=== PATIENT | female | born 1950 | race Caucasian/White ===

== ENCOUNTER 2024-07-02 11:20 | Observation (INO) | payer MEDICARE, OTHER ==
--- OUTSIDE RECORDS SUMMARY | 2024-07-02 11:45 | XMS REPORT | Continuity of Care Document ---
Author Name Unknown Address [address] [facility] [address]. [address] [place] [address] [facility] thconnect Address [address] [facility]. [address] [place] [address] Care Team Providers Care Cardiac Cath Rn Name Role Phone Tai Velarde MD Primary Care Physician + [phone] KIYA AUGUST Attending Clinician Unavailable ROSA M KRISHNA Attending Clinician Unavaila ROSA M Harris Attending Clinician Unavaila YANIV Robertson Attending Clinician Unavailable TAI VELARDE Attending Clinician Unavailable GORAN DEGROOT Attending Clinician Unavailable GORAN DEGROOT Attending Clinician Unavailable Tai Velarde MD Attending Clinician [phone] Doctor Unassigned, [address] Attending Clinician U Luz Bryant Attending Clinician Unavailab lopez 2, [facility] Attending Clinician Unavailable Codie Mitchell MD Attending Clinician [phone] David Velasquez MD Attending Clinician [phone] Yuko Dunn MA Attending Clinician UnavailGoran Pritchett MD Attending Clinician [phone] DORCAS KAM Attending Clinician Unavailable Brendan Burgos MDin g Clinician Kam MD, Dorcas Attending Clinician [phone] Chase VILLAFUERTE, Nannette Attending Clinician [phone] NANNETTE STONE Attending Clinician Unavailable BRIAN VIEIRA Attending Clinician Unavailable Pob, [facility] Main Attending Clinician Unavailabl e OBI-MARLON, DAVID Attending Clinician Unavailab le OBI-MARLON, DAVID Attending Clinician Unavailab john Bedolla RN, Gladys Quintero Attending Clinician Unavail able JASVIR HOWE Attending Clinician Unavailable Tu VILLAFUERTE, Sebastian Pérez Attending Clinician [phone] Jasvir Howe DO Attending Clinician [phone] Anthony VILLAFUERTE, Yaniv Attending Clinician +[phone] Kiya August MD Attending Clinician [phone] Erendira VILLAFUERTE, Rosa M John Attending Clinician + [phone] HUY PATTON Attending Clinician Unavailable HUY PATTON Attending Clinician Unavailable Pooja VILLAFUERTE, Huy Attending Clinician [phone] DIOGENES ALLEN Attending Clinician Unavailab DIOGENES Borrero Attending Clinician Unavailab john Allen CALENDER INSPECTOR, Diogenes Attending Clinician [phone] Rehab, [facility] Cardiac Attending Clinician Unavailab john Cruz MD, Yaniv Attending Clinician [phone] Pob, [facility] Main Attending Clinician UnavailTai Chapman MD Attending Clinician [phone] Natty Kim Attending Clinician + Brian Vieira MD Attending Clinician [phone] NATTY JIMENEZ Attending Clinician Unavailable MONIQUE VARGHESE Attending Clinician Unavaila MONIQUE Whitley Attending Clinician Unavaila EDSON Heath Attending Clinician Unavailable Jose G Nixon MD Attending Clinician [phone] Daniela Holder MD Attending Clinician [phone] Gabriele Lebron MD Attending Clinician +[phone] GETACHEW SANTILLAN Attending Clinician Unavailab GETACHEW Peña Attending Clinician Unavailab le Doctor Unassigned, [address] Attending Clinician U navailable 2, [facility] Attending Clinician Unavailable Kiya August MD Attending Clinician [phone] SHANTELLE VIEIRA Attending Clinician Unavailable SHANTELLE VIEIRA Attending Clinician Unavailable SANJANA QUIROZ Attending Clinician Unavailallison Hernandez MD, Melissa Attending Clinician + MELISSA HERNANDEZ Attending Clinician UnaZaira Martin Attending Clinician +[phone] PRESLEY LEON Attending Clinician Unavailable PRESLEY LEON Attending Clinician Unavailable Edson Lombardo MD Attending Clinician [phone] Codie Mitchell MD Attending Clinician [phone] CODIE MITCHELL Attending Clinician Unavailmiladys Burgos MD, Brendan Montanez [facility] Attendin g Clinician Sherman Fair MD Attending Clinician [phone] JESSICA COLON Attending Clinician Unavailab Jessica Garcia DO Attending Clinician +[phone] Visit, [facility] Nurse Attending Clinician Unavailable DEDRA KIDD Attending Clinician Unavailable Erendira VILLAFUERTE, Rosa M John Attending Clinician + [phone] Dedra Kidd MD Attending Clinician [phone] CINDY ARCHIBALD Attending Clinician Unavailable Vaccine, [facility] Family Medicine Attending Clinician Unavailable KATH CENTENO Attending Clinician UnaKath Salas MD Attending Clinician [phone] HENRY DEE Attending Clinician UnavailHenry Cabrera MD Attending Clinician + [phone] REY DWYER Attending Clinician UnavailRey Riley MD Attending Clinician [phone] CODIE MARIE Attending Clinician Lance Marie MD, Codie Ch Attending Clinician + [phone] Only, Adc Test Attending Clinician Unavailable Angélica Christopher Attending Clinician +[phone] ANGÉLICA GOSS Attending Clinician Unavailmiladys Vaughan MD, Brody Attending Clinician [phone] BRODY VAUGHAN Attending Clinician Unavailable Kimani Caputo DO Attending Clinician [phone] Lakisha PT, Nery Attending Clinician Unavailab john Pack WIND TURBINE MECHANIC, Zina Washington Attending Clinician Unavail able Thea BARRIOSP, Dunia Cooper Attending Clinician [phone] Ramone WIND TURBINE MECHANIC, Sebastian F Attending Clinician Unavaila jaime Huddleston PT, Bonnie Max Attending Clinician Unavailab john Henderson PT, Trinh Attending Clinician Un available KARLA WORKMAN Attending Clinician Unavailab john Pc, [facility] Echo Room 1 - Attending Clinician KIYA Patel Admitting Clinician Unavailable BRENDAN BURGOS Admitting C linician Unavailable Aubrey VILLAFUERTE, Brendan max Clinician NANNETTE STONE Admitting Clinician Unavailable JASVIR HOWE Admitting Clinician Unavailable Jasvir Howe DO Admitting Clinician [phone] BRIAN VIEIRA Admitting Clinician Unavailable PRESLEY LEON Admitting Clinician Unavailable GETACHEW SANTILLAN Admitting Clinician Unavailab Brian Corral MD Admitting Clinician [phone] YANIV CRUZ Admitting Clinician Unavailable KATH CENTENO Admitting Clinician Unava HENRY Tomas Admitting Clinician UnavailCODIE Schulte Admitting Clinician Lance Marie MD, Codie Ch Admitting Clinician + [phone] Kiya August MD Admitting Clinician +[phone] REY DWYER Admitting Clinician Unavailmiladys littlejohn Payers Payer Name Policy Type Policy Number Effective Date Expirati on Date Source [employer]AGE [id number] 2019 00:00:00 [facility] [id number] 2019 00:00:00 Problems Condition Name Condition Details Condition Category Status Onset Date Resolution Date Last Treatment Date Treating Clinician Comments Source Paroxysmal atrial fibrillati on Paroxysmal atrial fibrillati on Disease Active 2023-05 0-30 00:00: 00 [facility] PAF (paroxysma l atrial fibrillati on) PAF (paroxysma l atrial fibrillati on) Disease Active 2023-05 0-26 00:00: 00 [facility] Atrial fibrillati on with rapid ventricula r response Atrial fibrillati on with rapid ventricula r response Disease Active 2023-05 0-24 00:00: 00 [facility] Class 1 obesity due to excess calories with serious comorbidit y and body mass index (BMI) of 34.0 to 34.9 in adult Class 1 obesity due to excess calories with serious comorbidit y and body mass index (BMI) of 34.0 to 34.9 in adult Disease Active 8-16 00:00: 00 [facility] History of transcathe ter aortic valve replacemen t (TAVR) History of transcathe ter aortic valve replacemen t (TAVR) Disease Active 4-15 00:00: 00 [facility] At risk for falls At risk for falls Disease Active 4- 00:00: 00 [facility] Unspecifie d abnormalit ies of gait and mobility Unspecifie d abnormalit ies of gait and mobility Disease Active 4- 00:00: 00 [facility] Reactive depression Reactive depression Disease Active 2-16 00:00: 00 [facility] Aortic valve stenosis, etiology of cardiac valve disease unspecifie d Aortic valve stenosis, etiology of cardiac valve disease unspecifie d Disease Active 1-26 00:00: 00 [facility] Aortic valve stenosis Aortic valve stenosis Disease Active 2022-05 2-18 00:00: 00 [facility] Pulmonary nodule Pulmonary nodule Disease Active 2022-05 1- 00:00: 00 [facility] Mild cardiomega ly Mild cardiomega ly Disease Active 2022-05 00:00: 00 [facility] Chronic iron deficiency anemia Chronic iron deficiency anemia Disease Active 2022-05 1 00:00: 00 [facility] Coronary artery disease involving [place] coronary artery of [place] heart without angina pectoris Coronary artery disease involving [place] coronary artery of [place] heart without angina pectoris Disease Active 2022-05 1-07 00:00: 00 [facility] Moderate to severe aortic stenosis Moderate to severe aortic stenosis Disease Active 8-21 00:00: 00 [facility] Unstable angina Unstable angina Disease Active 8-21 00:00: 00 [facility] Pulmonary hypertensi on Pulmonary hypertensi on Disease Active 6- 00:00: 00 [facility] Proteinuri a Proteinuri a Disease Recurre nce 4-17 00:00: 00 [facility] Stress bladder incontinen ce, female Stress bladder incontinen ce, female Disease Active 1-03 00:00: 00 [facility] Sleeping difficulty Sleeping difficulty Disease Active 5-06 00:00: 00 [facility] Night sweats Night sweats Disease Active 5- 00:00: 00 [facility] Anxiety, generalize d Anxiety, generalize d Disease Active 5-06 00:00: 00 [facility] 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 Disease Active 5- 00:00: 00 [facility] Chronic gout without tophus, unspecifie d cause, unspecifie d site Chronic gout without tophus, unspecifie d cause, unspecifie d site Disease Active 2020-05 1-30 00:00: 00 [facility] Venous insufficie ncy Venous insufficie ncy Disease Active 2020-05 0-15 00:00: 00 [facility] Arthritis, multiple joint involvemen t Arthritis, multiple joint involvemen t Disease Active 2020-05 0-13 00:00: 00 [facility] Flu vaccine need Flu vaccine need Disease Active 2020-05 0-13 00:00: 00 [facility] Gouty arthritis of right foot Gouty arthritis of right foot Disease Active 5- 00:00: 00 [facility] Chronic heart failure with preserved ejection fraction Chronic heart failure with preserved ejection fraction Disease Active 4-14 00:00: 00 [facility] Aortic stenosis, moderate Aortic stenosis, moderate Disease Active 4-14 00:00: 00 [facility] Constipati on, slow transit Constipati on, slow transit Disease Active 3-03 00:00: 00 [facility] CKD stage G3b/A3, GFR 30-44 and albumin creatinine ratio >300 mg/g CKD stage G3b/A3, GFR 30-44 and albumin creatinine ratio >300 mg/g Disease Active 3-03 00:00: 00 [facility] Grade II internal hemorrhoid s Grade II internal hemorrhoid s Disease Active 2-25 00:00: 00 [facility] Leg swelling Leg swelling Disease Active 2-25 00:00: 00 [facility] Aortic stenosis, mild Aortic stenosis, mild Disease Active 2-25 00:00: 00 [facility] Lipoma of colon Lipoma of colon Disease Active 2-25 00:00: 00 [facility] Lipoma of colon Lipoma of colon Disease Active 2-25 00:00: 00 [facility] History of colon polyps History of colon polyps Disease Active 2019-05 00:00: 00 Overview: Formattin g of this note might be different from the original. Added automatic ally from request for surgery [id number] [facility] Other chronic pain Other chronic pain Disease Active 2019-05 0- 00:00: 00 [facility] Abnormalit y of gait Abnormalit y of gait Disease Active 2019-05 0 00:00: 00 [facility] Chronic midline low back pain with right-side d sciatica Chronic midline low back pain with right-side d sciatica Disease Active 2019-05 00:00: 00 [facility] Bilateral knee pain Bilateral knee pain Disease Active 2019-05 0 00:00: 00 [facility] Bilateral knee pain Bilateral knee pain Disease Active 2019-05 0- 00:00: 00 [facility] Bradycardi a Bradycardi a Disease Active 8-11 00:00: 00 [facility] Screening for diabetes mellitus Screening for diabetes mellitus Disease Active 8-11 00:00: 00 [facility] Dupuytren' s contractur e Dupuytren' s contractur e Disease Active 5-08 00:00: 00 [facility] Kidney stone Kidney stone Disease Active 10-25 00:00: 00 Overview: Formattin g of this note might be different from the original. Added automatic ally from request for surgery [id number] [facility] E. coli UTI (urinary tract infection) E. coli UTI (urinary tract infection) Disease Active 10-25 00:00: 00 Overview: Formattin g of this note might be different from the original. Added automatic ally from request for surgery [id number] [facility] Recurrent UTI Recurrent UTI Disease Active 10-25 00:00: 00 Overview: Formattin g of this note might be different from the original. Added automatic ally from request for surgery [id number] [facility] Obesity (BMI 30-39.9) Obesity (BMI 30-39.9) Disease Active 3-27 00:00: 00 [facility] SOULEYMANE (obstructi ve sleep apnea) SOULEYMANE (obstructi ve sleep apnea) Disease Active 2015-05 0-15 00:00: 00 [facility] Essential hypertensi on Essential hypertensi on Disease Active Overview: Formattin g of this note might be different from the original. was diastolic , now systolic [facility] Arthritis Arthritis Disease Active [facility] Hyperlipid emia Hyperlipid emia Disease Active Overview: Formattin g of this note might be different from the original. high TG, changed diet [facility] Hypothyroi dism Hypothyroi dism Disease Active Overview: Formattin g of this note might be different from the original. since 1986 [facility] LORETO (acute kidney injury) LORETO (acute kidney injury) Disease Resolve d 4-14 00:00: 00 2021-12-01 00:00:00 2021-12-01 18:51:10 [facility] Thyroid disease Thyroid disease Disease Resolve d 2016-02-21 00:00:00 2021-11-22 00:40:54 [facility] Tuberculos is Tuberculos is Disease Resolve d 2015-10-11 00:00:00 2021-11-22 00:40:54 [facility] Allergies, Adverse Reactions, Alerts Allergy Name Allergy Type Status Severity Reaction(s) Onset Date Inactive Date Treating Clinician Comments Source FENOFIBR ATE DRUG INGREDI Active Low Rash 2018-05 00:00: 00 [facility] Fenofibr ate Propensi ty to adverse reaction s Active Rash 2018-05 00:00: 00 [facility] FENOFIBR ATE MICRONIZ ED DRUG Active Rash 2018-05 00:00: 00 [facility] Fenofibr ate Microniz ed Propensi ty to adverse reaction s Active Rash 2018-05 00:00: 00 [facility] SULFAMET HOXAZOLE DRUG INGREDI Active Low Rash 05-29 00:00: 00 [facility] TRIMETHO PRIM DRUG INGREDI Active Low Rash 05-29 00:00: 00 [facility] Sulfamet hoxazole Propensi ty to adverse reaction s Active Rash 05-29 00:00: 00 [facility] Trimetho prim Propensi ty to adverse reaction s Active Rash 05-29 00:00: 00 [facility] Social History Social Habit Start Date Stop Date Quantity Comments Source [facility] History of tobacco use Cigarette Smoker [facility] Alcoholic beverage intake 2024-06-22 00:00:00 2024-06-22 00:00:00 0 /d [facility] History of Social function 2024-06-22 00:00:00 2024-06-22 00:00:00 [facility] Tobacco use and exposure 2024-05-18 00:00:00 2024-05-18 00:00:00 Smokeless tobacco non-user [facility] Alcohol intake 2023-08-08 00:00:00 2023-08-08 00:00:00 0 /d [facility] Tobacco Comment 2023-05-20 00:00:00 2023-05-20 00:00:00 Patient quit smoking so time ago [facility] Exposure to SARS-CoV-2 (event) 2022-09-16 00:00:00 2022-09-26 07:55:00 Not sure [facility] Sex assigned at 1950 00:00:00 1950 00:00:00 [facility] Smoking Status Start Date Stop Date Source Ex-smoker 2024-05-18 00:00:00 2024-05[facility]18 [facility] Ordered Medication Name Filled Medication Name Start Date Stop Date Current Medication? Ordering Clinician Indication Dosage Frequency Signature (SIG) Comments Components Source lisinopriL 40 mg tablet 06-22 00:00: 00 Yes [id number] 40mg Take 1 tablet by mouth in the morning. [facility] levothyroxi ne 88 mcg tablet 06-22 00:00: 00 Yes [id number] 88ug Take 1 tablet by mouth every morning. [facility] hydroCHLORO thiazide 25 mg tablet 06-22 00:00: 00 Yes [id number] 25mg Take 1 tablet by mouth every morning. [facility] allopurinoL 100 mg tablet 06-22 00:00: 00 Yes [id number] 100mg Take 1 tablet by mouth at bedtime. [facility] DULoxetine 30 mg capsule 06-19 00:00: 00 Yes [id number] 30mg Take 1 capsule by mouth in the morning. [facility] EZETIMIBE 10 mg tablet 06-14 00:00: 00 Yes [id number] 10mg TAKE 1 TABLET BY MOUTH IN THE MORNING [facility] carvediloL (COREG) tablet 6.25 mg 05-19 17:15: 00 05-20 01:33 :55 No 6.25mg 6.25 mg, Oral, BID MEALS, First dose (after last modificati on) on 05/19/24 at 1115, Until Discontinu ed, Routine [facility] perflutren lipid microsphere s (DEFINITY) injection 2 mL 05-19 15:00: 00 05-19 14:40 :00 No [id number] 2mL 2 mL, IV Push, ONCE, 1 dose, On 05/19/24 at 0900, Routine [facility] sennosides (SENOKOT) tablet 8.6 mg 05-19 15:00: 00 05-19 23:33 :53 No 8.6mg 8.6 mg, Oral, DAILY, First dose on 05/19/24 at 0900, Until Discontinu ed, Routine [facility] lisinopriL (PRINIVIL,Z ESTRIL) tablet 40 mg 05-19 15:00: 00 05-19 23:33 :53 No 40mg 40 mg, Oral, DAILY, First dose on 05/19/24 at 0900, Until Discontinu ed [facility] hydroCHLORO thiazide (ESIDRIX) tablet 25 mg 05-19 15:00: 00 05-19 23:33 :53 No 25mg 25 mg, Oral, QAM, First dose on 05/19/24 at 0900, Until Discontinu ed, Routine [facility] ezetimibe (ZETIA) tablet 10 mg 05-19 15:00: 00 05-19 23:33 :53 No 10mg 10 mg, Oral, DAILY, First dose on 05/19/24 at 0900, Until Discontinu ed, Routine [facility] DULoxetine (CYMBALTA) capsule 30 mg 05-19 15:00: 00 05-19 23:33 :53 No 30mg 30 mg, Oral, DAILY, First dose on 05/19/24 at 0900, Until Discontinu ed, Routine [facility] atorvastati n (LIPITOR) tablet 80 mg 05-19 15:00: 00 05-19 23:33 :53 No 80mg 80 mg, Oral, DAILY, First dose on 05/19/24 at 0900, Until Discontinu ed, Routine Univers [facility] aspirin chewable tablet 81 mg 05-19 15:00: 00 05-19 23:33 :53 No 81mg 81 mg, Oral, DAILY, First dose on 05/19/24 at 0900, Until Discontinu ed, Routine Univers [facility] amLODIPine (NORVASC) tablet 10 mg 05-19 15:00: 00 05-19 23:33 :53 No 10mg 10 mg, Oral, DAILY, First dose on 05/19/24 at 0900, Until Discontinu ed, Routine Univers [facility] magnesium sulfate in water 2 gram/50 mL (4 %) infusion 2 g 05-19 12:45: 00 05-19 14:32 :00 No 2g 2 g, IV Piggyback, Administer over 60 Minutes, ONCE, 1 dose, On 05/19/24 at 0645, Routine Univers [facility] levothyroxi ne (SYNTHROID) tablet 88 mcg 05-19 12:00: 00 05-19 23:33 :53 No 88ug 88 mcg, Oral, QAM-0600, First dose on Tue05/19/24 at 0600, Until Discontinu ed, Routine [facility] apixaban (ELIQUIS) tablet 5 mg 05-19 05:00: 00 05-19 23:33 :53 No [id number] 5mg 5 mg, Oral, BID, First dose on Tue05/18/24 at 2300, Until Discontinu ed, Routine, Indication s: Non-Valvul ar Atrial Fibrillati on [facility] allopurinoL (ZYLOPRIM) tablet 100 mg 05-19 03:00: 00 05-19 23:33 :53 No 100mg 100 mg, Oral, QHS, First dose on Tue05/18/24 at 2100, Until Discontinu ed, Routine Univers [facility] acetaminoph en (TYLENOL) tablet 650 mg 05-19 02:22: 51 05-19 23:33 :53 No 650mg 650 mg, Oral, Q6HPRN, Starting on Tue05/18/24 at 2022, Until 05/19/24 at 1733, Routine, Pain (scale 1-3) [facility] carvediloL 6.25 mg tablet 05-19 00:00: 00 Yes [id number] 6.25mg Take 1 tablet by mouth in the morning and 1 tablet in the evening. Take with meals. [facility] apixaban (ELIQUIS) 5 mg tablet 05-19 00:00: 00 Yes [id number] 5mg Take 1 tablet by mouth in the morning and 1 tablet in the evening. Indication s: prevention of thromboemb olism in paroxysmal atrial fibrillati on [facility] lidocaine 1% (XYLOCAINE) 10 mg/mL (1 %) injection 05-18 22:57: 26 05-19 00:34 :13 No ONCE INTRA PROCEDURE, Starting on Tue05/18/24 at 1657, Until Tue05/18/24 at 1834, Routine, CV Intraproce dure [facility] amLODIPine 10 mg tablet 2023-05 00:00: 00 Yes [id number] 10mg Take 1 tablet by mouth in the morning. [facility] traMADoL 50 mg tablet 2023-05 00:00: 00 Yes [id number] TAKE 1 TABLET BY MOUTH TWICE DAILY NEEDED FOR ARTHRITIS PAIN OR CHRONIC PAIN Indication s: chronic pain [facility] carvediloL 12.5 mg tablet 2023-05 00:00: 00 05-19 00:00 :00 No [id number] 12.5mg Take 1 tablet by mouth in the morning and 1 tablet in the evening. Take with meals. [facility] apixaban (ELIQUIS) 5 mg tablet 2023-05 00:00: 00 05-19 00:00 :00 No [id number] 5mg Take 1 tablet by mouth in the morning and 1 tablet in the evening. Indication s: prevention of thromboemb olism in paroxysmal atrial fibrillati on [facility] DULoxetine 30 mg capsule 2023-05 1-07 00:00: 00 06-19 00:00 :00 No [id number] 30mg Take 1 capsule by mouth in the morning. [facility] amLODIPine 5 mg tablet 2023-0531 00:00: 00 04-30 00:00 :00 No [id number] 10mg Take 2 tablets by mouth in the morning. [facility] amLODIPine (NORVASC) tablet 10 mg 2023-05 14:00: 00 03-03 17:56 :46 No 10mg 10 mg, Oral, DAILY, First dose (after last modificati on) on 03/04/24 at 0900, Until Discontinu ed, Routine [facility] hydroCHLORO thiazide (ESIDRIX) tablet 25 mg 2023-05 14:00: 00 03-03 17:56 :46 No 25mg 25 mg, Oral, DAILY, First dose on 03/03/24 at 0900, Until Discontinu ed, Routine [facility] carvediloL 12.5 mg tablet 2023-05 00:00: 00 04-02 00:00 :00 No [id number] 12.5mg Take 1 tablet by mouth in the morning and 1 tablet in the evening. Take with meals. Do all this for 30 days. [facility] apixaban (ELIQUIS) 5 mg tablet 2023-05 00:00: 00 04-02 00:00 :00 No [id number] 5mg Take 1 tablet by mouth in the morning and 1 tablet in the evening. Do all this for 30 days. Indication s: prevention of thromboemb olism in paroxysmal atrial fibrillati on [facility] amLODIPine (NORVASC) tablet 5 mg 2023-05 00:00: 00 03-03 13:51 :24 No 5mg 5 mg, Oral, DAILY, First dose (after last modificati on) on 03/02/24 at 1900, Until Discontinu ed, Routine [facility] lisinopriL (PRINIVIL,Z ESTRIL) tablet 40 mg 2023-05 14:00: 00 03-03 17:56 :46 No 40mg 40 mg, Oral, DAILY, First dose on Tue03/02/24 at 0900, Until Discontinu ed [facility] ezetimibe (ZETIA) tablet 10 mg 2023-05 14:00: 00 03-03 17:56 :46 No 10mg 10 mg, Oral, DAILY, First dose on Tue03/02/24 at 0900, Until Discontinu ed, Routine [facility] DULoxetine (CYMBALTA) capsule 30 mg 2023-05 14:00: 00 03-03 17:56 :46 No 30mg 30 mg, Oral, DAILY, First dose on Tue03/02/24 at 0900, Until Discontinu ed, Routine [facility] atorvastati n (LIPITOR) tablet 80 mg 2023-05 14:00: 00 03-03 17:56 :46 No 80mg 80 mg, Oral, DAILY, First dose on Tue03/02/24 at 0900, Until Discontinu ed, Routine [facility] allopurinoL (ZYLOPRIM) tablet 100 mg 2023-05 14:00: 00 03-03 17:56 :46 No 100mg 100 mg, Oral, DAILY, First dose on Tue03/02/24 at 0900, Until Discontinu ed, Routine [facility] amLODIPine (NORVASC) tablet 5 mg 2023-05 14:00: 00 03-02 22:30 :36 No 5mg 5 mg, Oral, DAILY, First dose on Tue03/02/24 at 0900, Until Discontinu ed, Routine [facility] carvediloL (COREG) tablet 12.5 mg 2023-05 13:00: 00 Yes 12.5mg 12.5 mg, Oral, BID MEALS, First dose (after last modificati on) on Tue03/02/24 at 0800, Until Discontinu ed, Routine [facility] KCL (KLOR-CON M20) tablet 40 mEq 2023-05 13:00: 00 03-03 00:30 :00 No 40meq 40 mEq, Oral, BID, 2 doses, First dose on Tue03/02/24 at 0800, Last dose on Tue03/02/24 at 1999, Routine [facility] levothyroxi ne (SYNTHROID) tablet 88 mcg 2023-05 11:00: 00 03-03 17:56 :46 No 88ug 88 mcg, Oral, QAM-0600, First dose on Tue03/02/24 at 0600, Until Discontinu ed, Routine [facility] enoxaparin (LOVENOX) injection 100 mg 2023-05 01:00: 00 03-03 17:56 :46 No 1mg/kg 100 mg (rounded from 98.4 mg = 1 mg/kg ?98.4 kg), Subcutaneo us, Q12H, First dose on Tue03/01/24 at 1999, Until Discontinu ed, Routine [facility] traMADoL (ULTRAM) tablet 50 mg 2023-05 23:41: 51 03-03 17:56 :46 No [id number] 50mg [facility] metoprolol (LOPRESSOR) injection 5 mg 2023-05 23:00: 00 03-01 22:38 :00 No 5mg 5 mg, Slow IV Push, ONCE, 1 dose, On Tue03/01/24 at 1800, Routine [facility] diltiazem (CARDIZEM IV) 125 mg in D5W infusion 2023-05 20:50: 55 03-02 22:38 :01 No 2.5mg/h 2.5-15 mg/hr (2.5-15 mL/hr), IV Infusion, TITRATE, HR <110, Starting on Tue03/01/24 at 1550, Initiate infusion at 2.5 mg/hr. Titrate by 2.5 mg/hr every 5 minutes to 15 minutes as needed to achieve and maintain goal heart rate. Maximum dose = 15 mg/hr. If goal not maintained at maximum allowed dose, contact prescriber . [facility] diltiazem (CARDIZEM IV) injection 24.5 mg 2023-05 20:45: 00 03-01 20:17 :00 No .25mg/k g 24.5 mg (rounded from 24.6 mg = 0.25 mg/kg ?98.4 kg), IV Push, ONCE, 1 dose, On Chana 03/01/24 at 1545, Routine [facility] NaCl 0.9% (NS) bolus infusion 1,000 mL 2023-05 17:45: 00 03-01 19:59 :00 No 1000mL at 999 mL/hr, 1,000 mL, IV Infusion, ONCE, 1 dose, On Chana 03/01/24 at 1245, NILDA [facility] diltiazem (CARDIZEM IV) injection 20 mg 2023-05 17:30: 00 03-01 17:45 :00 No 20mg 20 mg, IV Push, ONCE, 1 dose, On Chana 03/01/24 at 1230, STAT [facility] atorvastati n 80 mg tablet 2023-05 00:00: 00 Yes [id number] 80mg Take 1 tablet by mouth in the morning. [facility] lisinopriL 40 mg tablet 01-17 00:00: 00 06-22 00:00 :00 No [id number] 40mg Take 1 tablet by mouth in the morning. [facility] ferrous sulfate (FEROSUL) 325 mg (65 mg iron) tablet 12-22 00:00: 00 05-19 00:00 :00 No [id number] TAKE 1 TABLET BY MOUTH EVERY MORNING AND 1 TABLET EVERY EVENING [facility] Vit B Cplx #[id number] ot-Zinc (DIALYVITE) 1-100-300-5 0 mg-mg-mcg-m g Tab 12-22 00:00: 00 03-01 00:00 :00 No [id number] 1{tbl} Take 1 tablet by mouth in the morning. [facility] atorvastati n 40 mg tablet 2024-0 6-07 00:00: 00 02-20 00:00 :00 No [id number] 40mg TAKE 1 TABLET BY MOUTH AT BEDTIME [facility] lisinopriL 20 mg tablet 6-05 00:00: 00 01-17 00:00 :00 No [id number] 20mg Take 1 tablet by mouth in the morning. [facility] EZETIMIBE 10 mg tablet 5-27 00:00: 00 06-14 00:00 :00 No [id number] 10mg TAKE 1 TABLET BY MOUTH IN THE MORNING [facility] HYDROCHLORO THIAZIDE 25 mg tablet 4-15 00:00: 00 06-22 00:00 :00 No [id number] 25mg TAKE 1 TABLET BY MOUTH IN THE MORNING [facility] aspirin 81 mg chewable tablet 08-01 00:00: 00 Yes [id number] 81mg Take 1 tablet by mouth in the morning. [facility] levothyroxi ne 88 mcg tablet 08-01 00:00: 00 06-22 00:00 :00 No [id number] 88ug Take 1 tablet by mouth every morning. [facility] amLODIPine 5 mg tablet 08-01 00:00: 00 03-08 00:00 :00 No [id number] 5mg Take 1 tablet by mouth in the morning. [facility] lisinopriL 40 mg tablet 08-01 00:00: 00 10-11 00:00 :00 No [id number] 40mg Take 1 tablet by mouth in the morning. [facility] spironolact one 25 mg tablet 0 -26 00:00: 00 10-11 00:00 :00 No [id number] 25mg Take 1 tablet by mouth in the morning. [facility] carvediloL 6.25 mg tablet 2023-0 3-25 00:00: 00 03-03 00:00 :00 No [id number] 6.25mg Take 1 tablet by mouth in the morning and 1 tablet in the evening. Take with meals. [facility] ceFEPIme (MAXIPIME) 1,000 mg in NaCl 0.9% (NS) 100 mL MINI-BAG 07-29 04:15: 00 08-02 04:14 :00 No 1000mg 1,000 mg, IV Piggyback, Q8H ABX, 12 doses, First dose on Tue07/29/23 at 2315, Last dose on Tue08/02/23 at 1515, Administer over 4 Hours, 100 mL
Reas on for Anti-Infec tive: Empiric Therapy for Suspected Infection< br>Empiric Therapy Site: Urine
D uration of therapy: 5 days [facility] heparin (porcine) injection 5,000 Units 07-29 01:00: 00 Yes 5000U 5,000 Units, Subcutaneo us, Q12H, First dose on Tue07/29/23 at 2000, Until Discontinu ed, Routine [facility] carvediloL (COREG) tablet 3.125 mg 07-28 22:00: 00 Yes 3.125mg 3.125 mg, Oral, BID MEALS, First dose (after last modificati on) on Tue07/29/23 at 1700, Until Discontinu ed, Routine [facility] vancomycin (VANCOCIN) 1,500 mg in NaCl 0.9% (NS) 500 mL VIAL-MATE IV piggyback 07-28 20:30: 00 08-01 20:29 :00 No 15mg/kg 1,500 mg (rounded from 1,461 mg = 15 mg/kg ?97.4 kg), IV Piggyback, Q12H ABX, 8 doses, First dose (after last modificati on) on Tue07/29/23 at 1530, Last dose on Tue08/02/23 at 0330, Administer over 90 Minutes, 500 mL
Reas on for Anti-Infec tive: Empiric Non-Surgic al Prophylaxi s
Durat ion of therapy: 72 hours [facility] spironolact one (ALDACTONE) tablet 25 mg 07-28 17:00: 00 Yes 25mg 25 mg, Oral, DAILY, First dose on Tue07/29/23 at 1200, Until Discontinu ed, Routine [facility] colchicine (COLCRYS) tablet 0.6 mg 07-28 15:00: 00 Yes .6mg 0.6 mg, Oral, DAILY, First dose on Tue07/29/23 at 1000, Until Discontinu ed, Routine [facility] lisinopriL (PRINIVIL,Z ESTRIL) tablet 20 mg 07-28 14:00: 00 Yes 20mg 20 mg, Oral, DAILY, First dose on Tue07/29/23 at 0900, Until Discontinu ed, Routine [facility] ezetimibe (ZETIA) tablet 10 mg 07-28 14:00: 00 Yes 10mg 10 mg, Oral, DAILY, First dose on Tue07/29/23 at 0900, Until Discontinu ed, Routine [facility] levothyroxi ne (SYNTHROID) tablet 88 mcg 07-28 11:00: 00 Yes 88ug 88 mcg, Oral, QAM-0600, First dose on Tue07/29/23 at 0600, Until Discontinu ed, Routine [facility] ondansetron (ZOFRAN (PF)) injection 4 mg 07-28 06:39: 39 Yes 4mg 4 mg, Slow IV Push, Q6HPRN, Nausea and Vomiting (N/V), Starting on Tue07/29/23 at 0139
Do ses of ondansetro n 16 mg and above need to be administer ed via IV piggyback. For Dose >=24mg ECG monitoring is advisable.
[facility] HYDROcodone -acetaminop hen (NORCO 5) 5-325 mg tablet 1 tablet 07-28 03:57: 35 Yes 1{tbl} 1 tablet, Oral, Q6HPRN, Starting on Tue07/28/23 at 2257, Until Discontinu ed, Routine, Pain (scale 4-6) [facility] atorvastati n (LIPITOR) tablet 40 mg 07-28 02:00: 00 Yes 40mg 40 mg, Oral, QHS, First dose on Chana 07/28/23 at 2100, Until Discontinu ed, Routine [facility] allopurinoL (ZYLOPRIM) tablet 100 mg 07-27 19:45: 00 Yes 100mg 100 mg, Oral, DAILY, First dose on Chana 07/28/23 at 1445, Until Discontinu ed, Routine [facility] clopidogre[facility] (PLAVIX) 75 mg tablet 75 mg 07-27 19:45: 00 Yes 75mg 75 mg, Oral, DAILY, First dose on Chana 07/28/23 at 1445, Until Discontinu ed, Routine [facility] chewable tablet 81 mg 07-27 19:45: 00 Yes 81mg 81 mg, Oral, DAILY, First dose on Chana 07/28/23 at 1445, Until Discontinu ed, Routine [facility] acetaminoph [facility] (TYLENOL) tablet 650 mg 07-27 18:51: 41 Yes 650mg 650 mg, Oral, Q6HPRN, Starting on Chana 07/28/23 at 1351, Until Discontinu ed, Routine, Pain (scale 1-3) [facility] iodixanoL (VISIPAQUE 270-150 mL) injection 07-27 16:07: 00 07-27 16:59 :22 No PRN, Starting on Chana 07/28/23 at 1107, Until Chana 07/28/23 at 1159, Routine, Intra-op [facility] calcium chloride 100 mg/mL (10 %) syringe 07-27 14:50: 00 07-27 16:13 :47 No Intravenou s, ONCE INTRA PROCEDURE, Starting on Chana 07/28/23 at 0950, Until Chana 07/28/23 at 1113, Routine, Intra-op [facility] protamine injection 07-27 14:40: 00 07-27 16:13 :47 No Intravenou s, ONCE INTRA PROCEDURE, Starting on Chana 07/28/23 at 0940, Until Chana 07/28/23 at 1113, Routine, Intra-op [facility] NORepinephr ine (LEVOPHED) 4 mg in NaCl 0.9% (NS) 250 mL infusion 07-27 14:37: 00 07-27 16:13 :47 No IV Infusion, CONTINUOUS PRN, Starting on Chana 07/28/23 at 0937, Intra-op [facility] heparin (1,000 unit/mL, 10 mL vial) 07-27 13:54: 00 07-27 16:13 :47 No ONCE INTRA PROCEDURE, Starting on Chana 07/28/23 at 0854, Until Chana 07/28/23 at 1113, Routine, Intra-op [facility] ceFAZolin (ANCEF) injection 07-27 13:05: 00 07-27 16:13 :47 No Slow IV Push, ONCE INTRA PROCEDURE, Starting on Chana 07/28/23 at 0805, Until Chana 07/28/23 at 1113, NILDA, [facility] phenylephri [facility] (VAZCULEP) injection 07-27 12:22: 00 07-27 16:13 :47 No Slow IV Push, CONTINUOUS PRN, Starting on Chana 07/28/23 at 0722, Until Discontinu ed, Routine, Intra-op [facility] electrolyte -A (PLASMALYTE -A) IV infusion 07-27 12:20: 00 07-27 16:13 :47 No IV Infusion, CONTINUOUS PRN, Starting on Chana 07/28/23 at 0720, Until Chana 07/28/23 at 1113, Routine, Intra-op [facility] propofoL IV infusion 07-27 12:20: 00 07-27 16:13 :47 No IV Infusion, CONTINUOUS PRN, Starting on Chana 07/28/23 at 0720, Until Discontinu ed, Routine, Intra-op [facility] FENTanyl PF (SUBLIMAZE (PF)) injection 07-27 12:18: 00 07-27 16:13 :47 No Intravenou s, ONCE INTRA PROCEDURE, Starting on Chana 07/28/23 at 0718, Until Discontinu ed, Routine, Intra-op [facility] electrolyte -A (PLASMALYTE -A) IV infusion 07-27 12:13: 00 07-27 16:13 :47 No IV Infusion, CONTINUOUS PRN, Starting on Chana 07/28/23 at 0713, Until Chana 07/28/23 at 1113, Routine, Intra-op [facility] lactated ringers IV infusion 07-27 12:13: 00 07-27 16:13 :47 No IV Infusion, CONTINUOUS PRN, Starting on Chana 07/28/23 at 0713, Until Chana 07/28/23 at 1113, Routine, Intra-op [facility] midazolam (VERSED) injection 07-27 12:13: 00 07-27 16:13 :47 No IV Push, ONCE INTRA PROCEDURE, Starting on Chana 07/28/23 at 0713, Until Discontinu ed, Routine, Intra-op [facility] FEROSUL 325 mg (65 mg iron) tablet 07-14 00:00: 00 12-22 00:00 :00 No [id number] TAKE 1 TABLET BY MOUTH EVERY MORNING AND 1 TABLET EVERY EVENING [facility] levothyroxi ne 88 mcg tablet 06-24 00:00: 00 Yes [id number] 88ug Take 1 tablet by mouth every morning. [facility] carvediloL 25 mg tablet 06-24 00:00: 00 Yes [id number] 02 25mg Take 1 tablet by mouth in the morning and 1 tablet in the evening. Take with meals. [facility] ALLOPURINOL 100 mg tablet 06-21 00:00: 00 06-22 00:00 :00 No [id number] 100mg TAKE 1 TABLET BY MOUTH IN THE MORNING [facility] magnesium oxide (MAG-OX 400) tablet 400 mg - 15:00: 00 Yes 400mg 400 mg, Oral, DAILY, First dose on 05/22/23 at 0900, Until Discontinu ed, Routine [facility] magnesium oxide 420 mg Tab 05-22 00:00: 00 Yes [id number] 400mg Take 400 [facility]. [facility] KCL (KLOR-CON M20) tablet 40 mEq 05-21 17:30: 00 05-21 17:29 :00 No 40meq 40 mEq, Oral, ONCE, 1 dose, On 05/21/23 at 1130, Routine [facility] hydroCHLORO thiazide (ESIDRIX) tablet 25 mg 05-21 15:00: 00 Yes 25mg 25 mg, Oral, QAM, First dose on 05/21/23 at 0900, Until Discontinu ed, Routine [facility] lisinopriL (PRINIVIL,Z ESTRIL) tablet 40 mg 05-21 15:00: 00 Yes 40mg 40 mg, Oral, QAM, First dose on 05/21/23 at 0900, Until Discontinu ed [facility] sennosides- docusate sodium (SENOKOT-S) 8.6-50 mg per tablet 1 tablet 05-21 15:00: 00 Yes 1{tbl} 1 tablet, Oral, DAILY, First dose on 05/21/23 at 0900, Until Discontinu ed, Routine [facility] ezetimibe (ZETIA) tablet 10 mg 05-21 15:00: 00 Yes 10mg 10 mg, Oral, DAILY, First dose on 05/21/23 at 0900, Until Discontinu ed, Routine [facility] DULoxetine (CYMBALTA) capsule 30 mg 05-21 15:00: 00 Yes 30mg 30 mg, Oral, DAILY, First dose on 05/21/23 at 0900, Until Discontinu ed, Routine [facility] aspirin chewable tablet 81 mg 05-21 15:00: 00 Yes 81mg 81 mg, Oral, DAILY, First dose on 05/21/23 at 0900, Until Discontinu ed, Routine [facility] ascorbic acid (vitamin C) (VITAMIN C) tablet 500 mg 05-21 15:00: 00 Yes 500mg 500 mg, Oral, DAILY, First dose on 05/21/23 at 0900, Until Discontinu ed, Routine [facility] amLODIPine (NORVASC) tablet 10 mg 05-21 15:00: 00 Yes 10mg 10 mg, Oral, QAM, First dose on 05/21/23 at 0900, Until Discontinu ed, Routine [facility] allopurinoL (ZYLOPRIM) tablet 100 mg 05-21 15:00: 00 Yes 100mg 100 mg, Oral, DAILY, First dose on 05/21/23 at 0900, Until Discontinu ed, Routine [facility] clopidogreL (PLAVIX) 75 mg tablet 75 mg 05-21 15:00: 00 Yes [id number] 75mg 75 mg, Oral, DAILY, First dose on 05/21/23 at 0900, Until Discontinu ed, Routine, CV Recovery to Floor
F aculty member approving Restricted medication : BRIAN VIEIRA [facility] levothyroxi ne (SYNTHROID) tablet 88 mcg 05-21 12:00: 00 Yes 88ug 88 mcg, Oral, QAM-0600, First dose on 05/21/23 at 0600, Until Discontinu ed, Routine [facility] atorvastati n (LIPITOR) tablet 40 mg 05-21 03:00: 00 Yes 40mg 40 mg, Oral, QHS, First dose on Tue05/20/23 at 2100, Until Discontinu ed, Routine [facility] (porcine) injection 5,000 Units 05-21 02:00: 00 Yes 5000U 5,000 Units, Subcutaneo us, Q12H, First dose on Tue05/20/23 at 2000, Until Discontinu ed, Routine [facility] ferrous sulfate tablet 325 mg 05-21 02:00: 00 Yes 325mg 325 mg, Oral, BID, First dose on 1/12/24 at 2000, Until Discontinu ed, Routine [facility] clopidogreL 75 mg tablet 05-21 00:00: 00 03-03 00:00 :00 No [id number] 75mg Take 1 tablet by mouth in the morning. [facility] ferrous sulfate (IRON) 325 mg (65 mg iron) tablet 05-21 00:00: 00 07-14 00:00 :00 No [id number] 325mg Take 1 tablet by mouth every other day. [facility] acetaminoph en-codeine 300-30 mg tablet 05-21 00:00: 00 05-21 00:00 :00 No [id number] 1{tbl} Take 1 tablet by mouth every 6 (six) hours as needed for Pain (scale 4-6) or Pain (scale 7-10) for up to 7 days. Indication s: acute pain [facility] carvediloL (COREG) tablet 25 mg 05-20 23:00: 00 Yes 25mg 25 mg, Oral, BID MEALS, First dose on Tue05/20/23 at 1700, Until Discontinu ed, Routine [facility] clopidogreL (PLAVIX) 300 mg tablet 05-20 17:36: 16 05-20 17:47 :46 No ONCE INTRA PROCEDURE, Starting on Tue05/20/23 at 1136, Until Tue05/20/23 at 1147, Routine, CV Intraproce dure [facility] iopamidol (ISOVUE 370-500 mL) injection 05-20 17:32: 14 05-20 17:47 :46 No ONCE INTRA PROCEDURE, Starting on Tue05/20/23 at 1132, Until Tue05/20/23 at 1147, Routine, CV Intraproce dure [facility] adenosine 6 mg/1000 mL 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 05-20 17:26: 31 05-20 17:47 :46 No ONCE INTRA PROCEDURE, Starting on Tue05/20/23 at 1126, Until Tue05/20/23 at 1147, Routine, CV Intraproce dure [facility] nitroglycer in (TRIDIL) 2 mg in 10 mL D5W for Cardiac Cath 05-20 16:23: 13 05-20 17:47 :46 No ONCE INTRA PROCEDURE, Starting on Tue05/20/23 at 1023, Until Tue05/20/23 at 1147, Routine, CV Intraproce dure [facility] heparin 1,000 unit/mL injection 05-20 16:23: 00 05-20 17:47 :46 No ONCE INTRA PROCEDURE, Starting on Tue05/20/23 at 1023, Until Tue05/20/23 at 1147, Routine, CV Intraproce dure [facility] lidocaine 1% (PF) (XYLOCAINE) injection 05-20 16:19: 37 05-20 17:47 :46 No ONCE INTRA PROCEDURE, Starting on Tue05/20/23 at 1019, Until Tue05/20/23 at 1147, Routine, CV Intraproce dure [facility] midazolam (VERSED) injection 05-20 16:13: 32 05-20 17:47 :46 No ONCE INTRA PROCEDURE, Starting on Tue05/20/23 at 1013, Until Tue05/20/23 at 1147, Routine, CV Intraproce dure [facility] FENTanyl PF (SUBLIMAZE (PF)) injection 05-20 16:13: 25 05-20 17:47 :46 No ONCE INTRA PROCEDURE, Starting on Tue05/20/23 at 1013, Until Tue05/20/23 at 1147, Routine, CV Intraproce dure [facility] traMADoL 50 mg tablet 05-16 00:00: 00 04-08 00:00 :00 No [id number] TAKE 1 TABLET BY MOUTH TWICE DAILY NEEDED FOR ARTHRITIS PAIN OR CHRONIC PAIN Indication s: chronic pain [facility] sulfur hexafluorid e microsphr (LUMASON) injection 5 mL 2022-05 15:45: 00 04-29 15:40 :00 No [id number] 5mL 5 mL, Intravenou s, ONCE, 1 dose, On Tue04/29/23 at 0945, Routine
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 [facility] ascorbic acid, vitamin C, (VITAMIN C) 500 mg tablet 2022-05 00:00: 00 Yes [id number] 500mg Take 1 tablet by mouth in the morning. [facility] ferrous sulfate (IRON) 325 mg (65 mg iron) tablet 2022-05 00:00: 00 05-21 00:00 :00 No [id number] 325mg Take 1 tablet by mouth in the morning and 1 tablet in the evening. [facility] clopidogreL (PLAVIX) 75 mg tablet 75 mg 2022-05 15:00: 00 Yes 75mg 75 mg, Oral, DAILY, First dose on Tue03/13/23 at 0900, Until Discontinu ed, Routine [facility] aspirin 81 mg chewable tablet 2022-05 00:00: 00 Yes [id number] 81mg Take 1 tablet by mouth in the morning. [facility] clopidogreL 75 mg tablet 2022-05 00:00: 00 05-21 00:00 :00 No [id number] 75mg Take 1 tablet by mouth in the morning. [facility] carvediloL (COREG) tablet 25 mg 2022-05 22:00: 00 Yes 25mg 25 mg, Oral, BID MEALS, First dose (after last modificati on) on 03/12/23 at 1700, Until Discontinu ed, Routine [facility] aspirin chewable tablet 81 mg 2022-05 14:30: 00 Yes 81mg 81 mg, Oral, DAILY, First dose on 03/12/23 at 0930, Until Discontinu ed, Routine [facility] sennosides- docusate sodium (SENOKOT-S) 8.6-50 mg per tablet 1 tablet 2022-05 14:00: 00 Yes 1{tbl} 1 tablet, Oral, DAILY, First dose on 03/12/23 at 0900, Until Discontinu ed, Routine [facility] lisinopriL (PRINIVIL,Z ESTRIL) tablet 40 mg 2022-05 14:00: 00 Yes 40mg 40 mg, Oral, QAM, First dose on 03/12/23 at 0900, Until Discontinu ed [facility] hydroCHLORO thiazide (ESIDRIX) tablet 25 mg 2022-05 14:00: 00 Yes 25mg 25 mg, Oral, QAM, First dose on 03/12/23 at 0900, Until Discontinu ed, Routine [facility] ezetimibe (ZETIA) tablet 10 mg 2022-05 14:00: 00 Yes 10mg 10 mg, Oral, DAILY, First dose on 03/12/23 at 0900, Until Discontinu ed, Routine [facility] DULoxetine (CYMBALTA) capsule 30 mg 2022-05 14:00: 00 Yes 30mg 30 mg, Oral, DAILY, First dose on 03/12/23 at 0900, Until Discontinu ed, Routine [facility] amLODIPine (NORVASC) tablet 10 mg 2022-05 14:00: 00 Yes 10mg 10 mg, Oral, QAM, First dose on 03/12/23 at 0900, Until Discontinu ed, Routine [facility] allopurinoL (ZYLOPRIM) tablet 100 mg 2022-05 14:00: 00 Yes 100mg 100 mg, Oral, DAILY, First dose on 03/12/23 at 0900, Until Discontinu ed, Routine [facility] KCL (KLOR-CON M20) tablet 20 mEq 2022-05 12:46: 00 03-12 13:51 :00 No 20meq 20 mEq, Oral, ONCE, 1 dose, On 03/12/23 at 0800, Routine [facility] magnesium sulfate in water 2 gram/50 mL (4 %) infusion 2 g 2022-05 11:30: 00 03-12 11:48 :00 No 2g 2 g, IV Piggyback, Administer over 60 Minutes, ONCE, 1 dose, On 03/12/23 at 0630, Routine [facility] KCL (KLOR-CON M20) tablet 40 mEq 2022-05 11:30: 00 03-12 10:46 :00 No 40meq 40 mEq, Oral, ONCE, 1 dose, On 03/12/23 at 0630, Routine [facility] levothyroxi ne (SYNTHROID) tablet 100 mcg 2022-05 11:00: 00 Yes 100ug 100 mcg, Oral, QAM-0600, First dose on Tue03/12/23 at 0600, Until Discontinu ed, Routine [facility] atorvastati n (LIPITOR) tablet 40 mg 2022-05 02:00: 00 Yes 40mg 40 mg, Oral, QHS, First dose on Tue03/11/23 at 2100, Until Discontinu ed, Routine [facility] heparin (porcine) injection 5,000 Units 2022-05 01:00: 00 Yes 5000U 5,000 Units, Subcutaneo us, Q12H, First dose on Tue03/11/23 at 2000, Until Discontinu ed, Routine [facility] ticagrelor (BRILINTA) tablet 90 mg 2022-05 01:00: 00 03-12 13:51 :00 No 90mg 90 mg, Oral, BID, 2 doses, First dose on Tue03/11/23 at 2000, Last dose on Tue03/12/23 at 0800, Routine [facility] carvediloL 25 mg tablet 2022-05 00:00: 00 06-24 00:00 :00 No [id number] 25mg Take 1 tablet by mouth in the morning and 1 tablet in the evening. Take with meals. [facility] NaCl 0.9% (NS) IV infusion 600 mL 2022-05 00:00: 00 03-12 09:05 :00 No 600mL at 75 mL/hr, IV Infusion, ONCE, 1 dose, On Tue03/11/23 at 1900, Routine [facility] carvediloL (COREG) tablet 12.5 mg 2022-05 22:00: 00 03-12 14:32 :56 No 12.5mg 12.5 mg, Oral, BID MEALS, First dose on Tue03/11/23 at 1700, Until Discontinu ed, Routine [facility] acetaminoph en (TYLENOL) tablet 650 mg 2022-05 21:54: 47 Yes 650mg 650 mg, Oral, Q6HPRN, Starting on Tue03/11/23 at 1654, Until Discontinu ed, Routine, Pain (scale 1-3) [facility] clopidogreL (PLAVIX) 300 mg tablet 300 mg 2022-05 18:00: 00 03-11 22:29 :00 No 300mg 300 mg, Oral, ONCE, 1 dose, On Tue03/11/23 at 1300, Routine [facility] iodixanoL (VISIPAQUE 320-50 mL) injection 2022-05 16:37: 09 03-11 16:43 :08 No ONCE INTRA PROCEDURE, Starting on Tue03/11/23 at 1137, Until Tue03/11/23 at 1143, Routine, CV Intraproce dure [facility] hydralAZINE (APRESOLINE ) injection 2022-05 16:03: 23 03-11 16:43 :08 No ONCE INTRA PROCEDURE, Starting on Tue03/11/23 at 1103, Until Tue03/11/23 at 1143, STAT, CV Intraproce dure [facility] adenosine 6 mg/1000 mL 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 2022-05 15:49: 13 03-11 16:43 :08 No ONCE INTRA PROCEDURE, Starting on Tue03/11/23 at 1049, Until Tue03/11/23 at 1143, Routine, CV Intraproce dure [facility] nitroglycer in (TRIDIL) 2 mg in 10 mL D5W for Cardiac Cath 2022-05 15:04: 55 03-11 16:43 :08 No ONCE INTRA PROCEDURE, Starting on Tue03/11/23 at 1004, Until Tue03/11/23 at 1143, Routine, CV Intraproce dure [facility] heparin 1,000 unit/mL injection 2022-05 15:04: 21 03-11 16:43 :08 No ONCE INTRA PROCEDURE, Starting on Tue03/11/23 at 1004, Until Tue03/11/23 at 1143, Routine, CV Intraproce dure [facility] lidocaine 1% (PF) (XYLOCAINE) injection 2022-05 15:00: 00 03-11 16:43 :08 No ONCE INTRA PROCEDURE, Starting on Tue03/11/23 at 1000, Until Tue03/11/23 at 1143, Routine, CV Intraproce dure [facility] midazolam (VERSED) injection 2022-05 14:48: 00 03-11 16:43 :08 No ONCE INTRA PROCEDURE, Starting on Tue03/11/23 at 0948, Until Tue03/11/23 at 1143, Routine, CV Intraproce dure [facility] FENTanyl PF (SUBLIMAZE (PF)) injection 2022-05 14:48: 00 03-11 16:43 :08 No ONCE INTRA PROCEDURE, Starting on Tue03/11/23 at 0948, Until Tue03/11/23 at 1143, Routine, CV Intraproce dure [facility] ticagrelor (BRILINTA) tablet 180 mg 2022-05 14:15: 00 03-11 14:12 :00 No [id number] 180mg 180 mg, Oral, ONCE, 1 dose, On Tue03/11/23 at 0915, NILDA [facility] aspirin chewable tablet 81 mg 2022-05 14:15: 00 03-11 14:13 :00 No [id number] 81mg 81 mg, Oral, ONCE, 1 dose, On Tue03/11/23 at 0915, NILDA [facility] atorvastati n 40 mg tablet 2022-05 00:00: 00 10-13 00:00 :00 No [id number] 40mg Take 1 tablet by mouth at bedtime. [facility] ATORVASTATI N 40 mg tablet 2022-05 00:00: 00 02-23 00:00 :00 No [id number] 40mg TAKE 1 TABLET BY MOUTH AT BEDTIME [facility] NITROGLYCER IN 0.4 mg sublingual tablet 2022-05 00:00: 00 Yes [id number] DISSOLVE 1 TABLET UNDER THE TONGUE EVERY 5 MINUTES NEEDED FOR CHEST PAIN. MAX OF 3 TABLETS IN 15 MINUTES. CALL 911 IF PAIN PERSISTS. [facility] iopamidol (ISOVUE 370-500 mL) injection 135 mL 2022-05 15:00: 00 02-15 14:49 :00 No [id number] 135mL 135 mL, Intravenou s, ONCE, 1 dose, On Tue02/15/23 at 1000, Routine [facility] clindamycin (CLEOCIN HCL) capsule 300 mg 02-02 18:15: 00 02-02 17:26 :00 No 300mg 300 mg, Oral, ONCE, 1 dose, On Tue02/02/23 at 1315, NILDA
Re ason for Anti-Infec tive: Documented Infection< br>Documen kemar Infection Site: Skin / Soft Tissue
Duration of Therapy: 7 days
Re stricted use approved by: After Hours (for ADC, CLC, LCC ONLY) [facility] carvediloL 12.5 mg tablet 02-02 00:00: 00 03-12 00:00 :00 No [id number] 02 12.5mg Take 1 tablet by mouth in the morning and 1 tablet in the evening. Take with meals. [facility] clindamycin 300 mg capsule 02-02 00:00: 00 02-10 04:59 :00 No [id number] 300mg Take 1 capsule by mouth 4 (four) times daily for 7 days. [facility] iopamidol (ISOVUE 370-500 mL) injection 01-25 14:14: 31 01-25 14:37 :02 No ONCE INTRA PROCEDURE, Starting on Tue01/25/23 at 0914, Until Tue01/25/23 at 0937, Routine, CV Intraproce dure [facility] hydralAZINE (APRESOLINE ) injection 01-25 13:11: 46 01-25 14:37 :02 No ONCE INTRA PROCEDURE, Starting on Tue01/25/23 at 0811, Until Tue01/25/23 at 0937, STAT, CV Intraproce dure [facility] lidocaine 1% (PF) (XYLOCAINE) injection 01-25 13:08: 44 01-25 14:37 :02 No ONCE INTRA PROCEDURE, Starting on Tue01/25/23 at 0808, Until Tue01/25/23 at 0937, Routine, CV Intraproce dure [facility] midazolam (VERSED) injection 01-25 12:56: 59 01-25 14:37 :02 No ONCE INTRA PROCEDURE, Starting on Tue01/25/23 at 0756, Until Tue01/25/23 at 0937, Routine, CV Intraproce dure [facility] FENTanyl PF (SUBLIMAZE (PF)) injection 01-25 12:56: 49 01-25 14:37 :02 No ONCE INTRA PROCEDURE, Starting on Tue01/25/23 at 0756, Until Tue01/25/23 at 0937, Routine, CV Intraproce dure [facility] aspirin chewable tablet 81 mg 01-25 12:45: 00 01-25 11:54 :00 No [id number] 81mg 81 mg, Oral, ONCE, 1 dose, On Tue01/25/23 at 0745, Routine [facility] DULOXETINE 30 mg capsule 01-25 00:00: 00 03-14 00:00 :00 No [id number] 30mg TAKE 1 CAPSULE BY MOUTH IN THE MORNING [facility] CARVEDILOL 6.25 mg tablet 01-04 00:00: 00 02-02 00:00 :00 No [id number] 02 TAKE 1 TABLET BY MOUTH IN THE MORNING AND 1 TABLET BY MOUTH IN THE EVENING TAKE WITH MEALS [facility] LISINOPRIL 40 mg tablet 12-23 00:00: 00 Yes [id number] 40mg TAKE 1 TABLET BY MOUTH IN THE MORNING [facility] EZETIMIBE 10 mg tablet 12-23 00:00: 00 10-02 00:00 :00 No [id number] 10mg TAKE 1 TABLET BY MOUTH IN THE MORNING [facility] HYDROCHLORO THIAZIDE 25 mg tablet 12-23 00:00: 00 08-21 00:00 :00 No [id number] 25mg TAKE 1 TABLET BY MOUTH IN THE MORNING [facility] amLODIPine 10 mg tablet 12-05 00:00: 00 04-24 00:00 :00 No [id number] 10mg Take 1 tablet by mouth every morning. [facility] traMADoL 50 mg tablet 11-28 00:00: 00 05-16 00:00 :00 No [id number] TAKE 1 TABLET BY MOUTH TWICE DAILY NEEDED FOR SEVERE ARTHRITIS PAIN Indication s: chronic pain [facility] LEVOTHYROXI NE 100 mcg tablet 20 00:00: 00 04-05 00:00 :00 No [id number] TAKE 1 TABLET BY MOUTH IN THE MORNING [facility] AMLODIPINE 10 mg tablet 2023-0 6-30 00:00: 00 12-04 00:00 :00 No [id number] 10mg TAKE 1 TABLET BY MOUTH EVERY MORNING [facility] allopurinoL 100 mg tablet 11-03 00:00: 00 06-21 00:00 :00 No [id number] 100mg Take 1 tablet by mouth in the morning. [facility] Vit B Cplx #11-FA-C-Bi ot-Zinc (DIALYVITE) 1-100-300-5 0 mg-mg-mcg-m g Tab 09-28 00:00: 00 Yes [id number] 1{tbl} Take 1 tablet by mouth in the morning. [facility] Vit B Cplx #11-FA-C-Bi ot-Zinc (DIALYVITE) 1-100-300-5 0 mg-mg-mcg-m g Tab 09-28 00:00: 00 12-22 00:00 :00 No [id number] 1{tbl} Take 1 tablet by mouth in the morning. [facility] atorvastati n 40 mg tablet 09-28 00:00: 00 02-21 00:00 :00 No [id number] 40mg Take 1 tablet by mouth at bedtime. [facility] amoxicillin -clavulanat e (AUGMENTIN) 875-125 mg per tablet -14 00:00: 00 09-28 00:00 :00 No [id number] 1{tbl} Take 1 tablet by mouth in the morning and 1 tablet in the evening. [facility] nitroglycer in 0.4 mg sublingual tablet 4-10 00:00: 00 02-20 00:00 :[id number] 1 tablet under the tongue every 5 (five) minutes as needed for Chest pain. [facility] DULoxetine 30 mg capsule 4-10 00:00: 00 01-25 00:00 :00 No [id number] 30mg Take 1 capsule by mouth in the morning. [facility] carvediloL 6.25 mg tablet 2023-0 4-10 00:00: 00 01-04 00:00 :00 No [id number] 02 6.25mg Take 1 tablet by mouth in the morning and 1 tablet in the evening. Take with meals. [facility] ezetimibe 10 mg tablet 4-10 00:00: 00 12-23 00:00 :00 No [id number] 10mg Take 1 tablet by mouth in the morning. [facility] hydroCHLORO thiazide 25 mg tablet 4-10 00:00: 00 12-23 00:00 :00 No [id number] 25mg Take 1 tablet by mouth every morning. [facility] lisinopriL 40 mg tablet 4-10 00:00: 00 12-23 00:00 :00 No [id number] 40mg Take 1 tablet by mouth every morning. [facility] levothyroxi ne 100 mcg tablet 10 00:00: 00 11-25 00:00 :00 No [id number] 100ug Take 1 tablet by mouth every morning. [facility] amLODIPine 10 mg tablet 410 00:00: 00 11-05 00:00 :00 No [id number] 10mg Take 1 tablet by mouth every morning. [facility] allopurinoL 100 mg tablet 4-10 00:00: 00 11-03 00:00 :00 No [id number] 100mg Take 1 tablet by mouth in the morning. [facility] traMADoL 50 mg tablet -03 00:00: 00 11-28 00:00 :00 No [id number] Take 1 tablet twice a day as needed for severe athritis pain (cannot tolerate due to heart and renal disease). Indication s: chronic pain [facility] hydroCHLORO thiazide 25 mg tablet 1-03 00:00: 00 08-16 00:00 :00 No [id number] 25mg Take 1 tablet by mouth every morning. [facility] amLODIPine 10 mg tablet 05-11 00:00: 00 08-16 00:00 :00 No [id number] 10mg Take 1 tablet by mouth every morning. [facility] carvediloL 6.25 mg tablet 05-11 00:00: 00 08-16 00:00 :00 No [id number] 02 6.25mg Take 1 tablet by mouth in the morning and 1 tablet in the evening. Take with meals. [facility] ezetimibe 10 mg tablet 05-11 00:00: 00 08-16 00:00 :00 No [id number] 10mg Take 1 tablet by mouth in the morning. [facility] levothyroxi ne 100 mcg tablet 05-11 00:00: 00 08-16 00:00 :00 No [id number] 100ug Take 1 tablet by mouth every morning. [facility] lisinopriL 40 mg tablet 05-11 00:00: 00 08-16 00:00 :00 No [id number] 40mg Take 1 tablet by mouth every morning. [facility] nitroglycer in 0.4 mg sublingual tablet 05-11 00:00: 00 08-16 00:00 :[id number] 1 tablet under the tongue every 5 (five) minutes as needed for Chest pain. [facility] allopurinoL 100 mg tablet 05-11 00:00: 00 08-16 00:00 :00 No [id number] 100mg Take 1 tablet by mouth in the morning. [facility] HYDROCHLORO THIAZIDE 25 mg tablet 2021-05 0 00:00: 00 05-11 00:00 :00 No [id number] TAKE 1 TABLET BY MOUTH DAILY [facility] NaCl 0.9% (NS) bolus infusion 1,000 mL 01-18 19:00: 00 01-18 19:31 :00 No 1000mL at 999 mL/hr, 1,000 mL, IV Infusion, ONCE, 1 dose, On Tue01/18/22 at 1400, STAT [facility] iopamidol (ISOVUE 300-500 mL) injection 100 mL 01-18 16:35: 00 01-18 16:35 :00 No [id number] 100mL 100 mL, Intravenou s, ONCE, 1 dose, On 01/18/22 at 1200, Routine [facility] dicyclomine 10 mg capsule 01-18 00:00: 00 03-05 00:00 :00 No [id number] 10mg Take 1 capsule by mouth 4 (four) times daily as needed for Abdominal pain. [facility] ondansetron 4 mg disintegrat ing tablet 01-18 00:00: 00 03-05 00:00 :00 No [id number] 4mg Take 1 tablet by mouth every 8 (eight) hours as needed for Nausea and Vomiting (N/V). [facility] Saccharomyc es boulardii (FLORASTOR) 250 mg capsule 01-18 00:00: 00 01-26 04:59 :00 No [id number] 250mg Take 1 capsule by mouth in the morning and 1 capsule in the evening. Do all this for 7 days. [facility] hydrocortis one (PROCTOSOL HC) 2.5 % rectal cream 01-18 00:00: 00 01-24 04:59 :00 No [id number] Insert into rectum 2 (two) times daily for 5 days. [facility] DULoxetine 30 mg capsule 12-01 00:00: 00 08-16 00:00 :00 No [id number] 30mg Take 1 capsule by mouth in the morning. [facility] traMADoL 50 mg tablet 12-01 00:00: 00 05-11 00:00 :00 No [id number] Take 1 tablet twice a day as needed for severe athritis pain (cannot tolerate due to heart and renal disease). Indication s: chronic pain [facility] hydroCHLORO thiazide 25 mg tablet 12-01 00:00: 00 02-11 00:00 :00 No [id number] 25mg Take 1 tablet by mouth in the morning. [facility] traMADoL 50 mg tablet 7-06 00:00: 00 12-01 00:00 :00 No [id number] TAKE 1 TABLET BY MOUTH EVERY 6 HOURS NEEDED FOR PAIN Indication s: chronic pain [facility] citalopram 20 mg tablet 5-17 00:00: 00 12-01 00:00 :00 No [id number] 20mg Take 1 tablet by mouth daily. [facility] ALLOPURINOL 100 mg tablet 5-03 00:00: 00 05-11 00:00 :00 No [id number] 103 100mg TAKE 1 TABLET BY MOUTH DAILY [facility] traMADoL 50 mg tablet 4-04 00:00: 00 11-11 00:00 :00 No [id number] Take 1 tablet every 6 hours as needed for severe athritis pain (cannot tolerate due to heart and renal disease). Indication s: chronic pain [facility] nitroglycer in 0.4 mg sublingual tablet 3-22 00:00: 00 05-11 00:00 :[id number] 1 tablet under the tongue every 5 (five) minutes as needed for Chest pain. [facility] carvediloL 6.25 mg tablet 2-08 00:00: 00 05-11 00:00 :00 No [id number] 02 6.25mg Take 1 tablet by mouth 2 (two) times daily with meals. [facility] amLODIPine 10 mg tablet 2-08 00:00: 00 05-11 00:00 :00 No [id number] 10mg Take 1 tablet by mouth every morning. [facility] ezetimibe 10 mg tablet 2-08 00:00: 00 05-11 00:00 :00 No [id number] 10mg Take 1 tablet by mouth daily. [facility] levothyroxi ne 100 mcg tablet 2-08 00:00: 00 05-11 00:00 :00 No [id number] 100ug Take 1 tablet by mouth every morning. [facility] lisinopriL 40 mg tablet 2-08 00:00: 00 05-11 00:00 :00 No 40mg Take 1 tablet by mouth every morning. [facility] aspirin 81 mg chewable tablet 2-08 00:00: 00 12-01 00:00 :00 No [id number] 81mg Take 1 tablet by mouth daily. [facility] hydroCHLORO thiazide 25 mg tablet 2-08 00:00: 00 12-01 00:00 :00 No [id number] 25mg Take 1 tablet by mouth daily. [facility] DOK 100 mg capsule 2020-05 0-18 00:00: 00 12-01 00:00 :00 No [id number] TAKE ONE CAPSULE BY MOUTH DAILY NEEDED FOR CONSTIPATI ON. [facility] torsemide 20 mg tablet 3-24 00:00: 00 12-16 00:00 :00 No [id number] 20mg Take 1 tablet by mouth every Tuesday, Tuesday and Tuesday. As needed daily for leg swelling [facility] ezetimibe 10 mg tablet 2-25 00:00: 00 06-08 00:00 :00 No [id number] 10mg Take 1 tablet by mouth daily. [facility] docusate (COLACE) 100 mg capsule 2-25 00:00: 00 02-23 00:00 :00 No [id number] 100mg Take 1 capsule by mouth once daily as needed for Constipati on. [facility] amLODIPine 10 mg tablet 2-09 00:00: 00 03-26 00:00 :00 No [id number] TAKE 1 TABLET BY MOUTH EVERY DAY IN THE MORNING [facility] traMADoL 50 mg tablet 2-09 00:00: 00 09-19 00:00 :00 No [id number] TAKE 1 TABLET BY MOUTH EVERY 6 HOURS NEEDED FOR PAIN(SCALE 4- 6) Indication s: chronic pain [facility] atenoloL 25 mg tablet 1-13 00:00: 00 12-16 00:00 :00 No [id number] 25mg Take 1 tablet by mouth daily. [facility] triamterene -hydrochlor othiazide 37.5-25 mg per capsule 2019-05 0-14 00:00: 00 12-16 00:00 :00 No [id number] 1{capsu le} Take 1 capsule by mouth every morning. [facility] citalopram 20 mg tablet 2019-05 00:00: 00 05-11 00:00 :00 No [id number] 20mg Take 1 tablet by mouth daily. [facility] levothyroxi ne 100 mcg tablet 2019-05 00:00: 00 01-13 00:00 :00 No [id number] 100ug Take 1 tablet by mouth every morning. [facility] traMADoL 50 mg tablet 01-29 00:00: 00 06-16 00:00 :00 No [id number] TAKE 1 TABLET BY MOUTH EVERY 6 HOURS NEEDED FOR PAIN(SCALE 4- 6) Indication s: chronic pain [facility] torsemide 20 mg tablet 10-23 00:00: 00 07-29 00:00 :00 No [id number] As needed daily for leg swelling [facility] LISINOPRIL 40 mg tablet 2018-05 2-20 00:00: 00 02-04 00:00 :00 No [id number] TAKE 1 TABLET BY MOUTH EVERY MORNING [facility] atenolol 25 mg tablet 2018-05 030 00:00: 00 05-21 00:00 :00 No [id number] 25mg Take 1 tablet by mouth daily. [facility] atorvastati n 40 mg tablet 2018-05 0 00:00: 00 07-03 00:00 :00 No [id number] 40mg Take 1 tablet by mouth daily. [facility] amLODIPine 10 mg tablet 2018-05 00:00: 00 06-16 00:00 :00 No TAKE 1 TABLET BY MOUTH EVERY DAY IN THE MORNING [facility] nitroglycer in 0.4 mg sublingual tablet 2017-07-04 00:00: 00 07-28 00:00 :[address] 1 tablet under the tongue every 5 (five) minutes as needed for Chest pain. [facility] Immunizations Ordered Immunization Name Filled Immunization Name Date Status Comments Source Influenza Virus Vaccine,quad Im,preserve Free 65+ (FLUAD) 2024-02-16 00:00:00 Completed SARS-COV-2 COVID 19 RODRICK SUCROSE VACCINE 12+, 0.3 ML (30 MCG), IM PFIZER (MORALES TOP) 2024-02-16 00:00:00 Completed Zoster(Zostavax)(Sh ingles) 2023-04-25 00:00:00 Completed Influenza Virus Vaccine,quad Im,preserve Free 65+ (FLUAD) 2023-03-15 00:00:00 Completed [facility] Zoster(Zostavax)(Sh ingles) 2022-07-14 00:00:00 Completed [facility] SARS-COV-2 COVID-19 RODRICK-SUCROSE VACCINE 12 YRS+, BIVALENT 0.3ML, IM, (PFIZER MORALES TOP) 2022-05-11 00:00:00 Completed [facility] SARS-COV-2 COVID-19 RODRICK-SUCROSE VACCINE 12 YRS+, BIVALENT 0.3ML, IM, (PFIZER MORALES TOP BOOSTER) 2022-05-11 00:00:00 Completed [facility] SARS-COV-2 COVID-19 RODRICK-SUCROSE VACCINE 12 YRS+, BIVALENT 0.3ML, IM, (PFIZER MORALES TOP BOOSTER) 2022-05-11 00:00:00 Completed [facility] SARS-COV-2 COVID-19 RODRICK-SUCROSE VACCINE 12 YRS+, BIVALENT 0.3ML, IM, (PFIZER MORALES TOP BOOSTER) 2022-05-11 00:00:00 Completed [facility] SARS-COV-2 COVID-19 RODRICK-SUCROSE VACCINE 12 YRS+, BIVALENT 0.3ML, IM, (PFIZER MORALES TOP BOOSTER) 2022-05-11 00:00:00 Completed [facility] SARS-COV-2 COVID-19 RODRICK-SUCROSE VACCINE 12 YRS+, BIVALENT 0.3ML, IM, (PFIZER MORALES TOP BOOSTER) 2022-05-11 00:00:00 Completed [facility] SARS-COV-2 COVID-19 RODRICK-SUCROSE VACCINE 12 YRS+, BIVALENT 0.3ML, IM, (PFIZER MORALES TOP BOOSTER) 2022-05-11 00:00:00 Completed [facility] SARS-COV-2 COVID-19 RODRICK-SUCROSE VACCINE 12 YRS+, BIVALENT 0.3ML, IM, (PFIZER MORALES TOP BOOSTER) 2022-05-11 00:00:00 Completed [facility] SARS-COV-2 COVID-19 RODRICK-SUCROSE VACCINE 12 YRS+, BIVALENT 0.3ML, IM, (PFIZER MORALES TOP BOOSTER) 2022-05-11 00:00:00 Completed [facility] SARS-COV-2 COVID-19 RODRICK-SUCROSE VACCINE 12 YRS+, BIVALENT 0.3ML, IM, (PFIZER MORALES TOP BOOSTER) 2022-05-11 00:00:00 Completed [facility] SARS-COV-2 COVID-19 RODRICK-SUCROSE VACCINE 12 YRS+, BIVALENT 0.3ML, IM, (PFIZER MORALES TOP BOOSTER) 2022-05-11 00:00:00 Completed [facility] SARS-COV-2 COVID-19 RODRICK-SUCROSE VACCINE 12 YRS+, BIVALENT 0.3ML, IM, (PFIZER MORALES TOP BOOSTER) 2022-05-11 00:00:00 Completed [facility] SARS-COV-2 COVID-19 RODRICK-SUCROSE VACCINE 12 YRS+, BIVALENT 0.3ML, IM, (PFIZER MORALES TOP BOOSTER) 2022-05-11 00:00:00 Completed [facility] SARS-COV-2 COVID-19 RODRICK-SUCROSE VACCINE 12 YRS+, BIVALENT 0.3ML, IM, (PFIZER MORALES TOP BOOSTER) 2022-05-11 00:00:00 Completed [facility] SARS-COV-2 COVID-19 RODRICK-SUCROSE VACCINE 12 YRS+, BIVALENT 0.3ML, IM, (PFIZER MORALES TOP BOOSTER) 2022-05-11 00:00:00 Completed [facility] SARS-COV-2 COVID-19 RODRICK-SUCROSE VACCINE 12 YRS+, BIVALENT 0.3ML, IM, (PFIZER MORALES TOP) 2022-05-11 00:00:00 Completed [facility] SARS-COV-2 COVID-19 RODRICK-SUCROSE VACCINE 12 YRS+, BIVALENT 0.3ML, IM, ([facility]) 2022-05-11 00:00:00 Completed [facility] SARS-COV-2 COVID-19 RODRICK-SUCROSE VACCINE 12 YRS+, BIVALENT 0.3ML, IM, ([facility]) 2022-05-11 00:00:00 Completed [facility] SARS-COV-2 COVID-19 RODRICK-SUCROSE VACCINE 12 YRS+, BIVALENT 0.3ML, IM, ([facility]) 2022-05-11 00:00:00 Completed [facility] SARS-COV-2 COVID-19 RODRICK-SUCROSE VACCINE 12 YRS+, BIVALENT 0.3ML, IM, ([facility]) 2022-05-11 00:00:00 Completed [facility] SARS-COV-2 COVID-19 RODRICK-SUCROSE VACCINE 12 YRS+, BIVALENT 0.3ML, IM, ([facility]) 2022-05-11 00:00:00 Completed [facility] SARS-COV-2 COVID-19 RODRICK-SUCROSE VACCINE 12 YRS+, BIVALENT 0.3ML, IM, ([facility]) 2022-05-11 00:00:00 Completed [facility] SARS-COV-2 COVID-19 RODRICK-SUCROSE VACCINE 12 YRS+, BIVALENT 0.3ML, IM, ([facility]) 2022-05-11 00:00:00 Completed [facility] SARS-COV-2 COVID-19 RODRICK-SUCROSE VACCINE 12 YRS+, BIVALENT 0.3ML, IM, ([facility]) 2022-05-11 00:00:00 Completed [facility] SARS-COV-2 COVID-19 RODRICK-SUCROSE VACCINE 12 YRS+, BIVALENT 0.3ML, IM, ([facility]) 2022-05-11 00:00:00 Completed [facility] SARS-COV-2 COVID-19 RODRICK-SUCROSE VACCINE 12 YRS+, BIVALENT 0.3ML, IM, ([facility]) 2022-05-11 00:00:00 Completed [facility] SARS-COV-2 COVID-19 RODRICK-SUCROSE VACCINE 12 YRS+, BIVALENT 0.3ML, IM, ([facility]) 2022-05-11 00:00:00 Completed [facility] SARS-COV-2 COVID-19 RODRICK-SUCROSE VACCINE 12 YRS+, BIVALENT 0.3ML, IM, ([facility]) 2022-05-11 00:00:00 Completed [facility] SARS-COV-2 COVID-19 RODRICK-SUCROSE VACCINE 12 YRS+, BIVALENT 0.3ML, IM, ([facility]) 2022-05-11 00:00:00 Completed [facility] SARS-COV-2 COVID-19 RODRICK-SUCROSE VACCINE 12 YRS+, BIVALENT 0.3ML, IM, ([facility]) 2022-05-11 00:00:00 Completed [facility] SARS-COV-2 COVID-19 RODRICK-SUCROSE VACCINE 12 YRS+, BIVALENT 0.3ML, IM, ([facility]) 2022-05-11 00:00:00 Completed [facility] SARS-COV-2 COVID-19 RODRICK-SUCROSE VACCINE 12 YRS+, BIVALENT 0.3ML, IM, ([facility]) 2022-05-11 00:00:00 Completed [facility] SARS-COV-2 COVID-19 RODRICK-SUCROSE VACCINE 12 YRS+, BIVALENT 0.3ML, IM, ([facility]) 2022-05-11 00:00:00 Completed [facility] SARS-COV-2 COVID-19 RODRICK-SUCROSE VACCINE 12 YRS+, BIVALENT 0.3ML, IM, ([facility]) 2022-05-11 00:00:00 Completed [facility] SARS-COV-2 COVID-19 RODRICK-SUCROSE VACCINE 12 YRS+, BIVALENT 0.3ML, IM, ([facility]) 2022-05-11 00:00:00 Completed [facility] SARS-COV-2 COVID-19 RODRICK-SUCROSE VACCINE 12 YRS+, BIVALENT 0.3ML, IM, ([facility]) 2022-05-11 00:00:00 Completed [facility] SARS-COV-2 COVID-19 RODRICK-SUCROSE VACCINE 12 YRS+, BIVALENT 0.3ML, IM, ([facility] [place]) 2022-05-11 00:00:00 Completed [facility] SARS-COV-2 COVID-19 RODRICK-SUCROSE VACCINE 12 YRS+, BIVALENT 0.3ML, IM, ([facility]) 2022-05-11 00:00:00 Completed [facility] Influenza Virus Vaccine 2021-12-31 00:00:00 Completed Influenza Virus Vaccine,quad Im,preserve Free 65+ (FLUAD) 2021-12-31 00:00:00 Completed Influenza Virus Vaccine 2021-12-31 00:00:00 Completed [facility] Influenza Virus Vaccine 2021-12-31 00:00:00 Completed [facility] Influenza Virus Vaccine 2021-12-31 00:00:00 Completed [facility] Influenza Virus Vaccine 2021-12-31 00:00:00 Completed [facility] Influenza Virus Vaccine 2021-12-31 00:00:00 Completed [facility] Influenza Virus Vaccine 2021-12-31 00:00:00 Completed [facility] Influenza Virus Vaccine 2021-12-31 00:00:00 Completed [facility] Influenza Virus Vaccine 2021-12-31 00:00:00 Completed [facility] Influenza Virus Vaccine 2021-12-31 00:00:00 Completed [facility] Influenza Virus Vaccine 2021-12-31 00:00:00 Completed [facility] Influenza Virus Vaccine 2021-12-31 00:00:00 Completed [facility] Influenza Virus Vaccine 2021-12-31 00:00:00 Completed [facility] Influenza Virus Vaccine 2021-12-31 00:00:00 Completed [facility] Influenza Virus Vaccine 2021-12-31 00:00:00 Completed [facility] Influenza Virus Vaccine 2021-12-31 00:00:00 Completed [facility] Influenza Virus Vaccine 2021-12-31 00:00:00 Completed [facility] Influenza Virus Vaccine 2021-12-31 00:00:00 Completed [facility] Influenza Virus Vaccine 2021-12-31 00:00:00 Completed [facility] Influenza Virus Vaccine 2021-12-31 00:00:00 Completed [facility] Influenza Virus Vaccine 2021-12-31 00:00:00 Completed [facility] Influenza Virus Vaccine 2021-12-31 00:00:00 Completed [facility] Influenza Virus Vaccine 2021-12-31 00:00:00 Completed [facility] Influenza Virus Vaccine 2021-12-31 00:00:00 Completed [facility] Influenza Virus Vaccine 2021-12-31 00:00:00 Completed [facility] Influenza Virus Vaccine 2021-12-31 00:00:00 Completed [facility] Influenza Virus Vaccine 2021-12-31 00:00:00 Completed [facility] Influenza Virus Vaccine 2021-12-31 00:00:00 Completed [facility] Influenza Virus Vaccine 2021-12-31 00:00:00 Completed [facility] Influenza Virus Vaccine 2021-12-31 00:00:00 Completed [facility] Influenza Virus Vaccine 2021-12-31 00:00:00 Completed [facility] Influenza Virus Vaccine 2021-12-31 00:00:00 Completed [facility] Influenza Virus Vaccine 2021-12-31 00:00:00 Completed [facility] Influenza Virus Vaccine 2021-12-31 00:00:00 Completed [facility] Influenza Virus Vaccine 2021-12-31 00:00:00 Completed [facility] Influenza Virus Vaccine 2021-12-31 00:00:00 Completed [facility] Influenza Virus Vaccine 2021-12-31 00:00:00 Completed [facility] Influenza Virus Vaccine 2021-12-31 00:00:00 Completed [facility] Influenza Virus Vaccine 2021-12-31 00:00:00 Completed [facility] Influenza Virus Vaccine 2021-12-31 00:00:00 Completed [facility] Influenza Virus Vaccine 2021-12-31 00:00:00 Completed [facility] Influenza Virus Vaccine,quad Im,preserve Free 65+ (FLUAD) 2021-02-18 00:00:00 Completed [facility] Influenza Virus Vaccine,quad Im,preserve Free 65+ 2021-02-18 00:00:00 Completed [facility] Influenza Virus Vaccine,quad Im,preserve Free 65+ 2021-02-18 00:00:00 Completed [facility] Influenza Virus Vaccine,quad Im,preserve Free 65+ 2021-02-18 00:00:00 Completed [facility] Influenza Virus Vaccine,quad Im,preserve Free 652021-02-18 00:00:00 Completed [facility] Influenza Virus Vaccine,quad Im,preserve Free 652021-02-18 00:00:00 Completed [facility] Influenza Virus Vaccine,quad Im,preserve Free 65+ 2021-02-18 00:00:00 Completed [facility] Influenza Virus Vaccine,quad Im,preserve Free 652021-02-18 00:00:00 Completed [facility] Influenza Virus Vaccine,quad Im,preserve Free 65+ 2021-02-18 00:00:00 Completed [facility] Influenza Virus Vaccine,quad Im,preserve Free 652021-02-18 00:00:00 Completed [facility] Influenza Virus Vaccine,quad Im,preserve Free 652021-02-18 00:00:00 Completed [facility] Influenza Virus Vaccine,quad Im,preserve Free 652021-02-18 00:00:00 Completed [facility] Influenza Virus Vaccine,quad Im,preserve Free 652021-02-18 00:00:00 Completed [facility] Influenza Virus Vaccine,quad Im,preserve Free 652021-02-18 00:00:00 Completed [facility] Influenza Virus Vaccine,quad Im,preserve Free 652021-02-18 00:00:00 Completed [facility] Influenza Virus Vaccine,quad Im,preserve Free 652021-02-18 00:00:00 Completed [facility] Influenza Virus Vaccine,quad Im,preserve Free 652021-02-18 00:00:00 Completed [facility] Influenza Virus Vaccine,quad Im,preserve Free 652021-02-18 00:00:00 Completed [facility] Influenza Virus Vaccine,quad Im,preserve Free 652021-02-18 00:00:00 Completed [facility] Influenza Virus Vaccine,quad Im,preserve Free 652021-02-18 00:00:00 Completed [facility] Influenza Virus Vaccine,quad Im,preserve Free 65+ 2021-02-18 00:00:00 Completed [facility] Influenza Virus Vaccine,quad Im,preserve Free 652021-02-18 00:00:00 Completed [facility] Influenza Virus Vaccine,quad Im,preserve Free 652021-02-18 00:00:00 Completed [facility] Influenza Virus Vaccine,quad Im,preserve Free 65+ 2021-02-18 00:00:00 Completed [facility] Influenza Virus Vaccine,quad Im,preserve Free 65+ 2021-02-18 00:00:00 Completed [facility] Influenza Virus Vaccine,quad Im,preserve Free 652021-02-18 00:00:00 Completed [facility] Influenza Virus Vaccine,quad Im,preserve Free 652021-02-18 00:00:00 Completed [facility] Influenza Virus Vaccine,quad Im,preserve Free 652021-02-18 00:00:00 Completed [facility] Influenza Virus Vaccine,quad Im,preserve Free 652021-02-18 00:00:00 Completed [facility] Influenza Virus Vaccine,quad Im,preserve Free 652021-02-18 00:00:00 Completed [facility] Influenza Virus Vaccine,quad Im,preserve Free 652021-02-18 00:00:00 Completed [facility] Influenza Virus Vaccine,quad Im,preserve Free 652021-02-18 00:00:00 Completed [facility] Influenza Virus Vaccine,quad Im,preserve Free 652021-02-18 00:00:00 Completed [facility] Influenza Virus Vaccine,quad Im,preserve Free 652021-02-18 00:00:00 Completed [facility] Influenza Virus Vaccine,quad Im,preserve Free 652021-02-18 00:00:00 Completed [facility] Influenza Virus Vaccine,quad Im,preserve Free 652021-02-18 00:00:00 Completed [facility] Influenza Virus Vaccine,quad Im,preserve Free 652021-02-18 00:00:00 Completed [facility] Influenza Virus Vaccine,quad Im,preserve Free 652021-02-18 00:00:00 Completed [facility] Influenza Virus Vaccine,quad Im,preserve Free 652021-02-18 00:00:00 Completed [facility] Influenza Virus Vaccine,quad Im,preserve Free 65+ 2021-02-18 00:00:00 Completed [facility] Influenza Virus Vaccine,quad Im,preserve Free 65+ 2021-02-18 00:00:00 Completed [facility] Influenza Virus Vaccine,quad Im,preserve Free 65+ 2021-02-18 00:00:00 Completed [facility] Influenza Virus Vaccine,quad Im,preserve Free 65+ 2021-02-18 00:00:00 Completed [facility] Influenza Virus Vaccine,quad Im,preserve Free 65+ 2021-02-18 00:00:00 Completed [facility] Influenza Virus Vaccine,quad Im,preserve Free 65+ (FLUAD) 2021-02-18 00:00:00 Completed [facility] Influenza Virus Vaccine,quad Im,preserve Free 65+ (FLUAD) 2021-02-18 00:00:00 Completed [facility] Influenza Virus Vaccine,quad Im,preserve Free 65+ (FLUAD) 2021-02-18 00:00:00 Completed [facility] SARS-COV-2 COVID-19 PFIZER VACCINE 2021-02-04 00:00:00 Completed SARS-COV-2 COVID-19 PFIZER VACCINE 2021-02-04 00:00:00 Completed [facility] SARS-COV-2 COVID-19 PFIZER VACCINE 2021-02-04 00:00:00 Completed [facility] SARS-COV-2 COVID-19 PFIZER VACCINE 2021-02-04 00:00:00 Completed [facility] SARS-COV-2 COVID-19 PFIZER VACCINE 2021-02-04 00:00:00 Completed [facility] SARS-COV-2 COVID-19 PFIZER VACCINE 2021-02-04 00:00:00 Completed [facility] SARS-COV-2 COVID-19 PFIZER VACCINE 2021-02-04 00:00:00 Completed [facility] SARS-COV-2 COVID-19 PFIZER VACCINE 2021-02-04 00:00:00 Completed [facility] SARS-COV-2 COVID-19 PFIZER VACCINE 2021-02-04 00:00:00 Completed [facility] SARS-COV-2 COVID-19 PFIZER VACCINE 2021-02-04 00:00:00 Completed [facility] SARS-COV-2 COVID-19 PFIZER VACCINE 2021-02-04 00:00:00 Completed [facility] SARS-COV-2 COVID-19 PFIZER VACCINE 2021-02-04 00:00:00 Completed [facility] SARS-COV-2 COVID-19 PFIZER VACCINE 2021-02-04 00:00:00 Completed [facility] SARS-COV-2 COVID-19 PFIZER VACCINE 2021-02-04 00:00:00 Completed [facility] SARS-COV-2 COVID-19 PFIZER VACCINE 2021-02-04 00:00:00 Completed [facility] SARS-COV-2 COVID-19 PFIZER VACCINE 2021-02-04 00:00:00 Completed [facility] SARS-COV-2 COVID-19 PFIZER VACCINE 2021-02-04 00:00:00 Completed [facility] SARS-COV-2 COVID-19 PFIZER VACCINE 2021-02-04 00:00:00 Completed [facility] SARS-COV-2 COVID-19 PFIZER VACCINE 2021-02-04 00:00:00 Completed [facility] SARS-COV-2 COVID-19 PFIZER VACCINE 2021-02-04 00:00:00 Completed [facility] SARS-COV-2 COVID-19 PFIZER VACCINE 2021-02-04 00:00:00 Completed [facility] SARS-COV-2 COVID-19 PFIZER VACCINE 2021-02-04 00:00:00 Completed [facility] SARS-COV-2 COVID-19 PFIZER VACCINE 2021-02-04 00:00:00 Completed [facility] SARS-COV-2 COVID-19 PFIZER VACCINE 2021-02-04 00:00:00 Completed [facility] SARS-COV-2 COVID-19 PFIZER VACCINE 2021-02-04 00:00:00 Completed [facility] SARS-COV-2 COVID-19 PFIZER VACCINE 2021-02-04 00:00:00 Completed [facility] SARS-COV-2 COVID-19 PFIZER VACCINE 2021-02-04 00:00:00 Completed [facility] SARS-COV-2 COVID-19 PFIZER VACCINE 2021-02-04 00:00:00 Completed [facility] SARS-COV-2 COVID-19 PFIZER VACCINE 2021-02-04 00:00:00 Completed [facility] SARS-COV-2 COVID-19 PFIZER VACCINE 2021-02-04 00:00:00 Completed [facility] SARS-COV-2 COVID-19 PFIZER VACCINE 2021-02-04 00:00:00 Completed [facility] SARS-COV-2 COVID-19 PFIZER VACCINE 2021-02-04 00:00:00 Completed [facility] SARS-COV-2 COVID-19 PFIZER VACCINE 2021-02-04 00:00:00 Completed [facility] SARS-COV-2 COVID-19 PFIZER VACCINE 2021-02-04 00:00:00 Completed [facility] SARS-COV-2 COVID-19 PFIZER VACCINE 2021-02-04 00:00:00 Completed [facility] SARS-COV-2 COVID-19 PFIZER VACCINE 2021-02-04 00:00:00 Completed [facility] SARS-COV-2 COVID-19 PFIZER VACCINE 2021-02-04 00:00:00 Completed [facility] SARS-COV-2 COVID-19 PFIZER VACCINE 2021-02-04 00:00:00 Completed [facility] SARS-COV-2 COVID-19 PFIZER VACCINE 2021-02-04 00:00:00 Completed [facility] SARS-COV-2 COVID-19 PFIZER VACCINE 2021-02-04 00:00:00 Completed [facility] SARS-COV-2 COVID-19 PFIZER VACCINE 2021-02-04 00:00:00 Completed [facility] SARS-COV-2 COVID-19 PFIZER VACCINE 2021-02-04 00:00:00 Completed [facility] SARS-COV-2 COVID-19 PFIZER VACCINE 2021-02-04 00:00:00 Completed [facility] SARS-COV-2 COVID-19 PFIZER VACCINE 2021-02-04 00:00:00 Completed [facility] SARS-COV-2 COVID-19 PFIZER VACCINE 2021-02-04 00:00:00 Completed [facility] SARS-COV-2 COVID-19 PFIZER VACCINE 2021-02-04 00:00:00 Completed [facility] SARS-COV-2 COVID-19 PFIZER VACCINE 2021-02-04 00:00:00 Completed [facility] SARS-COV-2 COVID-19 PFIZER VACCINE 2021-01-14 00:00:00 Completed [facility] SARS-COV-2 COVID-19 PFIZER VACCINE 2021-01-14 00:00:00 Completed [facility] SARS-COV-2 COVID-19 PFIZER VACCINE 2021-01-14 00:00:00 Completed [facility] SARS-COV-2 COVID-19 PFIZER VACCINE 2021-01-14 00:00:00 Completed [facility] SARS-COV-2 COVID-19 PFIZER VACCINE 2021-01-14 00:00:00 Completed [facility] SARS-COV-2 COVID-19 PFIZER VACCINE 2021-01-14 00:00:00 Completed [facility] SARS-COV-2 COVID-19 PFIZER VACCINE 2021-01-14 00:00:00 Completed [facility] SARS-COV-2 COVID-19 PFIZER VACCINE 2021-01-14 00:00:00 Completed [facility] SARS-COV-2 COVID-19 PFIZER VACCINE 2021-01-14 00:00:00 Completed [facility] SARS-COV-2 COVID-19 PFIZER VACCINE 2021-01-14 00:00:00 Completed [facility] SARS-COV-2 COVID-19 PFIZER VACCINE 2021-01-14 00:00:00 Completed [facility] SARS-COV-2 COVID-19 PFIZER VACCINE 2021-01-14 00:00:00 Completed [facility] SARS-COV-2 COVID-19 PFIZER VACCINE 2021-01-14 00:00:00 Completed [facility] SARS-COV-2 COVID-19 PFIZER VACCINE 2021-01-14 00:00:00 Completed [facility] SARS-COV-2 COVID-19 PFIZER VACCINE 2021-01-14 00:00:00 Completed [facility] SARS-COV-2 COVID-19 PFIZER VACCINE 2021-01-14 00:00:00 Completed [facility] SARS-COV-2 COVID-19 PFIZER VACCINE 2021-01-14 00:00:00 Completed [facility] SARS-COV-2 COVID-19 PFIZER VACCINE 2021-01-14 00:00:00 Completed [facility] SARS-COV-2 COVID-19 PFIZER VACCINE 2021-01-14 00:00:00 Completed [facility] SARS-COV-2 COVID-19 PFIZER VACCINE 2021-01-14 00:00:00 Completed [facility] SARS-COV-2 COVID-19 PFIZER VACCINE 2021-01-14 00:00:00 Completed [facility] SARS-COV-2 COVID-19 PFIZER VACCINE 2021-01-14 00:00:00 Completed [facility] SARS-COV-2 COVID-19 PFIZER VACCINE 2021-01-14 00:00:00 Completed [facility] SARS-COV-2 COVID-19 PFIZER VACCINE 2021-01-14 00:00:00 Completed [facility] SARS-COV-2 COVID-19 PFIZER VACCINE 2021-01-14 00:00:00 Completed [facility] SARS-COV-2 COVID-19 PFIZER VACCINE 2021-01-14 00:00:00 Completed [facility] SARS-COV-2 COVID-19 PFIZER VACCINE 2021-01-14 00:00:00 Completed [facility] SARS-COV-2 COVID-19 PFIZER VACCINE 2021-01-14 00:00:00 Completed [facility] SARS-COV-2 COVID-19 PFIZER VACCINE 2021-01-14 00:00:00 Completed [facility] SARS-COV-2 COVID-19 PFIZER VACCINE 2021-01-14 00:00:00 Completed [facility] SARS-COV-2 COVID-19 PFIZER VACCINE 2021-01-14 00:00:00 Completed [facility] SARS-COV-2 COVID-19 PFIZER VACCINE 2021-01-14 00:00:00 Completed [facility] SARS-COV-2 COVID-19 PFIZER VACCINE 2021-01-14 00:00:00 Completed [facility] SARS-COV-2 COVID-19 PFIZER VACCINE 2021-01-14 00:00:00 Completed [facility] SARS-COV-2 COVID-19 PFIZER VACCINE 2021-01-14 00:00:00 Completed [facility] SARS-COV-2 COVID-19 PFIZER VACCINE 2021-01-14 00:00:00 Completed [facility] SARS-COV-2 COVID-19 PFIZER VACCINE 2021-01-14 00:00:00 Completed [facility] SARS-COV-2 COVID-19 PFIZER VACCINE 2021-01-14 00:00:00 Completed [facility] SARS-COV-2 COVID-19 PFIZER VACCINE 2021-01-14 00:00:00 Completed [facility] SARS-COV-2 COVID-19 PFIZER VACCINE 2021-01-14 00:00:00 Completed [facility] SARS-COV-2 COVID-19 PFIZER VACCINE 2021-01-14 00:00:00 Completed [facility] SARS-COV-2 COVID-19 PFIZER VACCINE 2021-01-14 00:00:00 Completed [facility] SARS-COV-2 COVID-19 PFIZER VACCINE 2021-01-14 00:00:00 Completed [facility] SARS-COV-2 COVID-19 PFIZER VACCINE 2021-01-14 00:00:00 Completed [facility] SARS-COV-2 COVID-19 PFIZER VACCINE 2021-01-14 00:00:00 Completed [facility] SARS-COV-2 COVID-19 PFIZER VACCINE 2021-01-14 00:00:00 Completed [facility] SARS-COV-2 COVID-19 PFIZER VACCINE 2021-01-14 00:00:00 Completed [facility] Influenza High Dose Quad 2020-02-15 00:00:00 Completed [facility] Influenza Virus Vaccine 2020-02-15 00:00:00 Completed Influenza High Dose Quad 2020-02-15 00:00:00 Completed [facility] Influenza High Dose Quad 2020-02-15 00:00:00 Completed [facility] Influenza High Dose Quad 2020-02-15 00:00:00 Completed [facility] Influenza High Dose Quad 2020-02-15 00:00:00 Completed [facility] Influenza High Dose Quad 2020-02-15 00:00:00 Completed [facility] Influenza High Dose Quad 2020-02-15 00:00:00 Completed [facility] Influenza High Dose Quad 2020-02-15 00:00:00 Completed [facility] Influenza High Dose Quad 2020-02-15 00:00:00 Completed [facility] Influenza High Dose Quad 2020-02-15 00:00:00 Completed [facility] Influenza High Dose Quad 2020-02-15 00:00:00 Completed [facility] Influenza High Dose Quad 2020-02-15 00:00:00 Completed [facility] Influenza High Dose Quad 2020-02-15 00:00:00 Completed [facility] Influenza High Dose Quad 2020-02-15 00:00:00 Completed [facility] Influenza High Dose Quad 2020-02-15 00:00:00 Completed [facility] Influenza High Dose Quad 2020-02-15 00:00:00 Completed [facility] Influenza High Dose Quad 2020-02-15 00:00:00 Completed [facility] Influenza High Dose Quad 2020-02-15 00:00:00 Completed [facility] Influenza High Dose Quad 2020-02-15 00:00:00 Completed [facility] Influenza High Dose Quad 2020-02-15 00:00:00 Completed [facility] Influenza High Dose Quad 2020-02-15 00:00:00 Completed [facility] Influenza High Dose Quad 2020-02-15 00:00:00 Completed [facility] Influenza High Dose Quad 2020-02-15 00:00:00 Completed [facility] Influenza High Dose Quad 2020-02-15 00:00:00 Completed [facility] Influenza High Dose Quad 2020-02-15 00:00:00 Completed [facility] Influenza High Dose Quad 2020-02-15 00:00:00 Completed [facility] Influenza High Dose Quad 2020-02-15 00:00:00 Completed [facility] Influenza High Dose Quad 2020-02-15 00:00:00 Completed [facility] Influenza High Dose Quad 2020-02-15 00:00:00 Completed [facility] Influenza High Dose Quad 2020-02-15 00:00:00 Completed [facility] Influenza High Dose Quad 2020-02-15 00:00:00 Completed [facility] Influenza High Dose Quad 2020-02-15 00:00:00 Completed [facility] Influenza High Dose Quad 2020-02-15 00:00:00 Completed [facility] Influenza High Dose Quad 2020-02-15 00:00:00 Completed [facility] Influenza High Dose Quad 2020-02-15 00:00:00 Completed [facility] Influenza High Dose Quad 2020-02-15 00:00:00 Completed [facility] Influenza High Dose Quad 2020-02-15 00:00:00 Completed [facility] Influenza High Dose Quad 2020-02-15 00:00:00 Completed [facility] Influenza High Dose Quad 2020-02-15 00:00:00 Completed [facility] Influenza High Dose Quad 2020-02-15 00:00:00 Completed [facility] Influenza High Dose Quad 2020-02-15 00:00:00 Completed [facility] Influenza High Dose Quad 2020-02-15 00:00:00 Completed [facility] Influenza High Dose Quad 2020-02-15 00:00:00 Completed [facility] Influenza High Dose Quad 2020-02-15 00:00:00 Completed [facility] Influenza High Dose Quad 2020-02-15 00:00:00 Completed [facility] Influenza High Dose Quad 2020-02-15 00:00:00 Completed [facility] Influenza High Dose Quad 2020-02-15 00:00:00 Completed [facility] Influenza, High-Dose, Trivalent, PF (FLUZONE) 2019-03-19 00:00:00 Completed [facility] Influenza High Dose 2019-03-19 00:00:00 Completed [facility] Influenza High Dose 2019-03-19 00:00:00 Completed [facility] Influenza High Dose 2019-03-19 00:00:00 Completed [facility] Influenza High Dose 2019-03-19 00:00:00 Completed [facility] Influenza High Dose 2019-03-19 00:00:00 Completed [facility] Influenza High Dose 2019-03-19 00:00:00 Completed [facility] Influenza High Dose 2019-03-19 00:00:00 Completed [facility] Influenza High Dose 2019-03-19 00:00:00 Completed [facility] Influenza High Dose 2019-03-19 00:00:00 Completed [facility] Influenza High Dose 2019-03-19 00:00:00 Completed [facility] Influenza High Dose 2019-03-19 00:00:00 Completed [facility] Influenza High Dose 2019-03-19 00:00:00 Completed [facility] Influenza High Dose 2019-03-19 00:00:00 Completed [facility] Influenza High Dose 2019-03-19 00:00:00 Completed [facility] Influenza High Dose 2019-03-19 00:00:00 Completed [facility] Influenza High Dose 2019-03-19 00:00:00 Completed [facility] Influenza High Dose 2019-03-19 00:00:00 Completed [facility] Influenza High Dose 2019-03-19 00:00:00 Completed [facility] Influenza High Dose 2019-03-19 00:00:00 Completed [facility] Influenza High Dose 2019-03-19 00:00:00 Completed [facility] Influenza High Dose 2019-03-19 00:00:00 Completed [facility] Influenza High Dose 2019-03-19 00:00:00 Completed [facility] Influenza High Dose 2019-03-19 00:00:00 Completed [facility] Influenza High Dose 2019-03-19 00:00:00 Completed [facility] Influenza High Dose 2019-03-19 00:00:00 Completed [facility] Influenza High Dose 2019-03-19 00:00:00 Completed [facility] Influenza High Dose 2019-03-19 00:00:00 Completed [facility] Influenza High Dose 2019-03-19 00:00:00 Completed [facility] Influenza High Dose 2019-03-19 00:00:00 Completed [facility] Influenza High Dose 2019-03-19 00:00:00 Completed [facility] Influenza High Dose 2019-03-19 00:00:00 Completed [facility] Influenza High Dose 2019-03-19 00:00:00 Completed [facility] Influenza High Dose 2019-03-19 00:00:00 Completed [facility] Influenza High Dose 2019-03-19 00:00:00 Completed [facility] Influenza High Dose 2019-03-19 00:00:00 Completed [facility] Influenza High Dose 2019-03-19 00:00:00 Completed [facility] Influenza High Dose 2019-03-19 00:00:00 Completed [facility] Influenza High Dose 2019-03-19 00:00:00 Completed [facility] Influenza High Dose 2019-03-19 00:00:00 Completed [facility] Influenza High Dose 2019-03-19 00:00:00 Completed [facility] Influenza High Dose 2019-03-19 00:00:00 Completed [facility] Influenza High Dose 2019-03-19 00:00:00 Completed [facility] Influenza High Dose 2019-03-19 00:00:00 Completed [facility] Influenza High Dose 2019-03-19 00:00:00 Completed [facility] Influenza High Dose 2019-03-19 00:00:00 Completed [facility] Influenza High Dose 2019-03-19 00:00:00 Completed [facility] Influenza, High-Dose, Trivalent, PF (FLUZONE) 2018-04-19 00:00:00 Completed [facility] Influenza High Dose 2018-04-19 00:00:00 Completed [facility] Influenza High Dose 2018-04-19 00:00:00 Completed [facility] Influenza High Dose 2018-04-19 00:00:00 Completed [facility] Influenza High Dose 2018-04-19 00:00:00 Completed [facility] Influenza High Dose 2018-04-19 00:00:00 Completed [facility] Influenza High Dose 2018-04-19 00:00:00 Completed [facility] Influenza High Dose 2018-04-19 00:00:00 Completed [facility] Influenza High Dose 2018-04-19 00:00:00 Completed [facility] Influenza High Dose 2018-04-19 00:00:00 Completed [facility] Influenza High Dose 2018-04-19 00:00:00 Completed [facility] Influenza High Dose 2018-04-19 00:00:00 Completed [facility] Influenza High Dose 2018-04-19 00:00:00 Completed [facility] Influenza High Dose 2018-04-19 00:00:00 Completed [facility] Influenza High Dose 2018-04-19 00:00:00 Completed [facility] Influenza High Dose 2018-04-19 00:00:00 Completed [facility] Influenza High Dose 2018-04-19 00:00:00 Completed [facility] Influenza High Dose 2018-04-19 00:00:00 Completed [facility] Influenza High Dose 2018-04-19 00:00:00 Completed [facility] Influenza High Dose 2018-04-19 00:00:00 Completed [facility] Influenza High Dose 2018-04-19 00:00:00 Completed [facility] Influenza High Dose 2018-04-19 00:00:00 Completed [facility] Influenza High Dose 2018-04-19 00:00:00 Completed [facility] Influenza High Dose 2018-04-19 00:00:00 Completed [facility] Influenza High Dose 2018-04-19 00:00:00 Completed [facility] Influenza High Dose 2018-04-19 00:00:00 Completed [facility] Influenza High Dose 2018-04-19 00:00:00 Completed [facility] Influenza High Dose 2018-04-19 00:00:00 Completed [facility] Influenza High Dose 2018-04-19 00:00:00 Completed [facility] Influenza High Dose 2018-04-19 00:00:00 Completed [facility] Influenza High Dose 2018-04-19 00:00:00 Completed [facility] Influenza High Dose 2018-04-19 00:00:00 Completed [facility] Influenza High Dose 2018-04-19 00:00:00 Completed [facility] Influenza High Dose 2018-04-19 00:00:00 Completed [facility] Influenza High Dose 2018-04-19 00:00:00 Completed [facility] Influenza High Dose 2018-04-19 00:00:00 Completed [facility] Influenza High Dose 2018-04-19 00:00:00 Completed [facility] Influenza High Dose 2018-04-19 00:00:00 Completed [facility] Influenza High Dose 2018-04-19 00:00:00 Completed [facility] Influenza High Dose 2018-04-19 00:00:00 Completed [facility] Influenza High Dose 2018-04-19 00:00:00 Completed [facility] Influenza High Dose 2018-04-19 00:00:00 Completed [facility] Influenza High Dose 2018-04-19 00:00:00 Completed [facility] Influenza High Dose 2018-04-19 00:00:00 Completed [facility] Influenza High Dose 2018-04-19 00:00:00 Completed [facility] Influenza High Dose 2018-04-19 00:00:00 Completed [facility] Influenza High Dose 2018-04-19 00:00:00 Completed [facility] Pneumococcal Polysaccharide, PPSV23 (PNEUMOVAX) 2017-06-30 00:00:00 Completed Pneumococcal Polysaccharide, PPSV23 (PNEUMOVAX) 2017-06-30 00:00:00 Completed [facility] Pneumococcal Polysaccharide, PPSV23 (PNEUMOVAX) 2017-06-30 00:00:00 Completed [facility] Pneumococcal Polysaccharide, PPSV23 (PNEUMOVAX) 2017-06-30 00:00:00 Completed [facility] Pneumococcal Polysaccharide, PPSV23 (PNEUMOVAX) 2017-06-30 00:00:00 Completed [facility] Pneumococcal Polysaccharide, PPSV23 (PNEUMOVAX) 2017-06-30 00:00:00 Completed [facility] Pneumococcal Polysaccharide, PPSV23 (PNEUMOVAX) 2017-06-30 00:00:00 Completed [facility] Pneumococcal Polysaccharide, PPSV23 (PNEUMOVAX) 2017-06-30 00:00:00 Completed [facility] Pneumococcal Polysaccharide, PPSV23 (PNEUMOVAX) 2017-06-30 00:00:00 Completed [facility] Pneumococcal Polysaccharide, PPSV23 (PNEUMOVAX) 2017-06-30 00:00:00 Completed [facility] Pneumococcal Polysaccharide, PPSV23 (PNEUMOVAX) 2017-06-30 00:00:00 Completed [facility] Pneumococcal Polysaccharide, PPSV23 (PNEUMOVAX) 2017-06-30 00:00:00 Completed [facility] Pneumococcal Polysaccharide, PPSV23 (PNEUMOVAX) 2017-06-30 00:00:00 Completed [facility] Pneumococcal Polysaccharide, PPSV23 (PNEUMOVAX) 2017-06-30 00:00:00 Completed [facility] Pneumococcal Polysaccharide, PPSV23 (PNEUMOVAX) 2017-06-30 00:00:00 Completed [facility] Pneumococcal Polysaccharide, PPSV23 (PNEUMOVAX) 2017-06-30 00:00:00 Completed [facility] Pneumococcal Polysaccharide, PPSV23 (PNEUMOVAX) 2017-06-30 00:00:00 Completed [facility] Pneumococcal Polysaccharide, PPSV23 (PNEUMOVAX) 2017-06-30 00:00:00 Completed [facility] Pneumococcal Polysaccharide, PPSV23 (PNEUMOVAX) 2017-06-30 00:00:00 Completed [facility] Pneumococcal Polysaccharide, PPSV23 (PNEUMOVAX) 2017-06-30 00:00:00 Completed [facility] Pneumococcal Polysaccharide, PPSV23 (PNEUMOVAX) 2017-06-30 00:00:00 Completed [facility] Pneumococcal Polysaccharide, PPSV23 (PNEUMOVAX) 2017-06-30 00:00:00 Completed [facility] Pneumococcal Polysaccharide, PPSV23 (PNEUMOVAX) 2017-06-30 00:00:00 Completed [facility] Pneumococcal Polysaccharide, PPSV23 (PNEUMOVAX) 2017-06-30 00:00:00 Completed [facility] Pneumococcal Polysaccharide, PPSV23 (PNEUMOVAX) 2017-06-30 00:00:00 Completed [facility] Pneumococcal Polysaccharide, PPSV23 (PNEUMOVAX) 2017-06-30 00:00:00 Completed [facility] Pneumococcal Polysaccharide, PPSV23 (PNEUMOVAX) 2017-06-30 00:00:00 Completed [facility] Pneumococcal Polysaccharide, PPSV23 (PNEUMOVAX) 2017-06-30 00:00:00 Completed [facility] Pneumococcal Polysaccharide, PPSV23 (PNEUMOVAX) 2017-06-30 00:00:00 Completed [facility] Pneumococcal Polysaccharide, PPSV23 (PNEUMOVAX) 2017-06-30 00:00:00 Completed [facility] Pneumococcal Polysaccharide, PPSV23 (PNEUMOVAX) 2017-06-30 00:00:00 Completed [facility] Pneumococcal Polysaccharide, PPSV23 (PNEUMOVAX) 2017-06-30 00:00:00 Completed [facility] Pneumococcal Polysaccharide, PPSV23 (PNEUMOVAX) 2017-06-30 00:00:00 Completed [facility] Pneumococcal Polysaccharide, PPSV23 (PNEUMOVAX) 2017-06-30 00:00:00 Completed [facility] Pneumococcal Polysaccharide, PPSV23 (PNEUMOVAX) 2017-06-30 00:00:00 Completed [facility] Pneumococcal Polysaccharide, PPSV23 (PNEUMOVAX) 2017-06-30 00:00:00 Completed [facility] Pneumococcal Polysaccharide, PPSV23 (PNEUMOVAX) 2017-06-30 00:00:00 Completed [facility] Pneumococcal Polysaccharide, PPSV23 (PNEUMOVAX) 2017-06-30 00:00:00 Completed [facility] Pneumococcal Polysaccharide, PPSV23 (PNEUMOVAX) 2017-06-30 00:00:00 Completed [facility] Pneumococcal Polysaccharide, PPSV23 (PNEUMOVAX) 2017-06-30 00:00:00 Completed [facility] Pneumococcal Polysaccharide, PPSV23 (PNEUMOVAX) 2017-06-30 00:00:00 Completed [facility] Pneumococcal Polysaccharide, PPSV23 (PNEUMOVAX) 2017-06-30 00:00:00 Completed [facility] Pneumococcal Polysaccharide, PPSV23 (PNEUMOVAX) 2017-06-30 00:00:00 Completed [facility] Pneumococcal Polysaccharide, PPSV23 (PNEUMOVAX) 2017-06-30 00:00:00 Completed [facility] Pneumococcal Polysaccharide, PPSV23 (PNEUMOVAX) 2017-06-30 00:00:00 Completed [facility] Pneumococcal Polysaccharide, PPSV23 (PNEUMOVAX) 2017-06-30 00:00:00 Completed [facility] Pneumococcal Polysaccharide, PPSV23 (PNEUMOVAX) 2017-06-30 00:00:00 Completed [facility] Influenza, High-Dose, Trivalent, PF (FLUZONE) 2017-03-30 00:00:00 Completed Influenza High Dose 2017-03-30 00:00:00 Completed [facility] Influenza High Dose 2017-03-30 00:00:00 Completed [facility] Influenza High Dose 2017-03-30 00:00:00 Completed [facility] Influenza High Dose 2017-03-30 00:00:00 Completed [facility] Influenza High Dose 2017-03-30 00:00:00 Completed [facility] Influenza High Dose 2017-03-30 00:00:00 Completed [facility] Influenza High Dose 2017-03-30 00:00:00 Completed [facility] Influenza High Dose 2017-03-30 00:00:00 Completed [facility] Influenza High Dose 2017-03-30 00:00:00 Completed [facility] Influenza High Dose 2017-03-30 00:00:00 Completed [facility] Influenza High Dose 2017-03-30 00:00:00 Completed [facility] Influenza High Dose 2017-03-30 00:00:00 Completed [facility] Influenza High Dose 2017-03-30 00:00:00 Completed [facility] Influenza High Dose 2017-03-30 00:00:00 Completed [facility] Influenza High Dose 2017-03-30 00:00:00 Completed [facility] Influenza High Dose 2017-03-30 00:00:00 Completed [facility] Influenza High Dose 2017-03-30 00:00:00 Completed [facility] Influenza High Dose 2017-03-30 00:00:00 Completed [facility] Influenza High Dose 2017-03-30 00:00:00 Completed [facility] Influenza High Dose 2017-03-30 00:00:00 Completed [facility] Influenza High Dose 2017-03-30 00:00:00 Completed [facility] Influenza High Dose 2017-03-30 00:00:00 Completed [facility] Influenza High Dose 2017-03-30 00:00:00 Completed [facility] Influenza High Dose 2017-03-30 00:00:00 Completed [facility] Influenza High Dose 2017-03-30 00:00:00 Completed [facility] Influenza High Dose 2017-03-30 00:00:00 Completed [facility] Influenza High Dose 2017-03-30 00:00:00 Completed [facility] Influenza High Dose 2017-03-30 00:00:00 Completed [facility] Influenza High Dose 2017-03-30 00:00:00 Completed [facility] Influenza High Dose 2017-03-30 00:00:00 Completed [facility] Influenza High Dose 2017-03-30 00:00:00 Completed [facility] Influenza High Dose 2017-03-30 00:00:00 Completed [facility] Influenza High Dose 2017-03-30 00:00:00 Completed [facility] Influenza High Dose 2017-03-30 00:00:00 Completed [facility] Influenza High Dose 2017-03-30 00:00:00 Completed [facility] Influenza High Dose 2017-03-30 00:00:00 Completed [facility] Influenza High Dose 2017-03-30 00:00:00 Completed [facility] Influenza High Dose 2017-03-30 00:00:00 Completed [facility] Influenza High Dose 2017-03-30 00:00:00 Completed [facility] Influenza High Dose 2017-03-30 00:00:00 Completed [facility] Influenza High Dose 2017-03-30 00:00:00 Completed [facility] Influenza High Dose 2017-03-30 00:00:00 Completed [facility] Influenza High Dose 2017-03-30 00:00:00 Completed [facility] Influenza High Dose 2017-03-30 00:00:00 Completed [facility] Influenza High Dose 2017-03-30 00:00:00 Completed [facility] Influenza High Dose 2017-03-30 00:00:00 Completed [facility] TD, NOS 2017-03-11 00:00:00 Completed [facility] Td 2017-03-11 00:00:00 Completed [facility] Td 2017-03-11 00:00:00 Completed [facility] Td 2017-03-11 00:00:00 Completed [facility] Td 2017-03-11 00:00:00 Completed [facility] Td 2017-03-11 00:00:00 Completed [facility] Td 2017-03-11 00:00:00 Completed [facility] Td 2017-03-11 00:00:00 Completed [facility] Td 2017-03-11 00:00:00 Completed [facility] Td 2017-03-11 00:00:00 Completed [facility] TD, NOS 2017-03-11 00:00:00 Completed [facility] TD, NOS 2017-03-11 00:00:00 Completed [facility] TD, NOS 2017-03-11 00:00:00 Completed [facility] TD, NOS 2017-03-11 00:00:00 Completed [facility] TD, NOS 2017-03-11 00:00:00 Completed [facility] TD, NOS 2017-03-11 00:00:00 Completed [facility] TD, NOS 2017-03-11 00:00:00 Completed [facility] TD, NOS 2017-03-11 00:00:00 Completed [facility] TD, NOS 2017-03-11 00:00:00 Completed [facility] TD, NOS 2017-03-11 00:00:00 Completed [facility] TD, NOS 2017-03-11 00:00:00 Completed [facility] TD, NOS 2017-03-11 00:00:00 Completed [facility] TD, NOS 2017-03-11 00:00:00 Completed [facility] TD, NOS 2017-03-11 00:00:00 Completed [facility] TD, NOS 2017-03-11 00:00:00 Completed [facility] TD, NOS 2017-03-11 00:00:00 Completed [facility] TD, NOS 2017-03-11 00:00:00 Completed [facility] TD, NOS 2017-03-11 00:00:00 Completed [facility] TD, NOS 2017-03-11 00:00:00 Completed [facility] TD, NOS 2017-03-11 00:00:00 Completed [facility] TD, NOS 2017-03-11 00:00:00 Completed [facility] TD, NOS 2017-03-11 00:00:00 Completed [facility] TD, NOS 2017-03-11 00:00:00 Completed [facility] TD, NOS 2017-03-11 00:00:00 Completed [facility] TD, NOS 2017-03-11 00:00:00 Completed [facility] TD, NOS 2017-03-11 00:00:00 Completed [facility] TD, NOS 2017-03-11 00:00:00 Completed [facility] TD, NOS 2017-03-11 00:00:00 Completed [facility] TD, NOS 2017-03-11 00:00:00 Completed [facility] TD, NOS 2017-03-11 00:00:00 Completed [facility] TD, NOS 2017-03-11 00:00:00 Completed [facility] TD, NOS 2017-03-11 00:00:00 Completed [facility] TD, NOS 2017-03-11 00:00:00 Completed [facility] TD, NOS 2017-03-11 00:00:00 Completed [facility] TD, NOS 2017-03-11 00:00:00 Completed [facility] TD, NOS 2017-03-11 00:00:00 Completed [facility] TD, NOS 2017-03-11 00:00:00 Completed [facility] Influenza, High-Dose, Trivalent, PF (FLUZONE) 2016-05-26 00:00:00 Completed [facility] Pneumococcal 13 Conjugate, PCV13 (Prevnar 13) 2016-05-26 00:00:00 Completed Influenza High Dose 2016-05-26 00:00:00 Completed [facility] Pneumococcal 13 Conjugate, PCV13 (Prevnar 13) 2016-05-26 00:00:00 Completed [facility] Influenza High Dose 2016-05-26 00:00:00 Completed [facility] Pneumococcal 13 Conjugate, PCV13 (Prevnar 13) 2016-05-26 00:00:00 Completed [facility] Influenza High Dose 2016-05-26 00:00:00 Completed [facility] Pneumococcal 13 Conjugate, PCV13 (Prevnar 13) 2016-05-26 00:00:00 Completed [facility] Influenza High Dose 2016-05-26 00:00:00 Completed [facility] Pneumococcal 13 Conjugate, PCV13 (Prevnar 13) 2016-05-26 00:00:00 Completed [facility] Influenza High Dose 2016-05-26 00:00:00 Completed [facility] Pneumococcal 13 Conjugate, PCV13 (Prevnar 13) 2016-05-26 00:00:00 Completed [facility] Influenza High Dose 2016-05-26 00:00:00 Completed [facility] Pneumococcal 13 Conjugate, PCV13 (Prevnar 13) 2016-05-26 00:00:00 Completed [facility] Influenza High Dose 2016-05-26 00:00:00 Completed [facility] Pneumococcal 13 Conjugate, PCV13 (Prevnar 13) 2016-05-26 00:00:00 Completed [facility] Influenza High Dose 2016-05-26 00:00:00 Completed [facility] Pneumococcal 13 Conjugate, PCV13 (Prevnar 13) 2016-05-26 00:00:00 Completed [facility] Influenza High Dose 2016-05-26 00:00:00 Completed [facility] Pneumococcal 13 Conjugate, PCV13 (Prevnar 13) 2016-05-26 00:00:00 Completed [facility] Influenza High Dose 2016-05-26 00:00:00 Completed [facility] Pneumococcal 13 Conjugate, PCV13 (Prevnar 13) 2016-05-26 00:00:00 Completed [facility] Influenza High Dose 2016-05-26 00:00:00 Completed [facility] Pneumococcal 13 Conjugate, PCV13 (Prevnar 13) 2016-05-26 00:00:00 Completed [facility] Influenza High Dose 2016-05-26 00:00:00 Completed [facility] Pneumococcal 13 Conjugate, PCV13 (Prevnar 13) 2016-05-26 00:00:00 Completed [facility] Influenza High Dose 2016-05-26 00:00:00 Completed [facility] Pneumococcal 13 Conjugate, PCV13 (Prevnar 13) 2016-05-26 00:00:00 Completed [facility] Influenza High Dose 2016-05-26 00:00:00 Completed [facility] Pneumococcal 13 Conjugate, PCV13 (Prevnar 13) 2016-05-26 00:00:00 Completed [facility] Influenza High Dose 2016-05-26 00:00:00 Completed [facility] Pneumococcal 13 Conjugate, PCV13 (Prevnar 13) 2016-05-26 00:00:00 Completed [facility] Influenza High Dose 2016-05-26 00:00:00 Completed [facility] Pneumococcal 13 Conjugate, PCV13 (Prevnar 13) 2016-05-26 00:00:00 Completed [facility] Influenza High Dose 2016-05-26 00:00:00 Completed [facility] Pneumococcal 13 Conjugate, PCV13 (Prevnar 13) 2016-05-26 00:00:00 Completed [facility] Influenza High Dose 2016-05-26 00:00:00 Completed [facility] Pneumococcal 13 Conjugate, PCV13 (Prevnar 13) 2016-05-26 00:00:00 Completed [facility] Influenza High Dose 2016-05-26 00:00:00 Completed [facility] Pneumococcal 13 Conjugate, PCV13 (Prevnar 13) 2016-05-26 00:00:00 Completed [facility] Influenza High Dose 2016-05-26 00:00:00 Completed [facility] Pneumococcal 13 Conjugate, PCV13 (Prevnar 13) 2016-05-26 00:00:00 Completed [facility] Influenza High Dose 2016-05-26 00:00:00 Completed [facility] Pneumococcal 13 Conjugate, PCV13 (Prevnar 13) 2016-05-26 00:00:00 Completed [facility] Influenza High Dose 2016-05-26 00:00:00 Completed [facility] Pneumococcal 13 Conjugate, PCV13 (Prevnar 13) 2016-05-26 00:00:00 Completed [facility] Influenza High Dose 2016-05-26 00:00:00 Completed [facility] Pneumococcal 13 Conjugate, PCV13 (Prevnar 13) 2016-05-26 00:00:00 Completed [facility] Influenza High Dose 2016-05-26 00:00:00 Completed [facility] Pneumococcal 13 Conjugate, PCV13 (Prevnar 13) 2016-05-26 00:00:00 Completed [facility] Influenza High Dose 2016-05-26 00:00:00 Completed [facility] Pneumococcal 13 Conjugate, PCV13 (Prevnar 13) 2016-05-26 00:00:00 Completed [facility] Influenza High Dose 2016-05-26 00:00:00 Completed [facility] Pneumococcal 13 Conjugate, PCV13 (Prevnar 13) 2016-05-26 00:00:00 Completed [facility] Influenza High Dose 2016-05-26 00:00:00 Completed [facility] Pneumococcal 13 Conjugate, PCV13 (Prevnar 13) 2016-05-26 00:00:00 Completed [facility] Influenza High Dose 2016-05-26 00:00:00 Completed [facility] Pneumococcal 13 Conjugate, PCV13 (Prevnar 13) 2016-05-26 00:00:00 Completed [facility] Influenza High Dose 2016-05-26 00:00:00 Completed [facility] Pneumococcal 13 Conjugate, PCV13 (Prevnar 13) 2016-05-26 00:00:00 Completed [facility] Influenza High Dose 2016-05-26 00:00:00 Completed [facility] Pneumococcal 13 Conjugate, PCV13 (Prevnar 13) 2016-05-26 00:00:00 Completed [facility] Influenza High Dose 2016-05-26 00:00:00 Completed [facility] Pneumococcal 13 Conjugate, PCV13 (Prevnar 13) 2016-05-26 00:00:00 Completed [facility] Influenza High Dose 2016-05-26 00:00:00 Completed [facility] Pneumococcal 13 Conjugate, PCV13 (Prevnar 13) 2016-05-26 00:00:00 Completed [facility] Influenza High Dose 2016-05-26 00:00:00 Completed [facility] Pneumococcal 13 Conjugate, PCV13 (Prevnar 13) 2016-05-26 00:00:00 Completed [facility] Influenza High Dose 2016-05-26 00:00:00 Completed [facility] Pneumococcal 13 Conjugate, PCV13 (Prevnar 13) 2016-05-26 00:00:00 Completed [facility] Influenza High Dose 2016-05-26 00:00:00 Completed [facility] Pneumococcal 13 Conjugate, PCV13 (Prevnar 13) 2016-05-26 00:00:00 Completed [facility] Influenza High Dose 2016-05-26 00:00:00 Completed [facility] Pneumococcal 13 Conjugate, PCV13 (Prevnar 13) 2016-05-26 00:00:00 Completed [facility] Influenza High Dose 2016-05-26 00:00:00 Completed [facility] Pneumococcal 13 Conjugate, PCV13 (Prevnar 13) 2016-05-26 00:00:00 Completed [facility] Influenza High Dose 2016-05-26 00:00:00 Completed [facility] Pneumococcal 13 Conjugate, PCV13 (Prevnar 13) 2016-05-26 00:00:00 Completed [facility] Influenza High Dose 2016-05-26 00:00:00 Completed [facility] Pneumococcal 13 Conjugate, PCV13 (Prevnar 13) 2016-05-26 00:00:00 Completed [facility] Influenza High Dose 2016-05-26 00:00:00 Completed [facility] Pneumococcal 13 Conjugate, PCV13 (Prevnar 13) 2016-05-26 00:00:00 Completed [facility] Influenza High Dose 2016-05-26 00:00:00 Completed [facility] Pneumococcal 13 Conjugate, PCV13 (Prevnar 13) 2016-05-26 00:00:00 Completed [facility] Influenza High Dose 2016-05-26 00:00:00 Completed [facility] Pneumococcal 13 Conjugate, PCV13 (Prevnar 13) 2016-05-26 00:00:00 Completed [facility] Influenza High Dose 2016-05-26 00:00:00 Completed [facility] Pneumococcal 13 Conjugate, PCV13 (Prevnar 13) 2016-05-26 00:00:00 Completed [facility] Influenza High Dose 2016-05-26 00:00:00 Completed [facility] Pneumococcal 13 Conjugate, PCV13 (Prevnar 13) 2016-05-26 00:00:00 Completed [facility] Influenza High Dose 2016-05-26 00:00:00 Completed [facility] Pneumococcal 13 Conjugate, PCV13 (Prevnar 13) 2016-05-26 00:00:00 Completed [facility] Influenza High Dose 2016-05-26 00:00:00 Completed [facility] Pneumococcal 13 Conjugate, PCV13 (Prevnar 13) 2016-05-26 00:00:00 Completed [facility] Influenza High Dose Unknown Completed [facility] Pneumococcal 13 Conjugate, PCV13 (Prevnar 13) Unknown Completed [facility] TD, NOS Unknown Completed [facility] Pneumococcal Polysaccharide, PPSV23 (PNEUMOVAX) Unknown Completed [facility] Influenza High Dose Quad Unknown Completed [facility] SARS-COV-2 COVID-19 PFIZER VACCINE Unknown Completed [facility] Influenza Virus Vaccine,quad Im,preserve Free 65+ (FLUAD) Unknown Completed [facility] Influenza Virus Vaccine Unknown Completed [facility] SARS-COV-2 COVID-19 RODRICK-SUCROSE VACCINE 12 YRS+, BIVALENT 0.3ML, IM, (PFIZER MORALES TOP) Unknown Completed [facility] Pneumococcal 13 Conjugate, PCV13 (Prevnar 13) Unknown Completed [facility] TD, NOS Unknown Completed [facility] Pneumococcal Polysaccharide, PPSV23 (PNEUMOVAX) Unknown Completed [facility] Influenza High Dose Quad Unknown Completed [facility] Influenza Virus Vaccine Unknown Completed [facility] SARS-COV-2 COVID-19 RODRICK-SUCROSE VACCINE 12 YRS+, BIVALENT 0.3ML, IM, (PFIZER MORALES TOP) Unknown Completed [facility] Influenza High Dose Unknown Completed [facility] SARS-COV-2 COVID-19 PFIZER VACCINE Unknown Completed [facility] Influenza Virus Vaccine,quad Im,preserve Free 65+ (FLUAD) Unknown Completed [facility] Pneumococcal 13 Conjugate, PCV13 (Prevnar 13) Unknown Completed [facility] TD, NOS Unknown Completed [facility] Pneumococcal Polysaccharide, PPSV23 (PNEUMOVAX) Unknown Completed [facility] Influenza High Dose Quad Unknown Completed [facility] Influenza Virus Vaccine Unknown Completed [facility] SARS-COV-2 COVID-19 RODRICK-SUCROSE VACCINE 12 YRS+, BIVALENT 0.3ML, IM, (PFIZER MORALES TOP) Unknown Completed [facility] Influenza High Dose Unknown Completed [facility] SARS-COV-2 COVID-19 PFIZER VACCINE Unknown Completed [facility] Influenza Virus Vaccine,quad Im,preserve Free 65+ (FLUAD) Unknown Completed [facility] Influenza High Dose Unknown Completed [facility] Pneumococcal 13 Conjugate, PCV13 (Prevnar 13) Unknown Completed [facility] TD, NOS Unknown Completed [facility] Pneumococcal Polysaccharide, PPSV23 (PNEUMOVAX) Unknown Completed [facility] Influenza High Dose Quad Unknown Completed [facility] SARS-COV-2 COVID-19 PFIZER VACCINE Unknown Completed [facility] Influenza Virus Vaccine,quad Im,preserve Free 65+ (FLUAD) Unknown Completed [facility] Influenza Virus Vaccine Unknown Completed [facility] SARS-COV-2 COVID-19 RODRICK-SUCROSE VACCINE 12 YRS+, BIVALENT 0.3ML, IM, (PFIZER MORALES TOP) Unknown Completed [facility] Influenza High Dose Unknown Completed [facility] Pneumococcal 13 Conjugate, PCV13 (Prevnar 13) Unknown Completed [facility] TD, NOS Unknown Completed [facility] Pneumococcal Polysaccharide, PPSV23 (PNEUMOVAX) Unknown Completed [facility] Influenza High Dose Quad Unknown Completed [facility] SARS-COV-2 COVID-19 PFIZER VACCINE Unknown Completed [facility] Influenza Virus Vaccine,quad Im,preserve Free 65+ (FLUAD) Unknown Completed [facility] Influenza Virus Vaccine Unknown Completed [facility] SARS-COV-2 COVID-19 RODRICK-SUCROSE VACCINE 12 YRS+, BIVALENT 0.3ML, IM, (PFIZER MORALES TOP) Unknown Completed [facility] Influenza High Dose Unknown Completed [facility] Pneumococcal 13 Conjugate, PCV13 (Prevnar 13) Unknown Completed [facility] TD, NOS Unknown Completed [facility] Pneumococcal Polysaccharide, PPSV23 (PNEUMOVAX) Unknown Completed [facility] Influenza High Dose Quad Unknown Completed [facility] SARS-COV-2 COVID-19 PFIZER VACCINE Unknown Completed [facility] Influenza Virus Vaccine,quad Im,preserve Free 65+ (FLUAD) Unknown Completed [facility] Influenza Virus Vaccine Unknown Completed [facility] SARS-COV-2 COVID-19 RODRICK-SUCROSE VACCINE 12 YRS+, BIVALENT 0.3ML, IM, (PFIZER MORALES TOP) Unknown Completed [facility] Influenza High Dose Unknown Completed [facility] Pneumococcal 13 Conjugate, PCV13 (Prevnar 13) Unknown Completed [facility] TD, NOS Unknown Completed [facility] Pneumococcal Polysaccharide, PPSV23 (PNEUMOVAX) Unknown Completed [facility] Influenza High Dose Quad Unknown Completed [facility] SARS-COV-2 COVID-19 PFIZER VACCINE Unknown Completed [facility] Influenza Virus Vaccine,quad Im,preserve Free 65+ (FLUAD) Unknown Completed [facility] Influenza Virus Vaccine Unknown Completed [facility] SARS-COV-2 COVID-19 RODRICK-SUCROSE VACCINE 12 YRS+, BIVALENT 0.3ML, IM, (PFIZER MORALES TOP) Unknown Completed [facility] Influenza High Dose Unknown Completed [facility] Pneumococcal 13 Conjugate, PCV13 (Prevnar 13) Unknown Completed [facility] TD, NOS Unknown Completed [facility] Pneumococcal Polysaccharide, PPSV23 (PNEUMOVAX) Unknown Completed [facility] Influenza High Dose Quad Unknown Completed [facility] SARS-COV-2 COVID-19 PFIZER VACCINE Unknown Completed [facility] Influenza Virus Vaccine,quad Im,preserve Free 65+ (FLUAD) Unknown Completed [facility] Influenza Virus Vaccine Unknown Completed [facility] SARS-COV-2 COVID-19 RODRICK-SUCROSE VACCINE 12 YRS+, BIVALENT 0.3ML, IM, (PFIZER MORALES TOP) Unknown Completed [facility] Influenza High Dose Unknown Completed [facility] Pneumococcal 13 Conjugate, PCV13 (Prevnar 13) Unknown Completed [facility] TD, NOS Unknown [facility] [facility] Pneumococcal Polysaccharide, PPSV23 (PNEUMOVAX) Unknown Completed [facility] Influenza High Dose Quad Unknown Completed [facility] SARS-COV-2 COVID-19 PFIZER VACCINE Unknown Completed [facility] Influenza Virus Vaccine,quad Im,preserve Free 65+ (FLUAD) Unknown Completed [facility] Influenza Virus Vaccine Unknown Completed [facility] SARS-COV-2 COVID-19 RODRICK-SUCROSE VACCINE 12 YRS+, BIVALENT 0.3ML, IM, (PFIZER MORALES TOP) Unknown Completed [facility] Influenza High Dose Unknown Completed [facility] Pneumococcal 13 Conjugate, PCV13 (Prevnar 13) Unknown Completed [facility] TD, NOS Unknown Completed [facility] Pneumococcal Polysaccharide, PPSV23 (PNEUMOVAX) Unknown Completed [facility] Influenza High Dose Quad Unknown Completed [facility] SARS-COV-2 COVID-19 PFIZER VACCINE Unknown Completed [facility] Influenza Virus Vaccine,quad Im,preserve Free 65+ (FLUAD) Unknown Completed [facility] Influenza Virus Vaccine Unknown Completed [facility] SARS-COV-2 COVID-19 RODRICK-SUCROSE VACCINE 12 YRS+, BIVALENT 0.3ML, IM, (PFIZER MORALES TOP) Unknown Completed [facility] Pneumococcal 13 Conjugate, PCV13 (Prevnar 13) Unknown Completed [facility] TD, NOS Unknown Completed [facility] Pneumococcal Polysaccharide, PPSV23 (PNEUMOVAX) Unknown Completed [facility] Influenza High Dose Quad Unknown Completed [facility] Influenza Virus Vaccine Unknown Completed [facility] SARS-COV-2 COVID-19 RODRICK-SUCROSE VACCINE 12 YRS+, BIVALENT 0.3ML, IM, (PFIZER MORALES TOP) Unknown Completed [facility] Influenza High Dose Unknown Completed [facility] SARS-COV-2 COVID-19 PFIZER VACCINE Unknown Completed [facility] Influenza Virus Vaccine,quad Im,preserve Free 65+ (FLUAD) Unknown Completed [facility] Influenza High Dose Unknown Completed [facility] Pneumococcal 13 Conjugate, PCV13 (Prevnar 13) Unknown Completed [facility] TD, NOS Unknown Completed [facility] Pneumococcal Polysaccharide, PPSV23 (PNEUMOVAX) Unknown Completed [facility] Influenza High Dose Quad Unknown Completed [facility] SARS-COV-2 COVID-19 PFIZER VACCINE Unknown Completed [facility] Influenza Virus Vaccine,quad Im,preserve Free 65+ (FLUAD) Unknown Completed [facility] Influenza Virus Vaccine Unknown Completed [facility] SARS-COV-2 COVID-19 RODRICK-SUCROSE VACCINE 12 YRS+, BIVALENT 0.3ML, IM, (PFIZER MORALES TOP) Unknown Completed [facility] Pneumococcal 13 Conjugate, PCV13 (Prevnar 13) Unknown Completed [facility] TD, NOS Unknown Completed [facility] Pneumococcal Polysaccharide, PPSV23 (PNEUMOVAX) Unknown Completed [facility] Influenza High Dose Quad Unknown Completed [facility] Influenza Virus Vaccine Unknown Completed [facility] SARS-COV-2 COVID-19 RODRICK-SUCROSE VACCINE 12 YRS+, BIVALENT 0.3ML, IM, (PFIZER MORALES TOP) Unknown Completed [facility] Influenza High Dose Unknown Completed [facility] SARS-COV-2 COVID-19 PFIZER VACCINE Unknown Completed [facility] Influenza Virus Vaccine,quad Im,preserve Free 65+ (FLUAD) Unknown Completed [facility] Pneumococcal 13 Conjugate, PCV13 (Prevnar 13) Unknown Completed [facility] TD, NOS Unknown Completed [facility] Pneumococcal Polysaccharide, PPSV23 (PNEUMOVAX) Unknown Completed [facility] Influenza High Dose Quad Unknown Completed [facility] Influenza Virus Vaccine Unknown Completed [facility] SARS-COV-2 COVID-19 RODRICK-SUCROSE VACCINE 12 YRS+, BIVALENT 0.3ML, IM, (PFIZER MORALES TOP) Unknown Completed [facility] Influenza High Dose Unknown Completed [facility] SARS-COV-2 COVID-19 PFIZER VACCINE Unknown Completed [facility] Influenza Virus Vaccine,quad Im,preserve Free 65+ (FLUAD) Unknown Completed [facility] Pneumococcal 13 Conjugate, PCV13 (Prevnar 13) Unknown Completed [facility] TD, NOS Unknown Completed [facility] Pneumococcal Polysaccharide, PPSV23 (PNEUMOVAX) Unknown Completed [facility] Influenza High Dose Quad Unknown Completed [facility] Influenza Virus Vaccine Unknown Completed [facility] SARS-COV-2 COVID-19 RODRICK-SUCROSE VACCINE 12 YRS+, BIVALENT 0.3ML, IM, (PFIZER MORALES TOP) Unknown Completed [facility] Influenza High Dose Unknown Completed [facility] SARS-COV-2 COVID-19 PFIZER VACCINE Unknown Completed [facility] Influenza Virus Vaccine,quad Im,preserve Free 65+ (FLUAD) Unknown Completed [facility] Influenza High Dose Unknown Completed [facility] Pneumococcal 13 Conjugate, PCV13 (Prevnar 13) Unknown Completed [facility] TD, NOS Unknown Completed [facility] Pneumococcal Polysaccharide, PPSV23 (PNEUMOVAX) Unknown Completed [facility] Influenza High Dose Quad Unknown Completed [facility] SARS-COV-2 COVID-19 PFIZER VACCINE Unknown Completed [facility] Influenza Virus Vaccine,quad Im,preserve Free 65+ (FLUAD) Unknown Completed [facility] Influenza Virus Vaccine Unknown Completed [facility] SARS-COV-2 COVID-19 RODRICK-SUCROSE VACCINE 12 YRS+, BIVALENT 0.3ML, IM, (PFIZER MORALES TOP) Unknown Completed [facility] Pneumococcal 13 Conjugate, PCV13 (Prevnar 13) Unknown Completed [facility] TD, NOS Unknown Completed [facility] Pneumococcal Polysaccharide, PPSV23 (PNEUMOVAX) Unknown Completed [facility] Influenza High Dose Quad Unknown Completed [facility] Influenza Virus Vaccine Unknown Completed [facility] SARS-COV-2 COVID-19 RODRICK-SUCROSE VACCINE 12 YRS+, BIVALENT 0.3ML, IM, (PFIZER MORALES TOP) Unknown Completed [facility] Influenza High Dose Unknown Completed [facility] Pneumococcal 13 Conjugate, PCV13 (Prevnar 13) Unknown Completed [facility] TD, NOS Unknown Completed [facility] Pneumococcal Polysaccharide, PPSV23 (PNEUMOVAX) Unknown Completed [facility] Influenza High Dose Quad Unknown Completed [facility] SARS-COV-2 COVID-19 PFIZER VACCINE Unknown Completed [facility] Influenza Virus Vaccine,quad Im,preserve Free 65+ (FLUAD) Unknown Completed [facility] Influenza Virus Vaccine Unknown Completed [facility] SARS-COV-2 COVID-19 RODRICK-SUCROSE VACCINE 12 YRS+, BIVALENT 0.3ML, IM, (PFIZER MORALES TOP) Unknown Completed [facility] Influenza High Dose Unknown Completed [facility] SARS-COV-2 COVID-19 PFIZER VACCINE Unknown Completed [facility] Influenza Virus Vaccine,quad Im,preserve Free 65+ (FLUAD) Unknown Completed [facility] Pneumococcal 13 Conjugate, PCV13 (Prevnar 13) Unknown Completed [facility] TD, NOS Unknown Completed [facility] Pneumococcal Polysaccharide, PPSV23 (PNEUMOVAX) Unknown Completed [facility] Influenza High Dose Quad Unknown Completed [facility] Influenza Virus Vaccine Unknown Completed [facility] SARS-COV-2 COVID-19 RODRICK-SUCROSE VACCINE 12 YRS+, BIVALENT 0.3ML, IM, (PFIZER MORALES TOP) Unknown Completed [facility] Influenza High Dose Unknown Completed [facility] Pneumococcal 13 Conjugate, PCV13 (Prevnar 13) Unknown Completed [facility] TD, NOS Unknown Completed [facility] Pneumococcal Polysaccharide, PPSV23 (PNEUMOVAX) Unknown Completed [facility] Influenza High Dose Quad Unknown Completed [facility] SARS-COV-2 COVID-19 PFIZER VACCINE Unknown Completed [facility] Influenza Virus Vaccine,quad Im,preserve Free 65+ (FLUAD) Unknown Completed [facility] Influenza Virus Vaccine Unknown Completed [facility] SARS-COV-2 COVID-19 RODRICK-SUCROSE VACCINE 12 YRS+, BIVALENT 0.3ML, IM, (PFIZER MORALES TOP) Unknown Completed [facility] Pneumococcal 13 Conjugate, PCV13 (Prevnar 13) Unknown Completed [facility] TD, NOS Unknown Completed [facility] Pneumococcal Polysaccharide, PPSV23 (PNEUMOVAX) Unknown Completed [facility] Influenza High Dose Quad Unknown Completed [facility] Influenza Virus Vaccine Unknown Completed [facility] SARS-COV-2 COVID-19 RODRICK-SUCROSE VACCINE 12 YRS+, BIVALENT 0.3ML, IM, (PFIZER MORALES TOP) Unknown Completed [facility] Influenza High Dose Unknown Completed [facility] SARS-COV-2 COVID-19 PFIZER VACCINE Unknown Completed [facility] Influenza Virus Vaccine,quad Im,preserve Free 65+ (FLUAD) Unknown Completed [facility] Influenza High Dose Unknown Completed [facility] SARS-COV-2 COVID-19 PFIZER VACCINE Unknown Completed [facility] Influenza Virus Vaccine,quad Im,preserve Free 65+ (FLUAD) Unknown Completed [facility] Pneumococcal 13 Conjugate, PCV13 (Prevnar 13) Unknown Completed [facility] TD, NOS Unknown Completed [facility] Pneumococcal Polysaccharide, PPSV23 (PNEUMOVAX) Unknown Completed [facility] Influenza High Dose Quad Unknown Completed [facility] Influenza Virus Vaccine Unknown Completed [facility] SARS-COV-2 COVID-19 RODRICK-SUCROSE VACCINE 12 YRS+, BIVALENT 0.3ML, IM, (PFIZER MORALES TOP) Unknown Completed [facility] Influenza High Dose Unknown Completed [facility] SARS-COV-2 COVID-19 PFIZER VACCINE Unknown Completed [facility] Influenza Virus Vaccine,quad Im,preserve Free 65+ (FLUAD) Unknown Completed [facility] Pneumococcal 13 Conjugate, PCV13 (Prevnar 13) Unknown Completed [facility] TD, NOS Unknown Completed [facility] Pneumococcal Polysaccharide, PPSV23 (PNEUMOVAX) Unknown Completed [facility] Influenza High Dose Quad Unknown Completed [facility] Influenza Virus Vaccine Unknown Completed [facility] SARS-COV-2 COVID-19 RODRICK-SUCROSE VACCINE 12 YRS+, BIVALENT 0.3ML, IM, (PFIZER MORALES TOP) Unknown Completed [facility] Influenza High Dose Unknown Completed [facility] SARS-COV-2 COVID-19 PFIZER VACCINE Unknown Completed [facility] Influenza Virus Vaccine,quad Im,preserve Free 65+ (FLUAD) Unknown Completed [facility] Pneumococcal 13 Conjugate, PCV13 (Prevnar 13) Unknown Completed [facility] TD, NOS Unknown Completed [facility] Pneumococcal Polysaccharide, PPSV23 (PNEUMOVAX) Unknown Completed [facility] Influenza High Dose Quad Unknown Completed [facility] Influenza Virus Vaccine Unknown Completed [facility] SARS-COV-2 COVID-19 RODRICK-SUCROSE VACCINE 12 YRS+, BIVALENT 0.3ML, IM, (PFIZER MORALES TOP) Unknown Completed [facility] Influenza High Dose Unknown Completed [facility] SARS-COV-2 COVID-19 PFIZER VACCINE Unknown Completed [facility] Influenza Virus Vaccine,quad Im,preserve Free 65+ (FLUAD) Unknown Completed [facility] Pneumococcal 13 Conjugate, PCV13 (Prevnar 13) Unknown Completed [facility] TD, NOS Unknown Completed [facility] Pneumococcal Polysaccharide, PPSV23 (PNEUMOVAX) Unknown Completed [facility] Influenza High Dose Quad Unknown Completed [facility] Influenza Virus Vaccine Unknown Completed [facility] SARS-COV-2 COVID-19 RODRICK-SUCROSE VACCINE 12 YRS+, BIVALENT 0.3ML, IM, (PFIZER MORALES TOP) Unknown Completed [facility] Influenza High Dose Unknown Completed [facility] Pneumococcal 13 Conjugate, PCV13 (Prevnar 13) Unknown Completed [facility] TD, NOS Unknown Completed [facility] Pneumococcal Polysaccharide, PPSV23 (PNEUMOVAX) Unknown Completed [facility] Influenza High Dose Quad Unknown Completed [facility] SARS-COV-2 COVID-19 PFIZER VACCINE Unknown Completed [facility] Influenza Virus Vaccine,quad Im,preserve Free 65+ (FLUAD) Unknown Completed [facility] Influenza Virus Vaccine Unknown Completed [facility] SARS-COV-2 COVID-19 RODRICK-SUCROSE VACCINE 12 YRS+, BIVALENT 0.3ML, IM, (PFIZER MORALES TOP) Unknown Completed [facility] Influenza High Dose Unknown Completed [facility] SARS-COV-2 COVID-19 PFIZER VACCINE Unknown Completed [facility] Influenza Virus Vaccine,quad Im,preserve Free 65+ (FLUAD) Unknown Completed [facility] Pneumococcal 13 Conjugate, PCV13 (Prevnar 13) Unknown Completed [facility] TD, NOS Unknown Completed [facility] Pneumococcal Polysaccharide, PPSV23 (PNEUMOVAX) Unknown Completed [facility] Influenza High Dose Quad Unknown Completed [facility] Influenza Virus Vaccine Unknown Completed [facility] SARS-COV-2 COVID-19 RODRICK-SUCROSE VACCINE 12 YRS+, BIVALENT 0.3ML, IM, (PFIZER MORALES TOP) Unknown Completed [facility] Pneumococcal 13 Conjugate, PCV13 (Prevnar 13) Unknown Completed [facility] TD, NOS Unknown Completed [facility] Pneumococcal Polysaccharide, PPSV23 (PNEUMOVAX) Unknown Completed [facility] Influenza High Dose Quad Unknown Completed [facility] Influenza Virus Vaccine Unknown Completed [facility] SARS-COV-2 COVID-19 RODRICK-SUCROSE VACCINE 12 YRS+, BIVALENT 0.3ML, IM, (PFIZER MORALES TOP) Unknown Completed [facility] Influenza High Dose Unknown Completed [facility] Pneumococcal 13 Conjugate, PCV13 (Prevnar 13) Unknown Completed [facility] TD, NOS Unknown Completed [facility] Pneumococcal Polysaccharide, PPSV23 (PNEUMOVAX) Unknown Completed [facility] Influenza High Dose Quad Unknown Completed [facility] SARS-COV-2 COVID-19 PFIZER VACCINE Unknown Completed [facility] Influenza Virus Vaccine,quad Im,preserve Free 65+ (FLUAD) Unknown Completed [facility] Influenza Virus Vaccine Unknown Completed [facility] SARS-COV-2 COVID-19 RODRICK-SUCROSE VACCINE 12 YRS+, BIVALENT 0.3ML, IM, (PFIZER MORALES TOP) Unknown Completed [facility] Influenza High Dose Unknown Completed [facility] SARS-COV-2 COVID-19 PFIZER VACCINE Unknown Completed [facility] Influenza Virus Vaccine,quad Im,preserve Free 65+ (FLUAD) Unknown Completed [facility] Influenza High Dose Unknown Completed [facility] SARS-COV-2 COVID-19 PFIZER VACCINE Unknown Completed [facility] Influenza Virus Vaccine,quad Im,preserve Free 65+ (FLUAD) Unknown Completed [facility] Influenza High Dose Unknown Completed [facility] Pneumococcal 13 Conjugate, PCV13 (Prevnar 13) Unknown Completed [facility] TD, NOS Unknown Completed [facility] Pneumococcal Polysaccharide, PPSV23 (PNEUMOVAX) Unknown Completed [facility] Influenza High Dose Quad Unknown Completed [facility] SARS-COV-2 COVID-19 PFIZER VACCINE Unknown Completed [facility] Influenza Virus Vaccine,quad Im,preserve Free 65+ (FLUAD) Unknown Completed [facility] Influenza Virus Vaccine Unknown Completed [facility] SARS-COV-2 COVID-19 RODRICK-SUCROSE VACCINE 12 YRS+, BIVALENT 0.3ML, IM, (PFIZER MORALES TOP) Unknown Completed [facility] Influenza High Dose Unknown Completed [facility] Pneumococcal 13 Conjugate, PCV13 (Prevnar 13) Unknown Completed [facility] TD, NOS Unknown Completed [facility] Pneumococcal Polysaccharide, PPSV23 (PNEUMOVAX) Unknown Completed [facility] Influenza High Dose Quad Unknown Completed [facility] SARS-COV-2 COVID-19 PFIZER VACCINE Unknown Completed [facility] Influenza Virus Vaccine,quad Im,preserve Free 65+ (FLUAD) Unknown Completed [facility] Influenza Virus Vaccine Unknown Completed [facility] SARS-COV-2 COVID-19 RODRICK-SUCROSE VACCINE 12 YRS+, BIVALENT 0.3ML, IM, (PFIZER MORALES TOP) Unknown Completed [facility] Influenza High Dose Unknown Completed [facility] Pneumococcal 13 Conjugate, PCV13 (Prevnar 13) Unknown Completed [facility] TD, NOS Unknown Completed [facility] Pneumococcal Polysaccharide, PPSV23 (PNEUMOVAX) Unknown Completed [facility] Influenza High Dose Quad Unknown Completed [facility] SARS-COV-2 COVID-19 PFIZER VACCINE Unknown Completed [facility] Influenza Virus Vaccine,quad Im,preserve Free 65+ (FLUAD) Unknown Completed [facility] Influenza Virus Vaccine Unknown Completed [facility] SARS-COV-2 COVID-19 RODRICK-SUCROSE VACCINE 12 YRS+, BIVALENT 0.3ML, IM, (PFIZER MORALES TOP) Unknown Completed [facility] Zoster(Zostavax)( ingles) Unknown Completed [facility] Influenza High Dose Unknown Completed [facility] Pneumococcal 13 Conjugate, PCV13 (Prevnar 13) Unknown Completed [facility] TD, NOS Unknown Completed [facility] Pneumococcal Polysaccharide, PPSV23 (PNEUMOVAX) Unknown Completed [facility] Influenza High Dose Quad Unknown Completed [facility] SARS-COV-2 COVID-19 PFIZER VACCINE Unknown Completed [facility] Influenza Virus Vaccine,quad Im,preserve Free 65+ (FLUAD) Unknown Completed [facility] Influenza Virus Vaccine Unknown Completed [facility] SARS-COV-2 COVID-19 RODRICK-SUCROSE VACCINE 12 YRS+, BIVALENT 0.3ML, IM, (PFIZER MORALES TOP) Unknown Completed [facility] Zoster(Zostavax)(Sh ingles) Unknown Completed [facility] Influenza High Dose Unknown Completed [facility] Pneumococcal 13 Conjugate, PCV13 (Prevnar 13) Unknown Completed [facility] TD, NOS Unknown Completed [facility] Pneumococcal Polysaccharide, PPSV23 (PNEUMOVAX) Unknown Completed [facility] Influenza High Dose Quad Unknown Completed [facility] SARS-COV-2 COVID-19 PFIZER VACCINE Unknown Completed [facility] Influenza Virus Vaccine,quad Im,preserve Free 65+ (FLUAD) Unknown Completed [facility] Influenza Virus Vaccine Unknown Completed [facility] SARS-COV-2 COVID-19 RODRICK-SUCROSE VACCINE 12 YRS+, BIVALENT 0.3ML, IM, (PFIZER MORALES TOP) Unknown Completed [facility] Zoster(Zostavax)( ingles) Unknown Completed [facility] Influenza High Dose Unknown Completed [facility] Pneumococcal 13 Conjugate, PCV13 (Prevnar 13) Unknown Completed [facility] TD, NOS Unknown Completed [facility] Pneumococcal Polysaccharide, PPSV23 (PNEUMOVAX) Unknown Completed [facility] Influenza High Dose Quad Unknown Completed [facility] SARS-COV-2 COVID-19 PFIZER VACCINE Unknown Completed [facility] Influenza Virus Vaccine,quad Im,preserve Free 65+ (FLUAD) Unknown Completed [facility] Influenza Virus Vaccine Unknown Completed [facility] SARS-COV-2 COVID-19 RODRICK-SUCROSE VACCINE 12 YRS+, BIVALENT 0.3ML, IM, (PFIZER MORALES TOP) Unknown Completed [facility] Zoster(Zostavax)( ingles) Unknown Completed [facility] Influenza High Dose Unknown Completed [facility] Pneumococcal 13 Conjugate, PCV13 (Prevnar 13) Unknown Completed [facility] TD, NOS Unknown Completed [facility] Pneumococcal Polysaccharide, PPSV23 (PNEUMOVAX) Unknown Completed [facility] Influenza High Dose Quad Unknown Completed [facility] SARS-COV-2 COVID-19 PFIZER VACCINE Unknown Completed [facility] Influenza Virus Vaccine,quad Im,preserve Free 65+ (FLUAD) Unknown Completed [facility] Influenza Virus Vaccine Unknown Completed [facility] SARS-COV-2 COVID-19 RODRICK-SUCROSE VACCINE 12 YRS+, BIVALENT 0.3ML, IM, (PFIZER MORALES TOP) Unknown Completed [facility] Zoster(Zostavax)(Sh ingles) Unknown Completed [facility] Influenza High Dose Unknown Completed [facility] Pneumococcal 13 Conjugate, PCV13 (Prevnar 13) Unknown Completed [facility] TD, NOS Unknown Completed [facility] Pneumococcal Polysaccharide, PPSV23 (PNEUMOVAX) Unknown Completed [facility] Influenza High Dose Quad Unknown Completed [facility] SARS-COV-2 COVID-19 PFIZER VACCINE Unknown Completed [facility] Influenza Virus Vaccine,quad Im,preserve Free 65+ (FLUAD) Unknown Completed [facility] Influenza Virus Vaccine Unknown Completed [facility] SARS-COV-2 COVID-19 RODRICK-SUCROSE VACCINE 12 YRS+, BIVALENT 0.3ML, IM, (PFIZER MORALES TOP) Unknown Completed [facility] Zoster(Zostavax)(Sh ingles) Unknown Completed [facility] Influenza High Dose Unknown Completed [facility] Pneumococcal 13 Conjugate, PCV13 (Prevnar 13) Unknown Completed [facility] TD, NOS Unknown Completed [facility] Pneumococcal Polysaccharide, PPSV23 (PNEUMOVAX) Unknown Completed [facility] Influenza High Dose Quad Unknown Completed [facility] SARS-COV-2 COVID-19 PFIZER VACCINE Unknown Completed [facility] Influenza Virus Vaccine,quad Im,preserve Free 65+ (FLUAD) Unknown Completed [facility] Influenza Virus Vaccine Unknown Completed [facility] SARS-COV-2 COVID-19 RODRICK-SUCROSE VACCINE 12 YRS+, BIVALENT 0.3ML, IM, (PFIZER MORALES TOP) Unknown Completed [facility] Zoster(Zostavax)(Sh ingles) Unknown Completed [facility] Pneumococcal 13 Conjugate, PCV13 (Prevnar 13) Unknown Completed [facility] TD, NOS Unknown Completed [facility] Pneumococcal Polysaccharide, PPSV23 (PNEUMOVAX) Unknown Completed [facility] Influenza High Dose Unknown Completed [facility] Influenza High Dose Quad Unknown Completed [facility] SARS-COV-2 COVID-19 PFIZER VACCINE Unknown Completed [facility] Influenza Virus Vaccine,quad Im,preserve Free 65+ (FLUAD) Unknown Completed [facility] Influenza Virus Vaccine Unknown Completed [facility] SARS-COV-2 COVID-19 RODRICK-SUCROSE VACCINE 12 YRS+, BIVALENT 0.3ML, IM, (PFIZER MORALES TOP) Unknown Completed [facility] Pneumococcal 13 Conjugate, PCV13 (Prevnar 13) Unknown Completed [facility] TD, NOS Unknown Completed [facility] Pneumococcal Polysaccharide, PPSV23 (PNEUMOVAX) Unknown Completed [facility] Influenza High Dose Unknown Completed [facility] Influenza High Dose Quad Unknown Completed [facility] SARS-COV-2 COVID-19 PFIZER VACCINE Unknown Completed [facility] Influenza Virus Vaccine,quad Im,preserve Free 65+ (FLUAD) Unknown Completed [facility] Influenza Virus Vaccine Unknown Completed [facility] SARS-COV-2 COVID-19 RODRICK-SUCROSE VACCINE 12 YRS+, BIVALENT 0.3ML, IM, (PFIZER MORALES TOP) Unknown Completed [facility] Pneumococcal 13 Conjugate, PCV13 (Prevnar 13) Unknown Completed [facility] TD, NOS Unknown Completed [facility] Pneumococcal Polysaccharide, PPSV23 (PNEUMOVAX) Unknown Completed [facility] Influenza High Dose Unknown Completed [facility] Influenza High Dose Quad Unknown Completed [facility] SARS-COV-2 COVID-19 PFIZER VACCINE Unknown Completed [facility] Influenza Virus Vaccine,quad Im,preserve Free 65+ (FLUAD) Unknown Completed [facility] Influenza Virus Vaccine Unknown Completed [facility] SARS-COV-2 COVID-19 RODRICK-SUCROSE VACCINE 12 YRS+, BIVALENT 0.3ML, IM, (PFIZER MORALES TOP) Unknown Completed [facility] Pneumococcal 13 Conjugate, PCV13 (Prevnar 13) Unknown Completed [facility] TD, NOS Unknown Completed [facility] Pneumococcal Polysaccharide, PPSV23 (PNEUMOVAX) Unknown Completed [facility] Influenza High Dose Unknown Completed [facility] Influenza High Dose Quad Unknown Completed [facility] SARS-COV-2 COVID-19 PFIZER VACCINE Unknown Completed [facility] Influenza Virus Vaccine,quad Im,preserve Free 65+ (FLUAD) Unknown Completed [facility] Influenza Virus Vaccine Unknown Completed [facility] SARS-COV-2 COVID-19 RODRICK-SUCROSE VACCINE 12 YRS+, BIVALENT 0.3ML, IM, (PFIZER MORALES TOP) Unknown Completed [facility] Pneumococcal 13 Conjugate, PCV13 (Prevnar 13) Unknown Completed [facility] TD, NOS Unknown Completed [facility] Pneumococcal Polysaccharide, PPSV23 (PNEUMOVAX) Unknown Completed [facility] Influenza High Dose Unknown [facility] [facility] High Dose Quad Unknown Completed [facility] SARS-COV-2 COVID-19 PFIZER VACCINE Unknown Completed [facility] Influenza Virus Vaccine,quad Im,preserve Free 65+ (FLUAD) Unknown Completed [facility] Influenza Virus Vaccine Unknown Completed [facility] SARS-COV-2 COVID-19 RODRICK-SUCROSE VACCINE 12 YRS+, BIVALENT 0.3ML, IM, (PFIZER MORALES TOP) Unknown Completed [facility] Pneumococcal 13 Conjugate, PCV13 (Prevnar 13) Unknown Completed [facility] TD, NOS Unknown Completed [facility] Pneumococcal Polysaccharide, PPSV23 (PNEUMOVAX) Unknown Completed [facility] Influenza High Dose Unknown Completed [facility] Influenza High Dose Quad Unknown Completed [facility] SARS-COV-2 COVID-19 PFIZER VACCINE Unknown Completed [facility] Influenza Virus Vaccine,quad Im,preserve Free 65+ (FLUAD) Unknown Completed [facility] Influenza Virus Vaccine Unknown Completed [facility] SARS-COV-2 COVID-19 RODRICK-SUCROSE VACCINE 12 YRS+, BIVALENT 0.3ML, IM, (PFIZER MORALES TOP) Unknown Completed [facility] Pneumococcal 13 Conjugate, PCV13 (Prevnar 13) Unknown Completed [facility] TD, NOS Unknown Completed [facility] Pneumococcal Polysaccharide, PPSV23 (PNEUMOVAX) Unknown Completed [facility] Influenza High Dose Unknown Completed [facility] Influenza High Dose Quad Unknown Completed [facility] SARS-COV-2 COVID-19 PFIZER VACCINE Unknown Completed [facility] Influenza Virus Vaccine,quad Im,preserve Free 65+ (FLUAD) Unknown Completed [facility] Influenza Virus Vaccine Unknown Completed [facility] SARS-COV-2 COVID-19 RODRICK-SUCROSE VACCINE 12 YRS+, BIVALENT 0.3ML, IM, (PFIZER MORALES TOP) Unknown Completed [facility] Pneumococcal 13 Conjugate, PCV13 (Prevnar 13) Unknown Completed [facility] TD, NOS Unknown Completed [facility] Pneumococcal Polysaccharide, PPSV23 (PNEUMOVAX) Unknown Completed [facility] Influenza High Dose Unknown Completed [facility] Influenza High Dose Quad Unknown Completed [facility] SARS-COV-2 COVID-19 PFIZER VACCINE Unknown Completed [facility] Influenza Virus Vaccine,quad Im,preserve Free 65+ (FLUAD) Unknown Completed [facility] Influenza Virus Vaccine Unknown Completed [facility] SARS-COV-2 COVID-19 RODRICK-SUCROSE VACCINE 12 YRS+, BIVALENT 0.3ML, IM, (PFIZER MORALES TOP) Unknown Completed [facility] Pneumococcal 13 Conjugate, PCV13 (Prevnar 13) Unknown Completed [facility] TD, NOS Unknown Completed [facility] Pneumococcal Polysaccharide, PPSV23 (PNEUMOVAX) Unknown Completed [facility] Influenza High Dose Unknown Completed [facility] Influenza High Dose Quad Unknown Completed [facility] SARS-COV-2 COVID-19 PFIZER VACCINE Unknown Completed [facility] Influenza Virus Vaccine,quad Im,preserve Free 65+ (FLUAD) Unknown Completed [facility] Influenza Virus Vaccine Unknown Completed [facility] SARS-COV-2 COVID-19 RODRICK-SUCROSE VACCINE 12 YRS+, BIVALENT 0.3ML, IM, (PFIZER MORALES TOP) Unknown Completed [facility] Pneumococcal 13 Conjugate, PCV13 (Prevnar 13) Unknown Completed [facility] TD, NOS Unknown Completed [facility] Pneumococcal Polysaccharide, PPSV23 (PNEUMOVAX) Unknown Completed [facility] Influenza High Dose Unknown Completed [facility] Influenza High Dose Quad Unknown Completed [facility] SARS-COV-2 COVID-19 PFIZER VACCINE Unknown Completed [facility] Influenza Virus Vaccine,quad Im,preserve Free 65+ (FLUAD) Unknown Completed [facility] Influenza Virus Vaccine Unknown Completed [facility] SARS-COV-2 COVID-19 RODRICK-SUCROSE VACCINE 12 YRS+, BIVALENT 0.3ML, IM, (PFIZER MORALES TOP) Unknown Completed [facility] Pneumococcal 13 Conjugate, PCV13 (Prevnar 13) Unknown Completed [facility] TD, NOS Unknown Completed [facility] Pneumococcal Polysaccharide, PPSV23 (PNEUMOVAX) Unknown Completed [facility] Influenza High Dose Unknown Completed [facility] Influenza High Dose Quad Unknown Completed [facility] SARS-COV-2 COVID-19 PFIZER VACCINE Unknown Completed [facility] Influenza Virus Vaccine,quad Im,preserve Free 65+ (FLUAD) Unknown Completed [facility] Influenza Virus Vaccine Unknown Completed [facility] SARS-COV-2 COVID-19 RODRICK-SUCROSE VACCINE 12 YRS+, BIVALENT 0.3ML, IM, (PFIZER MORALES TOP) Unknown Completed [facility] Pneumococcal 13 Conjugate, PCV13 (Prevnar 13) Unknown Completed [facility] TD, NOS Unknown Completed [facility] Pneumococcal Polysaccharide, PPSV23 (PNEUMOVAX) Unknown Completed [facility] Influenza High Dose Unknown Completed [facility] Influenza High Dose Quad Unknown Completed [facility] SARS-COV-2 COVID-19 PFIZER VACCINE Unknown Completed [facility] Influenza Virus Vaccine,quad Im,preserve Free 65+ (FLUAD) Unknown Completed [facility] Influenza Virus Vaccine Unknown Completed [facility] SARS-COV-2 COVID-19 RODRICK-SUCROSE VACCINE 12 YRS+, BIVALENT 0.3ML, IM, (PFIZER MORALES TOP) Unknown Completed [facility] Pneumococcal 13 Conjugate, PCV13 (Prevnar 13) Unknown Completed [facility] TD, NOS Unknown Completed [facility] Pneumococcal Polysaccharide, PPSV23 (PNEUMOVAX) Unknown Completed [facility] Influenza High Dose Unknown Completed [facility] Influenza High Dose Quad Unknown Completed [facility] SARS-COV-2 COVID-19 PFIZER VACCINE Unknown Completed [facility] Influenza Virus Vaccine,quad Im,preserve Free 65+ (FLUAD) Unknown Completed [facility] Influenza Virus Vaccine Unknown Completed [facility] Pneumococcal 13 Conjugate, PCV13 (Prevnar 13) Unknown Completed [facility] TD, NOS Unknown Completed [facility] Pneumococcal Polysaccharide, PPSV23 (PNEUMOVAX) Unknown Completed [facility] Influenza High Dose Unknown Completed [facility] Influenza High Dose Quad Unknown Completed [facility] SARS-COV-2 COVID-19 PFIZER VACCINE Unknown Completed [facility] Influenza Virus Vaccine,quad Im,preserve Free 65+ (FLUAD) Unknown Completed [facility] Pneumococcal 13 Conjugate, PCV13 (Prevnar 13) Unknown Completed [facility] TD, NOS Unknown Completed [facility] Pneumococcal Polysaccharide, PPSV23 (PNEUMOVAX) Unknown Completed [facility] Influenza High Dose Unknown Completed [facility] Influenza High Dose Quad Unknown Completed [facility] SARS-COV-2 COVID-19 PFIZER VACCINE Unknown Completed [facility] Influenza Virus Vaccine,quad Im,preserve Free 65+ (FLUAD) Unknown Completed [facility] Pneumococcal 13 Conjugate, PCV13 (Prevnar 13) Unknown Completed [facility] TD, NOS Unknown Completed [facility] Pneumococcal Polysaccharide, PPSV23 (PNEUMOVAX) Unknown Completed [facility] Influenza High Dose Unknown Completed [facility] Influenza High Dose Quad Unknown Completed [facility] SARS-COV-2 COVID-19 PFIZER VACCINE Unknown Completed [facility] Influenza Virus Vaccine,quad Im,preserve Free 65+ (FLUAD) Unknown Completed [facility] Pneumococcal 13 Conjugate, PCV13 (Prevnar 13) Unknown Completed [facility] TD, NOS Unknown Completed [facility] Pneumococcal Polysaccharide, PPSV23 (PNEUMOVAX) Unknown Completed [facility] Influenza High Dose Unknown Completed [facility] Influenza High Dose Quad Unknown Completed [facility] SARS-COV-2 COVID-19 PFIZER VACCINE Unknown Completed [facility] Influenza Virus Vaccine,quad Im,preserve Free 65+ (FLUAD) Unknown Completed [facility] Pneumococcal 13 Conjugate, PCV13 (Prevnar 13) Unknown Completed [facility] TD, NOS Unknown Completed [facility] Pneumococcal Polysaccharide, PPSV23 (PNEUMOVAX) Unknown Completed [facility] Influenza High Dose Unknown Completed [facility] Influenza High Dose Quad Unknown Completed [facility] Pneumococcal 13 Conjugate, PCV13 (Prevnar 13) Unknown Completed [facility] TD, NOS Unknown Completed [facility] Pneumococcal Polysaccharide, PPSV23 (PNEUMOVAX) Unknown Completed [facility] Influenza High Dose Unknown Completed [facility] Influenza High Dose Quad Unknown Completed [facility] Pneumococcal 13 Conjugate, PCV13 (Prevnar 13) Unknown Completed [facility] TD, NOS Unknown Completed [facility] Pneumococcal Polysaccharide, PPSV23 (PNEUMOVAX) Unknown Completed [facility] Influenza High Dose Unknown Completed [facility] Influenza High Dose Quad Unknown Completed [facility] Pneumococcal 13 Conjugate, PCV13 (Prevnar 13) Unknown Completed [facility] TD, NOS Unknown Completed [facility] Pneumococcal Polysaccharide, PPSV23 (PNEUMOVAX) Unknown Completed [facility] Influenza High Dose Unknown Completed [facility] Influenza High Dose Quad Unknown Completed [facility] SARS-COV-2 COVID-19 PFIZER VACCINE Unknown Completed [facility] Influenza Virus Vaccine,quad Im,preserve Free 65+ (FLUAD) Unknown Completed [facility] Influenza Virus Vaccine Unknown Completed [facility] SARS-COV-2 COVID-19 RODRICK-SUCROSE VACCINE 12 YRS+, BIVALENT 0.3ML, IM, (PFIZER MORALES TOP) Unknown Completed [facility] Pneumococcal 13 Conjugate, PCV13 (Prevnar 13) Unknown Completed [facility] TD, NOS Unknown Completed [facility] Pneumococcal Polysaccharide, PPSV23 (PNEUMOVAX) Unknown Completed [facility] Influenza High Dose Unknown Completed [facility] Influenza High Dose Quad Unknown Completed [facility] SARS-COV-2 COVID-19 PFIZER VACCINE Unknown Completed [facility] Influenza Virus Vaccine,quad Im,preserve Free 65+ (FLUAD) Unknown Completed [facility] Influenza Virus Vaccine Unknown Completed [facility] SARS-COV-2 COVID-19 RODRICK-SUCROSE VACCINE 12 YRS+, BIVALENT 0.3ML, IM, (PFIZER MORALES TOP) Unknown Completed [facility] Pneumococcal 13 Conjugate, PCV13 (Prevnar 13) Unknown Completed [facility] TD, NOS Unknown Completed [facility] Pneumococcal Polysaccharide, PPSV23 (PNEUMOVAX) Unknown Completed [facility] Influenza High Dose Unknown Completed [facility] Influenza High Dose Quad Unknown Completed [facility] SARS-COV-2 COVID-19 PFIZER VACCINE Unknown Completed [facility] Influenza Virus Vaccine,quad Im,preserve Free 65+ (FLUAD) Unknown Completed [facility] Influenza Virus Vaccine Unknown Completed [facility] SARS-COV-2 COVID-19 RODRICK-SUCROSE VACCINE 12 YRS+, BIVALENT 0.3ML, IM, (PFIZER MORALES TOP) Unknown Completed [facility] Pneumococcal 13 Conjugate, PCV13 (Prevnar 13) Unknown Completed [facility] TD, NOS Unknown Completed [facility] Pneumococcal Polysaccharide, PPSV23 (PNEUMOVAX) Unknown Completed [facility] Influenza High Dose Unknown Completed [facility] Influenza High Dose Quad Unknown Completed [facility] SARS-COV-2 COVID-19 PFIZER VACCINE Unknown Completed [facility] Influenza Virus Vaccine,quad Im,preserve Free 65+ (FLUAD) Unknown Completed [facility] Influenza Virus Vaccine Unknown Completed [facility] SARS-COV-2 COVID-19 RODRICK-SUCROSE VACCINE 12 YRS+, BIVALENT 0.3ML, IM, (PFIZER MORALES TOP) Unknown Completed [facility] Pneumococcal 13 Conjugate, PCV13 (Prevnar 13) Unknown Completed [facility] TD, NOS Unknown Completed [facility] Pneumococcal Polysaccharide, PPSV23 (PNEUMOVAX) Unknown Completed [facility] Influenza High Dose Unknown Completed [facility] Influenza High Dose Quad Unknown Completed [facility] SARS-COV-2 COVID-19 PFIZER VACCINE Unknown Completed [facility] Influenza Virus Vaccine,quad Im,preserve Free 65+ (FLUAD) Unknown Completed [facility] Influenza Virus Vaccine Unknown Completed [facility] SARS-COV-2 COVID-19 RODRICK-SUCROSE VACCINE 12 YRS+, BIVALENT 0.3ML, IM, (PFIZER MORALES TOP) Unknown Completed [facility] Pneumococcal 13 Conjugate, PCV13 (Prevnar 13) Unknown Completed [facility] TD, NOS Unknown Completed [facility] Pneumococcal Polysaccharide, PPSV23 (PNEUMOVAX) Unknown Completed [facility] Influenza High Dose Unknown Completed [facility] Influenza High Dose Quad Unknown Completed [facility] SARS-COV-2 COVID-19 PFIZER VACCINE Unknown Completed [facility] Influenza Virus Vaccine,quad Im,preserve Free 65+ (FLUAD) Unknown Completed [facility] Influenza Virus Vaccine Unknown Completed [facility] SARS-COV-2 COVID-19 RODRICK-SUCROSE VACCINE 12 YRS+, BIVALENT 0.3ML, IM, (PFIZER MORALES TOP) Unknown Completed [facility] Pneumococcal 13 Conjugate, PCV13 (Prevnar 13) Unknown Completed [facility] TD, NOS Unknown Completed [facility] Pneumococcal Polysaccharide, PPSV23 (PNEUMOVAX) Unknown Completed [facility] Influenza High Dose Unknown Completed [facility] Influenza High Dose Quad Unknown Completed [facility] SARS-COV-2 COVID-19 PFIZER VACCINE Unknown Completed [facility] Influenza Virus Vaccine,quad Im,preserve Free 65+ (FLUAD) Unknown Completed [facility] Influenza Virus Vaccine Unknown Completed [facility] SARS-COV-2 COVID-19 RODRICK-SUCROSE VACCINE 12 YRS+, BIVALENT 0.3ML, IM, (PFIZER MORALES TOP) Unknown Completed [facility] Pneumococcal 13 Conjugate, PCV13 (Prevnar 13) Unknown Completed [facility] TD, NOS Unknown Completed [facility] Pneumococcal Polysaccharide, PPSV23 (PNEUMOVAX) Unknown Completed [facility] Influenza High Dose Unknown Completed [facility] Influenza High Dose Quad Unknown Completed [facility] SARS-COV-2 COVID-19 PFIZER VACCINE Unknown Completed [facility] Influenza Virus Vaccine,quad Im,preserve Free 65+ (FLUAD) Unknown Completed [facility] Influenza Virus Vaccine Unknown Completed [facility] SARS-COV-2 COVID-19 RODRICK-SUCROSE VACCINE 12 YRS+, BIVALENT 0.3ML, IM, (PFIZER MORALES TOP) Unknown Completed [facility] Pneumococcal 13 Conjugate, PCV13 (Prevnar 13) Unknown Completed [facility] TD, NOS Unknown Completed [facility] Pneumococcal Polysaccharide, PPSV23 (PNEUMOVAX) Unknown Completed [facility] Influenza High Dose Unknown Completed [facility] Influenza High Dose Quad Unknown Completed [facility] SARS-COV-2 COVID-19 PFIZER VACCINE Unknown Completed [facility] Influenza Virus Vaccine,quad Im,preserve Free 65+ (FLUAD) Unknown Completed [facility] Influenza Virus Vaccine Unknown Completed [facility] SARS-COV-2 COVID-19 RODRICK-SUCROSE VACCINE 12 YRS+, BIVALENT 0.3ML, IM, (PFIZER MORALES TOP) Unknown Completed [facility] Influenza High Dose Unknown Completed [facility] Pneumococcal 13 Conjugate, PCV13 (Prevnar 13) Unknown Completed [facility] TD, NOS Unknown Completed [facility] Pneumococcal Polysaccharide, PPSV23 (PNEUMOVAX) Unknown Completed [facility] Influenza High Dose Quad Unknown Completed [facility] SARS-COV-2 COVID-19 PFIZER VACCINE Unknown Completed [facility] Influenza Virus Vaccine,quad Im,preserve Free 65+ (FLUAD) Unknown Completed [facility] Influenza Virus Vaccine Unknown Completed [facility] SARS-COV-2 COVID-19 RODRICK-SUCROSE VACCINE 12 YRS+, BIVALENT 0.3ML, IM, (PFIZER MORALES TOP) Unknown Completed [facility] Influenza High Dose Unknown Completed [facility] Pneumococcal 13 Conjugate, PCV13 (Prevnar 13) Unknown Completed [facility] TD, NOS Unknown Completed [facility] Pneumococcal Polysaccharide, PPSV23 (PNEUMOVAX) Unknown Completed [facility] Influenza High Dose Quad Unknown Completed [facility] SARS-COV-2 COVID-19 PFIZER VACCINE Unknown Completed [facility] Influenza Virus Vaccine,quad Im,preserve Free 65+ (FLUAD) Unknown Completed [facility] Influenza Virus Vaccine Unknown Completed [facility] SARS-COV-2 COVID-19 RODRICK-SUCROSE VACCINE 12 YRS+, BIVALENT 0.3ML, IM, (PFIZER MORALES TOP) Unknown Completed [facility] Influenza High Dose Unknown Completed [facility] Pneumococcal 13 Conjugate, PCV13 (Prevnar 13) Unknown Completed [facility] TD, NOS Unknown Completed [facility] Pneumococcal Polysaccharide, PPSV23 (PNEUMOVAX) Unknown Completed [facility] Influenza High Dose Quad Unknown Completed [facility] SARS-COV-2 COVID-19 PFIZER VACCINE Unknown Completed [facility] Influenza Virus Vaccine,quad Im,preserve Free 65+ (FLUAD) Unknown Completed [facility] Influenza Virus Vaccine Unknown Completed [facility] SARS-COV-2 COVID-19 RODRICK-SUCROSE VACCINE 12 YRS+, BIVALENT 0.3ML, IM, (PFIZER MORALES TOP) Unknown Completed [facility] Influenza High Dose Unknown Completed [facility] Pneumococcal 13 Conjugate, PCV13 (Prevnar 13) Unknown Completed [facility] TD, NOS Unknown Completed [facility] Pneumococcal Polysaccharide, PPSV23 (PNEUMOVAX) Unknown Completed [facility] Influenza High Dose Quad Unknown Completed [facility] SARS-COV-2 COVID-19 PFIZER VACCINE Unknown Completed [facility] Influenza Virus Vaccine,quad Im,preserve Free 65+ (FLUAD) Unknown Completed [facility] Influenza Virus Vaccine Unknown Completed [facility] SARS-COV-2 COVID-19 RODRICK-SUCROSE VACCINE 12 YRS+, BIVALENT 0.3ML, IM, (PFIZER MORALES TOP) Unknown Completed [facility] Influenza High Dose Unknown Completed [facility] Pneumococcal 13 Conjugate, PCV13 (Prevnar 13) Unknown Completed [facility] TD, NOS Unknown Completed [facility] Pneumococcal Polysaccharide, PPSV23 (PNEUMOVAX) Unknown [facility] Influenza High Dose Quad Unknown Completed [facility] SARS-COV-2 COVID-19 PFIZER VACCINE Unknown Completed [facility] Influenza Virus Vaccine,quad Im,preserve Free 65+ (FLUAD) Unknown Completed [facility] Influenza Virus Vaccine Unknown Completed [facility] SARS-COV-2 COVID-19 RODRICK-SUCROSE VACCINE 12 YRS+, BIVALENT 0.3ML, IM, (PFIZER MORALES TOP) Unknown Completed [facility] Pneumococcal 13 Conjugate, PCV13 (Prevnar 13) Unknown Completed [facility] TD, NOS Unknown Completed [facility] Pneumococcal Polysaccharide, PPSV23 (PNEUMOVAX) Unknown Completed [facility] Influenza High Dose Quad Unknown Completed [facility] Influenza Virus Vaccine Unknown Completed [facility] SARS-COV-2 COVID-19 RODRICK-SUCROSE VACCINE 12 YRS+, BIVALENT 0.3ML, IM, (PFIZER MORALES TOP) Unknown Completed [facility] Influenza High Dose Unknown Completed [facility] SARS-COV-2 COVID-19 PFIZER VACCINE Unknown Completed [facility] Influenza Virus Vaccine,quad Im,preserve Free 65+ (FLUAD) Unknown Completed [facility] Pneumococcal 13 Conjugate, PCV13 (Prevnar 13) Unknown Completed [facility] TD, NOS Unknown Completed [facility] Pneumococcal Polysaccharide, PPSV23 (PNEUMOVAX) Unknown Completed [facility] Influenza High Dose Quad Unknown Completed [facility] Influenza Virus Vaccine Unknown Completed [facility] SARS-COV-2 COVID-19 RODRICK-SUCROSE VACCINE 12 YRS+, BIVALENT 0.3ML, IM, (PFIZER MORALES TOP) Unknown Completed [facility] Influenza High Dose Unknown Completed [facility] SARS-COV-2 COVID-19 PFIZER VACCINE Unknown Completed [facility] Influenza Virus Vaccine,quad Im,preserve Free 65+ (FLUAD) Unknown Completed [facility] Influenza High Dose Unknown Completed [facility] Pneumococcal 13 Conjugate, PCV13 (Prevnar 13) Unknown Completed [facility] TD, NOS Unknown Completed [facility] Pneumococcal Polysaccharide, PPSV23 (PNEUMOVAX) Unknown Completed [facility] Influenza High Dose Quad Unknown Completed [facility] SARS-COV-2 COVID-19 PFIZER VACCINE Unknown Completed [facility] Influenza Virus Vaccine,quad Im,preserve Free 65+ (FLUAD) Unknown Completed [facility] Influenza Virus Vaccine Unknown Completed [facility] SARS-COV-2 COVID-19 RODRICK-SUCROSE VACCINE 12 YRS+, BIVALENT 0.3ML, IM, (PFIZER MORALES TOP) Unknown Completed [facility] Pneumococcal 13 Conjugate, PCV13 (Prevnar 13) Unknown Completed [facility] TD, NOS Unknown Completed [facility] Pneumococcal Polysaccharide, PPSV23 (PNEUMOVAX) Unknown Completed [facility] Influenza High Dose Quad Unknown Completed [facility] Influenza Virus Vaccine Unknown Completed [facility] SARS-COV-2 COVID-19 RODRICK-SUCROSE VACCINE 12 YRS+, BIVALENT 0.3ML, IM, (PFIZER MORALES TOP) Unknown Completed [facility] Influenza High Dose Unknown Completed [facility] SARS-COV-2 COVID-19 PFIZER VACCINE Unknown Completed [facility] Influenza Virus Vaccine,quad Im,preserve Free 65+ (FLUAD) Unknown Completed [facility] Pneumococcal 13 Conjugate, PCV13 (Prevnar 13) Unknown Completed [facility] TD, NOS Unknown Completed [facility] Pneumococcal Polysaccharide, PPSV23 (PNEUMOVAX) Unknown Completed [facility] Influenza High Dose Quad Unknown Completed [facility] Influenza Virus Vaccine Unknown Completed [facility] SARS-COV-2 COVID-19 RODRICK-SUCROSE VACCINE 12 YRS+, BIVALENT 0.3ML, IM, (PFIZER MORALES TOP) Unknown Completed [facility] Influenza High Dose Unknown Completed [facility] SARS-COV-2 COVID-19 PFIZER VACCINE Unknown Completed [facility] Influenza Virus Vaccine,quad Im,preserve Free 65+ (FLUAD) Unknown Completed [facility] Influenza High Dose Unknown Completed [facility] Pneumococcal 13 Conjugate, PCV13 (Prevnar 13) Unknown Completed [facility] TD, NOS Unknown Completed [facility] Pneumococcal Polysaccharide, PPSV23 (PNEUMOVAX) Unknown Completed [facility] Influenza High Dose Quad Unknown Completed [facility] SARS-COV-2 COVID-19 PFIZER VACCINE Unknown Completed [facility] Influenza Virus Vaccine,quad Im,preserve Free 65+ (FLUAD) Unknown Completed [facility] Influenza Virus Vaccine Unknown Completed [facility] SARS-COV-2 COVID-19 RODRICK-SUCROSE VACCINE 12 YRS+, BIVALENT 0.3ML, IM, (PFIZER MORALES TOP) Unknown Completed [facility] Influenza High Dose Unknown Completed [facility] Pneumococcal 13 Conjugate, PCV13 (Prevnar 13) Unknown Completed [facility] TD, NOS Unknown Completed [facility] Pneumococcal Polysaccharide, PPSV23 (PNEUMOVAX) Unknown Completed [facility] Influenza High Dose Quad Unknown Completed [facility] SARS-COV-2 COVID-19 PFIZER VACCINE Unknown Completed [facility] Influenza Virus Vaccine,quad Im,preserve Free 65+ (FLUAD) Unknown Completed [facility] Influenza Virus Vaccine Unknown Completed [facility] SARS-COV-2 COVID-19 RODRICK-SUCROSE VACCINE 12 YRS+, BIVALENT 0.3ML, IM, (PFIZER MORALES TOP) Unknown Completed [facility] Influenza High Dose Unknown Completed [facility] Pneumococcal 13 Conjugate, PCV13 (Prevnar 13) Unknown Completed [facility] TD, NOS Unknown Completed [facility] Pneumococcal Polysaccharide, PPSV23 (PNEUMOVAX) Unknown Completed [facility] Influenza High Dose Quad Unknown Completed [facility] SARS-COV-2 COVID-19 PFIZER VACCINE Unknown Completed [facility] Influenza Virus Vaccine,quad Im,preserve Free 65+ (FLUAD) Unknown Completed [facility] Influenza Virus Vaccine Unknown Completed [facility] SARS-COV-2 COVID-19 RODRICK-SUCROSE VACCINE 12 YRS+, BIVALENT 0.3ML, IM, (PFIZER MORALES TOP) Unknown Completed [facility] Pneumococcal 13 Conjugate, PCV13 (Prevnar 13) Unknown Completed [facility] TD, NOS Unknown Completed [facility] Pneumococcal Polysaccharide, PPSV23 (PNEUMOVAX) Unknown Completed [facility] Influenza High Dose Quad Unknown Completed [facility] Influenza Virus Vaccine Unknown Completed [facility] SARS-COV-2 COVID-19 RODRICK-SUCROSE VACCINE 12 YRS+, BIVALENT 0.3ML, IM, (PFIZER MORALES TOP) Unknown Completed [facility] Influenza High Dose Unknown Completed [facility] SARS-COV-2 COVID-19 PFIZER VACCINE Unknown Completed [facility] Influenza Virus Vaccine,quad Im,preserve Free 65+ (FLUAD) Unknown Completed [facility] Influenza High Dose Unknown Completed [facility] Pneumococcal 13 Conjugate, PCV13 (Prevnar 13) Unknown Completed [facility] TD, NOS Unknown Completed [facility] Pneumococcal Polysaccharide, PPSV23 (PNEUMOVAX) Unknown Completed [facility] Influenza High Dose Quad Unknown Completed [facility] SARS-COV-2 COVID-19 PFIZER VACCINE Unknown Completed [facility] Influenza Virus Vaccine,quad Im,preserve Free 65+ (FLUAD) Unknown Completed [facility] Influenza Virus Vaccine Unknown Completed [facility] SARS-COV-2 COVID-19 RODRICK-SUCROSE VACCINE 12 YRS+, BIVALENT 0.3ML, IM, (PFIZER MORALES TOP) Unknown Completed [facility] Influenza High Dose Unknown Completed [facility] Pneumococcal 13 Conjugate, PCV13 (Prevnar 13) Unknown Completed [facility] TD, NOS Unknown Completed [facility] Pneumococcal Polysaccharide, PPSV23 (PNEUMOVAX) Unknown Completed [facility] Influenza High Dose Quad Unknown Completed [facility] SARS-COV-2 COVID-19 PFIZER VACCINE Unknown Completed [facility] Influenza Virus Vaccine,quad Im,preserve Free 65+ (FLUAD) Unknown Completed [facility] Influenza Virus Vaccine Unknown Completed [facility] SARS-COV-2 COVID-19 RODRICK-SUCROSE VACCINE 12 YRS+, BIVALENT 0.3ML, IM, (PFIZER MORALES TOP) Unknown Completed [facility] Influenza High Dose Unknown Completed [facility] Pneumococcal 13 Conjugate, PCV13 (Prevnar 13) Unknown Completed [facility] TD, NOS Unknown Completed [facility] Pneumococcal Polysaccharide, PPSV23 (PNEUMOVAX) Unknown Completed [facility] Influenza High Dose Quad Unknown Completed [facility] SARS-COV-2 COVID-19 PFIZER VACCINE Unknown Completed [facility] Influenza Virus Vaccine,quad Im,preserve Free 65+ (FLUAD) Unknown Completed [facility] Influenza Virus Vaccine Unknown Completed [facility] SARS-COV-2 COVID-19 RODRICK-SUCROSE VACCINE 12 YRS+, BIVALENT 0.3ML, IM, (PFIZER MORALES TOP) Unknown Completed [facility] Influenza High Dose Unknown Completed [facility] Pneumococcal 13 Conjugate, PCV13 (Prevnar 13) Unknown Completed [facility] TD, NOS Unknown Completed [facility] Pneumococcal Polysaccharide, PPSV23 (PNEUMOVAX) Unknown Completed [facility] Influenza High Dose Quad Unknown Completed [facility] SARS-COV-2 COVID-19 PFIZER VACCINE Unknown Completed [facility] Influenza Virus Vaccine,quad Im,preserve Free 65+ (FLUAD) Unknown Completed [facility] Influenza Virus Vaccine Unknown Completed [facility] SARS-COV-2 COVID-19 RODRICK-SUCROSE VACCINE 12 YRS+, BIVALENT 0.3ML, IM, (PFIZER MORALES TOP) Unknown Completed [facility] Influenza High Dose Unknown Completed [facility] Pneumococcal 13 Conjugate, PCV13 (Prevnar 13) Unknown Completed [facility] TD, NOS Unknown Completed [facility] Pneumococcal Polysaccharide, PPSV23 (PNEUMOVAX) Unknown Completed [facility] Influenza High Dose Quad Unknown Completed [facility] SARS-COV-2 COVID-19 PFIZER VACCINE Unknown Completed [facility] Influenza Virus Vaccine,quad Im,preserve Free 65+ (FLUAD) Unknown Completed [facility] Influenza Virus Vaccine Unknown Completed [facility] SARS-COV-2 COVID-19 RODRICK-SUCROSE VACCINE 12 YRS+, BIVALENT 0.3ML, IM, (PFIZER MORALES TOP) Unknown Completed [facility] Influenza High Dose Unknown Completed [facility] Pneumococcal 13 Conjugate, PCV13 (Prevnar 13) Unknown Completed [facility] TD, NOS Unknown Completed [facility] Pneumococcal Polysaccharide, PPSV23 (PNEUMOVAX) Unknown Completed [facility] Influenza High Dose Quad Unknown Completed [facility] SARS-COV-2 COVID-19 PFIZER VACCINE Unknown Completed [facility] Influenza Virus Vaccine,quad Im,preserve Free 65+ (FLUAD) Unknown Completed [facility] Influenza Virus Vaccine Unknown Completed [facility] SARS-COV-2 COVID-19 RODRICK-SUCROSE VACCINE 12 YRS+, BIVALENT 0.3ML, IM, (PFIZER MORALES TOP) Unknown Completed [facility] Influenza High Dose Unknown Completed [facility] Pneumococcal 13 Conjugate, PCV13 (Prevnar 13) Unknown Completed [facility] TD, NOS Unknown Completed [facility] Pneumococcal Polysaccharide, PPSV23 (PNEUMOVAX) Unknown Completed [facility] Influenza High Dose Quad Unknown Completed [facility] SARS-COV-2 COVID-19 PFIZER VACCINE Unknown Completed [facility] Influenza Virus Vaccine,quad Im,preserve Free 65+ (FLUAD) Unknown Completed [facility] Influenza Virus Vaccine Unknown Completed [facility] SARS-COV-2 COVID-19 RODRICK-SUCROSE VACCINE 12 YRS+, BIVALENT 0.3ML, IM, (PFIZER MORALES TOP) Unknown Completed [facility] Influenza High Dose Unknown Completed [facility] Pneumococcal 13 Conjugate, PCV13 (Prevnar 13) Unknown Completed [facility] TD, NOS Unknown Completed [facility] Pneumococcal Polysaccharide, PPSV23 (PNEUMOVAX) Unknown Completed [facility] Influenza High Dose Quad Unknown Completed [facility] SARS-COV-2 COVID-19 PFIZER VACCINE Unknown Completed [facility] Influenza Virus Vaccine,quad Im,preserve Free 65+ (FLUAD) Unknown Completed [facility] Influenza Virus Vaccine Unknown Completed [facility] SARS-COV-2 COVID-19 RODRICK-SUCROSE VACCINE 12 YRS+, BIVALENT 0.3ML, IM, (PFIZER MORALES TOP) Unknown Completed [facility] Pneumococcal 13 Conjugate, PCV13 (Prevnar 13) Unknown Completed [facility] TD, NOS Unknown Completed [facility] Pneumococcal Polysaccharide, PPSV23 (PNEUMOVAX) Unknown Completed [facility] Influenza High Dose Quad Unknown Completed [facility] Influenza Virus Vaccine Unknown Completed [facility] SARS-COV-2 COVID-19 RODRICK-SUCROSE VACCINE 12 YRS+, BIVALENT 0.3ML, IM, (PFIZER MORALES TOP) Unknown Completed [facility] Influenza High Dose Unknown Completed [facility] SARS-COV-2 COVID-19 PFIZER VACCINE Unknown Completed [facility] Influenza Virus Vaccine,quad Im,preserve Free 65+ (FLUAD) Unknown Completed [facility] Influenza High Dose Unknown Completed [facility] Pneumococcal 13 Conjugate, PCV13 (Prevnar 13) Unknown Completed [facility] TD, NOS Unknown Completed [facility] Pneumococcal Polysaccharide, PPSV23 (PNEUMOVAX) Unknown Completed [facility] Influenza High Dose Quad Unknown Completed [facility] SARS-COV-2 COVID-19 PFIZER VACCINE Unknown Completed [facility] Influenza Virus Vaccine,quad Im,preserve Free 65+ (FLUAD) Unknown Completed [facility] Influenza Virus Vaccine Unknown Completed [facility] SARS-COV-2 COVID-19 RODRICK-SUCROSE VACCINE 12 YRS+, BIVALENT 0.3ML, IM, (PFIZER MORALES TOP) Unknown Completed [facility] Influenza High Dose Unknown Completed [facility] Pneumococcal 13 Conjugate, PCV13 (Prevnar 13) Unknown Completed [facility] TD, NOS Unknown Completed [facility] Pneumococcal Polysaccharide, PPSV23 (PNEUMOVAX) Unknown Completed [facility] Influenza High Dose Quad Unknown Completed [facility] SARS-COV-2 COVID-19 PFIZER VACCINE Unknown Completed [facility] Influenza Virus Vaccine,quad Im,preserve Free 65+ (FLUAD) Unknown Completed [facility] Influenza Virus Vaccine Unknown Completed [facility] SARS-COV-2 COVID-19 RODRICK-SUCROSE VACCINE 12 YRS+, BIVALENT 0.3ML, IM, (PFIZER MORALES TOP) Unknown Completed [facility] Influenza High Dose Unknown Completed [facility] Pneumococcal 13 Conjugate, PCV13 (Prevnar 13) Unknown Completed [facility] TD, NOS Unknown Completed [facility] Pneumococcal Polysaccharide, PPSV23 (PNEUMOVAX) Unknown Completed [facility] Influenza High Dose Quad Unknown Completed [facility] SARS-COV-2 COVID-19 PFIZER VACCINE Unknown Completed [facility] Influenza Virus Vaccine,quad Im,preserve Free 65+ (FLUAD) Unknown Completed [facility] Influenza Virus Vaccine Unknown Completed [facility] SARS-COV-2 COVID-19 RODRICK-SUCROSE VACCINE 12 YRS+, BIVALENT 0.3ML, IM, (PFIZER MORALES TOP) Unknown Completed [facility] Influenza High Dose Unknown Completed [facility] Pneumococcal 13 Conjugate, PCV13 (Prevnar 13) Unknown Completed [facility] TD, NOS Unknown Completed [facility] Pneumococcal Polysaccharide, PPSV23 (PNEUMOVAX) Unknown Completed [facility] Influenza High Dose Quad Unknown Completed [facility] SARS-COV-2 COVID-19 PFIZER VACCINE Unknown Completed [facility] Influenza Virus Vaccine,quad Im,preserve Free 65+ (FLUAD) Unknown Completed [facility] Influenza Virus Vaccine Unknown Completed [facility] SARS-COV-2 COVID-19 RODRICK-SUCROSE VACCINE 12 YRS+, BIVALENT 0.3ML, IM, (PFIZER MORALES TOP) Unknown Completed [facility] Pneumococcal 13 Conjugate, PCV13 (Prevnar 13) Unknown Completed [facility] TD, NOS Unknown Completed [facility] Pneumococcal Polysaccharide, PPSV23 (PNEUMOVAX) Unknown Completed [facility] Influenza High Dose Quad Unknown Completed [facility] Influenza Virus Vaccine Unknown Completed [facility] SARS-COV-2 COVID-19 RODRICK-SUCROSE VACCINE 12 YRS+, BIVALENT 0.3ML, IM, (PFIZER MORALES TOP) Unknown Completed [facility] Influenza High Dose Unknown Completed [facility] SARS-COV-2 COVID-19 PFIZER VACCINE Unknown Completed [facility] Influenza Virus Vaccine,quad Im,preserve Free 65+ (FLUAD) Unknown Completed [facility] Influenza High Dose Unknown Completed [facility] Pneumococcal 13 Conjugate, PCV13 (Prevnar 13) Unknown Completed [facility] TD, NOS Unknown Completed [facility] Pneumococcal Polysaccharide, PPSV23 (PNEUMOVAX) Unknown Completed [facility] Influenza High Dose Quad Unknown Completed [facility] SARS-COV-2 COVID-19 PFIZER VACCINE Unknown Completed [facility] Influenza Virus Vaccine,quad Im,preserve Free 65+ (FLUAD) Unknown Completed [facility] Influenza Virus Vaccine Unknown Completed [facility] SARS-COV-2 COVID-19 RODRICK-SUCROSE VACCINE 12 YRS+, BIVALENT 0.3ML, IM, (PFIZER MORALES TOP) Unknown Completed [facility] Influenza High Dose Unknown Completed [facility] Pneumococcal 13 Conjugate, PCV13 (Prevnar 13) Unknown Completed [facility] TD, NOS Unknown Completed [facility] Pneumococcal Polysaccharide, PPSV23 (PNEUMOVAX) Unknown Completed [facility] Influenza High Dose Quad Unknown Completed [facility] SARS-COV-2 COVID-19 PFIZER VACCINE Unknown Completed [facility] Influenza Virus Vaccine,quad Im,preserve Free 65+ (FLUAD) Unknown Completed [facility] Influenza Virus Vaccine Unknown Completed [facility] SARS-COV-2 COVID-19 RODRICK-SUCROSE VACCINE 12 YRS+, BIVALENT 0.3ML, IM, (PFIZER MORALES TOP) Unknown Completed [facility] Influenza High Dose Unknown Completed [facility] Pneumococcal 13 Conjugate, PCV13 (Prevnar 13) Unknown Completed [facility] TD, NOS Unknown Completed [facility] Pneumococcal Polysaccharide, PPSV23 (PNEUMOVAX) Unknown Completed [facility] Influenza High Dose Quad Unknown Completed [facility] SARS-COV-2 COVID-19 PFIZER VACCINE Unknown Completed [facility] Influenza Virus Vaccine,quad Im,preserve Free 65+ (FLUAD) Unknown Completed [facility] Influenza Virus Vaccine Unknown Completed [facility] SARS-COV-2 COVID-19 RODRICK-SUCROSE VACCINE 12 YRS+, BIVALENT 0.3ML, IM, (PFIZER MORALES TOP) Unknown Completed [facility] Pneumococcal 13 Conjugate, PCV13 (Prevnar 13) Unknown Completed [facility] TD, NOS Unknown Completed [facility] Pneumococcal Polysaccharide, PPSV23 (PNEUMOVAX) Unknown Completed [facility] Influenza High Dose Quad Unknown Completed [facility] Influenza Virus Vaccine Unknown Completed [facility] SARS-COV-2 COVID-19 RODRICK-SUCROSE VACCINE 12 YRS+, BIVALENT 0.3ML, IM, (PFIZER MORALES TOP) Unknown Completed [facility] Influenza High Dose Unknown Completed [facility] SARS-COV-2 COVID-19 PFIZER VACCINE Unknown Completed [facility] Influenza Virus Vaccine,quad Im,preserve Free 65+ (FLUAD) Unknown Completed [facility] Influenza High Dose Unknown Completed [facility] Pneumococcal 13 Conjugate, PCV13 (Prevnar 13) Unknown Completed [facility] TD, NOS Unknown Completed [facility] Pneumococcal Polysaccharide, PPSV23 (PNEUMOVAX) Unknown Completed [facility] Influenza High Dose Quad Unknown Completed [facility] SARS-COV-2 COVID-19 PFIZER VACCINE Unknown Completed [facility] Influenza Virus Vaccine,quad Im,preserve Free 65+ (FLUAD) Unknown Completed [facility] Influenza Virus Vaccine Unknown Completed [facility] SARS-COV-2 COVID-19 RODRICK-SUCROSE VACCINE 12 YRS+, BIVALENT 0.3ML, IM, (PFIZER MORALES TOP) Unknown Completed [facility] Influenza High Dose Unknown Completed [facility] Pneumococcal 13 Conjugate, PCV13 (Prevnar 13) Unknown Completed [facility] TD, NOS Unknown Completed [facility] Pneumococcal Polysaccharide, PPSV23 (PNEUMOVAX) Unknown Completed [facility] Influenza High Dose Quad Unknown Completed [facility] SARS-COV-2 COVID-19 PFIZER VACCINE Unknown Completed [facility] Influenza Virus Vaccine,quad Im,preserve Free 65+ (FLUAD) Unknown Completed [facility] Influenza Virus Vaccine Unknown Completed [facility] SARS-COV-2 COVID-19 RODRICK-SUCROSE VACCINE 12 YRS+, BIVALENT 0.3ML, IM, (PFIZER MORALES TOP) Unknown Completed [facility] Influenza High Dose Unknown Completed [facility] Pneumococcal 13 Conjugate, PCV13 (Prevnar 13) Unknown Completed [facility] TD, NOS Unknown Completed [facility] Pneumococcal Polysaccharide, PPSV23 (PNEUMOVAX) Unknown Completed [facility] Influenza High Dose Quad Unknown Completed [facility] SARS-COV-2 COVID-19 PFIZER VACCINE Unknown Completed [facility] Influenza Virus Vaccine,quad Im,preserve Free 65+ (FLUAD) Unknown Completed [facility] Influenza Virus Vaccine Unknown Completed [facility] SARS-COV-2 COVID-19 RODRICK-SUCROSE VACCINE 12 YRS+, BIVALENT 0.3ML, IM, (PFIZER MOARLES TOP) Unknown Completed [facility] Influenza High Dose Unknown Completed [facility] Pneumococcal 13 Conjugate, PCV13 (Prevnar 13) Unknown Completed [facility] TD, NOS Unknown Completed [facility] Pneumococcal Polysaccharide, PPSV23 (PNEUMOVAX) Unknown Completed [facility] Influenza High Dose Quad Unknown Completed [facility] SARS-COV-2 COVID-19 PFIZER VACCINE Unknown Completed [facility] Influenza Virus Vaccine,quad Im,preserve Free 65+ (FLUAD) Unknown Completed [facility] Influenza Virus Vaccine Unknown Completed [facility] SARS-COV-2 COVID-19 RODRICK-SUCROSE VACCINE 12 YRS+, BIVALENT 0.3ML, IM, (PFIZER MORALES TOP) Unknown Completed [facility] Pneumococcal 13 Conjugate, PCV13 (Prevnar 13) Unknown Completed [facility] TD, NOS Unknown Completed [facility] Pneumococcal Polysaccharide, PPSV23 (PNEUMOVAX) Unknown Completed [facility] Influenza High Dose Quad Unknown Completed [facility] Influenza Virus Vaccine Unknown Completed [facility] SARS-COV-2 COVID-19 RODRICK-SUCROSE VACCINE 12 YRS+, BIVALENT 0.3ML, IM, (PFIZER MORALES TOP) Unknown Completed [facility] Influenza High Dose Unknown Completed [facility] SARS-COV-2 COVID-19 PFIZER VACCINE Unknown Completed [facility] Influenza Virus Vaccine,quad Im,preserve Free 65+ (FLUAD) Unknown Completed [facility] Pneumococcal 13 Conjugate, PCV13 (Prevnar 13) Unknown Completed [facility] TD, NOS Unknown Completed [facility] Pneumococcal Polysaccharide, PPSV23 (PNEUMOVAX) Unknown Completed [facility] Influenza High Dose Quad Unknown Completed [facility] Influenza Virus Vaccine Unknown Completed [facility] SARS-COV-2 COVID-19 RODRICK-SUCROSE VACCINE 12 YRS+, BIVALENT 0.3ML, IM, (PFIZER MORALES TOP) Unknown Completed [facility] Influenza High Dose Unknown Completed [facility] SARS-COV-2 COVID-19 PFIZER VACCINE Unknown Completed [facility] Influenza Virus Vaccine,quad Im,preserve Free 65+ (FLUAD) Unknown Completed [facility] Influenza High Dose Unknown Completed [facility] Pneumococcal 13 Conjugate, PCV13 (Prevnar 13) Unknown Completed [facility] TD, NOS Unknown Completed [facility] Pneumococcal Polysaccharide, PPSV23 (PNEUMOVAX) Unknown Completed [facility] Influenza High Dose Quad Unknown Completed [facility] SARS-COV-2 COVID-19 PFIZER VACCINE Unknown Completed [facility] Influenza Virus Vaccine,quad Im,preserve Free 65+ (FLUAD) Unknown Completed [facility] Influenza Virus Vaccine Unknown Completed [facility] SARS-COV-2 COVID-19 RODRICK-SUCROSE VACCINE 12 YRS+, BIVALENT 0.3ML, IM, (PFIZER MORALES TOP) Unknown Completed [facility] Vital Signs Vital Name Observation Time Observation Value Comments S ource Systolic blood pressure 2024-06-22 20:06:00 159 mm[Hg] [facility] Diastolic blood pressure 2024-06-22 20:06:00 81 mm[Hg] [facility] Heart rate 2024-06-22 20:06:00 57 /min [facility] Body temperature 2024-06-22 20:06:00 35.78 Susie [facility] Body height 2024-06-22 20:06:00 167.6 cm [facility] Body weight 2024-06-22 20:06:00 99.338 kg [facility] BMI 2024-06-22 20:06:00 35.35 kg/m2 [facility] Oxygen saturation in Arterial blood by Pulse oximetry 2024-06-22 20:06:00 100 /min [facility] Systolic blood pressure 2024-06-22 19:15:00 156 mm[Hg] [facility] Diastolic blood pressure 2024-06-22 19:15:00 76 mm[Hg] [facility] Heart rate 2024-06-22 19:13:00 57 /min [facility] Body temperature 2024-06-22 19:13:00 35.78 Susie [facility] Body height 2024-06-22 19:13:00 167.6 cm [facility] Body weight 2024-06-22 19:13:00 99.338 kg [facility] BMI 2024-06-22 19:13:00 35.35 kg/m2 [facility] Oxygen saturation in Arterial blood by Pulse oximetry 2024-06-22 19:13:00 100 /min [facility] Systolic blood pressure 2024-05-23 16:07:00 138 mm[Hg] [facility] Diastolic blood pressure 2024-05-23 16:07:00 61 mm[Hg] [facility] Heart rate 2024-05-23 16:07:00 67 /min [facility] Respiratory rate 2024-05-23 16:07:00 12 /min [facility] Body height 2024-05-23 16:07:00 167.6 cm stated [facility] Body weight 2024-05-23 16:07:00 98.521 kg [facility] BMI 2024-05-23 16:07:00 35.06 kg/m2 [facility] Oxygen saturation in Arterial blood by Pulse oximetry 2024-05-23 16:07:00 100 /min [facility] Systolic blood pressure 2024-05-19 21:52:00 135 mm[Hg] [facility] Diastolic blood pressure 2024-05-19 21:52:00 64 mm[Hg] [facility] Heart rate 2024-05-19 21:52:00 65 /min [facility] Body temperature 2024-05-19 21:52:00 37.11 Susie [facility] Respiratory rate 2024-05-19 21:52:00 20 /min [facility] Oxygen saturation in Arterial blood by Pulse oximetry 2024-05-19 21:52:00 94 /min [facility] Body height 2024-05-19 04:14:00 167.6 cm [facility] Body weight 2024-05-19 04:14:00 100.245 kg [facility] BMI 2024-05-19 04:14:00 35.67 kg/m2 [facility] Systolic blood pressure 2024-05-18 19:49:00 160 mm[Hg] [facility] Diastolic blood pressure 2024-05-18 19:49:00 72 mm[Hg] [facility] Respiratory rate 2024-05-18 19:49:00 18 /min [facility] Oxygen saturation in Arterial blood by Pulse oximetry 2024-05-18 19:49:00 100 /min [facility] Systolic blood pressure 2024-05-16 16:28:00 138 mm[Hg] [facility] Diastolic blood pressure 2024-05-16 16:28:00 65 mm[Hg] [facility] Heart rate 2024-05-16 16:20:00 62 /min [facility] Respiratory rate 2024-05-16 16:20:00 16 /min [facility] Body height 2024-05-16 16:20:00 167.6 cm [facility] Body weight 2024-05-16 16:20:00 100.302 kg [facility] BMI 2024-05-16 16:20:00 35.69 kg/m2 [facility] Oxygen saturation in Arterial blood by Pulse oximetry 2024-05-16 16:20:00 100 /min [facility] Systolic blood pressure 2024-03-26 16:03:00 132 mm[Hg] [facility] Diastolic blood pressure 2024-03-26 16:03:00 65 mm[Hg] [facility] Heart rate 2024-03-26 15:56:00 60 /min [facility] Respiratory rate 2024-03-26 15:56:00 19 /min [facility] Body height 2024-03-26 15:56:00 167.6 cm [facility] Body weight 2024-03-26 15:56:00 98.476 kg [facility] BMI 2024-03-26 15:56:00 35.04 kg/m2 [facility] Oxygen saturation in Arterial blood by Pulse oximetry 2024-03-26 15:56:00 100 /min [facility] Systolic blood pressure 2024-03-08 16:19:00 118 mm[Hg] [facility] Diastolic blood pressure 2024-03-08 16:19:00 53 mm[Hg] [facility] Heart rate 2024-03-08 16:14:00 57 /min [facility] Body temperature 2024-03-08 16:14:00 36.61 Susie [facility] Respiratory rate 2024-03-08 16:14:00 18 /min [facility] Body height 2024-03-08 16:14:00 167.6 cm [facility] Body weight 2024-03-08 16:14:00 96.072 kg [facility] BMI 2024-03-08 16:14:00 34.19 kg/m2 [facility] Oxygen saturation in Arterial blood by Pulse oximetry 2024-03-08 16:14:00 99 /min [facility] Systolic blood pressure 2024-03-07 18:28:00 156 mm[Hg] [facility] Diastolic blood pressure 2024-03-07 18:28:00 65 mm[Hg] [facility] Heart rate 2024-03-07 18:28:00 66 /min [facility] Oxygen saturation in Arterial blood by Pulse oximetry 2024-03-07 18:28:00 98 /min [facility] Respiratory rate 2024-03-07 18:26:00 20 /min [facility] Body height 2024-03-07 18:26:00 167.6 cm [facility] Body weight 2024-03-07 18:26:00 96.707 kg [facility] BMI 2024-03-07 18:26:00 34.41 kg/m2 [facility] Systolic blood pressure 2024-03-03 17:00:00 170 mm[Hg] [facility] Diastolic blood pressure 2024-03-03 17:00:00 69 mm[Hg] [facility] Respiratory rate 2024-03-03 17:00:00 17 /min [facility] Heart rate 2024-03-03 16:28:00 61 /min [facility] Oxygen saturation in Arterial blood by Pulse oximetry 2024-03-03 16:28:00 98 /min [facility] Body temperature 2024-03-03 16:00:00 36.33 Susie [facility] Body weight 2024-03-02 08:00:00 96.979 kg [facility] BMI 2024-03-02 08:00:00 34.51 kg/m2 [facility] Body height 2024-03-01 22:11:00 167.6 cm [facility] Systolic blood pressure 2024-02-21 18:07:00 140 mm[Hg] [facility] Diastolic blood pressure 2024-02-21 18:07:00 61 mm[Hg] [facility] Heart rate 2024-02-21 18:07:00 66 /min [facility] Respiratory rate 2024-02-21 18:07:00 18 /min [facility] Body height 2024-02-21 18:07:00 167.6 cm [facility] Body weight 2024-02-21 18:07:00 98.839 kg [facility] BMI 2024-02-21 18:07:00 35.17 kg/m2 [facility] Oxygen saturation in Arterial blood by Pulse oximetry 2024-02-21 18:07:00 98 /min [facility] Systolic blood pressure 2024-01-25 15:22:00 141 mm[Hg] [facility] Diastolic blood pressure 2024-01-25 15:22:00 75 mm[Hg] [facility] Heart rate 2024-01-25 15:22:00 64 /min [facility] Respiratory rate 2024-01-25 15:22:00 16 /min [facility] Oxygen saturation in Arterial blood by Pulse oximetry 2024-01-25 15:22:00 98 /min [facility] Body height 2024-01-25 15:15:00 167.6 cm [facility] Body weight 2024-01-25 15:15:00 98.022 kg [facility] BMI 2024-01-25 15:15:00 34.88 kg/m2 [facility] Systolic blood pressure 2024-01-18 19:55:00 147 mm[Hg] [facility] Diastolic blood pressure 2024-01-18 19:55:00 62 mm[Hg] [facility] Heart rate 2024-01-18 19:55:00 65 /min [facility] Oxygen saturation in Arterial blood by Pulse oximetry 2024-01-18 19:55:00 98 /min [facility] Body temperature 2024-01-18 19:52:00 36.94 Susie [facility] Body height 2024-01-18 19:52:00 167.6 cm [facility] Body weight 2024-01-18 19:52:00 98.068 kg [facility] BMI 2024-01-18 19:52:00 34.90 kg/m2 [facility] Systolic blood pressure 2024-01-16 13:07:00 169 mm[Hg] [facility] Diastolic blood pressure 2024-01-16 13:07:00 68 mm[Hg] [facility] Heart rate 2024-01-16 13:07:00 64 /min [facility] Oxygen saturation in Arterial blood by Pulse oximetry 2024-01-16 13:07:00 100 /min [facility] Body temperature 2024-01-16 13:05:00 36.83 Susie [facility] Respiratory rate 2024-01-16 13:05:00 20 /min [facility] Body height 2024-01-16 13:05:00 167.6 cm [facility] Body weight 2024-01-16 13:05:00 97.977 kg [facility] BMI 2024-01-16 13:05:00 34.86 kg/m2 [facility] Systolic blood pressure 2023-12-23 13:44:00 160 mm[Hg] [facility] Diastolic blood pressure 2023-12-23 13:44:00 83 mm[Hg] [facility] Heart rate 2023-12-23 13:41:00 62 /min [facility] Body temperature 2023-12-23 13:41:00 36 Susie [facility] Body height 2023-12-23 13:41:00 167.6 cm [facility] Body weight 2023-12-23 13:41:00 95.709 kg [facility] BMI 2023-12-23 13:41:00 34.06 kg/m2 [facility] Oxygen saturation in Arterial blood by Pulse oximetry 2023-12-23 13:41:00 100 /min [facility] Systolic blood pressure 2023-10-12 19:14:00 124 mm[Hg] [facility] Diastolic blood pressure 2023-10-12 19:14:00 49 mm[Hg] [facility] Heart rate 2023-10-12 19:14:00 57 /min [facility] Body temperature 2023-10-12 19:14:00 36.44 Susie [facility] Body height 2023-10-12 19:14:00 167.6 cm [facility] Body weight 2023-10-12 19:14:00 92.806 kg [facility] BMI 2023-10-12 19:14:00 33.02 kg/m2 [facility] Oxygen saturation in Arterial blood by Pulse oximetry 2023-10-12 19:14:00 96 /min [facility] Systolic blood pressure 2023-09-26 14:26:00 132 mm[Hg] [facility] Diastolic blood pressure 2023-09-26 14:26:00 63 mm[Hg] [facility] Heart rate 2023-09-26 14:26:00 64 /min [facility] Body temperature 2023-09-26 14:26:00 36.72 Susie [facility] Respiratory rate 2023-09-26 14:26:00 19 /min [facility] Body height 2023-09-26 14:26:00 167.6 cm [facility] Body weight 2023-09-26 14:26:00 92.987 kg [facility] BMI 2023-09-26 14:26:00 33.09 kg/m2 [facility] Oxygen saturation in Arterial blood by Pulse oximetry 2023-09-26 14:26:00 100 /min [facility] Systolic blood pressure 2023-08-22 18:14:00 129 mm[Hg] [facility] Diastolic blood pressure 2023-08-22 18:14:00 59 mm[Hg] [facility] Heart rate 2023-08-22 18:14:00 63 /min [facility] Body temperature 2023-08-22 18:14:00 36.17 Susie [facility] Respiratory rate 2023-08-22 18:14:00 20 /min [facility] Oxygen saturation in Arterial blood by Pulse oximetry 2023-08-22 18:14:00 100 /min [facility] Body height 2023-08-22 18:12:00 167.6 cm [facility] Body weight 2023-08-22 18:12:00 95.301 kg [facility] BMI 2023-08-22 18:12:00 33.91 kg/m2 [facility] Systolic blood pressure 2023-08-08 14:49:00 126 mm[Hg] [facility] Diastolic blood pressure 2023-08-08 14:49:00 76 mm[Hg] [facility] Heart rate 2023-08-08 14:49:00 69 /min [facility] Body temperature 2023-08-08 14:49:00 35.89 Susie [facility] Body height 2023-08-08 14:49:00 167.6 cm [facility] Body weight 2023-08-08 14:49:00 94.802 kg [facility] BMI 2023-08-08 14:49:00 33.73 kg/m2 [facility] Oxygen saturation in Arterial blood by Pulse oximetry 2023-08-08 14:49:00 100 /min [facility] Systolic blood pressure 2023-07-28 10:28:00 152 mm[Hg] [facility] Diastolic blood pressure 2023-07-28 10:28:00 55 mm[Hg] [facility] Heart rate 2023-07-28 10:28:00 56 /min [facility] Body temperature 2023-07-28 10:28:00 36.83 Susie [facility] Respiratory rate 2023-07-28 10:28:00 16 /min [facility] Body height 2023-07-28 10:28:00 167.6 cm [facility] Body weight 2023-07-28 10:28:00 97.4 kg [facility] BMI 2023-07-28 10:28:00 34.66 kg/m2 [facility] Oxygen saturation in Arterial blood by Pulse oximetry 2023-07-28 10:28:00 98 /min [facility] Systolic blood pressure 2023-07-11 20:30:00 133 mm[Hg] [facility] Diastolic blood pressure 2023-07-11 20:30:00 55 mm[Hg] [facility] Heart rate 2023-07-11 20:28:00 56 /min [facility] Respiratory rate 2023-07-11 20:28:00 18 /min [facility] Body height 2023-07-11 20:28:00 167.6 cm [facility] Body weight 2023-07-11 20:28:00 97.977 kg [facility] BMI 2023-07-11 20:28:00 34.86 kg/m2 [facility] Oxygen saturation in Arterial blood by Pulse oximetry 2023-07-11 20:28:00 97 /min [facility] Systolic blood pressure 2023-06-24 17:12:00 143 mm[Hg] [facility] Diastolic blood pressure 2023-06-24 17:12:00 58 mm[Hg] [facility] Heart rate 2023-06-24 17:12:00 53 /min [facility] Body temperature 2023-06-24 17:12:00 36.5 Susie [facility] Respiratory rate 2023-06-24 17:12:00 18 /min [facility] Body height 2023-06-24 17:12:00 167.6 cm [facility] Body weight 2023-06-24 17:12:00 98.567 kg [facility] BMI 2023-06-24 17:12:00 35.07 kg/m2 [facility] Oxygen saturation in Arterial blood by Pulse oximetry 2023-06-24 17:12:00 99 /min [facility] Systolic blood pressure 2023-06-20 20:14:00 142 mm[Hg] [facility] Diastolic blood pressure 2023-06-20 20:14:00 55 mm[Hg] [facility] Heart rate 2023-06-20 20:14:00 58 /min [facility] Oxygen saturation in Arterial blood by Pulse oximetry 2023-06-20 20:14:00 98 /min [facility] Respiratory rate 2023-06-20 20:12:00 18 /min [facility] Body height 2023-06-20 20:12:00 167.6 cm [facility] Body weight 2023-06-20 20:12:00 99.338 kg [facility] BMI 2023-06-20 20:12:00 35.35 kg/m2 [facility] Systolic blood pressure 2023-06-16 20:02:00 147 mm[Hg] [facility] Diastolic blood pressure 2023-06-16 20:02:00 74 mm[Hg] [facility] Heart rate 2023-06-16 20:02:00 60 /min [facility] Body height 2023-06-16 20:02:00 167.6 cm [facility] Body weight 2023-06-16 20:02:00 99.202 kg [facility] BMI 2023-06-16 20:02:00 35.30 kg/m2 [facility] Oxygen saturation in Arterial blood by Pulse oximetry 2023-06-16 20:02:00 96 /min [facility] Systolic blood pressure 2023-05-21 17:24:00 141 mm[Hg] [facility] Diastolic blood pressure 2023-05-21 17:24:00 70 mm[Hg] [facility] Heart rate 2023-05-21 17:24:00 63 /min [facility] Body temperature 2023-05-21 17:24:00 36.61 Susie [facility] Respiratory rate 2023-05-21 17:24:00 18 /min [facility] Oxygen saturation in Arterial blood by Pulse oximetry 2023-05-21 17:24:00 96 /min [facility] Body height 2023-05-20 20:53:00 167.6 cm [facility] Body weight 2023-05-20 20:53:00 99.338 kg [facility] BMI 2023-05-20 20:53:00 35.35 kg/m2 [facility] Systolic blood pressure 2023-05-20 18:00:00 145 mm[Hg] [facility] Diastolic blood pressure 2023-05-20 18:00:00 62 mm[Hg] [facility] Heart rate 2023-05-20 18:00:00 62 /min [facility] Respiratory rate 2023-05-20 18:00:00 13 /min [facility] Oxygen saturation in Arterial blood by Pulse oximetry 2023-05-20 18:00:00 99 /min [facility] Body height 2023-05-20 16:01:00 167.6 cm [facility] Body weight 2023-05-20 16:01:00 96 kg [facility] BMI 2023-05-20 16:01:00 35.35 kg/m2 [facility] Systolic blood pressure 2023-04-12 20:29:00 133 mm[Hg] [facility] Diastolic blood pressure 2023-04-12 20:29:00 64 mm[Hg] [facility] Heart rate 2023-04-12 20:13:00 60 /min [facility] Respiratory rate 2023-04-12 20:13:00 19 /min [facility] Body height 2023-04-12 20:13:00 167.6 cm [facility] Body weight 2023-04-12 20:13:00 96.163 kg [facility] BMI 2023-04-12 20:13:00 34.22 kg/m2 [facility] Oxygen saturation in Arterial blood by Pulse oximetry 2023-04-12 20:13:00 99 /min [facility] Systolic blood pressure 2023-03-28 15:16:00 117 mm[Hg] [facility] Diastolic blood pressure 2023-03-28 15:16:00 58 mm[Hg] [facility] Heart rate 2023-03-28 15:16:00 59 /min [facility] Body height 2023-03-28 15:16:00 167.6 cm [facility] Body weight 2023-03-28 15:16:00 94.348 kg [facility] BMI 2023-03-28 15:16:00 33.57 kg/m2 [facility] Oxygen saturation in Arterial blood by Pulse oximetry 2023-03-28 15:16:00 100 /min [facility] Systolic blood pressure 2023-03-17 16:33:00 144 mm[Hg] [facility] Diastolic blood pressure 2023-03-17 16:33:00 66 mm[Hg] [facility] Heart rate 2023-03-17 16:33:00 53 /min [facility] Respiratory rate 2023-03-17 16:30:00 16 /min [facility] Body height 2023-03-17 16:30:00 167.6 cm [facility] Body weight 2023-03-17 16:30:00 93.169 kg [facility] BMI 2023-03-17 16:30:00 33.15 kg/m2 [facility] Oxygen saturation in Arterial blood by Pulse oximetry 2023-03-17 16:30:00 98 /min [facility] Systolic blood pressure 2023-03-15 16:07:00 132 mm[Hg] [facility] Diastolic blood pressure 2023-03-15 16:07:00 59 mm[Hg] [facility] Heart rate 2023-03-15 16:07:00 57 /min [facility] Body temperature 2023-03-15 16:07:00 36.11 Susie [facility] Respiratory rate 2023-03-15 16:07:00 20 /min [facility] Body height 2023-03-15 16:07:00 167.6 cm [facility] Body weight 2023-03-15 16:07:00 92.715 kg [facility] BMI 2023-03-15 16:07:00 32.99 kg/m2 [facility] Oxygen saturation in Arterial blood by Pulse oximetry 2023-03-15 16:07:00 98 /min [facility] Systolic blood pressure 2023-03-12 16:33:00 136 mm[Hg] [facility] Diastolic blood pressure 2023-03-12 16:33:00 71 mm[Hg] [facility] Heart rate 2023-03-12 16:33:00 77 /min [facility] Body temperature 2023-03-12 16:33:00 37.22 Susie [facility] Respiratory rate 2023-03-12 16:33:00 18 /min [facility] Oxygen saturation in Arterial blood by Pulse oximetry 2023-03-12 16:33:00 93 /min [facility] Body weight 2023-03-12 08:30:00 93.577 kg actual wt on the regular scale [facility] BMI 2023-03-12 08:30:00 33.30 kg/m2 [facility] Body height 2023-03-11 20:34:00 167.6 cm [facility] Systolic blood pressure 2023-03-11 15:55:40 180 mm[Hg] [facility] Diastolic blood pressure 2023-03-11 15:55:40 82 mm[Hg] [facility] Respiratory rate 2023-03-11 15:55:40 18 /min [facility] Oxygen saturation in Arterial blood by Pulse oximetry 2023-03-11 15:55:40 100 /min [facility] Heart rate 2023-03-11 14:46:00 88 /min [facility] Body height 2023-03-11 14:39:37 167.6 cm [facility] Body weight 2023-03-11 14:39:37 96.163 kg [facility] BMI 2023-03-11 14:39:37 33.30 kg/m2 [facility] Systolic blood pressure 2023-02-02 16:42:00 142 mm[Hg] [facility] Diastolic blood pressure 2023-02-02 16:42:00 56 mm[Hg] [facility] Heart rate 2023-02-02 16:42:00 62 /min [facility] Body temperature 2023-02-02 16:42:00 36.61 Susie [facility] Respiratory rate 2023-02-02 16:42:00 18 /min [facility] Body height 2023-02-02 16:42:00 167.6 cm [facility] Body weight 2023-02-02 16:42:00 96.163 kg [facility] BMI 2023-02-02 16:42:00 34.22 kg/m2 [facility] Oxygen saturation in Arterial blood by Pulse oximetry 2023-02-02 16:42:00 100 /min [facility] Systolic blood pressure 2023-01-25 18:00:00 135 mm[Hg] [facility] Diastolic blood pressure 2023-01-25 18:00:00 82 mm[Hg] [facility] Respiratory rate 2023-01-25 18:00:00 16 /min [facility] Oxygen saturation in Arterial blood by Pulse oximetry 2023-01-25 18:00:00 97 /min [facility] Heart rate 2023-01-25 14:30:46 71 /min [facility] Body height 2023-01-25 12:30:19 167.6 cm [facility] Body weight 2023-01-25 12:30:19 97.4 kg [facility] BMI 2023-01-25 12:30:19 34.66 kg/m2 [facility] Systolic blood pressure 2023-01-25 14:27:34 190 mm[Hg] [facility] Diastolic blood pressure 2023-01-25 14:27:34 80 mm[Hg] [facility] Respiratory rate 2023-01-25 14:27:34 22 /min [facility] Oxygen saturation in Arterial blood by Pulse oximetry 2023-01-25 14:27:34 99 /min [facility] Body height 2023-01-25 12:30:19 167.6 cm [facility] Body weight 2023-01-25 12:30:19 97.4 kg [facility] BMI 2023-01-25 12:30:19 34.66 kg/m2 [facility] Systolic blood pressure 2023-01-05 19:03:00 138 mm[Hg] [facility] Diastolic blood pressure 2023-01-05 19:03:00 68 mm[Hg] [facility] Heart rate 2023-01-05 19:03:00 57 /min [facility] Respiratory rate 2023-01-05 19:01:00 19 /min [facility] Body height 2023-01-05 19:01:00 167.6 cm [facility] Body weight 2023-01-05 19:01:00 97.433 kg [facility] BMI 2023-01-05 19:01:00 34.67 kg/m2 [facility] Oxygen saturation in Arterial blood by Pulse oximetry 2023-01-05 19:01:00 96 /min [facility] Systolic blood pressure 2022-12-27 14:24:00 139 mm[Hg] [facility] Diastolic blood pressure 2022-12-27 14:24:00 74 mm[Hg] [facility] Heart rate 2022-12-27 14:24:00 56 /min [facility] Respiratory rate 2022-12-27 14:21:00 17 /min [facility] Body height 2022-12-27 14:21:00 167.6 cm [facility] Body weight 2022-12-27 14:21:00 96.571 kg [facility] BMI 2022-12-27 14:21:00 34.36 kg/m2 [facility] Oxygen saturation in Arterial blood by Pulse oximetry 2022-12-27 14:21:00 98 /min [facility] Systolic blood pressure 2022-10-07 14:56:00 143 mm[Hg] [facility] Diastolic blood pressure 2022-10-07 14:56:00 65 mm[Hg] [facility] Heart rate 2022-10-07 14:56:00 59 /min [facility] Oxygen saturation in Arterial blood by Pulse oximetry 2022-10-07 14:56:00 99 /min [facility] Body temperature 2022-10-07 14:54:00 36.72 Susie [facility] Respiratory rate 2022-10-07 14:54:00 16 /min [facility] Body height 2022-10-07 14:54:00 167.6 cm [facility] Body weight 2022-10-07 14:54:00 97.251 kg [facility] BMI 2022-10-07 14:54:00 34.61 kg/m2 [facility] Systolic blood pressure 2022-09-28 13:52:00 155 mm[Hg] [facility] Diastolic blood pressure 2022-09-28 13:52:00 78 mm[Hg] [facility] Heart rate 2022-09-28 13:51:00 63 /min [facility] Body temperature 2022-09-28 13:51:00 36.11 Susie [facility] Body height 2022-09-28 13:51:00 167.6 cm [facility] Body weight 2022-09-28 13:51:00 96.435 kg [facility] BMI 2022-09-28 13:51:00 34.31 kg/m2 [facility] Oxygen saturation in Arterial blood by Pulse oximetry 2022-09-28 13:51:00 98 /min [facility] Systolic blood pressure 2022-07-12 15:04:00 132 mm[Hg] wrist [facility] Diastolic blood pressure 2022-07-12 15:04:00 60 mm[Hg] wrist [facility] Heart rate 2022-07-12 15:03:00 59 /min [facility] Body temperature 2022-07-12 15:03:00 36.28 Susie [facility] Respiratory rate 2022-07-12 15:03:00 18 /min [facility] Body height 2022-07-12 15:03:00 167.6 cm [facility] Body weight 2022-07-12 15:03:00 100.245 kg [facility] BMI 2022-07-12 15:03:00 35.67 kg/m2 [facility] Oxygen saturation in Arterial blood by Pulse oximetry 2022-07-12 15:03:00 100 /min [facility] Systolic blood pressure 2022-05-17 20:29:00 116 mm[Hg] [facility] Diastolic blood pressure 2022-05-17 20:29:00 84 mm[Hg] [facility] Heart rate 2022-05-17 20:29:00 66 /min [facility] Body temperature 2022-05-17 20:29:00 36.72 Susie [facility] Respiratory rate 2022-05-17 20:29:00 18 /min [facility] Body height 2022-05-17 20:29:00 167.6 cm [facility] Body weight 2022-05-17 20:29:00 101.152 kg [facility] BMI 2022-05-17 20:29:00 35.99 kg/m2 [facility] Systolic blood pressure 2022-05-11 17:34:00 170 mm[Hg] [facility] Diastolic blood pressure 2022-05-11 17:34:00 67 mm[Hg] [facility] Heart rate 2022-05-11 17:29:00 58 /min [facility] Body temperature 2022-05-11 17:29:00 36.44 Susie [facility] Respiratory rate 2022-05-11 17:29:00 18 /min [facility] Body height 2022-05-11 17:29:00 167.6 cm [facility] Body weight 2022-05-11 17:29:00 100.29 kg [facility] BMI 2022-05-11 17:29:00 35.69 kg/m2 [facility] Oxygen saturation in Arterial blood by Pulse oximetry 2022-05-11 17:29:00 99 /min [facility] Systolic blood pressure 2022-05-11 17:34:00 170 mm[Hg] [facility] Diastolic blood pressure 2022-05-11 17:34:00 67 mm[Hg] [facility] Heart rate 2022-05-11 17:27:00 58 /min [facility] Body temperature 2022-05-11 17:27:00 36.44 Susie [facility] Respiratory rate 2022-05-11 17:27:00 18 /min [facility] Body height 2022-05-11 17:27:00 167.6 cm [facility] Body weight 2022-05-11 17:27:00 100.29 kg [facility] BMI 2022-05-11 17:27:00 35.69 kg/m2 [facility] Oxygen saturation in Arterial blood by Pulse oximetry 2022-05-11 17:27:00 99 /min [facility] Systolic blood pressure 2022-03-05 15:43:00 139 mm[Hg] [facility] Diastolic blood pressure 2022-03-05 15:43:00 57 mm[Hg] [facility] Heart rate 2022-03-05 15:43:00 58 /min [facility] Respiratory rate 2022-03-05 15:43:00 18 /min [facility] Body height 2022-03-05 15:43:00 167.6 cm [facility] Body weight 2022-03-05 15:43:00 97.07 kg [facility] BMI 2022-03-05 15:43:00 34.54 kg/m2 [facility] Oxygen saturation in Arterial blood by Pulse oximetry 2022-03-05 15:43:00 99 /min [facility] Systolic blood pressure 2022-01-18 19:00:00 164 mm[Hg] [facility] Diastolic blood pressure 2022-01-18 19:00:00 100 mm[Hg] [facility] Heart rate 2022-01-18 19:00:00 79 /min [facility] Respiratory rate 2022-01-18 19:00:00 12 /min [facility] Oxygen saturation in Arterial blood by Pulse oximetry 2022-01-18 19:00:00 97 /min [facility] Body temperature 2022-01-18 14:12:00 36.89 Susie [facility] Body height 2022-01-18 14:12:00 167.6 cm [facility] Body weight 2022-01-18 14:12:00 97.977 kg [facility] BMI 2022-01-18 14:12:00 34.86 kg/m2 [facility] Systolic blood pressure 2022-01-12 13:41:00 169 mm[Hg] [facility] Diastolic blood pressure 2022-01-12 13:41:00 86 mm[Hg] [facility] Heart rate 2022-01-12 13:39:00 78 /min [facility] Respiratory rate 2022-01-12 13:39:00 18 /min [facility] Body height 2022-01-12 13:39:00 167.6 cm [facility] Body weight 2022-01-12 13:39:00 97.977 kg [facility] BMI 2022-01-12 13:39:00 34.86 kg/m2 [facility] Oxygen saturation in Arterial blood by Pulse oximetry 2022-01-12 13:39:00 98 /min [facility] Procedures Procedure Date / Time Performed Performing Clinician Source TRANSTHORACIC ECHO (TTE) LIMITED W/ CONTRAST 2024-05-19 14:48:00 Devante He [facility] TRANSTHORACIC ECHO (TTE) LIMITED W/ CONTRAST 2024-05-19 [facility]24-05-19 10:11:00 Elliott He [facility] IRON PANEL 2024-05-19 10:11:00 Elliott He [facility] MAGNESIUM 2024-05-19 10:10:00 Elliott He [facility] FERRITIN SERUM 2024-05-19 10:10:00 Elliott He [facility] BASIC METABOLIC PANEL (NA, K, CL, CO2, GLUCOSE, BUN, CREATININE, CA) 2024-05-19 10:10:00 Devante He [facility] LIPID PANEL ([id number])(TOTAL CHOLESTEROL, TRIGLYCERIDES, HDL) 2024-05-19 10:10:00 Devante He [facility] CBC WITH DIFF 2024-05-19 10:10:00 Elliott He [facility] MAGNESIUM 2024-05-19 10:10:00 Elliott He [facility] FERRITIN SERUM 2024-05-19 10:10:00 Elliott He [facility] BASIC METABOLIC PANEL (NA, K, CL, CO2, GLUCOSE, BUN, CREATININE, CA) 2024-05-19 10:10:00 Devante He [facility] LIPID PANEL ([id number])(TOTAL CHOLESTEROL, TRIGLYCERIDES, HDL) 2024-05-19 10:10:00 Devante He [facility] CBC WITH DIFF 2024-05-19 10:10:00 Elliott He [facility] CATH PROCEDURE LOG 2024-05-19 00:16:33 Colin Vargas [facility] CATH PROCEDURE LOG 2024-05-19 00:16:33 Colin Vargas [facility] CARDIAC CATHETERIZATION 2024-05-18 23:57:15 Colin Vargas [facility] CARDIAC CATHETERIZATION 2024-05-18 23:57:15 Colin Vargas [facility] ELECTROPHYSIOLOGY PROCEDURE 2024-05-18 23:57:15 Colin Roberto i [facility] CARDIAC CATHETERIZATION 2024-05-18 23:57:15 Colin Vargas [facility] CARDIAC CATHETERIZATION 2024-05-18 23:57:15 Colin Vargas [facility] ELECTROPHYSIOLOGY PROCEDURE 2024-05-18 23:57:15 Colin Roberto i [facility] POCT ACT HIGH RANGE 2024-05-18 23:41:00 Nayely Degroot [facility] POCT ACT HIGH RANGE 2024-05-18 23:41:00 Nayely Degroot [facility] POCT ACT HIGH RANGE 2024-05-18 23:24:00 Nayely Degroot [facility] POCT ACT HIGH RANGE 2024-05-18 23:24:00 Nayely Degroot [facility] HB ECG ROUTINE & RHYTHM STRIP 2024-05-18 18:14:28 Bettina Corey [facility] HB ABO GROUPING 2024-05-18 18:10:00 Bettina Corey [facility] HB ABO GROUPING 2024-05-18 18:10:00 Bettina Corey [facility] TRANSTHORACIC ECHO (TTE) COMPLETE 2024-04-03 17:50:32 Nannette Stone [facility] HB ECG ROUTINE & RHYTHM STRIP 2024-03-07 18:31:31 Goran Degroot [facility] MAGNESIUM 2024-03-03 10:16:00 Jasvir Howe [facility] BASIC METABOLIC PANEL (NA, K, CL, CO2, GLUCOSE, BUN, CREATININE, CA) 2024-03-03 10:16:00 Jasvir Howe [facility] CBC WITH DIFF 2024-03-03 10:16:00 Jasvir Howe [facility] BASIC METABOLIC PANEL (NA, K, CL, CO2, GLUCOSE, BUN, CREATININE, CA) 2024-03-02 10:24:00 Johanna Lala [facility] CBC WITH DIFF 2024-03-02 10:24:00 Johanna Lala [facility] MRSA / MSSA SCREEN BY PCR, NARES 2024-03-01 21:51:00 Jasvir Howe [facility] XR CHEST 1 VW 2024-03-01 18:08:07 Sebastian Mae [facility] TROPONIN I 2024-03-01 17:16:00 Sebastian [facility] THYROID STIMULATING HORMONE 2024-03-01 17:16:00 Jasvir Howe [facility] COMP. METABOLIC PANEL ([id number]) 2024-03-01 17:16:00 Sebastian Mae [facility] CBC WITH DIFF 2024-03-01 17:16:00 Sebastian Mae [facility] INFLUENZA A/B RSV COVID NAAT 2024-03-01 17:16:00 Sebastian Mae [facility] N-TERMINAL PRO-BNP 2024-03-01 17:16:00 Sebastian Mae [facility] LAB ONLY COVID INTERPRETATION 2024-03-01 17:16:00 Sebastian Mae [facility] HB ECG ROUTINE & RHYTHM STRIP 2024-03-01 16:39:01 Sebastian Mae [facility] CRITICAL CARE 2024-03-01 16:33:00 Sebastian Mae Un [facility] DME/SUPPLY JUSTIFICATION 2024-02-23 20:59:53 Doc tor Unassigned, [address] [facility] POCT MOLECULAR STREP 2024-01-18 20:18:00 Hamzah Allen [facility] FERRITIN SERUM 2023-12-23 15:05:00 Tai Velarde [facility] FOLATE 2023-12-23 15:05:00 Tai Velarde [facility] FREE T4 2023-12-23 15:05:00 Tai Velarde [facility] THYROID STIMULATING HORMONE 2023-12-23 15:05:00 Tai Petty [facility] BASIC METABOLIC PANEL (NA, K, CL, CO2, GLUCOSE, BUN, CREATININE, CA) 2023-12-23 15:05:00 Tai Velarde [facility] LIPID PANEL ([id number])(TOTAL CHOLESTEROL, TRIGLYCERIDES, HDL) 2023-12-23 15:05:00 Tai Velarde [facility] IRON PANEL 2023-12-23 15:05:00 Tai Velarde [facility] CBC WITH DIFF 2023-12-23 15:05:00 [facility] GLYCOSYLATED HEMOGLOBIN (A1C) 2023-12-23 15:05:00 Tai Velarde [facility] URINE CULTURE 2023-12-23 15:05:00 Tai Velarde [facility] FREE T3 2023-12-23 15:05:00 Tai Velarde [facility] INDIVIDUAL CARDIAC TREATMENT PLAN 2023-11-29 21:18:32 Doctor Unassigned, [address] [facility] INDIVIDUAL CARDIAC TREATMENT PLAN 2023-11-25 13:12:38 Doctor Unassigned, [address] [facility] CARDIAC REHAB SESSION REPORT 2023-11-01 13:36:18 Doctor Unassigned, [address] [facility] INDIVIDUAL CARDIAC TREATMENT PLAN 2023-11-01 12:25:10 Doctor Unassigned, [address] [facility] CARDIAC REHAB SESSION REPORT 2023-10-20 16:25:49 Doctor Unassigned, [address] [facility] CARDIAC REHAB SESSION REPORT 2023-10-20 16:13:11 Doctor Unassigned, [address] [facility] CARDIAC REHAB SESSION REPORT 2023-10-15 02:27:05 Doctor Unassigned, [address] [facility] INDIVIDUAL CARDIAC TREATMENT PLAN 2023-10-06 13:42:35 Doctor Unassigned, [address] [facility] CARDIAC REHAB SESSION REPORT 2023-10-01 00:26:27 Doctor Unassigned, [address] [facility] CARDIAC REHAB SESSION REPORT 2023-09-24 00:42:23 Doctor Unassigned, [address] [facility] CARDIAC REHAB SESSION REPORT 2023-09-24 00:42:05 Doctor Unassigned, [address] [facility] CARDIAC REHAB SESSION REPORT 2023-09-17 21:22:02 Doctor Unassigned, [address] [facility] CARDIAC REHAB SESSION REPORT 2023-09-14 00:48:37 Doctor Unassigned, [address] [facility] INDIVIDUAL CARDIAC TREATMENT PLAN 2023-09-12 22:24:38 Doctor Unassigned, [address] [facility] CARDIAC REHAB SESSION REPORT 2023-09-09 03:16:52 Doctor Unassigned, [address] [facility] TRANSTHORACIC ECHO (TTE) COMPLETE 2023-09-08 16:36:00 Brian Vieira [facility] CARDIAC REHAB SESSION REPORT 2023-09-06 22:25:23 Doctor Unassigned, [address] [facility] CARDIAC REHAB SESSION REPORT 2023-08-31 17:42:21 Doctor Unassigned, [address] [facility] PHYSICIAN ORDERS 2023-08-23 18:58:15 Doctor Unas signed, [address] [facility] INDIVIDUAL CARDIAC TREATMENT PLAN 2023-08-18 17:50:17 Doctor Unassigned, [address] [facility] CARDIAC REHAB SESSION REPORT 2023-08-18 13:27:30 Doctor Unassigned, [address] [facility] TRANSTHORACIC ECHO (TTE) LIMITED W/ DOPPLER, COLOR AND CONTRAST 2023-07-29 13:53:[address] [facility] [place] [facility] MAGNESIUM 2023-07-29 08:34:[address] [facility] [place] [facility] BASIC METABOLIC PANEL (NA, K, CL, CO2, GLUCOSE, BUN, CREATININE, CA) 2023-07-29 08:34:00 Vance [facility] CBC WITH DIFF 2023-07-29 08:34:00 Vance [facility] TRANSTHORACIC ECHO (TTE) LIMITED W/ CONTRAST 2023-07-28 20:45:38 Vance [facility] MAGNESIUM 2023-07-28 19:45:00 Brian Vieira [facility] BASIC METABOLIC PANEL (NA, K, CL, CO2, GLUCOSE, BUN, CREATININE, CA) 2023-07-28 19:45:00 Brian Vieira [facility] CBC WITH DIFF 2023-07-28 19:45:00 Brian Vieira [facility] POCT GLUCOSE (AUTOMATED) 2023-07-28 16:58:00 Lick, Sco tt [facility] TRANSTHORACIC ECHO (TTE) LIMITED W/ DOPPLER AND COLOR 2023-07-28 16:00:00 Zaira Landa [facility] CARDIAC CATHETERIZATION 2023-07-28 15:55:43 Denise Vieira [facility] FL TIME OR (NON-REPORTABLE) 2023-07-28 15:55:00 Zaira Landa [facility] CENTRAL LINE 2023-07-28 12:36:00 [facility] 2023-07-28 12:23:00 Kadeem [facility]ier [facility] TRANSCATHETER AORTIC VALVE REPLACEMENT 2023-07-28 11:58:00 Jose G Nixon [facility] HB ECG ROUTINE & RHYTHM STRIP 2023-07-28 11:00:14 Zaira Landa [facility] BASIC METABOLIC PANEL (NA, K, CL, CO2, GLUCOSE, BUN, CREATININE, CA) 2023-07-28 10:45:00 Zaira Landa [facility] CBC WITH DIFF 2023-07-28 10:45:00 [facility] / [facility] 2023-07-28 10:45:00 Son Landa [facility] PATIENT FINANCIAL POLICY 2023-07-25 17:49:02 Doctor Unassigned, [address] [facility] URINE CULTURE 2023-06-24 17:49:00 [facility] MAGNESIUM 2023-05-21 14:10:00 [facility] BASIC METABOLIC PANEL (NA, K, CL, CO2, GLUCOSE, BUN, CREATININE, CA) 2023-05-21 14:10:00 Radha Kaplan [facility] MAGNESIUM 2023-05-21 14:10:00 [facility] BASIC METABOLIC PANEL (NA, K, CL, CO2, GLUCOSE, BUN, CREATININE, CA) 2023-05-21 14:10:00 Radha Kaplan [facility] CBC WITH DIFF 2023-05-21 10:42:00 Radha Kaplan Un [facility] CBC WITH DIFF 2023-05-21 10:42:00 Radha Kaplan [facility] ACTIVATED PARTIAL THRMPLAS YORDAN 2023-05-20 23:54:00 Brian Vieira [facility] ACTIVATED PARTIAL THRMPLAS YORDAN 2023-05-20 23:54:00 Brian Vieira [facility] MAGNESIUM 2023-05-20 21:06:00 [facility] HEPATIC FUNCTION PANEL (13181) (ALB,T.PRO,BILI T,BU/BC,ALT,AST,ALK PHOS) 2023-05-20 21:06:00 [facility]OLIC PANEL (NA, K, CL, CO2, GLUCOSE, BUN, CREATININE, CA) 2023-05-20 21:06:00 [facility] WITH DIFF 2023-05-20 21:06:00 [facility] 2023-05-20 21:06:00 Radha [facility] HEPATIC FUNCTION PANEL (04195) (ALB,T.PRO,BILI T,BU/BC,ALT,AST,ALK PHOS) 2023-05-20 21:06:00 [facility] BASIC MET[facility]OLIC PANEL (NA, K, CL, CO2, GLUCOSE, BUN, CREATININE, CA) 2023-05-20 21:06:00 [facility] CBC WITH DIFF 2023-05-20 21:06:00 Radha Kaplan Un [facility] POCT ACT LOW RANGE 2023-05-20 20:05:00 [facility] PO[facility] ACT LOW RANGE 2023-05-20 20:05:00 [facility] CARDIAC CATHETERIZATION 2023-05-20 17:28:29 Denise Vieira [facility] CARDIAC CATHETERIZATION 2023-05-20 17:28:29 Denise Vieira [facility] CARDIAC CATHETERIZATION 2023-05-20 17:28:29 Denise Vieira [facility] CARDIAC CATHETERIZATION 2023-05-20 17:28:29 Denise Vieira [facility] POCT ACT LOW RANGE 2023-05-20 17:12:00 [facility] PO[facility] ACT LOW RANGE 2023-05-20 17:12:00 [facility] POCT ACT LOW RANGE 2023-05-20 16:30:00 [facility] POCT ACT LOW RANGE 2023-05-20 16:30:00 Brian Vieira U [facility] CATH PROCEDURE LOG 2023-05-20 16:22:02 Brian Vieira U [facility] CATH PROCEDURE LOG 2023-05-20 16:22:02 Brian Vieira U [facility] HOSPITAL ADMISSION 2023-05-20 06:01:00 Doctor Un assigned, [address] [facility] COMP. METABOLIC PANEL (06032) 2023-05-13 16:39:00 Brian Vieira [facility] LIPID PANEL (70793)(TOTAL CHOLESTEROL, TRIGLYCERIDES, HDL) 2023-05-13 16:39:00 Brian Vieira [facility] CBC WITHOUT DIFF 2023-05-13 16:39:00 [facility] BI SCREENING TOMOSYNTHESIS BILATERAL 2023-04-29 20:05:01 Edson Lombardo [facility] TRANSTHORACIC ECHO (TTE) COMPLETE W/ CONTRAST 2023-04-29 15:55:00 Yaniv Cruz [facility] PHYSICIAN ORDERS 2023-04-19 06:01:00 Doctor Unas signed, [address] [facility] CT SOFT TISSUE NECK W CONTRAST 2023-04-15 17:52:31 Natty Jimenez [facility] CT CERVICAL SPINE WO CONTRAST 2023-04-15 17:50:05 Natty Jimenez [facility] US HEAD NECK 2023-04-15 17:20:00 Natty Jimenez [facility] COMP. METABOLIC PANEL ([id number]) 2023-03-28 16:22:00 Tai Velarde [facility] MAGNESIUM 2023-03-28 16:20:00 Brian Vieira [facility] BASIC METABOLIC PANEL (NA, K, CL, CO2, GLUCOSE, BUN, CREATININE, CA) 2023-03-28 16:20:00 Brian Vieira [facility] CBC WITH DIFF 2023-03-28 16:20:00 Brian Vieira [facility] PROTHROMBIN TIME / INR 2023-03-28 16:20:00 Brian Vieira [facility] ACTIVATED PARTIAL THRMPLAS YORDAN 2023-03-28 16:20:00 Brian Vieira [facility] FLU VACC(),65+YR,0.5 ML,IM,ADJUVANTED,QUAD(FLUAD ) 2023-03-15 16:14:28 Tai Velarde [facility] MAGNESIUM 2023-03-12 09:05:00 Shayne Carson [facility] FERRITIN SERUM 2023-03-12 09:05:00 Elliott He [facility] FREE T4 2023-03-12 09:05:00 Shayne Carson [facility] THYROID STIMULATING HORMONE 2023-03-12 09:05:00 [facility] MET[facility]OLIC PANEL (NA, K, CL, CO2, GLUCOSE, BUN, CREATININE, CA) 2023-03-12 09:05:00 Shayne Carson [facility] LIPID PANEL (63157)(TOTAL CHOLESTEROL, TRIGLYCERIDES, HDL) 2023-03-12 09:05:00 Shayne Carson [facility] IRON PANEL 2023-03-12 09:05:00 Elliott He [facility] CBC WITHOUT DIFF 2023-03-12 09:05:00 Shayne [facility] MAGNESIUM 2023-03-12 09:05:00 Shayne Carson [facility] FERRITIN SERUM 2023-03-12 09:05:00 Elliott He [facility] FREE T4 2023-03-12 09:05:00 Shayne Carson [facility] THYROID STIMULATING HORMONE 2023-03-12 09:05:00 [facility]OLIC PANEL (NA, K, CL, CO2, GLUCOSE, BUN, CREATININE, CA) 2023-03-12 09:05:00 [facility] LIPID PANEL ([id number])(TOTAL CHOLESTEROL, TRIGLYCERIDES, HDL) 2023-03-12 09:05:00 Shayne Carson [facility] IRON PANEL 2023-03-12 09:05:00 Elliott He [facility] CBC WITHOUT DIFF 2023-03-12 09:05:00 Jen [facility]bon[facility] CARDIAC CATHETERIZATION 2023-03-11 16:35:14 Denise Vieira [facility] CARDIAC CATHETERIZATION 2023-03-11 16:35:14 Denise Vieira [facility] CARDIAC CATHETERIZATION 2023-03-11 16:35:14 Denise Vieira [facility] CARDIAC CATHETERIZATION 2023-03-11 16:35:14 Denise Vieira [facility] POCT ACT LOW RANGE 2023-03-11 16:27:00 Brian Vieira U [facility] POCT ACT LOW RANGE 2023-03-11 16:27:00 Brian Vieira U [facility] POCT ACT LOW RANGE 2023-03-11 15:46:00 Brian Vieira U [facility] POCT ACT LOW RANGE 2023-03-11 15:46:00 Brian Vieira [facility] BASIC METABOLIC PANEL (NA, K, CL, CO2, GLUCOSE, BUN, CREATININE, CA) 2023-03-11 14:12:00 Brian Vieira [facility] CBC WITH DIFF 2023-03-11 14:12:00 Brian Vieira [facility] PROTHROMBIN TIME / INR 2023-03-11 14:12:00 Brian Vieira [facility] BASIC METABOLIC PANEL (NA, K, CL, CO2, GLUCOSE, BUN, CREATININE, CA) 2023-03-11 14:12:00 Brian Vieira [facility] CBC WITH DIFF 2023-03-11 14:12:00 Brian Vieira [facility] PROTHROMBIN TIME / INR 2023-03-11 14:12:00 Brian Vieira [facility] OUTPATIENT CARDIAC CATHETERIZATION DOCUMENTS 2023-03-11 05:01:00 Doctor Unassigned, [address] [facility] PHYSICIAN ORDERS 2023-03-07 05:01:00 Doctor Unas signed, [address] [facility] CT TAVR 2023-02-15 15:20:23 Brian Vieira [facility] CONSENT/REFUSAL FOR DIAGNOSIS AND TREATMENT 2023-02-02 16:37:09 Doctor Unassigned, [address] [facility] MEDICATION CORRESPONDENCE 2023-01-26 05:01:00 Do ctor Unassigned, [address] [facility] CARDIAC CATHETERIZATION 2023-01-25 14:14:07 Denise Vieira [facility] CARDIAC CATHETERIZATION 2023-01-25 14:14:07 Denise Vieira l Radha [facility] CARDIAC CATHETERIZATION 2023-01-25 14:14:07 Denise Vieira l Radha [facility] CARDIAC CATHETERIZATION 2023-01-25 14:14:07 Denise Vieira [facility] CARDIAC CATHETERIZATION 2023-01-25 14:14:07 Denise Vieira [facility] CATH PROCEDURE LOG 2023-01-25 13:08:50 Brian Vieira [facility] CATH PROCEDURE LOG 2023-01-25 13:08:50 Brian Vieira [facility] BASIC METABOLIC PANEL (NA, K, CL, CO2, GLUCOSE, BUN, CREATININE, CA) 2023-01-25 11:33:00 Brian Vieira [facility] CBC WITH DIFF 2023-01-25 11:33:00 Brian Vieira [facility] PROTHROMBIN TIME / INR 2023-01-25 11:33:00 Brian Vieira [facility] BASIC METABOLIC PANEL (NA, K, CL, CO2, GLUCOSE, BUN, CREATININE, CA) 2023-01-25 11:33:00 Brian Vieira [facility] CBC WITH DIFF 2023-01-25 11:33:00 Brian Vieira [facility] PROTHROMBIN TIME / INR 2023-01-25 11:33:00 Brian Vieira [facility] PHYSICIAN ORDERS 2022-11-15 05:01:00 Doctor Unas signed, [address] [facility] HB ECG ROUTINE & RHYTHM STRIP 2022-10-07 14:59:59 Yaniv Cruz [facility] CONSENT/REFUSAL FOR DIAGNOSIS AND TREATMENT 2022-09-23 05:01:00 Doctor Unassigned, [address] [facility] URINALYSIS 2022-08-16 15:23:00 Huy Patton [facility] MAGNESIUM 2022-08-16 15:16:00 Huy Patton [facility] FREE T4 2022-08-16 15:16:00 Prachi [facility] LIPID PANEL ([id number])(TOTAL CHOLESTEROL, TRIGLYCERIDES, HDL) 2022-08-16 15:16:00 Prachi [facility] GLYCOSYLATED HEMOGLOBIN (A1C) 2022-08-16 15:16:00 Tai Velarde [facility] FREE T3 2022-08-16 15:16:00 Prachi [facility] ASSIGNMENT OF BENEFITS 2022-08-16 15:02:48 Cheikh r Unassigned, [address] [facility] PATIENT FINANCIAL POLICY 2022-07-12 14:06:27 Doctor Unassigned, [address] [facility] POCT URINALYSIS W/O SPECIFIC GRAVITY 2022-05-17 20:55:00 Cindy Archibald [facility] SARS-COV-2 COVID-19 RODRICK-SUCROSE VACCINE 12 YRS+, BIVALENT 0.3ML, IM, (PFIZER MORALES TOP BOOSTER) 2022-05-11 19:06:35 Doctor Unassigned, [address] [facility] PAIN MANAGEMENT AGREEMENT & INFORMED CONSENT 2022-05-11 06:01:00 Doctor Unassigned, [address] [facility] CONSENT/REFUSAL FOR DIAGNOSIS AND TREATMENT 2022-04-14 14:20:41 Doctor Unassigned, [address] [facility] ASSIGNMENT OF BENEFITS 2022-04-14 14:20:11 Docto r Unassigned, [address] [facility] CT ANGIOGRAM ABDOMEN/PELVIS 2022-01-18 16:44:45 Henry Howell [facility] COVID-19 (ID NOW RAPID TESTING) 2022-01-18 15:54:00 Henry Dee [facility] LIPASE 2022-01-18 15:27:00 Henry Dee U [facility] COMP. METABOLIC PANEL ([id number]) 2022-01-18 15:27:00 Henry Dee [facility] CBC WITH DIFF 2022-01-18 15:27:00 Henry Dee [facility] LACTIC ACID WHOLE BLOOD 2022-01-18 15:26:00 Henry Dee [facility] CONSENT/REFUSAL FOR DIAGNOSIS AND TREATMENT 2022-01-18 14:06:16 Doctor Unassigned, [address] [facility] INSURANCE CORRESPONDENCE 2021-12-24 05:01:00 Doc tor Unassigned, [address] [facility] Encounters Start Date/Time End Date/Time Encounter Type Admission Type Attending [facility] Care Facility Care Department Encounter ID Source 2021-03-07 07:36:44 Outpatient R KIYA AUGUST [facility] ANDREW [id number] [facility] 2024-09-21 11:40:00 2024-09-21 11:40:00 Outpatient R TAI VELARDE [facility] [id number] [facility] 2024-06-26 00:00:00 2024-06-27 09:58:14 Patient Secure Msg Tai Velarde [facility] 1.2.840.114 350.1.13.10 4.2.7.2.686 [id number] [facility] 2024-06-26 10:40:00 2024-06-26 10:40:00 Outpatient R TAI VELARDE [facility] [id number] [facility] 2023-09-12 00:00:00 2024-06-23 07:51:23 Orders Only Doctor Unassigned, [address] Doctor Unassigned, [address] [facility] (JYOTI) 1.2.840.114 350.1.13.10 4.2.7.2.686 [id number] [facility] 2023-09-13 00:00:00 2024-06-23 07:50:50 Orders Only Doctor Unassigned, [address] Doctor Unassigned, [address] [facility] (JYOTI) 1.2.840.114 350.1.13.10 4.2.7.2.686 [id number] [facility] 2023-09-17 00:00:00 2024-06-23 07:48:37 Orders Only Doctor Unassigned, [address] Doctor Unassigned, [address] [facility] ([place]YOTI) 1.2.840.114 350.1.13.10 4.2.7.2.686 [id number] [facility] 2023-09-23 00:00:00 2024-06-23 07:45:40 Orders Only Doctor Unassigned, [address] Doctor Unassigned, [address] [facility] ([place]YOTI) 1.2.840.114 350.1.13.10 4.2.7.2.686 [id number] [facility] 2023-09-23 00:00:00 2024-06-23 07:45:31 Orders Only Doctor Unassigned, [address] Doctor Unassigned, [address] [facility] ([place]YOTI) 1.2.840.114 350.1.13.10 4.2.7.2.686 [id number] [facility] 2023-09-30 00:00:00 2024-06-23 07:41:51 Orders Only Doctor Unassigned, [address] Doctor Unassigned, [address] [facility] ([place]YOTI) 1.2.840.114 350.1.13.10 4.2.7.2.686 [id number] [facility] 2023-10-06 00:00:00 2024-06-23 07:39:47 Orders Only Doctor Unassigned, [address] Doctor Unassigned, [address] [facility] ([place]YOTI) 1.2.840.114 350.1.13.10 4.2.7.2.686 [id number] [facility] 2023-10-14 00:00:00 2024-06-23 07:34:29 Orders Only Doctor Unassigned, [address] Doctor Unassigned, [address] [facility] ([place]OTI) 1.2.840.114 350.1.13.10 4.2.7.2.686 [id number] [facility] 2023-10-20 00:00:00 2024-06-23 07:32:07 Orders Only Doctor Unassigned, [address] Doctor Unassigned, [address] [facility] ([place]OTI) 1.2.840.114 350.1.13.10 4.2.7.2.686 [id number] [facility] 2023-10-20 00:00:00 2024-06-23 07:31:59 Orders Only Doctor Unassigned, [address] Doctor Unassigned, [address] [facility] ([place]OTI) 1.2.840.114 350.1.13.10 4.2.7.2.686 [id number] [facility] 2023-11-01 00:00:00 2024-06-23 07:27:08 Orders Only Doctor Unassigned, [address] Doctor Unassigned, [address] [facility] ([place]OTI) 1.2.840.114 350.1.13.10 4.2.7.2.686 [id number] [facility] 2023-11-01 00:00:00 2024-06-23 07:26:58 Orders Only Doctor Unassigned, [address] Doctor Unassigned, [address] [facility] ([place]) 1.2.840.114 350.1.13.10 4.2.7.2.686 [id number] [facility] 2023-11-25 00:00:00 2024-06-23 07:16:17 Orders Only Doctor Unassigned, [address] Doctor Unassigned, [address] [facility] ([place]) 1.2.840.114 350.1.13.10 4.2.7.2.686 [id number] [id number] [facility] 2023-11-29 00:00:00 2024-06-23 07:15:20 Orders Only Doctor Unassigned, [address] Doctor Unassigned, [address] [facility] ([place]) 1.2.840.114 350.1.13.10 4.2.7.2.686 [id number] [id number] [facility] 2024-02-23 00:00:00 2024-06-23 06:48:29 Orders Only Doctor Unassigned, [address] Doctor Unassigned, [address] [facility] ([place]) 1.2.840.114 350.1.13.10 4.2.7.2.686 [id number] [id number] [facility] 2024-03-20 00:00:00 2024-06-23 06:39:10 Orders Only Luz Garber Jennie L [facility] 1.2.840.114 350.1.13.10 4.2.7.2.686 [id number] [facility] 2023-08-18 00:00:00 2024-06-23 02:22:17 Orders Only Doctor Unassigned, [address] Doctor Unassigned, [address] [facility] ([place]) 1.2.840.114 350.1.13.10 4.2.7.2.686 [id number] [id number] [facility] 2023-08-18 00:00:00 2024-06-23 02:22:07 Orders Only Doctor Unassigned, [address] Doctor Unassigned, [address] [facility] ([place]) 1.2.840.114 350.1.13.10 4.2.7.2.686 [id number] [facility] 2023-08-23 00:00:00 2024-06-23 02:19:01 Orders Only Doctor Unassigned, [address] Doctor Unassigned, [address] [facility] ([place]) 1.2.840.114 350.1.13.10 4.2.7.2.686 [id number] [id number] [facility] 2023-08-31 00:00:00 2024-06-23 02:13:24 Orders Only Doctor Unassigned, [address] Doctor Unassigned, [address] [facility] ([place]) 1.2.840.114 350.1.13.10 4.2.7.2.686 [id number] [id number] [facility] 2023-09-06 00:00:00 2024-06-23 02:08:31 Orders Only Doctor Unassigned, [address] Doctor Unassigned, [address] [facility] ([place]) 1.2.840.114 350.1.13.10 4.2.7.2.686 [id number] [id number] [facility] 2023-09-08 00:00:00 2024-06-23 02:04:47 Orders Only Doctor Unassigned, [address] Doctor Unassigned, [address] [facility] ([place]) 1.2.840.114 350.1.13.10 4.2.7.2.686 [id number] [facility] 2024-06-22 14:40:00 2024-06-22 14:40:00 Office Visit Tai Velarde [facility] 1.2.840.114 350.1.13.10 4.2.7.2.686 [id number] [facility] 2024-06-22 14:40:00 2024-06-22 14:18:09 [id number] 2024-06-22 13:20:00 2024-06-22 14:18:03 Office Visit Tai Velarde [facility] 1.2.840.114 350.1.13.10 4.2.7.2.686 [id number] [facility] 2024-06-22 12:00:00 2024-06-22 12:15:00 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, [facility] Codie Mitchell 2, Adc Lab [facility] 1.2.840.114 350.1.13.10 4.2.7.2.686 [id number] [facility] 2024-06-19 00:00:00 2024-06-19 14:42:19 Refill Dvaid Velasquez [facility] 1.2.840.114 350.1.13.10 4.2.7.2.686 [id number] [facility] 2024-06-15 00:00:00 2024-06-15 09:29:28 Pre Visit Outreach Shaun Yuko A Shaun [facility]o [facility] 1.2.840.114 350.1.13.10 4.2.7.2.686 [id number] [facility] 2024-05-09 00:00:00 2024-06-09 18:15:07 Patient Secure Msg Doctor Unassigned, [address] Doctor Unassigned, [address] [facility] ([place] 1.2.840.114 350.1.13.10 4.2.7.2.686 [id number] [facility] 2024-05-24 08:23:25 2024-05-24 23:59:00 Outpatient R GORAN DEGROOT [facility] [id number] [facility] 2024-05-24 08:23:25 2024-05-24 23:59:00 Hospital Encounter Goran Degroot [facility] 1.2.840.114 350.1.13.10 4.2.7.2.686 [id number] [facility] 2024-05-23 10:30:00 2024-05-23 11:00:00 Office Visit oGran Degroot [facility] 1.2.840.114 350.1.13.10 4.2.7.2.686 [id number] [facility] 2024-05-23 10:30:00 2024-05-23 10:35:13 Outpatient R GORAN DEGROOT GA[facility] [id number] [facility] 2024-05-18 11:30:00 2024-05-19 17:30:00 Outpatient R DORCAS KAM [facility] [id number] [facility] 2024-05-18 11:30:00 2024-05-19 17:30:00 Hospital Encounter Colin VargasGoran Mostafa Helmy Ahmed Mohamed Saleh [facility] ([facility]) 1.2.840.114 350.1.13.10 4.2.7.2.686 [id number] [facility] 2024-05-18 12:00:00 2024-05-18 14:00:00 Surgery Colin PardeepGoran lacy [facility] 1.2.840.114 350.1.13.10 4.2.7.2.686 [id number] [facility] 2024-05-16 11:00:00 2024-05-16 11:00:00 Office Visit Goran Degroot [facility] 1.2.840.114 350.1.13.10 4.2.7.2.686 [id number] [facility] 2024-05-16 11:00:00 2024-05-16 10:38:48 Outpatient R GORAN DEGROOT [facility] [id number] [facility] 2024-05-11 09:00:00 2024-05-11 09:15:00 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, [facility] Goran Degroot 2, [facility] 1.2.840.114 350.1.13.10 4.2.7.2.686 [id number] [facility] 2024-05-11 09:00:00 2024-05-11 09:00:00 Outpatient R GORAN DEGROOT [facility] [id number] [facility] [facility] 2024-05-08 00:00:00 2024-05-08 09:11:54 Telephone Tai Velarde [facility] 1.2.840.114 350.1.13.10 4.2.7.2.686 [id number] 044 [id number] [facility] 2024-04-30 00:00:00 2024-04-30 13:05:56 Telephone Tai Velarde [facility] 1.2.840.114 350.1.13.10 4.2.7.2.686 [id number] 044 [id number] [facility] 2024-04-18 00:00:00 2024-04-18 14:50:15 Telephone Nannette Stone [facility] 1.2.840.114 350.1.13.10 4.2.7.2.686 [id number] 059 [id number] [facility] 2024-04-15 00:00:00 2024-04-16 08:17:25 Refill Tai Velarde [facility] 1.2.840.114 350.1.13.10 4.2.7.2.686 [id number] 044 [id number] [facility] 2024-04-15 00:00:00 2024-04-16 08:17:07 Refill Tai Velarde [facility] 1.2.840.114 350.1.13.10 4.2.7.2.686 [id number] 044 [id number] [facility] 2024-04-06 00:00:00 2024-04-08 18:17:31 Refill Tai Velarde [facility] 1.2.840.114 350.1.13.10 4.2.7.2.686 [id number] 044 [id number] [facility] 2024-04-06 00:00:00 2024-04-06 13:50:26 Refill [facility] 1.2.840.114 350.1.13.10 4.2.7.2.686 [id number] 044 [id number] [facility] 2024-04-03 10:42:41 2024-04-03 23:59:00 [facility] [id number] [facility] 2024-04-03 10:42:41 2024-04-03 23:59:00 Hospital Encounter [facility] 1.2.840.114 350.1.13.10 4.2.7.2.686 [id number] 843 [id number] [facility] 2024-04-02 00:00:00 2024-04-03 16:08:22 Refill Tai Velarde [facility] 1.2.840.114 350.1.13.10 4.2.7.2.686 [id number] 044 [id number] [facility] 2024-03-26 00:00:00 2024-03-27 10:05:35 Telephone Goran Degroot [facility] 1.2.840.114 350.1.13.10 4.2.7.2.686 [id number] [id number] [facility] 2024-03-26 10:00:00 2024-03-26 10:52:02 Outpatient R [facility] [id number] [facility] 2024-03-26 10:00:00 2024-03-26 10:52:02 [facility] 1.2.840.114 350.1.13.10 4.2.7.2.686 [id number] 059 [id number] [facility] 2024-03-26 10:00:00 2024-03-26 10:00:00 Outpatient R BRIAN VIEIRA [facility] [id number] [facility] 2024-03-14 00:00:00 2024-03-21 08:34:39 Refill Tai Velarde [facility] 1.2.840.114 350.1.13.10 4.2.7.2.686 [id number] 044 [id number] [facility] 2024-03-20 11:30:00 2024-03-20 11:45:00 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, Adc Lab Main Goran Degroot P[facility], [facility] 1.2.840.114 350.1.13.10 4.2.7.2.686 [id number] [facility] 2024-03-20 11:30:00 2024-03-20 11:30:00 Outpatient R GORAN DEGROOT HAIDER [facility] [id number] [facility] 2024-03-08 11:20:00 2024-03-08 11:41:34 Outpatient R OBI-MARLON DAVID OBI-MARLON , [facility] [id number] [facility] 2024-03-08 11:20:00 2024-03-08 11:41:34 [facility] 1..114 350.1.13.10 4.2.7.2.686 [id number] 044 [id number] [facility] 2024-03-05 00:00:00 2024-03-07 15:40:55 Transition of Care Gladys Bedolla Kristi L [facility] 1..114 350.1.13.10 4.2.7.2.686 [id number] [facility] 2024-03-07 14:00:00 2024-03-07 14:00:00 Office Visit Goran Degroot [facility] 1.114 350.1.13.10 4.2.7.2.686 [id number] 059 [id number] [facility] 2024-03-07 14:00:00 2024-03-07 13:56:07 Outpatient R GORAN DEGROOT [facility] [id number] [facility] 2024-03-01 11:37:00 2024-03-03 12:56:00 Inpatient JASVIR TA [facility] [id number] [facility] 2024-03-01 11:37:00 2024-03-03 12:56:00 Hospital Encounter Sebastian Mae David [facility] 1.114 350.1.13.10 4.2.7.2.686 [id number] [id number] [facility] 2024-02-21 13:00:00 2024-02-21 13:18:55 Office [facility] 1.2.840.114 350.1.13.10 4.2.7.2.686 [id number] 059 [id number] [facility] 2024-02-21 13:00:00 2024-02-21 13:18:55 Outpatient R AYNIV CRUZ [facility] [id number] [facility] 2024-01-16 00:00:00 2024-02-18 18:20:59 Patient Secure Kiya Nguyen [facility] PROFESSIO NAL BUILDING 1.2.840.114 350.1.13.10 4.2.7.2.686 [id number] [facility] 2024-01-25 10:30:00 2024-01-25 11:00:00 Office Visit Rosa M Krishna [facility] NAL BUILD[facility] 1..840.114 350.1.13.10 4.2.7.2.686 [id number] 085 [id number] [facility] 2024-01-25 10:30:00 2024-01-25 10:30:00 Outpatient R ROSA M KRISHNA STRAOKLeon [facility] [id number] [facility] 2024-01-24 10:45:00 2024-01-24 10:58:53 Outpatient R HUY PATTON NAVEED [facility] [id number] [facility] 2024-01-24 10:45:00 2024-01-24 10:58:53 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, Adc Lab Huy Patton 2, [facility] 1..840.114 350.1.13.10 4.2.7.2.686 [id number] [facility] 2024-01-20 00:00:00 2024-01-20 12:25:32 Telephone [facility] 1.2.840.114 350.1.13.10 4.2.7.2.686 [id number] 044 [id number] [facility] 2024-01-18 14:30:00 2024-01-18 15:30:15 Outpatient R DIOGENES ALLEN OGECHUKWU [facility] [id number] [facility] 2024-01-18 14:30:00 2024-01-18 15:30:15 Office Visit Diogenes Allen [facility] 1.2.840.114 350.1.13.10 4.2.7.2.686 [id number] 044 [id number] [facility] 2024-01-16 08:00:00 2024-01-16 08:43:04 Outpatient R KIYA AUGUST [facility] [id number] [facility] 2024-01-16 08:00:00 2024-01-16 08:43:04 Office Visit Kiya August [facility] NAL BUILDING 1.2.840.114 350.1.13.10 4.2.7.2.686 [id number] [facility] 2024-01-04 11:00:00 2024-01-04 11:00:00 Outpatient R ROSA M KRISHNA STRAHIL [facility] [id number] [facility] 2023-12-23 10:15:00 2023-12-23 10:30:00 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, Adc Lab Tai Velarde 2, Adc Lab [facility] 1.2.840.114 350.1.13.10 4.2.7.2.686 [id number] 353 [id number] [facility] 2023-12-23 09:00:00 2023-12-23 09:49:16 Office Visit [facility] Vel[facility] 1.2.840.114 350.1.13.10 4.2.7.2.686 [id number] 044 [id number] [facility] 2023-12-23 09:00:00 2023-12-23 09:49:16 Outpatient R TAI VELARDE [facility] [id number] [facility] 2023-12-12 15:00:00 2023-12-12 15:00:00 [facility] [id number] [facility] 2023-11-07 15:00:00 2023-11-07 15:00:00 Outpatient R ANTHONY [facility] [id number] [facility] 2023-10-31 15:00:00 2023-10-31 16:49:05 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 Rehab, [facility] 1.2.840.114 350.1.13.10 4.2.7.2.686 [id number] 060 [id number] [facility] 2023-10-27 10:45:00 2023-10-27 11:00:00 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, Adc Lab Main Tai Velarde [facility] 1.2.840.114 350.1.13.10 4.2.7.2.686 [id number] 353 [id number] [facility] 2023-10-27 10:45:00 2023-10-27 10:45:00 Outpatient R TAI VELARDE [facility] [id number] [facility] 2023-10-25 00:00:00 2023-10-25 17:17:53 [facility] 1.2.840.114 350.1.13.10 4.2.7.2.686 [id number] 044 [id number] [facility] 2023-10-19 15:00:00 2023-10-19 17:03:50 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 Rehab, Adc Cardiac Anthony, [facility] BU[facility] 1.2.840.114 350.1.13.10 4.2.7.2.686 [id number] 060 [id number] [facility] 2023-10-17 15:00:00 2023-10-17 16:22:53 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 Reh, [facility] Cardiac Anthony, [facility] BU[facility] 1.2.840.114 350.1.13.10 4.2.7.2.686 [id number] 060 [id number] [facility] 2023-10-13 00:00:00 2023-10-14 08:55:30 Natty Fitzpatrick [facility] 1.2.840.114 350.1.13.10 4.2.7.2.686 [id number] 044 [id number] [facility] 2023-10-12 15:00:00 2023-10-12 16:10:45 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 Rehab, [facility] Cardiac Anthony, [facility] BUILDING 1.2.840.114 350.1.13.10 4.2.7.2.686 [id number] 060 [id number] [facility] 2023-10-12 14:00:00 2023-10-12 14:40:06 Outpatient R DIOGENES ALLEN OGECHUKWU [facility] [id number] [facility] 2023-10-12 14:00:00 2023-10-12 14:40:06 Office Visit Diogenes Allen [facility] 1.2.840.114 350.1.13.10 4.2.7.2.686 [id number] 044 [id number] [facility] 2023-10-10 15:00:00 2023-10-10 15:00:00 Outpatient [facility] [id number] [facility] 2023-09-26 15:00:00 2023-09-26 16:05:11 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 Rehab, Adc Cardiac Anthony, [facility] BU[facility] 1.2.840.114 350.1.13.10 4.2.7.2.686 [id number] 060 [id number] [facility] 2023-09-26 09:30:00 2023-09-26 10:09:01 Outpatient R BRIAN VIEIRA [facility] [id number] [facility] 2023-09-26 09:30:00 2023-09-26 10:09:01 Office Visit Brian Vieira [facility] 1.2.840.114 350.1.13.10 4.2.7.2.686 [id number] 059 [id number] [facility] 2023-09-21 15:00:00 2023-09-21 15:50:57 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 Rehab, Adc Cardiac Anthony, [facility] BUILD[facility] 1.2.840.114 350.1.13.10 4.2.7.2.686 [id number] 060 [id number] [facility] 2023-09-19 00:00:00 2023-09-20 11:43:25 Telephone Brian Vieira [facility] OFF[facility] BUILD[facility] 1.2.840.114 350.1.13.10 4.2.7.2.686 [id number] 059 [id number] [facility] 2023-09-19 15:00:00 2023-09-19 15:50:32 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 Rehab, Adc Cardiac Anthony, [facility] BUILD[facility] 1.2.840.114 350.1.13.10 4.2.7.2.686 [id number] 060 [id number] [facility] 2023-09-14 15:00:00 2023-09-14 15:56:48 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 Rehab, Adc Cardiac Anthony, [facility] BU[facility] 1.2.840.114 350.1.13.10 4.2.7.2.686 [id number] 060 [id number] [facility] 2023-09-12 15:00:00 2023-09-12 16:07:41 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 Rehab, Adc Cardiac Anthony, [facility] BU[facility] 1.2.840.114 350.1.13.10 4.2.7.2.686 [id number] 060 [id number] [facility] 2023-09-08 10:39:22 2023-09-08 23:59:00 Outpatient R BRIAN VIEIRA [facility] [id number] [facility] 2023-09-08 10:39:22 2023-09-08 23:59:00 Hospital Encounter Brian Vieira [facility] 1.2.840.114 350.1.13.10 4.2.7.2.686 [id number] [facility] 2023-09-07 15:00:00 2023-09-07 15:54:37 Outpatient R ANTHONY, [facility] [id number] [facility] 2023-09-07 15:00:00 2023-09-07 15:54:37 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 Rehab, Adc Cardiac Anthony, [facility] 1.2.840.114 350.1.13.10 4.2.7.2.686 [id number] 060 [id number] [facility] 2023-09-05 15:00:00 2023-09-05 16:07:47 Outpatient R ANTHONY, [facility] [id number] [facility] 2023-09-05 15:00:00 2023-09-05 16:07:47 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 Rehab, Ad[facility] Cardiac Anthony, [facility] 1.2.840.114 350.1.13.10 4.2.7.2.686 [id number] 060 [id number] [facility] 2023-08-29 14:00:00 2023-08-29 14:00:00 Outpatient R BRIAN VIEIRA [facility] [id number] Univer s [facility] 2023-08-22 13:20:00 2023-08-22 13:26:50 [facility] [id number] [facility] 2023-08-22 13:20:00 2023-08-22 13:26:50 [facility] 1.2.840.114 350.1.13.10 4.2.7.2.686 [id number] 059 [id number] [facility] 2023-08-19 00:00:00 2023-08-19 00:00:00 Refgay DickeymarthaTai saenz [facility] 1.2.840.114 350.1.13.10 4.2.7.2.686 [id number] 044 [id number] [facility] 2023-08-08 10:00:00 2023-08-08 10:06:01 Outpatient R NILESNATTY [facility] [id number] [facility] 2023-08-08 10:00:00 2023-08-08 10:06:01 Office Visit Natty Jimenez [facility] 1.2.840.114 350.1.13.10 4.2.7.2.686 [id number] 044 [id number] [facility] 2023-07-28 05:18:00 2023-08-01 18:32:00 Inpatient R ABU-IRMA H, TAREQ ABU-IRMA H, MONIQUE [facility] [id number] [facility] 2023-08-01 09:30:00 2023-08-01 09:30:00 Outpatient R EDSON LOMBARDO [facility] [id number] [facility] 2023-07-28 07:00:00 2023-07-28 11:19:00 Surgery LeoniebritneyJose G [facility] 1..114 350.1.13.10 4.2.7.2.686 [id number] [facility] 2023-07-28 07:13:00 2023-07-28 11:13:00 Anesthesia Event Jose Eduardo Holderah Gabriele Lebron [facility] 1..114 350.1.13.10 4.2.7.2.686 [id number] [facility] 2023-07-26 10:00:00 2023-07-26 10:00:00 Outpatient R YANIV CRUZ [facility] [id number] [facility] 2023-07-25 13:00:00 2023-07-25 14:32:14 [facility] [id number] [facility] 2023-07-25 13:00:00 2023-07-25 14:32:14 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 Rehab, [facility] 1..114 350.1.13.10 4.2.7.2.686 [id number] 060 [id number] [facility] 2023-07-25 00:00:00 2023-07-25 00:00:00 Orders Only Doctor Unassigned, [address] [facility] 1..114 350.1.13.10 4.2.7.2.686 [id number] [facility] 2023-07-25 00:00:00 2023-07-25 00:00:00 Telephone Brian Vieira [facility] 1..114 350.1.13.10 4.2.7.2.686 [id number] [facility] 2023-07-21 10:30:00 2023-07-21 10:39:17 Outpatient R HUY PATTON [facility] [id number] [facility] 2023-07-21 10:30:00 2023-07-21 10:39:17 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, Adc Lab Pooja [facility] PROFESSIO NAL BUILDING 1.2.840.114 350.1.13.10 4.2.7.2.686 [id number] [facility] 2023-07-14 09:30:00 2023-07-14 09:30:00 Outpatient R EDSON LOMBARDO [facility] [id number] [facility] 2023-07-14 00:00:00 2023-07-14 00:00:00 Tai Holt [facility] PROFESSIO NAL BUILDING 1.2.840.114 350.1.13.10 4.2.7.2.686 [id number] 044 [id number] [facility] 2023-07-11 14:30:00 2023-07-11 16:33:16 Office Visit [facility]ata [facility] 1.2.840.114 350.1.13.10 4.2.7.2.686 [id number] [facility] 2023-07-11 14:30:00 2023-07-11 16:33:16 Outpatient R KIYA AUGUST [facility] [id number] [facility] 2023-07-08 10:00:00 2023-07-08 11:07:42 Outpatient R SHANTELLE VIEIRA CECIL [facility] [id number] [facility] 2023-07-08 10:00:00 2023-07-08 10:15:00 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, Adc Lab Shantelle Vieira [facility] NAL BUILDING 1.2.840.114 350.1.13.10 4.2.7.2.686 [id number] [facility] 2023-07-07 00:00:00 2023-07-07 00:00:00 Telephone Brian Vieira [facility] OFF[facility] BUILDING 1.2.840.114 350.1.13.10 4.2.7.2.686 [id number] 059 [id number] [facility] 2023-06-24 13:00:00 2023-06-24 13:29:46 Office Visit PrachiTai [facility] BUILD[facility] 1.2.840.114 350.1.13.10 4.2.7.2.686 [id number] 044 [id number] [facility] 2023-06-24 11:45:00 2023-06-24 12:00:00 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, Adc Lab Tai Velarde [facility] BUILD[facility] 1.2.840.114 350.1.13.10 4.2.7.2.686 [id number] [facility] 2023-06-24 11:00:00 2023-06-24 11:36:55 Outpatient R TAI VELARDE [facility] [id number] [facility] 2023-06-24 11:00:00 2023-06-24 11:36:55 Office Visit MichelleTai saenz [facility] BUILD[facility] 1.2.840.114 350.1.13.10 4.2.7.2.686 [id number] 044 [id number] [facility] 2023-06-21 00:00:00 2023-06-21 00:00:00 Telephone Natty Jimenez [facility] BUILD[facility] 1.2.840.114 350.1.13.10 4.2.7.2.686 [id number] 044 [id number] [facility] 2023-06-20 14:20:00 2023-06-20 14:48:16 Outpatient R ANTHONY YANIV [facility] [id number] [facility] 2023-06-20 14:20:00 2023-06-20 14:48:16 Office Visit Christine Cruzjomar [facility] PROFESSIO NAL BUILDING 1.2.840.114 350.1.13.10 4.2.7.2.686 [id number] 059 [id number] [facility] 2023-06-18 00:00:00 2023-06-18 00:00:00 RefTai Guardado [facility] 1.2.840.114 350.1.13.10 4.2.7.2.686 [id number] 044 [id number] [facility] 2023-06-16 14:00:00 2023-06-16 14:29:09 Office Visit Steven Hernandez [facility] 1.2.840.114 350.1.13.10 4.2.7.2.686 [id number] 059 [id number] [facility] 2023-06-16 14:00:00 2023-06-16 14:29:09 Outpatient R STEVEN HERNANDEZ CHOCKALINGA M [facility] [id number] [facility] 2023-06-03 00:00:00 2023-06-03 00:00:00 Prep For Surgery Zaira Landa [facility] 1.2.840.114 350.1.13.10 4.2.7.2.686 [id number] 037 [id number] [facility] 2023-05-20 08:57:00 2023-05-21 17:46:00 Outpatient R PRESLEY LEON SHUJA [facility] [id number] [facility] 2023-05-20 08:57:00 2023-05-21 17:46:00 Hospital Encounter Brian Vieira Shuja Ur [facility] 1.2.840.114 350.1.13.10 4.2.7.2.686 [id number] 090 [id number] [facility] 2023-05-20 10:10:00 2023-05-20 12:10:00 Surgery Brian Vieira [facility] 1.2.840.114 350.1.13.10 4.2.7.2.686 [id number] [id number] [facility] 2023-05-20 00:00:00 2023-05-20 00:00:00 Orders Only Doctor Unassigned, [address] [facility] 1.2.840.114 350.1.13.10 4.2.7.2.686 [id number] [id number] [facility] 2023-05-16 00:00:00 2023-05-16 00:00:00 Refill Tai Velarde [facility] BUILDING 1.2.840.114 350.1.13.10 4.2.7.2.686 [id number] 044 [id number] [facility] 2023-05-16 00:00:00 2023-05-16 00:00:00 Patient Secure Msg Doctor Unassigned, [address] [facility] MEDICAL OFFICE BUILDING 1.2.840.114 350.1.13.10 4.2.7.2.686 [id number] [id number] [facility] 2023-05-13 08:00:00 2023-05-13 10:58:07 Outpatient R BRIAN VIEIRA [facility] [id number] [facility] 2023-05-13 08:00:00 2023-05-13 10:58:07 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, Adc Lab Brian Vieira [facility] BUILDING 1.2.840.114 350.1.13.10 4.2.7.2.686 [id number] [facility] 2023-05-13 00:00:00 2023-05-13 00:00:00 Telephone Brian Vieira [facility] 1.2.840.114 350.1.13.10 4.2.7.2.686 [id number] 059 [id number] [facility] 2023-05-03 00:00:00 2023-05-03 00:00:00 [facility] 1.2.840.114 350.1.13.10 4.2.7.2.686 [id number] [facility] 2023-04-29 12:59:31 2023-04-29 23:59:00 Hospital Encounter Edson Lombardo [facility] 1.2840.114 350.1.13.10 4.2.7.2.686 [id number] [facility] 2023-04-29 08:39:00 2023-04-29 12:58:00 [facility] [id number] [facility] 2023-04-29 08:39:00 2023-04-29 12:58:00 Hospital Encounter Christine Cruzsandip [facility] 1.2.840.114 350.1.13.10 4.2.7.2.686 [id number] [facility] 2023-04-23 00:00:00 2023-04-23 00:00:00 Refill Tai Velarde [facility] 1.2.840.114 350.1.13.10 4.2.7.2.686 [id number] [facility] 2023-04-19 13:00:00 2023-04-19 13:15:00 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, Adc Lab [facility] 1.284.114 350.1.13.10 4.2.7.2.686 [id number] [facility] 2023-04-19 13:00:00 2023-04-19 13:00:00 Outpatient CODIE CRAFT [facility] [id number] [facility] 2023-04-19 00:00:00 2023-04-19 00:00:00 Orders Only Doctor Unassigned, [address] [facility] 1.840.114 350.1.13.10 4.2.7.2.686 [id number] [facility] 2023-04-16 00:00:00 2023-04-16 00:00:00 Outpatient R NATTY JIMENEZ [facility] [id number] [facility] 2023-04-15 10:47:16 2023-04-15 23:59:00 Hospital Encounter Yasmine Jimenezssica [facility] 1.2.840.114 350.1.13.10 4.2.7.2.686 [id number] [facility] 2023-04-15 10:35:00 2023-04-15 10:46:00 Hospital Encounter Yasmine Jimenezssica [facility] 1.284.114 350.1.13.10 4.2.7.2.686 [id number] [facility] 2023-04-15 10:18:17 2023-04-15 10:34:00 Outpatient R NATTY JIMENEZ [facility] [id number] [facility] 2023-04-15 10:18:17 2023-04-15 10:34:00 Hospital Encounter [facility] 1.2840.114 350.1.13.10 4.2.7.2.686 [id number] [facility] 2023-04-14 00:00:00 2023-04-14 00:00:00 Outpatient R LOMBARDOEDSON [facility] [id number] [facility] 2023-04-12 14:30:00 2023-04-12 14:46:09 Outpatient R YASMINE JIMENEZSSICA [facility] [id number] [facility] 2023-04-12 14:30:00 2023-04-12 14:46:09 Office Visit Yasmine Jimenezssica [facility] 1.2.840.114 350.1.13.10 4.2.7.2.686 [id number] [facility] 2023-04-05 00:00:00 2023-04-05 00:00:00 Telephone Tai Velarde [facility] 1.2.840.114 350.1.13.10 4.2.7.2.686 [id number] [facility] 2023-04-01 00:00:00 2023-04-01 00:00:00 Telephone Tai Velarde [facility] 1.2.840.114 350.1.13.10 4.2.7.2.686 [id number] [facility] 2023-03-30 00:00:00 2023-03-30 00:00:00 Telephone Brian Vieira [facility] 1.2.840.114 350.1.13.10 4.2.7.2.686 [id number] [facility] 2023-03-28 10:15:00 2023-03-28 10:22:49 Outpatient R BRIAN VIEIRA [facility] [id number] [facility] 2023-03-28 10:15:00 2023-03-28 10:22:49 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, Adc Lab [facility] [facility] [place] [facility] 1.2.840.114 350.1.13.10 4.2.7.2.686 [id number] [facility] 2023-03-28 09:30:00 2023-03-28 10:00:00 Office Visit Brian Vieira [facility] BUILDING 1.2.840.114 350.1.13.10 4.2.7.2.686 [id number] 059 [id number] [facility] 2023-03-25 07:53:36 2023-03-25 23:59:00 Outpatient R STEVEN HERNANDEZ CHOCKALINGA M [facility] [id number] [facility] 2023-03-25 07:53:36 2023-03-25 23:59:00 Hospital Encounter Steven Hernandez [facility] BUILD[facility] 1.2.840.114 350.1.13.10 4.2.7.2.686 [id number] 846 [id number] [facility] 2023-03-17 11:15:00 2023-03-17 11:30:00 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, Adc Lab Prachi Tai [facility] BUILDING 1.2.840.114 350.1.13.10 4.2.7.2.686 [id number] 353 [id number] [facility] 2023-03-17 10:20:00 2023-03-17 10:51:17 Outpatient R STEVEN HERNANDEZ CHOCKALINGA M [facility] [id number] [facility] 2023-03-17 10:20:00 2023-03-17 10:51:17 Office Visit Steven Hernandez [facility] 1.2.840.114 350.1.13.10 4.2.7.2.686 [id number] 059 [id number] [facility] 2023-03-16 00:00:00 2023-03-16 00:00:00 Case Management [facility] 1.2840.114 350.1.13.10 4.2.7.2.686 [id number] 840 [id number] [facility] 2023-03-15 10:00:00 2023-03-15 11:10:58 Outpatient R TAI VELARDE [facility] [id number] [facility] 2023-03-15 10:00:00 2023-03-15 11:10:58 Office Visit Tai Velarde [facility] SWETHA ARCHER [facility] 1.0.114 350.1.13.10 4.2.7.2.686 [id number] 044 [id number] [facility] 2023-03-14 10:30:00 2023-03-14 10:30:00 Outpatient R KIYA AUGUST [facility] [id number] [facility] 2023-03-11 08:28:00 2023-03-12 17:39:00 Outpatient R GETACHEW SANTILLAN [facility] [id number] [facility] 2023-03-11 08:28:00 2023-03-12 17:39:00 Hospital Encounter Brian Vieira Mostafa Helmy Ahmed Mohamed Al Hemyari [facility] 1.840.114 350.1.13.10 4.2.7.2.686 [id number] 090 [id number] [facility] 2023-03-11 08:58:00 2023-03-11 10:58:00 Surgery [facility] 1.2840.114 350.1.13.10 4.2.7.2.686 [id number] 840 [id number] [facility] 2023-03-11 00:00:00 2023-03-11 00:00:00 Orders Only Doctor Unassigned, [address] [facility] 1.2.840.114 350.1.13.10 4.2.7.2.686 [id number] [id number] [facility] 2023-03-07 00:00:00 2023-03-07 00:00:00 Telephone Brian Vieira [facility] 1.2.840.114 350.1.13.10 4.2.7.2.686 [id number] 840 [id number] [facility] 2023-03-07 00:00:00 2023-03-07 00:00:00 Orders Only Doctor Unassigned, [address] [facility] 1.2.840.114 350.1.13.10 4.2.7.2.686 [id number] 009 [id number] [facility] 2023-03-01 00:00:00 2023-03-01 00:00:00 [facility] 1.2.840.114 350.1.13.10 4.2.7.2.686 [id number] 840 [id number] [facility] 2023-03-01 00:00:00 2023-03-01 00:00:00 Telephone [place] [facility] 1.2.840.114 350.1.13.10 4.2.7.2.686 [id number] 840 [id number] [facility] 2023-02-22 00:00:00 2023-02-22 00:00:00 Telephone Natty Jimenez [facility] 1.2.840.114 350.1.13.10 4.2.7.2.686 [id number] 044 [id number] [facility] 2023-02-20 00:00:00 2023-02-20 00:00:00 Refill Tai Velarde [facility] 1.2.840.114 350.1.13.10 4.2.7.2.686 [id number] 044 [id number] [facility] 2023-02-15 08:54:05 2023-02-15 23:59:00 Outpatient R BRIAN VIEIRA [facility] [id number] [facility] 2023-02-15 08:54:05 2023-02-15 23:59:00 Hospital Encounter Brian Vieira [facility] 1.2.840.114 350.1.13.10 4.2.7.2.686 [id number] [facility] 2023-02-15 00:00:00 2023-02-15 00:00:00 Telephone Tai Velarde [facility] 1.2.840.114 350.1.13.10 4.2.7.2.686 [id number] 044 [id number] [facility] 2023-02-12 00:00:00 2023-02-12 00:00:00 Refill Tai Velarde [facility] 1.2.840.114 350.1.13.10 4.2.7.2.686 [id number] 044 [id number] [facility] 2023-02-09 00:00:00 2023-02-09 00:00:00 Telephone Brian Vieira [facility] 1.2.840.114 350.1.13.10 4.2.7.2.686 [id number] 840 [id number] [facility] 2023-02-03 00:00:00 2023-02-03 00:00:00 Telephone PrachiTai [facility] 1.2.840.114 350.1.13.10 4.2.7.2.686 [id number] 044 [id number] [facility] 2023-02-02 11:46:00 2023-02-02 12:35:00 Emergency X JESSICA COLON [facility] ERT [id number] [facility] 2023-02-02 11:46:00 2023-02-02 12:35:00 Emergency Jessica Colon [facility] 1.0.114 350.1.13.10 4.2.7.2.686 [id number] 084 [id number] [facility] 2023-01-31 13:30:00 2023-01-31 14:00:00 [facility] Visit [facility], [facility]..114 350.1.13.10 4.2.7.2.686 [id number] 059 [id number] [facility] 2023-01-31 13:30:00 2023-01-31 13:30:00 [facility] [id number] [facility] 2023-01-31 00:00:00 2023-01-31 00:00:00 [facility] 1..114 350.1.13.10 4.2.7.2.686 [id number] 059 [id number] [facility] 2023-01-29 00:00:00 2023-01-29 00:00:00 Patient Secure Msg [facility] 1..114 350.1.13.10 4.2.7.2.686 [id number] 059 [id number] [facility] 2023-01-26 00:00:00 2023-01-26 00:00:00 Orders Only Doctor Unassigned, [address] [facility] 1..114 350.1.13.10 4.2.7.2.686 [id number] [id number] [facility] 2023-01-25 06:18:00 2023-01-25 14:22:00 Outpatient R BRIAN VIEIRA [facility] [id number] [facility] 2023-01-25 06:18:00 2023-01-25 14:22:00 Hospital Encounter [facility] 1.2.840.114 350.1.13.10 4.2.7.2.686 [id number] 840 [id number] [facility] 2023-01-25 07:30:00 2023-01-25 09:30:00 Surgery [facility] 1.2.840.114 350.1.13.10 4.2.7.2.686 [id number] 840 [id number] [facility] 2023-01-24 00:00:00 2023-01-24 00:00:00 Refill Tai Velarde [facility] 1.2.840.114 350.1.13.10 4.2.7.2.686 [id number] 044 [id number] [facility] 2023-01-21 00:00:00 2023-01-21 00:00:00 Telephone Tai Velarde [facility] 1.2.840.114 350.1.13.10 4.2.7.2.686 [id number] 044 [id number] [facility] 2023-01-19 00:00:00 2023-01-19 00:00:00 Refill Prachi [facility] BU[facility] 1.2.840.114 350.1.13.10 4.2.7.2.686 [id number] 044 [id number] [facility] 2023-01-05 14:30:00 2023-01-05 15:00:00 Office Visit Rosa M Krishna [facility] 1.2.840.114 350.1.13.10 4.2.7.2.686 [id number] 085 [id number] [facility] 2023-01-05 14:30:00 2023-01-05 14:30:00 Outpatient R ROSA M KRISHNA STRAOKLeon [facility] [id number] [facility] 2023-01-04 00:00:00 2023-01-04 00:00:00 RefTai Guardado [facility] BUILD[facility] 1..840.114 350.1.13.10 4.2.7.2.686 [id number] 044 [id number] [facility] 2022-12-30 00:00:00 2022-12-30 00:00:00 Telephone Brian Vieira [facility] 1.840.114 350.1.13.10 4.2.7.2.686 [id number] 840 [id number] [facility] 2022-12-29 00:00:00 2022-12-29 00:00:00 Telephone Brian Vieira [facility] 1..840.114 350.1.13.10 4.2.7.2.686 [id number] 059 [id number] [facility] 2022-12-27 10:15:00 2022-12-27 10:30:00 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, 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2.7.2.686 [id number] 044 [id number] [facility] 2022-12-06 00:00:00 2022-12-06 00:00:00 Refill Tai Velarde [facility] BUILDING 1.2.840.114 350.1.13.10 4.2.7.2.686 [id number] 044 [id number] [facility] 2022-12-04 00:00:00 2022-12-04 00:00:00 Refill Tai Velarde [facility] BUILD[facility] 1.2.840.114 350.1.13.10 4.2.7.2.686 [id number] 044 [id number] [facility] 2022-11-25 00:00:00 2022-11-25 00:00:00 Refill MichellecarmitaTai ruggiero [facility] BUILD[facility] 1.2.840.114 350.1.13.10 4.2.7.2.686 [id number] 044 [id number] [facility] 2022-11-24 00:00:00 2022-11-24 00:00:00 Refill Tai Velarde [facility] BUILD[facility] 1.2.840.114 350.1.13.10 4.2.7.2.686 [id number] 044 [id number] [facility] 2022-11-17 00:00:00 2022-11-17 00:00:00 Patient Secure Msg RiccomarthalettyTai [facility] BUILDING 1.2.840.114 350.1.13.10 4.2.7.2.686 [id number] 044 [id number] [facility] 2022-11-15 10:00:00 2022-11-15 10:15:00 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, Adc Lab Main Tai Velarde [facility] 1.2.840.114 350.1.13.10 4.2.7.2.686 [id number] [facility] 2022-11-15 10:00:00 2022-11-15 10:00:00 Outpatient R TAI VELARDE [facility] [id number] [facility] 2022-11-15 00:00:00 2022-11-15 00:00:00 Orders Only Doctor Unassigned, [address] [facility] 1.2.840.114 350.1.13.10 4.2.7.2.686 [id number] 009 [id number] [facility] 2022-11-10 16:30:00 2022-11-10 16:30:00 Outpatient ROSA M VALDEZ STRAHIL [facility] [id number] [facility] 2022-11-09 00:00:00 2022-11-09 00:00:00 RefTai Guardado [facility] 1.2.840.114 350.1.13.10 4.2.7.2.686 [id number] 044 [id number] [facility] 2022-11-05 00:00:00 2022-11-05 00:00:00 Tai Holt [facility] 1.2.840.114 350.1.13.10 4.2.7.2.686 [id number] 044 [id number] [facility] 2022-11-03 00:00:00 2022-11-03 00:00:00 [facility] 1.2.840.114 350.1.13.10 4.2.7.2.686 [id number] 044 [id number] [facility] 2022-10-27 00:00:00 2022-10-27 00:00:00 [facility] 1.2.840.114 350.1.13.10 4.2.7.2.686 [id number] 059 [id number] [facility] 2022-10-26 13:51:07 2022-10-26 23:59:00 [facility] [id number] [facility] 2022-10-20 13:00:00 2022-10-20 13:00:00 Outpatient R ATANASOV, STRAHIL ATANASOV, STRAHIL [facility] [id number] [facility] 2022-10-20 13:00:00 2022-10-20 13:00:00 Outpatient R ATANASOV, STRAHIL ATANASOV, STRAHIL [facility] [id number] [facility] 2022-10-20 13:00:00 2022-10-20 13:00:00 Outpatient R ATANASOV, STRAHIL ATANASOV, STRAHIL [facility] [id number] [facility] 2022-10-07 10:00:00 2022-10-07 10:11:14 Outpatient R [facility]CO [facility] [id number] [facility] 2022-10-07 10:00:00 2022-10-07 10:11:14 [facility] 1.2.840.114 350.1.13.10 4.2.7.2.686 [id number] 059 [id number] [facility] 2022-10-07 10:00:00 2022-10-07 10:00:00 Out[facility] [id number] 2022-10-07 00:00:00 2022-10-07 00:00:00 Patient Secure Msg Tai Velarde [facility] BUILD[facility] 1..114 350.1.13.10 4.2.7.2.686 [id number] 044 [id number] [facility] 2022-09-28 09:00:00 2022-09-28 09:45:39 Outpatient R TAI VELARDE [facility] [id number] [facility] 2022-09-28 09:00:00 2022-09-28 09:45:39 Office Visit Tai Velarde [facility] 1..114 350.1.13.10 4.2.7.2.686 [id number] 044 [id number] [facility] 2022-09-23 00:00:00 2022-09-23 00:00:00 Orders Only Doctor Unassigned, [address] [facility] 1..114 350.1.13.10 4.2.7.2.686 [id number] 009 [id number] [facility] 2022-08-20 11:00:00 2022-08-20 14:53:19 Outpatient R TAI VELARDE [facility] [id number] [facility] 2022-08-20 11:00:00 2022-08-20 14:53:19 Telemedici ne Visit Tai Velarde [facility] 1..114 350.1.13.10 4.2.7.2.686 [id number] 044 [id number] [facility] 2022-08-19 00:00:00 2022-08-19 00:00:00 Telephone [facility] 1..114 350.1.13.10 4.2.7.2.686 [id number] [facility] 2022-08-19 00:00:00 2022-08-19 00:00:00 Patient Secure Msg Tai Velarde [facility] 1.2.840.114 350.1.13.10 4.2.7.2.686 [id number] 044 [id number] [facility] 2022-08-16 10:15:00 2022-08-16 10:30:00 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, 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 Main Tai Velarde [facility] 1.2.840.114 350.1.13.10 4.2.7.2.686 [id number] [facility] 2022-08-16 10:15:00 2022-08-16 10:15:00 Outpatient R RICCOMARTHACARMITABAHMAN TAI [facility] [id number] [facility] 2022-08-16 00:00:00 2022-08-16 00:00:00 Orders Only Doctor Unassigned, [address] [facility] 1.2840.114 350.1.13.10 4.2.7.2.686 [id number] 009 [id number] [facility] 2022-08-09 00:00:00 2022-08-09 00:00:00 Patient Secure g Tai Velarde [facility] 1.2.840.114 350.1.13.10 4.2.7.2.686 [id number] 044 [id number] [facility] 2022-07-30 00:00:00 2022-07-30 00:00:00 Telephone Tai Velarde [facility] 1.2.840.114 350.1.13.10 4.2.7.2.686 [id number] 044 [id number] [facility] 2022-07-19 10:00:00 2022-07-19 10:00:00 Outpatient R KIYA AUGUST [facility] [id number] [facility] 2022-07-12 08:30:00 2022-07-12 09:38:58 Outpatient R EDSON LOMBARDO [facility] [id number] [facility] 2022-07-12 08:30:00 2022-07-12 09:38:58 Office Visit Edson Lombardo Raffy [facility]ILD[facility] 1.0.114 350.1.13.10 4.2.7.2.686 [id number] [facility] 2022-07-12 00:00:00 2022-07-12 00:00:00 Orders Only Doctor Unassigned, [address] [facility] 1..114 350.1.13.10 4.2.7.2.686 [id number] 009 [id number] [facility] 2022-05-18 00:00:00 2022-05-18 00:00:00 Patient Secure Msg Doctor Unassigned, [address] [facility] 1..114 350.1.13.10 4.2.7.2.686 [id number] 019 [id number] [facility] 2022-05-17 14:00:00 2022-05-17 15:07:40 Outpatient R SHERLYN CINDY [facility] [id number] [facility] 2022-05-17 14:00:00 2022-05-17 15:07:40 Office Visit Cindy Archibald [facility] 1..114 350.1.13.10 4.2.7.2.686 [id number] 098 [id number] [facility] 2022-05-14 00:00:00 2022-05-14 00:00:00 Telephone Tai Velarde [facility] 1..114 350.1.13.10 4.2.7.2.686 [id number] 044 [id number] [facility] 2022-05-11 13:30:00 2022-05-11 13:40:00 Imm/Inj Visit Vaccine, Adc Family Medicine Tai Velarde [facility] BUILDING 1.2.840.114 350.1.13.10 4.2.7.2.686 [id number] 044 [id number] [facility] 2022-05-11 11:20:00 2022-05-11 13:13:34 Outpatient R TAI VELARDE [facility] [id number] [facility] 2022-05-11 11:20:00 2022-05-11 13:13:34 Office Visit Tai Velarde [facility] 1.2.840.114 350.1.13.10 4.2.7.2.686 [id number] 044 [id number] [facility] 2022-05-11 11:00:00 2022-05-11 13:12:43 Office Visit Tai Velarde [facility] 1.2.840.114 350.1.13.10 4.2.7.2.686 [id number] 044 [id number] [facility] 2022-05-11 00:00:00 2022-05-11 00:00:00 Orders Only Doctor Unassigned, [address] [facility] 1.2.840.114 350.1.13.10 4.2.7.2.686 [id number] 009 [id number] [facility] 2022-05-10 00:00:00 2022-05-10 00:00:00 Patient Secure Msg Doctor Unassigned, [address] [facility] 1.2.840.114 350.1.13.10 4.2.7.2.686 [id number] 082 [id number] [facility] 2022-04-14 08:22:21 2022-04-14 23:59:00 Outpatient R KATH CENTENO [facility] RAD [id number] [facility] 2022-04-14 08:22:21 2022-04-14 23:59:00 Hospital Encounter Kath Centeno [facility] 1.2.840.114 350.1.13.10 4.2.7.2.686 [id number] [facility] 2022-03-05 10:20:00 2022-03-05 11:37:09 Outpatient R KATH CENTENO [facility] [id number] [facility] 2022-03-05 10:20:00 2022-03-05 11:37:09 Office Visit [facility] 1.2.840.114 350.1.13.10 4.2.7.2.686 [id number] [facility] 2022-03-04 00:00:00 2022-03-04 00:00:00 [facility] 1.2.840.114 350.1.13.10 4.2.7.2.686 [id number] 044 [id number] [facility] 2022-02-11 00:00:00 2022-02-11 00:00:00 Refill [facility] Vel[facility] 1.2.840.114 350.1.13.10 4.2.7.2.686 [id number] 044 [id number] [facility] 2022-01-18 09:13:00 2022-01-18 14:45:00 Emergency X HENRY DEE [facility] ERT [id number] [facility] 2022-01-18 09:13:00 2022-01-18 14:45:00 Emergency Henry Dee [facility] 1.2.840.114 350.1.13.10 4.2.7.2.686 [id number] 084 [id number] [facility] 2022-01-12 09:00:00 2022-01-12 09:30:00 Office Visit Dedra Kidd [facility] 1.840.114 350.1.13.10 4.2.7.2.686 [id number] [facility] 2022-01-12 09:00:00 2022-01-12 09:00:00 Outpatient R DEDRA KIDD [facility] [id number] [facility] 2022-01-06 11:15:00 2022-01-06 11:30:00 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, Adc Lab Bernabe Dedra [facility] 1..840.114 350.1.13.10 4.2.7.2.686 [id number] [facility] 2022-01-06 11:15:00 2022-01-06 11:15:00 Outpatient R [facility] [id number] [facility] 2022-01-06 11:15:00 2022-01-06 11:15:00 Outpatient R BERNABE DEDRA [facility] [id number] [facility] 2022-01-04 00:00:00 2022-01-04 00:00:00 Telephone Kath Centeno [facility] 1..840.114 350.1.13.10 4.2.7.2.686 [id number] [facility] 2021-12-30 00:00:00 2021-12-30 00:00:00 Telephone Dedra Kidd [facility] 1.840.114 350.1.13.10 4.2.7.2.686 [id number] [facility] 2021-12-24 00:00:00 2021-12-24 00:00:00 Orders Only Doctor Unassigned, [address] [facility] 1.2.840.114 350.1.13.10 4.2.7.2.686 [id number] [id number] [facility] 2021-12-01 15:40:00 2021-12-01 16:39:49 Outpatient R KATH CENTENO [facility] [id number] [facility] 2021-12-01 15:40:00 2021-12-01 16:39:49 Office Visit Kath Centeno [facility] 1.2.840.114 350.1.13.10 4.2.7.2.686 [id number] [facility] 2021-11-23 00:00:00 2021-11-23 00:00:00 Telephone Kath Centeno [facility] 1.2.840.114 350.1.13.10 4.2.7.2.686 [id number] [facility] 2021-11-23 00:00:00 2021-11-23 00:00:00 Orders Only Doctor Unassigned, [address] [facility] 1.2.840.114 350.1.13.10 4.2.7.2.686 [id number] [facility] 2021-11-23 00:00:00 2021-11-23 00:00:00 Telephone Kath Centeno [facility] 1.2.840.114 350.1.13.10 4.2.7.2.686 [id number] [facility] 2021-11-06 00:00:00 2021-11-06 00:00:00 Refill Kath Centeno [facility] 1.2.840.114 350.1.13.10 4.2.7.2.686 [id number] [facility] 2021-11-02 09:45:00 2021-11-02 10:00:00 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, Adc Lab Kath Centeno [facility] 1.2.840.114 350.1.13.10 4.2.7.2.686 [id number] [facility] 2021-11-02 09:45:00 2021-11-02 09:45:00 Outpatient R KATH CENTENO [facility] [id number] [facility] 2021-10-28 00:00:00 2021-10-28 00:00:00 [facility] 1.2.840.114 350.1.13.10 4.2.7.2.686 [id number] [facility] 2021-10-27 14:15:25 2021-10-27 23:59:00 [facility] [id number] [facility] 2021-10-27 15:00:00 2021-10-27 15:00:00 [facility] [id number] [facility] 2021-10-21 16:00:00 2021-10-21 16:20:00 Office Visit Rosa M Krishna [facility] 1.2.840.114 350.1.13.10 4.2.7.2.686 [id number] [facility] 2021-10-21 16:00:00 2021-10-21 16:00:00 Outpatient R ROSA M KRISHNA STRAOKLeon [facility] [id number] [facility] 2021-10-13 16:00:00 2021-10-13 16:00:00 [facility] [id number] [facility] 2021-10-09 00:00:00 2021-10-09 00:00:00 Orders Only Doctor Unassigned, [address] [facility] 1.2840.114 350.1.13.10 4.2.7.2.686 [id number] [facility] 2021-10-07 10:40:00 2021-10-07 10:49:15 [facility] 1.2.114 350.1.13.10 4.2.7.2.686 [id number] [facility] 2021-10-07 10:40:00 2021-10-07 10:49:15 Outpatient [facility] [id number] [facility] 2021-10-07 10:40:00 2021-10-07 10:40:00 Outpatient R [facility] [id number] [facility] 2021-10-07 00:00:00 2021-10-07 00:00:00 Patient Secure Msg Kath Centeno [facility] 1.20.114 350.1.13.10 4.2.7.2.686 [id number] [facility] 2021-10-07 00:00:00 2021-10-07 00:00:00 Patient Secure Msg Doctor Unassigned, [address] [facility] 1.20.114 350.1.13.10 4.2.7.2.686 [id number] [facility] 2021-09-22 00:00:00 2021-09-22 00:00:00 Refill Kath Centeno [facility] 1.2840.114 350.1.13.10 4.2.7.2.686 [id number] [facility] 2021-09-11 09:00:00 2021-09-11 09:45:57 Outpatient R RICCOBEVERLY TAI [facility] [id number] [facility] 2021-09-11 09:00:00 2021-09-11 09:45:57 Office Visit Prachi [facility] [facility] 1.2.840.114 350.1.13.10 4.2.7.2.686 [id number] 044 [id number] [facility] 2021-09-08 00:00:00 2021-09-08 00:00:00 Refill RiccomarthaTai saenz [facility] BUILDING 1.2.840.114 350.1.13.10 4.2.7.2.686 [id number] [facility] 2021-09-02 09:20:00 2021-09-02 09:20:00 Outpatient R FRANCISCO JAVIER CRUZSANDIP [facility] [id number] [facility] 2021-08-10 00:00:00 2021-08-10 00:00:00 Refill Kath Centeno [facility] BUILDING 1..840.114 350.1.13.10 4.2.7.2.686 [id number] [facility] 2021-08-06 00:00:00 2021-08-06 00:00:00 Refill Kath Centeno [facility] BU[facility] 1..840.114 350.1.13.10 4.2.7.2.686 [id number] [facility] 2021-07-28 00:00:00 2021-07-28 00:00:00 Patient Secure Msg [facility] 1.2.840.114 350.1.13.10 4.2.7.2.686 [id number] [facility] 2021-07-14 00:00:00 2021-07-14 00:00:00 Patient Secure Msg PrachiTai [facility] NAL BUILDING 1..840.114 350.1.13.10 4.2.7.2.686 [id number] 044 [id number] [facility] 2021-06-26 10:15:00 2021-06-26 23:59:00 Outpatient R REY DWYER [facility] [id number] [facility] 2021-06-26 10:15:00 2021-06-26 23:59:00 Hospital Encounter Rey Dwyer [facility] MEDICAL OFFICE BUILDING 1..840.114 350.1.13.10 4.2.7.2.686 [id number] [facility] 2021-06-26 09:45:00 2021-06-26 10:31:43 Outpatient R REY DWYER [facility] [id number] [facility] 2021-06-26 09:45:00 2021-06-26 10:31:43 Office Visit Rey Dwyer [facility] MEDICAL OFFICE BUILDING 1..840.114 350.1.13.10 4.2.7.2.686 [id number] [facility] 2021-06-26 09:45:00 2021-06-26 09:45:00 Outpatient R REY DWYER [facility] [id number] [facility] 2021-06-18 00:00:00 2021-06-18 00:00:00 Patient Secure Msg Doctor Unassigned, [address] [facility] 1.840.114 350.1.13.10 4.2.7.2.686 [id number] [facility] 2021-06-16 17:15:00 2021-06-16 17:30:00 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, 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 Main Tai Velarde [facility] PROFESSIO NAL BUILDING 1.2.840.114 350.1.13.10 4.2.7.2.686 [id number] [facility] 2021-06-16 16:00:00 2021-06-16 17:13:04 Outpatient R PRACHI TAI [facility] [id number] [facility] 2021-06-16 16:00:00 2021-06-16 17:13:04 [facility] 1.2.840.114 350.1.13.10 4.2.7.2.686 [id number] 044 [id number] [facility] 2021-06-16 00:00:00 2021-06-16 00:00:00 Orders Only Doctor Unassigned, [address] [facility] 1.2.840.114 350.1.13.10 4.2.7.2.686 [id number] [id number] [facility] 2021-06-06 00:00:00 2021-06-06 00:00:00 [facility]ill [facility] 1..840.114 350.1.13.10 4.2.7.2.686 [id number] 044 [id number] [facility] 2021-05-27 14:40:00 2021-05-27 14:40:00 Outpatient R TAI VELARDE [facility] [id number] [facility] 2021-05-21 07:32:00 2021-05-21 09:31:00 Outpatient CODIE BUSTOS [facility] OPH [id number] [facility] 2021-05-21 07:32:00 2021-05-21 09:31:00 Hospital Encounter Codie Marie [facility] SURGICAL CRUCIBLE 1.2.840.114 350.1.13.10 4.2.7.2.686 [id number] [facility] 2021-05-21 08:40:00 2021-05-21 09:15:00 Surgery Codie Marie [facility] SURGICAL CENTER 1.2.840.114 350.1.13.10 4.2.7.2.686 [id number] [facility] 2021-05-19 11:00:00 2021-05-19 11:15:00 Laboratory Only Only, Adc Test Codie Marie [facility] 1.2840.114 350.1.13.10 4.2.7.2.686 [id number] [facility] 2021-05-19 11:00:00 2021-05-19 11:00:00 Outpatient R FRANK CODIE [facility] [id number] [facility] 2021-05-19 00:00:00 2021-05-19 00:00:00 Orders Only Doctor Unassigned, [address] [facility] 1.2840.114 350.1.13.10 4.2.7.2.686 [id number] [facility] 2021-05-16 00:00:00 2021-05-16 00:00:00 Kath Angeles [facility] 1.2840.114 350.1.13.10 4.2.7.2.686 [id number] [facility] 2021-05-06 00:00:00 2021-05-06 00:00:00 Kath Angeles [facility] PROFESS[facility] NAL BUILDING 1.2840.114 350.1.13.10 4.2.7.2.686 [id number] [facility] 2021-04-27 00:00:00 2021-04-27 00:00:00 Refill Kath Centeno [facility] PROFESSIO NAL BUILDING 1.2840.114 350.1.13.10 4.2.7.2.686 [id number] [facility] 2021-04-23 11:00:00 2021-04-23 11:36:00 Surgery Codie Marie [facility] SURGICAL CENTER 1.20.114 350.1.13.10 4.2.7.2.686 [id number] [facility] 2021-04-23 09:23:00 2021-04-23 11:30:00 Outpatient R CODIE MARIE [facility] OPH [id number] [facility] 2021-04-23 09:23:00 2021-04-23 11:30:00 Hospital Encounter Codie Marie [facility] SURGICAL CRUCIBLE 1.0.114 350.1.13.10 4.2.7.2.686 [id number] [facility] 2021-04-23 00:00:00 2021-04-23 00:00:00 Orders Only Doctor Unassigned, [address] [facility] 1.2840.114 350.1.13.10 4.2.7.2.686 [id number] [facility] 2021-04-17 00:00:00 2021-04-17 00:00:00 Refill Tai Velarde [facility] PROFESSIO NAL BUILDING 1.20.114 350.1.13.10 4.2.7.2.686 [id number] 044 [id number] [facility] 2021-04-17 00:00:00 2021-04-17 00:00:00 Refill Kath Centeno [facility] PROFESSIO NAL BUILDING 1.2840.114 350.1.13.10 4.2.7.2.686 [id number] [id number] [facility] 2021-04-17 00:00:00 2021-04-17 00:00:00 Telephone Bernabe [facility] 1.2.840.114 350.1.13.10 4.2.7.2.686 [id number] [facility] 2021-04-15 00:00:00 2021-04-15 00:00:00 Telephone Tai Velarde [facility] BUILDING 1.2.840.114 350.1.13.10 4.2.7.2.686 [id number] [id number] [facility] 2021-04-15 00:00:00 2021-04-15 00:00:00 Refill Bernabe [facility] 1.2840.114 350.1.13.10 4.2.7.2.686 [id number] [facility] 2021-04-14 12:11:10 2021-04-14 12:26:10 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, Adc Lab Main Codie Marie [facility] BUILDING 1.2840.114 350.1.13.10 4.2.7.2.686 [id number] [facility] 2021-04-14 11:45:00 2021-04-14 11:45:00 Outpatient CODIE BUSTOS [facility] [id number] [facility] 2021-04-07 10:00:00 2021-04-07 10:53:13 Outpatient R BERNABE DEDRA [facility] [id number] [facility] 2021-04-07 09:54:31 2021-04-07 10:53:13 Office Visit Bernabe, [facility] 1.20.114 350.1.13.10 4.2.7.2.686 [id number] [facility] 2021-03-26 15:50:23 2021-03-26 16:05:23 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, Adc Lab Dedra Kidd [facility] BUILDING 1.840.114 350.1.13.10 4.2.7.2.686 [id number] [facility] 2021-03-26 16:00:00 2021-03-26 16:00:00 Outpatient R DEDRA KIDD [facility] [id number] [facility] 2021-03-26 00:00:00 2021-03-26 00:00:00 Telephone Dedra Kidd [facility] 1.840.114 350.1.13.10 4.2.7.2.686 [id number] [facility] 2021-03-26 00:00:00 2021-03-26 00:00:00 Refill Angélica Goss [facility] 1..840.114 350.1.13.10 4.2.7.2.686 [id number] [facility] 2021-03-11 00:00:00 2021-03-11 00:00:00 Refill Kath Centeno [facility] 1..840.114 350.1.13.10 4.2.7.2.686 [id number] 044 [id number] [facility] 2021-02-26 00:00:00 2021-02-26 00:00:00 Orders Only Doctor Unassigned, [address] [facility] .84.114 350.1.13.10 4.2.7.2.686 [id number] [facility] 2021-02-23 00:00:00 2021-02-23 00:00:00 Refill Tai Velarde [facility] 1..840.114 350.1.13.10 4.2.7.2.686 [id number] 044 [id number] [facility] 2021-02-20 11:02:49 2021-02-20 11:22:49 Office Visit Christine Cruzbahmansandip [facility] Building 1.2.840.114 350.1.13.10 4.2.7.2.686 [id number] [facility] 2021-02-20 11:00:00 2021-02-20 11:00:00 [facility] [id number] [facility] 2021-02-18 12:45:33 2021-02-18 13:00:29 Office Visit Tai Velarde [facility] Building 1.2.840.114 350.1.13.10 4.2.7.2.686 [id number] 044 [id number] [facility] 2021-02-18 10:56:07 2021-02-18 12:58:44 Office Visit Tai Velarde [facility] Building 1.2.840.114 350.1.13.10 4.2.7.2.686 [id number] [id number] [facility] 2021-02-18 11:00:00 2021-02-18 11:00:00 Outpatient R TAI VELARDE [facility] [id number] [facility] 2021-02-04 00:00:00 2021-02-04 00:00:00 Refill Kath Centeno [facility] 1.2.840.114 350.1.13.10 4.2.7.2.686 [id number] [facility] 2021-01-27 00:00:00 2021-01-27 00:00:00 Refill Tai Velarde [facility] 1.2.840.114 350.1.13.10 4.2.7.2.686 [id number] 044 [id number] [facility] 2021-01-26 00:00:00 2021-01-26 00:00:00 Refill RiccojtbahmanTai [facility] 1.2.840.114 350.1.13.10 4.2.7.2.686 [id number] 044 [id number] [facility] 2021-01-22 12:47:19 2021-01-22 23:59:00 Hospital Encounter Riccobeverly Tai [facility] 1.2.840.114 350.1.13.10 4.2.7.2.686 [id number] [facility] 2021-01-22 00:00:00 2021-01-22 00:00:00 Outpatient R TAI VELARDE [facility] [id number] [facility] 2021-01-22 00:00:00 2021-01-22 00:00:00 Telephone Kath Centeno [facility] 1.2.840.114 350.1.13.10 4.2.7.2.686 [id number] [facility] 2021-01-13 00:00:00 2021-01-13 00:00:00 Refill Kath Centeno [facility] 1.2.840.114 350.1.13.10 4.2.7.2.686 [id number] [facility] 2020-12-30 14:40:00 2020-12-30 14:40:00 Outpatient R TAI VELARDE [facility] [id number] [facility] 2020-12-24 13:21:41 2020-12-24 23:59:00 Hospital Encounter Dedra Kidd [facility] 1.2840.114 350.1.13.10 4.2.7.2.686 [id number] [facility] 2020-12-24 00:00:00 2020-12-24 00:00:00 Outpatient DEDRA DELGADO [facility] [id number] [facility] 2020-12-24 00:00:00 2020-12-24 00:00:00 Orders Only Doctor Unassigned, [address] [facility] 1.2840.114 350.1.13.10 4.2.7.2.686 [id number] [facility] 2020-12-16 10:12:26 2020-12-16 11:12:26 Office Visit BernabeDedra walter [facility] 1.0.114 350.1.13.10 4.2.7.2.686 [id number] [facility] 2020-12-16 10:30:00 2020-12-16 10:30:00 Outpatient Peyton ILDA KIDDIA [facility] [id number] [facility] 2020-12-16 00:00:00 2020-12-16 00:00:00 Refill Kath Centeno [facility] 1.84.114 350.1.13.10 4.2.7.2.686 [id number] [facility] 2020-12-11 09:18:42 2020-12-11 09:33:42 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, 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 Kath Centeno [facility] 1.2840.114 350.1.13.10 4.2.7.2.686 [id number] [facility] 2020-12-11 09:15:00 2020-12-11 09:15:00 Outpatient KATH PHILLIPS [facility] [id number] [facility] 2020-12-02 00:00:00 2020-12-02 00:00:00 Telephone BernabeDedra [facility] 1.2.114 350.1.13.10 4.2.7.2.686 [id number] [facility] [id number] [facility] 2020-09-29 13:12:04 2020-09-29 13:27:04 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, Adc Lab Main Kath Centeno Allison [facility] 1.84.114 350.1.13.10 4.2.7.2.686 [id number] [facility] 2020-09-29 13:15:00 2020-09-29 13:15:00 Outpatient R KATH CENTENO [facility] [id number] [facility] 2020-09-29 10:30:00 2020-09-29 10:30:00 Outpatient R ANGÉLICA GOSS [facility] [id number] [facility] 2020-09-29 00:00:00 2020-09-29 00:00:00 Orders Only Doctor Unassigned, [address] [facility] 1.2.114 350.1.13.10 4.2.7.2.686 [id number] [facility] 2020-09-26 07:48:29 2020-09-26 10:31:08 Telemedici ne Visit Tai Velarde [facility] 1.84.114 350.1.13.10 4.2.7.2.686 [id number] [facility] 2020-09-26 09:40:00 2020-09-26 09:40:00 Outpatient R TAI VELARDE [facility] [id number] [facility] 2020-09-25 00:00:00 2020-09-25 00:00:00 Telephone Tai Velarde [facility] 1.2.840.114 350.1.13.10 4.2.7.2.686 [id number] [id number] [facility] 2020-09-25 00:00:00 2020-09-25 00:00:00 Refill Tai Velarde [facility] 1.2.840.114 350.1.13.10 4.2.7.2.686 [id number] [id number] [facility] 2020-09-23 00:00:00 2020-09-23 00:00:00 Patient Secure Msg [facility] 1.2.840.114 350.1.13.10 4.2.7.2.686 [id number] [facility] 2020-09-16 00:00:00 2020-09-16 00:00:00 Refill Tai Velarde [facility] 1.2.840.114 350.1.13.10 4.2.7.2.686 [id number] [id number] [facility] 2020-08-20 10:38:51 2020-08-20 11:14:11 Office Visit Anthony Yaniv [facility] 1.2.840.114 350.1.13.10 4.2.7.2.686 [id number] [facility] 2020-08-20 11:00:00 2020-08-20 11:00:00 Outpatient R YANIV CRUZ [facility] [id number] [facility] 2020-08-18 08:00:00 2020-08-18 08:00:00 Outpatient R TAI VELARDE [facility] [id number] [facility] 2020-08-10 00:00:00 2020-08-10 00:00:00 Patient Secure Msg Doctor Unassigned, [address] [facility] 1.2.840.114 350.1.13.10 4.2.7.2.686 [id number] [facility] 2020-08-05 13:54:08 2020-08-05 23:59:00 Hospital Encounter [facility] 1.2.840.114 350.1.13.10 4.2.7.2.686 [id number] [facility] 2020-08-05 12:47:21 2020-08-05 13:50:46 Office Visit [facility] 1.2840.114 350.1.13.10 4.2.7.2.686 [id number] [facility] 2020-08-05 13:15:00 2020-08-05 13:15:00 Outpatient R JELENA [facility] [id number] [facility] 2020-07-29 13:18:26 2020-07-29 13:33:26 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, 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7.2.686 [id number] [facility] 2020-07-14 00:00:00 2020-07-14 00:00:00 Telephone Kath Centeno [facility] 1..840.114 350.1.13.10 4.2.7.2.686 [id number] [id number] [facility] 2020-07-08 00:00:00 2020-07-08 00:00:00 Patient Outreach Kimani Caputo [facility] 1.2840.114 350.1.13.10 4.2.7.2.686 [id number] [facility] 2020-07-04 14:00:00 2020-07-04 14:00:00 Outpatient R TAI VELARDE [facility] [id number] [facility] 2020-07-04 09:32:50 2020-07-04 09:47:50 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, 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 Tai Velarde [facility] 1.2.840.114 350.1.13.10 4.2.7.2.686 [id number] [facility] 2020-07-03 13:09:38 2020-07-03 14:55:15 Office Visit Tai Velarde [facility] 1..840.114 350.1.13.10 4.2.7.2.686 [id number] [id number] [facility] 2020-07-03 13:20:00 2020-07-03 13:20:00 Outpatient R TAI VELARDE [facility] [id number] [facility] 2020-06-09 00:00:00 2020-06-09 00:00:00 Orders Only Doctor Unassigned, [address] [facility] 1.2840.114 350.1.13.10 4.2.7.2.686 [id number] [facility] 2020-06-04 13:00:00 2020-06-04 13:00:00 Outpatient R ROSA M KRISHNA STRAHIL [facility] [id number] [facility] 2020-05-27 14:20:00 2020-05-27 14:20:00 Outpatient R RICCOMARTHATAI SAENZ [facility] [id number] [facility] 2020-05-21 00:00:00 2020-05-21 00:00:00 Kath Angeles [facility] 1.2.840.114 350.1.13.10 4.2.7.2.686 [id number] [facility] 2020-05-07 00:00:00 2020-05-07 00:00:00 Orders Only Doctor Unassigned, [address] [facility] 1.2840.114 350.1.13.10 4.2.7.2.686 [id number] [facility] 2020-04-21 10:27:02 2020-04-21 11:11:44 Office Visit Kiya August [facility] 1.2.840.114 350.1.13.10 4.2.7.2.686 [id number] [facility] 2020-04-21 10:30:00 2020-04-21 10:30:00 Outpatient R KIYA AUGUST [facility] [id number] [facility] 2020-04-09 13:40:00 2020-04-09 13:40:00 Outpatient R [facility] [id number] [facility] 2020-04-08 06:11:00 2020-04-08 09:26:00 Hospital Encounter Kiya August [facility] 1.2.840.114 350.1.13.10 4.2.7.2.686 [id number] [facility] 2020-04-07 14:30:00 2020-04-07 14:30:00 Outpatient R KIYA AUGUST [facility] [id number] [facility] 2020-04-07 10:10:22 2020-04-07 10:25:22 Laboratory Only Only, Adc Test Kiya August [facility] 1.2.840.114 350.1.13.10 4.2.7.2.686 [id number] [facility] 2020-04-07 00:00:00 2020-04-07 00:00:00 Orders Only Doctor Unassigned, [address] [facility] 1.2.840.114 350.1.13.10 4.2.7.2.686 [id number] [facility] 2020-04-02 00:00:00 2020-04-02 00:00:00 Telephone Kiya August [facility] 1.2.840.114 350.1.13.10 4.2.7.2.686 [id number] [facility] 2020-04-01 09:15:02 2020-04-01 09:55:02 [facility] 1.2.840.114 350.1.13.10 4.2.7.2.686 [id number] [facility] 2020-03-28 14:45:35 2020-03-28 15:25:35 Ancillary Visit [facility] 1.2.840.114 350.1.13.10 4.2.7.2.686 [id number] [facility] 2020-03-27 14:09:22 2020-03-27 14:39:22 Office Visit Kiya August [facility] 1.284.114 350.1.13.10 4.2.7.2.686 [id number] [facility] 2020-03-27 14:30:00 2020-03-27 14:30:00 Outpatient R KIYA AUGUST [facility] [id number] [facility] 2020-03-27 00:00:00 2020-03-27 00:00:00 Prep For Surgery Dunia Sidhu [facility] 1.2.84.114 350.1.13.10 4.2.7.2.686 [id number] [facility] 2020-03-27 00:00:00 2020-03-27 00:00:00 Orders Only Doctor Unassigned, [address] [facility] 1.84.114 350.1.13.10 4.2.7.2.686 [id number] [facility] 2020-03-24 15:36:11 2020-03-24 16:16:11 Ancillary Visit Sebastian Pack [facility] 1..840.114 350.1.13.10 4.2.7.2.686 [id number] [facility] 2020-03-21 15:41:14 2020-03-21 16:21:14 Ancillary Visit Zina Pack [facility] 1.284.114 350.1.13.10 4.2.7.2.686 [id number] [facility] 2020-03-13 13:55:24 2020-03-13 14:35:24 Ancillary Visit [place], MercKath Otoole [facility] 1.2.840.114 350.1.13.10 4.2.7.2.686 [id number] [facility] 2020-03-13 14:00:00 2020-03-13 14:00:00 Outpatient R [facility] [id number] [facility] 2020-03-11 13:50:24 2020-03-11 14:30:24 Ancillary Visit HuddlestonGia ramsayKath Otoole [facility] 1.2.840.114 350.1.13.10 4.2.7.2.686 [id number] [facility] 2020-03-06 11:00:35 2020-03-06 11:51:28 Ancillary Visit Trinh Abreu Elizabeth A [facility] 1.2.840.114 350.1.13.10 4.2.7.2.686 [id number] [facility] 2020-03-04 09:24:05 2020-03-04 10:04:05 Ancillary Visit Sebastian Pack Elizabeth A [facility] 1.2.840.114 350.1.13.10 4.2.7.2.686 [id number] [facility] 2020-03-03 00:00:00 2020-03-03 00:00:00 Telephone Tai Velarde [facility] 1.2.840.114 350.1.13.10 4.2.7.2.686 [id number] [facility] 2020-02-27 10:38:26 2020-02-27 11:38:26 Ancillary Visit Nery Banuelos Elizabeth A [facility] 1.2.840.114 350.1.13.10 4.2.7.2.686 [id number] [facility] 2020-02-27 11:00:00 2020-02-27 11:00:00 Outpatient R KATH CENTENO [facility] [id number] [facility] 2020-02-21 00:00:00 2020-02-21 00:00:00 [facility] 1.2.840.114 350.1.13.10 4.2.7.2.686 [id number] [facility] 2020-02-20 11:54:02 2020-02-20 12:09:02 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, [facility] 1.2.840.114 350.1.13.10 4.2.7.2.686 [id number] [facility] 2020-02-20 11:05:55 2020-02-20 11:43:12 [facility] 1.2.840.114 350.1.13.10 4.2.7.2.686 [id number] [facility] 2020-02-20 11:20:00 2020-02-20 11:20:00 [facility] [id number] [facility] 2020-02-19 15:00:00 2020-02-19 15:00:00 Outpatient R KARLA WORKMAN [facility] [id number] [facility] 2020-02-15 14:48:10 2020-02-15 15:45:39 Office Visit Kath Centeno [facility] 1.2.840.114 350.1.13.10 4.2.7.2.686 [id number] [facility] 2020-02-15 14:40:00 2020-02-15 14:40:00 Outpatient R KATH CENTENO [facility] [id number] [facility] 2020-02-15 00:00:00 2020-02-15 00:00:00 Orders Only Doctor Unassigned, [address] [facility] 1.2840.114 350.1.13.10 4.2.7.2.686 [id number] [id number] [facility] 2020-01-30 00:00:00 2020-01-30 00:00:00 Refill Tai Velarde [facility] 1.284.114 350.1.13.10 4.2.7.2.686 [id number] [facility] 2020-01-23 10:40:00 2020-01-23 10:40:00 Outpatient R YANIV CRUZ [facility] [id number] [facility] 2020-01-17 00:00:00 2020-01-17 00:00:00 Patient Secure Msg Kath Centeno [facility] 1.284.114 350.1.13.10 4.2.7.2.686 [id number] [facility] 2020-01-11 00:00:00 2020-01-11 00:00:00 Telephone Tai Velarde [facility] 1.2.84.114 350.1.13.10 4.2.7.2.686 [id number] [facility] 2019-12-20 00:00:00 2019-12-20 00:00:00 Pre Visit Outreach Kath Centeno [facility] 1.2.840.114 350.1.13.10 4.2.7.2.686 [id number] [facility] 2019-12-18 11:01:41 2019-12-18 11:16:41 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, 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 [facility] 1.2.840.114 350.1.13.10 4.2.7.2.686 [id number] [facility] 2019-12-18 09:42:50 2019-12-18 10:52:15 Office Visit Tai Velarde [facility] 1.2.840.114 350.1.13.10 4.2.7.2.686 [id number] [facility] 2019-12-18 09:40:00 2019-12-18 09:40:00 Outpatient R TAI VELARDE [facility] [id number] [facility] 2019-11-16 08:15:00 2019-11-16 08:15:00 Outpatient R BRODY VAUGHAN [facility] [id number] [facility] 2019-10-31 00:00:00 2019-10-31 00:00:00 Telephone Christine Cruzsandip [facility] 1..840.114 350.1.13.10 4.2.7.2.686 [id number] [facility] 2019-10-29 12:46:45 2019-10-29 13:46:45 Laboratory Only Pc, Adc Echo Room 1 - Yaniv Cruz [facility] 1.2.840.114 350.1.13.10 4.2.7.2.686 [id number] [facility] 2019-10-29 13:00:00 2019-10-29 13:00:00 Outpatient R [facility] [id number] [facility] 2019-10-29 00:00:00 2019-10-29 00:00:00 Refill Tai Velarde [facility] 1.2.840.114 350.1.13.10 4.2.7.2.686 [id number] [facility] 2019-10-24 00:00:00 2019-10-24 00:00:00 [facility] 1.2.840.114 350.1.13.10 4.2.7.2.686 [id number] [facility] 2019-10-23 10:20:42 2019-10-23 10:58:51 [facility] 1.2840.114 350.1.13.10 4.2.7.2.686 [id number] [facility] 2019-10-23 10:40:00 2019-10-23 10:40:00 Outpatient R [facility] [id number] [facility] 2019-10-15 14:40:00 2019-10-15 14:40:00 Outpatient R [facility] [id number] [facility] 2019-10-11 09:15:28 2019-10-11 09:54:00 Office Visit [facility] 1.2840.114 350.1.13.10 4.2.7.2.686 [id number] [facility] 2019-10-11 09:30:00 2019-10-11 09:30:00 Outpatient R REY DWYER [facility] [id number] [facility] 2019-10-05 11:04:42 2019-10-05 23:59:00 Outpatient R KATH CENTENO [facility] [id number] [facility] 2019-10-05 11:00:00 2019-10-05 23:59:00 Hospital Encounter Kath Centeno [facility] 1.2.840.114 350.1.13.10 4.2.7.2.686 [id number] [facility] 2019-09-28 00:00:00 2019-09-28 00:00:00 Patient Secure Kath Pompa [facility] Office Building One 1.2840.114 350.1.13.10 4.2.7.2.686 [id number] [facility] 2019-09-21 11:35:50 2019-09-21 12:35:51 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, Adc Lab Main DwyerRey [facility] 1.2.114 350.1.13.10 4.2.7.2.686 [id number] [facility] 2019-09-21 11:31:18 2019-09-21 11:34:00 Outpatient R REY DWYER [facility] [id number] [facility] 2019-09-21 11:30:00 2019-09-21 11:34:00 Hospital Encounter Rey Dwyer [facility] 1.2.114 350.1.13.10 4.2.7.2.686 [id number] [facility] 2019-09-20 09:22:56 2019-09-20 10:11:25 Office Visit Rey Dwyer [facility] [place] 1.2840.114 350.1.13.10 4.2.7.2.686 [id number] [facility] 2019-09-20 09:45:00 2019-09-20 09:45:00 Outpatient R REY DWYER [facility] [id number] [facility] 2019-09-20 00:00:00 2019-09-20 00:00:00 Telephone Rey Dwyer [facility] [place] 1.2840.114 350.1.13.10 4.2.7.2.686 [id number] [facility] 2019-09-20 00:00:00 2019-09-20 00:00:00 Orders Only Doctor Unassigned, [address] [facility] 1.2840.114 350.1.13.10 4.2.7.2.686 [id number] [facility] 2019-09-14 11:53:00 2019-09-14 12:48:01 Office Visit Tai Velarde [facility] 1.2840.114 350.1.13.10 4.2.7.2.686 [id number] [facility] 2019-09-14 07:20:00 2019-09-14 07:20:00 Outpatient R TAI VELARDE [facility] [id number] [facility] 2019-09-14 00:00:00 2019-09-14 00:00:00 Orders Only Doctor Unassigned, [address] [facility] 1.2840.114 350.1.13.10 4.2.7.2.686 [id number] [facility] 2019-09-11 00:00:00 2019-09-11 00:00:00 Telephone Kath Centeno [facility] 1.2840.114 350.1.13.10 4.2.7.2.686 [id number] [facility] 2019-08-21 00:00:00 2019-08-21 00:00:00 Telephone CentenoKath ghosh [facility] 1.2840.114 350.1.13.10 4.2.7.2.686 [id number] [facility] 2019-08-10 00:00:00 2019-08-10 00:00:00 Orders Only Doctor Unassigned, [address] [facility] 1.2.840.114 350.1.13.10 4.2.7.2.686 [id number] [facility] 2019-07-26 00:00:00 2019-07-26 00:00:00 Telephone Kath Centeno [facility] nal Building 1.2.840.114 350.1.13.10 4.2.7.2.686 [id number] [facility] 2019-07-04 00:00:00 2019-07-04 00:00:00 Telephone Kath Centeno [facility] 1.2.840.114 350.1.13.10 4.2.7.2.686 [id number] [facility] 2019-07-04 00:00:00 2019-07-04 00:00:00 Telephone Kath Centeno [facility] 1.2.840.114 350.1.13.10 4.2.7.2.686 [id number] [facility] 2019-06-04 00:00:00 2019-06-04 00:00:00 Telephone Kath Centeno [facility] 1.2.840.114 350.1.13.10 4.2.7.2.686 [id number] [facility] 2019-05-30 00:00:00 2019-05-30 00:00:00 Orders Only Doctor Unassigned, [address] [facility] 1.2.840.114 350.1.13.10 4.2.7.2.686 [id number] [facility] 2019-01-11 00:00:00 2019-01-11 00:00:00 Telephone Kath Centeno [facility] 1.2.840.114 350.1.13.10 4.2.7.2.686 [id number] [facility] Results Test Description Test Time Test Comments Results Result Co mments Source [facility] [id number] 22:20:59* Test Item Value Reference Range Interpretation Comme nts Height (test code = 2668458724) 66 in Weight (test code = 2204229388) 221 lbs Systolic BP (test code = 2954872900) 135 mmHg Diastolic BP (test code = 4699478572) 49 mmHg Heart Rate (test code = 7011938224) 71 bpm BSA (test code = 9558168747) 2.09 m2 LVIDD (test code = 0025960378) 4.60 cm Left Ventricular End Diastolic Volume by Teichholz Method (test code = 7205910) 97.3 mL IVS (test code = 5361015770) 1.00 cm Interventricular Septum Diastolic Thickness by 2D (test code = 7548965) 1.00 cm LVPWD (test code = 0667109260) 1.18 cm PW (test code = 3808744516) 1.18 cm 0.6-1.1 EF(Teich) (test code = 6588493251) 63.30 % LVIDS (test code = 4376361621) 3.00 cm Left Ventricular End Systolic Volume by Teichholz Method (test code = 3905432) 35.7 mL FS (test code = 0422387713) 34 % EF - 2D (test code = 03803827) 63.30 % LVOT diameter (test code = 9347902875) 1.89 cm LVOT area (test code = 8549066159) 2.80 cm2 LAV(MOD-sp4) (test code = 4006605373) 71.40 mL LA Volume Index (BP) (test code = 2549570784) 36.6 mL/m2 LA volume (BP) (test code = 5841144708) 76.4 mL LAV(MOD-sp2) (test code = 0160801580) 77.20 mL Radiology Study observation (narrative) (test code = 50929-0) ADD (test code = ADD) Addendum by Dorcas Kam MD on 05/19/2024 4:21 PM [employer] ?Limited study for effusion assesssment. ?Left?Ventricle: Left ventricle size is normal. Mildly increased wall thickness. No regional wall motion abnormalities. Normal systolic function with a visually estimated EF of 60 - 65%. ?Pericardium: No pericardial effusion. Left VentricleLeft ventricle size is normal. Mildly increased wall thickness. No regional wall motion abnormalities. Normal systolic function with a visually estimated EF of 60 - 65%.Right VentricleRight ventricle is normal in size and function.Left AtriumLeft atrium is moderately dilated.Right AtriumRight atrium size is normal.IVC/SVCIVC diameter is less than or equal to 21 mm and decreases greater than 50% during inspiration; therefore the estimated right atrial pressure is normal (~0-5 mmHg).Mitral ValveMitral valve structure is normal.Tricuspid ValveTricuspid valve structure is grossly normal. Right ventricular systolic pressure is 15-20 mmHg.Aortic ValveBioprosthetic valve that is well-seated.Pulmonic ValveNot well visualized.Ascending AortaNormal sized aortic root.PericardiumNo pericardial effusion.Study DetailsA limited echocardiogram was performed using 2D. 2 mL of Definity ultrasound enhancing agent used. [facility] High [id number] 23:45:30* Test Item Value Reference Range Interpretation Comme nts ACTHR (test code = 6638975942) 370 96-152 H Lab Interpretation (test cod e = 25983-7) Abnormal [facility] [id number] 23:45:30* Test Item Value Reference Range Interpretation Comme nts ACTHR (test code = 2633601067) 370 96-152 H Lab Interpretation (test cod e = 98868-9) Abnormal [facility] ACT High [id number] 23:28:35* Test Item Value Reference Range Interpretation Comme nts ACTHR (test code = 6520785492) 389 96-152 H Lab Interpretation (test cod e = 75834-7) Abnormal [facility] [id number] 23:28:35* Test Item Value Reference Range Interpretation Comme nts ACTHR (test code = 2787757659) 389 96-152 H Lab Interpretation (test cod e = 57555-4) Abnormal [facility] [id number] 18:20:00* Test Item Value Reference Range Interpretation Comme nts ABO & RH (test code = 20) O POSITIVE IAT (test code = 1185) Negative [facility] [id number] 18:20:00* Test Item Value Reference Range Interpretation Comme nts ABO & RH (test code = 20) O POSITIVE IAT (test code = 1185) Negative [facility] echo (TTE)2024-04-03 18:47:45* Test Item Value Reference Range Interpretation Comme nts Height (test code = 5941960538) 66 in Weight (test code = 5024895247) 217 lbs Systolic BP (test code = 7629826180) 165 mmHg Diastolic BP (test code = 8864683924) 71 mmHg Heart Rate (test code = 0981672684) 82 bpm EF(Teich) (test code = 9865936675) 64.30 % LVIDD (test code = 2941635555) 4.30 cm LVIDS (test code = 7118603864) 2.80 cm Left Ventricular End Systolic Volume by Teichholz Method (test code = 6801811) 29.9 mL Left Ventricular End Diastolic Volume by Teichholz Method (test code = 8486676) 83.7 mL IVS (test code = 8658885190) 1.33 cm LVPWD (test code = 4039852725) 1.23 cm LVOT diameter (test code = 6519873239) 1.75 cm LVOT area (test code = 5563837690) 2.42 cm2 FS (test code = 9615370376) 35 % LV GLS Endo Peak A2C () (test code = 9589621177) -20.60 % LV GLS Endo Peak A3C () (test code = 8515942262) -26.00 % LV GLS Endo Peak A4C () (test code = 9074591361) -23.70 % LV GLS Endo Peak Avg () (test code = 7378898398) -23.40 % LA size (test code = 1282757895) 4.3 cm RVOT Proximal Diameter (test code = 1810981540) 3.50 cm Ao root diam (test code = 8048895158) 1.96 cm Aortic root (test code = 9916004186) 1.96 cm Ao root annulus (test code = 8431361454) 1.96 cm PW (test code = 8030518697) 1.23 cm 0.6-1.1 EF - 2D (test code = 29619787) 64.30 % Interventricular Septum Diastolic Thickness by 2D (test code = 0993623) 1.33 cm BSA (test code = 4416785006) 2.07 m2 E wave decelartion time (test code = 7648436516) 0.21 s MV Peak E Joanie (test code = 4571214376) 122.6 cm/s MV Peak A Joanie (test code = 5220249427) 68.0 cm/s E/A ratio (test code = 7271313506) 1.80 ratio MR max PG (test code = 6099712983) 126.70 mm[Hg] MR max joanie (test code = 8178263860) 562.90 cm/s Mr max joanie (test code = 4302579644) 562.9 m/s MV Prop V (test code = 6121381914) 75.00 cm/s TR Peak Joanie (test code = 3041437229) 225.9 cm/s Triscuspid Valve Regurgitation Peak Gradient (test code = 5343915456) 20.4 mmHg LVOT stroke volume (test code = 2001987668) 69.30 cm3 LVOT peak joanie (test code = 6815579150) 107.3 cm/s LVOT mn grad (test code = 9651090085) 2.4 mmHg AV LVOT peak gradient (test code = 3828015920) 4.6 mmHg LVOT peak VTI (test code = 3662001489) 28.7 cm LV V1 mean (test code = 7199630140) 72.70 cm/s Aortic valve mean velocity (test code = 9429242095) 143.0 cm/s Ao peak joanie (test code = 7543129653) 243.8 cm/s Ao VTI (test code = 7459998094) 61.9 cm AV area by cont VTI (test code = 6135426395) 1.1 cm2 AV area peak joanie (test code = 4910424381) 1.1 cm2 Ao max PG (test code = 9732402350) 23.80 mm[Hg] AV peak gradient (test code = 3098840898) 23.8 mmHg AV valve area (test code = 4947013405) 1.12 cm2 AV mean gradient (test code = 3911582827) 9.8 mmHg GLS (test code = 8736328898) -23 % Radiology Study observation (narrative) (test code = 45077-3) YEIMI (test code = YEIMI) ?Left?Ventricle: Left ventricle size is normal. Mildly increased wall thickness. No regional wall motion abnormalities. Normal systolic function with a visually estimated EF of 55 - 60%. Global longitudinal strain is normal with a value of -23%. Diastolic dysfunction. ?Aortic?Valve: Bioprosthetic valve that is well-seated appears normal. Trace transvalvular regurgitation. No paravalvular regurgitation. Gradient is normal for this prosthetic aortic valve. AV mean gradient is 9.8 mmHg. AV peak velocity is 243.8 cm/s. DVI: 0.46 (Normal >0.25). ?Left?Atrium: Left atrium is severely dilated. ?Mitral?Valve: Mild transvalvular regurgitation. ?Tricuspid?Valve: Trace transvalvular regurgitation. Right ventricular systolic pressure is 15-20 mmHg. ?RA pressure is 0-5 mmHg. ?Pericardium: Trivial pericardial effusion present. Left VentricleLeft ventricle size is normal. Mildly increased wall thickness. No regional wall motion abnormalities. Normal systolic function with a visually estimated EF of 55 - 60%. Global longitudinal strain is normal with a value of -23%. Diastolic dysfunction.Right VentricleRight ventricle is normal in size and function.Left AtriumLeft atrium is severely dilated.Right AtriumRight atrium size is normal.Mitral ValveMitral valve structure is normal. Mild transvalvular regurgitation. No stenosis.Tricuspid ValveTricuspid valve structure is grossly normal. Trace transvalvular regurgitation. Right ventricular systolic pressure is 15-20 mmHg. RA pressure is 0-5 mmHg.Aortic ValveBioprosthetic valve that is well-seated appears normal. Trace transvalvular regurgitation. No paravalvular regurgitation. Gradient is normal for this prosthetic aortic valve. AV mean gradient is 9.8 mmHg. AV peak velocity is 243.8 cm/s. DVI: 0.46 (Normal >0.25).Pulmonic ValveNot well visualized. Trace transvalvular regurgitation.Ascending AortaNormal sized ascending aorta and aortic root.PericardiumTrivial pericardial effusion present.Study DetailsStudy quality was adequate. A complete echocardiogram was performed using 2D, color flow Doppler, spectral Doppler and strain. The apical, parasternal, subcostal and suprasternal views were obtained. [facility] HospitalThyroid Stimulating [id number] 21:54:20 * Test Item Value Reference Range Interpretation Comme [facility] TSH (test code = 3976893664) 1.13 0.45-4.70 Biotin has been reported to cause a negative bias, interpret results relative to patient's use of biotin. Lab Interpretation (test code = 75921-1) Normal [facility] HospitalXR CHEST 1 [id number] 18:17:29HISTORY: Dyspnea. TECHNIQUE: Portable AP view of the chest is obtained. Comparison made with09/21/2019 study. FINDINGS: Minimal linear increased markings in both lower lungs noted whichcould be discoid atelectatic changes and congestion secondary to viralinfection. No acute pneumonia. No pneumothorax or pleural effusiondetected. Mild cardiomegaly noted. 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 CONCLUSIONS: 1. Bibasilar congestion and atelectatic changes. Etiology could be viralinfection.2.Mild cardiomegaly. No pulmonary edema.[facility] HospitalTROPONIN [id number] 17:55:55 * Test Item Value Reference Range Interpretation Comme [facility] TROPONIN I (test code = 8670253558) 0.015 ng/mL <=0.034 YEIMI (test code = YEIMI) Reference (Normal) Range (defined by the 99th percentile reference limit): <= 0.034 ng/mL Note: Cardiac troponin begins to rise 3-4 hours after the onset of ischemia. Repeat in 4-6 hours if the sample was drawn within 3-4 hours of the onset of the symptom and found normal. Diagnosis of myocardial injury is made with acute changes in cTn concentrations with at least one serial sample above the 99th percentile upper reference limit (URL), taken together with the patient's clinical presentation. Biotin has been reported to cause a negative bias, interpret results relative to patient's use of biotin. Lab Interpretation (test code = 28002-2) Normal [facility] HospitalN-TERMINAL [id number] 17:53:33* Test Item Value Reference Range Interpretation Comme nts NT-proBNP (test code = 41651-5) 793 pg/mL <=125 YEIMI (test code = YEIMI) Result Indeterminate-Consid er causes of NT-proBNP elevation other than Heart failure such as acute coronary syndrome, pulmonary embolism, pulmonary hypertension, sepsis, stroke, and renal dysfunction. Lab Interpretation (test code = 18521-8) Abnormal [facility]. METABOLIC PANEL (53590)2024-03-01 17:44:33* Test Item Value Reference Range Interpretation Comme nts NA (test code = 1457388619) 138 mmol/L 135-145 K (test code = 3114505664) 3.3 mmol/L 3.5-5.0 L CL (test code = 0861939889) 101 mmol/L 98-108 CO2 TOTAL (test code = 2264496646) 28 mmol/L 23-31 AGAP (test code = 4654410683) 9 2-16 BUN (test code = 3022514188) 28 mg/dL 7-23 H GLUCOSE (test code = 3273064647) 108 mg/dL 70-110 CREATININE (test code = 2160-0) 0.96 mg/dL 0.50-1.04 TOTAL BILI (test code = 3584727176) 1.4 mg/dL 0.1-1.1 H CALCIUM (test code = 1356667804) 9.4 mg/dL 8.6-10.6 T PROTEIN (test code = 2538806591) 7.4 g/dL 6.3-8.2 ALBUMIN (test code = 4364528916) 4.2 g/dL 3.5-5.0 ALK PHOS (test code = 5550937616) 118 U/L 34-122 ALTv (test code = 1742-6) 56 U/L 5-35 H AST(SGOT) (test code = 7753230821) 39 U/L 13-40 eGFR (test code = 80164-8) 61.4 mL/min/1.73m2 CKD-EPI eGFR (2020). Assuming creatinine has been stable day-to-day for at least three months, the eGFR indicates Category G2 (60 - 89 mL/min/1.73 m2) Lab Interpretation (test code = 12645-6) Abnormal [facility] WITH [id number] 17:38:08* Test Item Value Reference Range Interpretation Comme nts WBC (test code = 6690-2) 11.39 4.30-11.10 H RBC (test code = 789-8) 4.10 3.93-5.25 HGB (test code = 718-7) 12.8 g/dL 11.6-15.0 HCT (test code = 4544-3) 38.7 % 35.7-45.2 MCV (test code = 787-2) 94.4 fL 80.6-95.5 MCH (test code = 785-6) 31.2 pg 25.9-32.8 MCHC (test code = 786-4) 33.1 g/dL 31.6-35.1 RDW-SD (test code = 62891-1) 49.5 fL 39.0-49.9 RDW-CV (test code = 788-0) 14.4 % 12.0-15.5 PLT (test code = 777-3) 251 166-358 MPV (test code = 98853-8) 10.3 fL 9.5-12.9 NRBC/100 WBC (test code = 4175625772) 0.0 0.0-10.0 NRBC x10^3 (test code = 8824054869) See_Comment [Automated messa ge] The system which generated this result transmitted reference range: 10*3/?L. The reference range was not used to interpret this result as normal/abnormal. GRAN MAT (NEUT) % (test code = 770-8) 76.2 % IMM GRAN % (test code = 3513520489) 0.40 % LYMPH % (test code = 736-9) 14.7 % MONO % (test code = 5905-5) 7.6 % EOS % (test code = 713-8) 0.7 % BASO % (test code = 706-2) 0.4 % GRAN MAT x10^3(ANC) (test code = 4344699942) 8.69 10*3/uL 1.88-7.09 H IMM GRAN x10^3 (test code = 5893755932) 0.04 10*3/uL 0.00-0.06 LYMPH x10^3 (test code = 731-0) 1.68 10*3/uL 1.32-3.29 MONO x10^3 (test code = 742-7) 0.86 10*3/uL 0.33-0.92 EOS x10^3 (test code = 711-2) 0.08 10*3/uL 0.03-0.39 BASO x10^3 (test code = 704-7) 0.04 10*3/uL 0.01-0.07 Lab Interpretation (test code = 46035-1) Abnormal [facility] HospitalCritical [id number] 16:33:00Sebastian Mae MD ? ? 03/01/2024 ?3:43 PMCritical Care Performed by: Sebastian Mae, MDAuthorized by: Sebastian Mae MD ?Critical care provider statement: ?Critical care time (minutes): ?35 ?Critical care time was exclusive of: ?Separately billable procedures and treating other patients ?Critical care was necessary to treat or prevent imminent or life-threatening deterioration of the following conditions: ?Cardiac failure, circulatory failure and shock ?Critical care was time spent personally by me on the following activities: ?Development of treatment plan with patient or surrogate, discussions with consultants, evaluation of patient's response to treatment, examination of patient, obtaining history from patient or surrogate, ordering and performing treatments and interventions, ordering and review of laboratory studies, ordering and review of radiographic studies, pulse oximetry, re-evaluation of patient's condition and review of old charts ?I assumed direction of critical care for this patient from another provider in my specialty: no ? ?Care discussed with: admitting provider ?[facility] HospitalDME/SUPPLY [id number] 20:59:53 Ordered by an unspecified provider.[facility] HospitalPOCT MOLECULAR [id number] 20:25:18* Test Item Value Reference Range Interpretation Comme nts POCT Molecular Strep (test c ode = 81839-9) Negative Negative Lab Interpretation (test cod e = 90711-2) Normal [facility]INDIVIDUAL CARDI[facility] TREATMENT [id number] 21:18:32Ordered by an unspecified provider.[facility] INDIVIDUAL CARDIAC TREATMENT [id number] 13:12:38Ordered by an unspecified provider.[facility] HospitalCARDIAC REHAB SESSION REPORT 2023-11-01 13:36:18Ordered by an unspecified provider.[facility]INDIV[facility]UAL CARD[facility]AC TREATMENT [id number] 12:25:10Ordered by an unspecified provider.[facility] HospitalCARDIAC REHAB SESSION [id number] 16:25:49Ordered by an unspecified provider.[facility] HospitalCARDIAC REHAB SESSION [id number] 16:13:11Ordered by an unspecified provider.[facility] HospitalCARDIAC REHAB SESSION [id number] 02:27:05Ordered by an unspecified provider.[facility] HospitalINDIVIDUAL CARDIAC TREATMENT [id number] 13:42:35Ordered by an unspecified provider.[facility] HospitalCARDIAC REHAB SESSION [id number] 00:26:27Ordered by an unspecified provider.[facility] HospitalCARDIAC REHAB SESSION [id number] 00:42:23Ordered by an unspecified provider.[facility] [place]ARD[facility] REH[facility] [id number] 00:42:05Ordered by an unspecified provider.[facility] [id number] 21:22:02Ordered by an unspecified provider.[facility] [place] [id number] 00:48:37Ordered by an unspecified provider.[facility] [id number] 22:24:38Ordered by an unspecified provider.[facility] [id number] 03:16:52Ordered by an unspecified provider.[facility] HospitalTransthoracic echo (TTE)2023-09-09 01:27:11* Test Item Value Reference Range Interpretation Comme nts Height (test code = 3262287596) 66 in Weight (test code = 1982823739) 208 lbs Systolic BP (test code = 2309693399) 154 mmHg Diastolic BP (test code = 1642884359) 73 mmHg Heart Rate (test code = 3390139508) 64 bpm LV GLS Endo Peak A2C () (test code = 3057783398) -21.70 % LV GLS Endo Peak A3C () (test code = 5123046851) -22.00 % LV GLS Endo Peak A4C () (test code = 7517985478) -19.60 % LV GLS Endo Peak Avg () (test code = 2803257363) -21.10 % RVOT diameter (test code = 6832006656) 2.11 cm RVOT Proximal Diameter (test code = 5890654274) 2.14 cm MR max PG (test code = 3940407772) 54.30 mm[Hg] MR max joanie (test code = 4650207420) 350.20 cm/s Mr max joanie (test code = 0314487491) 350.2 m/s BSA (test code = 9669983099) 2.04 m2 LVOT diameter (test code = 3336694595) 2.01 cm LVOT area (test code = 2598166655) 3.20 cm2 Ao root diam (test code = 8753140789) 3.10 cm Aortic root (test code = 3143003208) 3.1 cm Ao root annulus (test code = 7479670944) 3.1 cm LA size (test code = 8237753412) 4.4 cm LVIDD (test code = 6805297906) 3.50 cm Left Ventricular End Diastolic Volume by Teichholz Method (test code = 4675222) 50.1 mL IVS (test code = 0019040206) 1.55 cm Interventricular Septum Diastolic Thickness by 2D (test code = 7741050) 1.55 cm LVPWD (test code = 2333279212) 1.56 cm PW (test code = 0310909074) 1.56 cm 0.6-1.1 EF(Teich) (test code = 8268894523) 57.50 % LVIDS (test code = 0935288958) 2.45 cm Left Ventricular End Systolic Volume by Teichholz Method (test code = 0457861) 21.3 mL FS (test code = 3159359454) 29 % EF - 2D (test code = 85194967) 57.50 % TR Peak Joanie (test code = 4935339135) 223.0 cm/s Triscuspid Valve Regurgitation Peak Gradient (test code = 4771987041) 19.9 mmHg PV PEAK VELOCITY (test code = 8237014055) 89.6 cm/s PV peak gradient (test code = 7516903183) 3.2 mmHg A4C EF (test code = 1528046672) 55.70 % EF(sp4-el) (test code = 3113942345) 58.00 % SV(MOD-sp4) (test code = 7661605289) 44.50 mL SV(sp4-el) (test code = 4812648516) 47.10 mL MV E-F slope (test code = 2433606548) 64.20 cm/s MV Peak E Joanie (test code = 7080107095) 79.7 cm/s MV valve area p 1/2 method (test code = 9718009920) 3.20 cm2 MV dec slope (test code = 0447963413) 333.20 cm/s2 MV P1/2t max joanie (test code = 4475335110) 78.60 cm/s MV Peak A Joanie (test code = 7976583628) 84.9 cm/s E/A ratio (test code = 8075220557) 0.94 ratio LVOT stroke volume (test code = 5585549079) 82.50 cm3 LVOT peak joanie (test code = 6192265833) 111.1 cm/s LVOT mn grad (test code = 4582559426) 2.3 mmHg AV LVOT peak gradient (test code = 1597572995) 4.9 mmHg LVOT peak VTI (test code = 8185761332) 25.9 cm LV V1 mean (test code = 8571297073) 70.60 cm/s Aortic valve mean velocity (test code = 7183281381) 118.6 cm/s Ao peak joanie (test code = 0777282080) 216.6 cm/s Ao VTI (test code = 9259461362) 46.3 cm AV area by cont VTI (test code = 3661118285) 1.8 cm2 AV area peak joanie (test code = 3917908385) 1.6 cm2 Ao max PG (test code = 9189533311) 18.80 mm[Hg] AV peak gradient (test code = 3105905153) 18.8 mmHg AV valve area (test code = 3665987722) 1.78 cm2 AV mean gradient (test code = 6061916258) 7.0 mmHg LAV(MOD-sp4) (test code = 6055273845) 69.30 mL LA Volume Index (BP) (test code = 3747193597) 36.3 mL/m2 LA volume (BP) (test code = 6706057403) 74.1 mL LAV(MOD-sp2) (test code = 5064820071) 79.10 mL AV regurgitation pressure 1/2 time (test code = 1712482275) 485.8 ms AI dec slope (test code = 1295185722) 219.00 cm/s2 AI max joanie (test code = 5513365243) 363.30 cm/s AI max PG (test code = 1527741687) 52.80 mm[Hg] RVOT area (test code = 2488899787) 3.49 cm2 GLS (test code = 3342413110) -21 % Radiology Study observation (narrative) (test code = 79506-0) YEIMI (test code = YEIMI) ?Left?Ventricle: Left ventricle size is normal. Mildly increased wall thickness. No regional wall motion abnormalities. Normal systolic function with a visually estimated EF of 55 - 60%. Global longitudinal strain is normal with a value of -21 %. Diastolic dysfunction. ?Aortic?Valve: Bioprosthetic valve that is well-seated appears normal. Trace transvalvular regurgitation. No paravalvular regurgitation. Gradient is normal for this prosthetic aortic valve. AV mean gradient is 7 mmHg. AV peak velocity is 216 cm/s. DVI is 0.55 (Normal >0.25). Left VentricleLeft ventricle size is normal. Mildly increased wall thickness. No regional wall motion abnormalities. Normal systolic function with a visually estimated EF of 55 - 60%. Global longitudinal strain is normal with a value of -21 %. Diastolic dysfunction.Right VentricleRight ventricle is normal in size and function.Left AtriumLeft atrium is severely dilated.Right AtriumRight atrium size is normal.Mitral ValveMitral valve structure is normal. Trace transvalvular regurgitation. No stenosis.Tricuspid ValveTricuspid valve structure is grossly normal. Trace transvalvular regurgitation. Right ventricular systolic pressure is 15-20 mmHg. RA pressure is 0-5 mmHg.Aortic ValveBioprosthetic valve that is well-seated appears normal. Trace transvalvular regurgitation. No paravalvular regurgitation. Gradient is normal for this prosthetic aortic valve. AV mean gradient is 7 mmHg. AV peak velocity is 216 cm/s. DVI is 0.55 (Normal >0.25).Pulmonic ValveNot well visualized. Trace transvalvular regurgitation.Ascending AortaNormal sized aortic root.PericardiumNo pericardial effusion.Study DetailsStudy quality was adequate. A complete echocardiogram was performed using 2D, color flow Doppler, spectral Doppler and strain. [facility] [id number] 22:25:23Ordered by an unspecified provider.[facility] CARDIAC REHAB SESSION [id number] 17:42:21Ordered by an unspecified provider.[facility] HospitalPHYSICIAN [id number] 18:58:15 Ordered by an unspecified provider.[facility]IND[facility] C[facility]REATMENT [id number] 17:50:17Ordered by an unspecified provider. [facility] [id number] 13:27:30Ordered by an unspecified provider.[facility] Transthoracic echo (TTE)2023-07-29 15:31:50* Test Item Value Reference Range Interpretation Comme nts Height (test code = 0178905207) 66 in Weight (test code = 2314132055) 214 lbs Systolic BP (test code = 4113147501) 127 mmHg Diastolic BP (test code = 2699087814) 57 mmHg Heart Rate (test code = 0121543132) 63 bpm BSA (test code = 9212806986) 2.06 m2 LVOT peak joanie (test code = 3998321376) 101.7 cm/s LVOT mn grad (test code = 3778741083) 2.3 mmHg AV LVOT peak gradient (test code = 8819614721) 4.1 mmHg LVOT peak VTI (test code = 5504279221) 21.2 cm LV V1 mean (test code = 9086118689) 70.80 cm/s Aortic valve mean velocity (test code = 1537538107) 121.5 cm/s Ao peak joanie (test code = 1791679688) 201.9 cm/s Ao VTI (test code = 1160396561) 37.6 cm Ao max PG (test code = 3401702695) 16.30 mm[Hg] AV peak gradient (test code = 5204193822) 16.3 mmHg AV mean gradient (test code = 6788027366) 6.9 mmHg LVPWD (test code = 0551522807) 1.29 cm PW (test code = 0327706843) 1.29 cm 0.6-1.1 EF(Teich) (test code = 2516782688) 65.90 % LVIDD (test code = 8855746534) 4.10 cm Left Ventricular End Diastolic Volume by Teichholz Method (test code = 5992893) 72.2 mL FS (test code = 5598462679) 36 % EF - 2D (test code = 34565688) 65.90 % LVIDS (test code = 7298588615) 2.60 cm Left Ventricular End Systolic Volume by Teichholz Method (test code = 5493451) 24.6 mL MV Peak A Joanie (test code = 3108721825) 45.4 cm/s MV Peak E Joanie (test code = 8569231879) 94.6 cm/s E/A ratio (test code = 4744042646) 2.08 ratio E wave decelartion time (test code = 0341311768) 0.24 s LAV(MOD-sp4) (test code = 9802502915) 104.70 mL LA Volume Index (BP) (test code = 4356301464) 49.8 mL/m2 LA volume (BP) (test code = 5061602652) 102.5 mL LAV(MOD-sp2) (test code = 3407607201) 104.30 mL Radiology Study observation (narrative) (test code = 42744-8) YEIMI (test code = YEIMI) ?Limited echocardiogram post-ESPINOZA. ?Left?Ventricle: Left ventricle size is normal. Increased wall thickness. Normal wall motion. Hyperdynamic systolic function with a visually estimated EF of greater than 65%. ?Aortic?Valve: Bioprosthetic valve. No paravalvular regurgitation. Gradient is normal for this prosthetic aortic valve. AV mean gradient is 6.9 mmHg. AV peak velocity is 201.9 cm/s. DVI is 0.58 (Normal >0.25). ?IVC/SVC: IVC diameter is less than or equal to 21 mm and decreases greater than 50% during inspiration; therefore the estimated right atrial pressure is normal (~0-5 mmHg). ?IVC normal in size. ?Pericardium: Small localized pericardial effusion present around the left ventricle. No indication of cardiac tamponade. Kwame Fermin MD Left VentricleLeft ventricle size is normal. Increased wall thickness. Normal wall motion. Hyperdynamic systolic function with a visually estimated EF of greater than 65%. Unable to assess diastolic function.Right VentricleNot assessed.Left AtriumLeft atrium is severely dilated. Left atrium volume index is 49.8 mL/m2.Right AtriumNot assessed.IVC/SVCIVC diameter is less than or equal to 21 mm and decreases greater than 50% during inspiration; therefore the estimated right atrial pressure is normal (~0-5 mmHg). IVC normal in size.Mitral ValveNot assessed.Tricuspid ValveNot assessed.Aortic ValveBioprosthetic valve. No paravalvular regurgitation. Gradient is normal for this prosthetic aortic valve. AV mean gradient is 6.9 mmHg. AV peak velocity is 201.9 cm/s. DVI is 0.58 (Normal >0.25).Pulmonic ValveNot well visualized.Ascending AortaNot well visualized.PericardiumSmal l localized pericardial effusion present around the left ventricle. No indication of cardiac tamponade.Study DetailsA limited echocardiogram was performed using 2D, color flow Doppler and spectral Doppler. 5 mL of Lumason ultrasound enhancing agent used. [facility] (NA, K, CL, CO2, GLUCOSE, BUN, CREATININE, CA)2023-07-29 09:33:48* Test Item Value Reference Range Interpretation Comme nts NA (test code = 5352182181) 138 mmol/L 135-145 K (test code = 9998914906) 3.2 mmol/L 3.5-5.0 L CL (test code = 9936830548) 107 mmol/L 98-108 CO2 TOTAL (test code = 6038715809) 26 mmol/L 23-31 AGAP (test code = 3118561226) 5 2-16 BUN (test code = 6308960932) 20 mg/dL 7-23 GLUCOSE (test code = 1274907567) 120 mg/dL 70-110 H CREATININE (test code = 2160-0) 0.69 mg/dL 0.50-1.04 CALCIUM (test code = 8960867409) 8.5 mg/dL 8.6-10.6 L eGFR (test code = 26541-7) 90.6 mL/min/1.73m2 CKD-EPI eGFR (2020). Assuming creatinine has been stable day-to-day for at least three months, the eGFR indicates Category G1 (>= 90 mL/min/1.73 m2) Lab Interpretation (test code = 60745-6) Abnormal [facility] Hospital[facility]esium2024-03-22 09:33:48* Test Item Value Reference Range Interpretation Comme nts MAGNESIUM (test code = 0861542464) 1.6 mg/dL 1.7-2.4 L Lab Interpretation (test cod e = 59081-6) Abnormal [facility] with [id number] 09:08:46* Test Item Value Reference Range Interpretation Comme nts WBC (test code = 6690-2) 14.20 4.30-11.10 H RBC (test code = 789-8) 3.93 3.93-5.25 HGB (test code = 718-7) 11.9 g/dL 11.6-15.0 HCT (test code = 4544-3) 35.5 % 35.7-45.2 L MCV (test code = 787-2) 90.3 fL 80.6-95.5 MCH (test code = 785-6) 30.3 pg 25.9-32.8 MCHC (test code = 786-4) 33.5 g/dL 31.6-35.1 RDW-SD (test code = 21743-7) 46.0 fL 39.0-49.9 RDW-CV (test code = 788-0) 13.9 % 12.0-15.5 PLT (test code = 777-3) 188 166-358 MPV (test code = 25692-4) 10.1 fL 9.5-12.9 NRBC/100 WBC (test code = 9622504140) 0.0 0.0-10.0 NRBC x10^3 (test code = 4978203218) See_Comment [Automated message] The system which generated this result transmitted reference range: 10*3/?L. The reference range was not used to interpret this result as normal/abnormal. GRAN MAT (NEUT) % (test code = 770-8) 85.3 % IMM GRAN % (test code = 0196406556) 0.50 % LYMPH % (test code = 736-9) 5.8 % MONO % (test code = 5905-5) 8.0 % EOS % (test code = 713-8) 0.1 % BASO % (test code = 706-2) 0.3 % GRAN MAT x10^3(ANC) (test code = 5463941983) 12.12 10*3/uL 1.88-7.09 H IMM GRAN x10^3 (test code = 7675319773) 0.07 10*3/uL 0.00-0.06 H LYMPH x10^3 (test code = 731-0) 0.83 10*3/uL 1.32-3.29 L MONO x10^3 (test code = 742-7) 1.13 10*3/uL 0.33-0.92 H EOS x10^3 (test code = 711-2) 0.03-0.39 L BASO x10^3 (test code = 704-7) 0.04 10*3/uL 0.01-0.07 Lab Interpretation (test code = 60276-2) Abnormal [facility] ([facility]E)2023-07-29 02:17:31* Test Item Value Reference Range Interpretation Comme nts Height (test code = 0854926658) 66 in Weight (test code = 9785739731) 214 lbs Systolic BP (test code = 2317258994) 147 mmHg Diastolic BP (test code = 2617214797) 49 mmHg Heart Rate (test code = 5436992615) 54 bpm LVOT stroke volume (test code = 8699181419) 102.80 cm3 LVOT diameter (test code = 8660265447) 2.00 cm LVOT area (test code = 2325744731) 3.10 cm2 LVOT peak joanie (test code = 7769928086) 95.7 cm/s LVOT mn grad (test code = 1876741553) 2.0 mmHg BSA (test code = 5226858283) 2.06 m2 Aortic valve mean velocity (test code = 9103794196) 141.4 cm/s Ao peak joanie (test code = 9738882059) 214.9 cm/s Ao VTI (test code = 7067706459) 64.5 cm AV LVOT peak gradient (test code = 8861223826) 3.7 mmHg LVOT peak VTI (test code = 6812759293) 32.7 cm Valve area - Index (test code = 3002140137) 0.8 cm2/m2 AV area by cont VTI (test code = 6398630467) 1.6 cm2 AV area peak joanie (test code = 3991885443) 1.4 cm2 AV Doppler joanie index VTI (test code = 5039083333) 0.49 ratio LV V1 mean (test code = 9358702254) 67.00 cm/s Ao max PG (test code = 1673164378) 20.80 mm[Hg] AV peak gradient (test code = 3860287595) 20.8 mmHg AV valve area (test code = 0656537410) 1.59 cm2 AV mean gradient (test code = 2617513036) 10.6 mmHg LAV(MOD-sp4) (test code = 6324000322) 77.80 mL LA Volume Index (BP) (test code = 4540409325) 43.1 mL/m2 LA volume (BP) (test code = 2355765109) 88.7 mL LAV(MOD-sp2) (test code = 0470770345) 90.40 mL Radiology Study observation (narrative) (test code = 42896-6) YEIMI (test code = YEIMI) ?Left?Ventricle: Left ventricle size is normal. Moderately increased wall thickness. There is moderate concentric hypertrophy. Normal wall motion. Normal systolic function with a visually estimated EF of 55 - 60%. There is grade 1 diastolic dysfunction. ?Right?Ventricle: Right ventricle size is normal. Normal systolic function. ?Aortic?Valve: Pre TAVR:ARI 0.91 cm2, V max: 320 cm/s. mean AV gradient 20 mmHg DVI: 0.34. Mild AI ?Post TAVR: Bioprosthetic valve that is well-seated appears normal. trace transvalvular regurgitation. No hemodynamically significant and no paravalvular leak, Dimensionless valve index 0.7. AV mean gradient is 8.2 mmHg. AV peak velocity is 189.3 cm/s. ?Pericardium: Moderate to large circumferential pericardial effusion present [(Measuring 1.8 cm , with the deepest pocket at the LV apex (2.5 cm)]. Pericardial effusion is echolucent. No indication of cardiac tamponade, no chamber collapse. Clincial and imaging follow up after drainge of effusion is recommended. Valdez Murphy MD, FESCCardiology FellowDivision of Cardiovascular MedicineSan Juan Regional Medical Center VentricleLeft ventricle size is normal. Moderately increased wall thickness. There is moderate concentric hypertrophy. Normal wall motion. Normal systolic function with a visually estimated EF of 55 - 60%. There is grade 1 diastolic dysfunction.Right VentricleRight ventricle size is normal. Normal systolic function.Left AtriumLeft atrium is moderately dilated. Left atrium volume index is 43.1 mL/m2.Right AtriumRight atrium size is normal.IVC/SVCIVC was not assessed.Mitral ValveMitral valve structure is normal. Moderate posterior mitral annular calcification. Trace transvalvular regurgitation. No stenosis.Tricuspid ValveTricuspid valve structure is normal. Trace transvalvular regurgitation. Insufficient tricuspid regurgitation jet to estimate RVSP . No stenosis.Aortic ValvePre TAVR:RAI 0.91 cm2, V max: 320 cm/s. mean AV gradient 20 mmHg DVI: 0.34.Mild AI Post TAVR: Bioprosthetic valve that is well-seated appears normal. trace transvalvular regurgitation. No hemodynamically significant and no paravalvular leak, Dimensionless valve index 0.7. AV mean gradient is 8.2 mmHg. AV peak velocity is 189.3 cm/s.Pulmonic ValveNot well visualized.Ascending AortaNormal sized annulus.PericardiumModer ate to large circumferential pericardial effusion present [(Measuring 1.8 cm , with the deepest pocket at the LV apex (2.5 cm)]. Pericardial effusion is echolucent. No indication of cardiac tamponade, no chamber collapse.Clincial and imaging follow up after drainge of effusion is recommended.Study DetailsStudy quality was adequate. A limited echocardiogram was performed using 2D, color flow Doppler and spectral Doppler. The apical, parasternal and subcostal views were obtained.Wall Scoring BaselineScore Index: 1.00The left ventricular wall motion is normal. [facility]Tr[facility]acic echo (TTE)2023-07-28 23:05:06* Test Item Value Reference Range Interpretation Comme nts Height (test code = 2286798675) 66 in Weight (test code = 7331290134) 214 lbs Systolic BP (test code = 2398494789) 1125 mmHg Diastolic BP (test code = 0410958921) 60 mmHg Heart Rate (test code = 6456111587) 56 bpm BSA (test code = 2608039044) 2.06 m2 LVIDD (test code = 8966222192) 4.30 cm Left Ventricular End Diastolic Volume by Teichholz Method (test code = 2141376) 81.3 mL IVS (test code = 6202786833) 0.85 cm Interventricular Septum Diastolic Thickness by 2D (test code = 1629618) 0.85 cm LVPWD (test code = 8499441946) 0.75 cm PW (test code = 3184741712) 0.75 cm 0.6-1.1 EF(Teich) (test code = 7243756181) 67.30 % LVIDS (test code = 1838696938) 2.70 cm Left Ventricular End Systolic Volume by Teichholz Method (test code = 8391647) 26.6 mL FS (test code = 3387038193) 37 % EF - 2D (test code = 86050932) 67.30 % A4C EF (test code = 0865792061) 79.50 % EF(sp4-el) (test code = 3070009082) 74.40 % SV(MOD-sp4) (test code = 3093083478) 68.90 mL SV(sp4-el) (test code = 4140985372) 62.10 mL LV Diastolic Volume (BP) (test code = 3208037162) 96.0 mL A2C EF (test code = 4880235232) 79.10 % EF(MOD-bp) (test code = 2099548962) 79.30 % EF(sp2-el) (test code = 4180673206) 78.00 % LV Systolic Volume (BP) (test code = 4048286991) 19.9 mL SV(MOD-bp) (test code = 9276283207) 76.10 mL SV(MOD-sp2) (test code = 2592073197) 82.30 mL EF (test code = 8806382376) 79 Left Ventricular Stroke Volume by 2-D Biplane-MOD (test code = 4264679) 76.1 mL LV Diastolic Volume Index (BP) (test code = 8187862369) 46.6 mL/m2 LV Systolic Volume Index (BP) (test code = 0007483883) 9.7 mL/m2 Radiology Study observation (narrative) (test code = 64219-5) YEIMI (test code = YEIMI) ?Limited echo to assess for effusion. ?Pericardium: Small pericardial effusion present. No RV free wall collpased But IVC is dilated , clinical correlation is recommneded. ?Left?Ventricle: Left ventricle size is normal. Increased wall thickness. There is mild concentric hypertrophy. Normal wall motion. Hyperdynamic systolic function with a visually estimated EF of greater than 65%. Diastolic dysfunction. ?Right?Ventricle: Right ventricle size is normal. Normal systolic function. ?IVC/SVC: IVC diameter is greater than 21 mm and decreases less than 50% during inspiration; therefore the estimated right atrial pressure is elevated (~15 mmHg). Valdez Murphy MD, FESCCardiology FellowDivision of Cardiovascular MedicineSan Juan Regional Medical Center VentricleLeft ventricle size is normal. Increased wall thickness. There is mild concentric hypertrophy. Normal wall motion. Hyperdynamic systolic function with a visually estimated EF of greater than 65%. Diastolic dysfunction.Right VentricleRight ventricle size is normal. Normal systolic function.Left AtriumLeft atrium is dilated.Right AtriumRight atrium size is normal.IVC/SVCIVC diameter is greater than 21 mm and decreases less than 50% during inspiration; therefore the estimated right atrial pressure is elevated (~15 mmHg).Mitral ValveNot assessed.Tricuspid ValveNot assessed.Aortic ValveS/p TAVRPulmonic ValveNot well visualized.Ascending AortaNot well visualized.Pericardiu mSmall pericardial effusion present. No RV free wall collpased But IVC is dilated , clinical correlation is recommneded.Study DetailsStudy quality was adequate. A limited echocardiogram was performed using 2D. The apical, parasternal and subcostal views were obtained. 5 mL of Lumason ultrasound enhancing agent used. [facility] HospitalMagnesium2024-03-21 20:51:20* Test Item Value Reference Range Interpretation Comme nts MAGNESIUM (test code = 1759322377) 1.8 mg/dL 1.7-2.4 Lab Interpretation (test cod e = 36899-3) Normal [facility] Metabolic Panel (NA, K, CL, CO2, GLUCOSE, BUN, CREATININE, CA)2023-07-28 20:51:19* Test Item Value Reference Range Interpretation Comme nts NA (test code = 0764186350) 137 mmol/L 135-145 K (test code = 5057340138) 3.8 mmol/L 3.5-5.0 CL (test code = 4365593010) 110 mmol/L 98-108 H CO2 TOTAL (test code = 5956712438) 22 mmol/L 23-31 L AGAP (test code = 8155514903) 5 2-16 BUN (test code = 4220491049) 27 mg/dL 7-23 H GLUCOSE (test code = 0088129129) 119 mg/dL 70-110 H CREATININE (test code = 2160-0) 0.78 mg/dL 0.50-1.04 CALCIUM (test code = 4948629330) 9.0 mg/dL 8.6-10.6 eGFR (test code = 32672-6) 79.3 mL/min/1.73m2 CKD-EPI eGFR (2020). Assuming creatinine has been stable day-to-day for at least three months, the eGFR indicates Category G2 (60 - 89 mL/min/1.73 m2) Lab Interpretation (test code = 11234-2) Abnormal [facility] with [id number] 19:55:29* Test Item Value Reference Range Interpretation Comme nts WBC (test code = 6690-2) 11.50 4.30-11.10 H RBC (test code = 789-8) 3.76 3.93-5.25 L HGB (test code = 718-7) 11.5 g/dL 11.6-15.0 L HCT (test code = 4544-3) 33.9 % 35.7-45.2 L MCV (test code = 787-2) 90.2 fL 80.6-95.5 MCH (test code = 785-6) 30.6 pg 25.9-32.8 MCHC (test code = 786-4) 33.9 g/dL 31.6-35.1 RDW-SD (test code = 29788-7) 46.3 fL 39.0-49.9 RDW-CV (test code = 788-0) 14.0 % 12.0-15.5 PLT (test code = 777-3) 192 166-358 MPV (test code = 58824-4) 10.0 fL 9.5-12.9 NRBC/100 WBC (test code = 1707227572) 0.0 0.0-10.0 NRBC x10^3 (test code = 5101802217) See_Comment [Automated messa ge] The system which generated this result transmitted reference range: 10*3/?L. The reference range was not used to interpret this result as normal/abnormal. GRAN MAT (NEUT) % (test code = 770-8) 80.5 % IMM GRAN % (test code = 6838067900) 0.70 % LYMPH % (test code = 736-9) 11.7 % MONO % (test code = 5905-5) 6.0 % EOS % (test code = 713-8) 0.8 % BASO % (test code = 706-2) 0.3 % GRAN MAT x10^3(ANC) (test code = 1516638833) 9.26 10*3/uL 1.88-7.09 H IMM GRAN x10^3 (test code = 9262265686) 0.08 10*3/uL 0.00-0.06 H LYMPH x10^3 (test code = 731-0) 1.35 10*3/uL 1.32-3.29 MONO x10^3 (test code = 742-7) 0.69 10*3/uL 0.33-0.92 EOS x10^3 (test code = 711-2) 0.09 10*3/uL 0.03-0.39 BASO x10^3 (test code = 704-7) 0.03 10*3/uL 0.01-0.07 Lab Interpretation (test code = 15262-6) Abnormal [facility] HospitalFL [facility] OR (NON-REPORTABLE)2023-07-28 17:03:21 These images do not require a Radiology diagnostic report.[facility] HospitalPOCT GLUCOSE (AUTOMATED)2023-07-28 16:59:51* Test Item Value Reference Range Interpretation Comme nts POCT GLU (test code = 8430621024) 137 mg/dL 70-110 H Lab Interpretation (test cod e = 44868-1) Abnormal [facility] HospitalCentral [id number] 12:36:00Kadeem Lanier MD ? ? 07/28/2023 ?7:39 AM Central Line Date/Time: 07/28/2023 7:36 AM Performed by: Kadeem Lanier MDCentral Line Placement: ?Ultrasound-Guided: ultrasound guided ? ?Indication: central venous access and CVP monitoring ?Staff: ?Supervising Anesthesiologist: ?Gabriele Lebron MD ?Resident: ?Kadeem Lanier MDSterility and Timeout Preparation: hand hygiene performed prior to central venous catheter insertion, maximum sterile barriers were used: cap, mask, sterile gown, sterile gloves, and large sterile sheet, antiseptic used during central venous catheter insertion, skin prep agent completely dried prior to procedure and timeout occurred immediately prior to procedure ? ? Medical Reason for Not Performing Maximal Sterile Barrier Technique: No ? Procedure Detail: ?Patient Position: ?Supine ?Laterality: ?Right ?Site: ?Internal jugular ?Prep: ?Chloraprep ?Cathether Size:?9 Fr ?Catheter Length (cm): ?10 ?Cathether Type: ?Introducer ?Number of Lumens: ?Triple lumen ?Oxim etric Catheter?: No ? ?target vein identified, needle advanced into vein and blood aspirated and guidewire advanced into vein ? ?Seldinger Technique?: Yes ?Ultrasound Guidance used?: Yes,Sterile Gel and Probe Cover used for Ultrasound? Yes. ?Intravenous Verification: verified by ultrasound and venous blood return ?all ports aspirated, all ports flushed easily, guidewire was removed intact, biopatch was applied, line was sutured in place and dressing was applied ? ?Confirmation for Venous Placement: ?IV tubing and UltrasoundEvents: ?Events: patient tolerated procedure well with no complications ?PA Catheter Placement: ?PA Catheter Placed?: No ?Comments: ? Wire out, transduced before dilation, 1x attempt, MSBT. No apparent complications. [facility] [id number] 12:23:00ThiKadeem aguirre MD ? ? 07/28/2023 ?7:40 AM Arterial Line Date/Time: 07/28/2023 7:23 AM Performed by: Giuliano Collier MDArterial Line Placement: ?Ultrasound-Guided: ultrasound guided ? ?Patient Location: ?OR ?Indication: continuous blood pressure monitoring and blood sampling needed ?Staff: ?Supervising Anesthesiologist: ?Gabriele Lebron MD ?Resident: ?Giuliano Collier MDProcedure Detail: ?Catheter Size:?20 gauge ?Catheter Length: ?1 and 3/4 inch ?Catheter Type: ?Arrow ?Seldinger Technique?: Yes ? ?Laterality: ?Left ?Site: ?Radial artery ?Line Secured: ?Tape, Tegaderm and biopatch ?Preparation: ?Chloroprep, sterile gloves, guidewire removed intact, biopatch applied and drapeEvents: ?Events: ?Patient tolerated procedure well with no complications and all wires accounted forComments: ? (+) Local infiltration with Lidocaine, STF, smooth and atraumatic. [facility] HospitalCBC with [id number] 11:05:56* Test Item Value Reference Range Interpretation Comme nts WBC (test code = 6690-2) 9.15 See_Comment [Automated messa ge] The system which generated this result transmitted reference range: 4.30 - 11.10 10*?L. The reference range was not used to interpret this result as normal/abnormal. RBC (test code = 789-8) 4.11 See_Comment [Automated [employer]] The system which generated this result transmitted reference range: 3.93 - 5.25 10*6/?L. The reference range was not used to interpret this result as normal/abnormal. HGB (test code = 718-7) 12.7 g/dL 11.6-15.0 HCT (test code = 4544-3) 38.1 % 35.7-45.2 MCV (test code = 787-2) 92.7 fL 80.6-95.5 MCH (test code = 785-6) 30.9 pg 25.9-32.8 MCHC (test code = 786-4) 33.3 g/dL 31.6-35.1 RDW-SD (test code = 18775-9) 48.3 fL 39.0-49.9 RDW-CV (test code = 788-0) 14.3 % 12.0-15.5 PLT (test code = 777-3) 239 See_Comment [Automated [employer]] The system which generated this result transmitted reference range: 166 - 358 10*3/?L. The reference range was not used to interpret this result as normal/abnormal. MPV (test code = 91845-8) 10.7 fL 9.5-12.9 NRBC/100 WBC (test code = 7693213442) 0.0 See_Comment [Automated [employer]] The system which generated this result transmitted reference range: 0.0 - 10.0 /100 WBCs. The reference range was not used to interpret this result as normal/abnormal. NRBC x10^3 (test code = 3278946995) See_Comment [Automated [employer] ss[employer]] The system which generated this result transmitted reference range: 10*3/?L. The reference range was not used to interpret this result as normal/abnormal. GRAN MAT (NEUT) % (test code = 770-8) 68.1 % IMM GRAN % (test code = 2936630912) 0.40 % LYMPH % (test code = 736-9) 17.4 % MONO % (test code = 5905-5) 9.4 % EOS % (test code = 713-8) 3.9 % BASO % (test code = 706-2) 0.8 % GRAN MAT x10^3(ANC) (test code = 1466352952) 6.23 10*3/uL 1.88-7.09 IMM GRAN x10^3 (test code = 6919789955) 0.04 10*3/uL 0.00-0.06 LYMPH x10^3 (test code = 731-0) 1.59 10*3/uL 1.32-3.29 MONO x10^3 (test code = 742-7) 0.86 10*3/uL 0.33-0.92 EOS x10^3 (test code = 711-2) 0.36 10*3/uL 0.03-0.39 BASO x10^3 (test code = 704-7) 0.07 10*3/uL 0.01-0.07 [facility] with [id number] 11:05:56* Test Item Value Reference Range Interpretation Comme nts WBC (test code = 6690-2) 9.15 See_Comment [Automated messa ge] The system which generated this result transmitted reference range: 4.30 - 11.10 10*3/?L. The reference range was not used to interpret this result as normal/abnormal. RBC (test code = 789-8) 4.11 See_Comment [Automated messa ge] The system which generated this result transmitted reference range: 3.93 - 5.25 10*6/?L. The reference range was not used to interpret this result as normal/abnormal. HGB (test code = 718-7) 12.7 g/dL 11.6-15.0 HCT (test code = 4544-3) 38.1 % 35.7-45.2 MCV (test code = 787-2) 92.7 fL 80.6-95.5 MCH (test code = 785-6) 30.9 pg 25.9-32.8 MCHC (test code = 786-4) 33.3 g/dL 31.6-35.1 RDW-SD (test code = 53091-6) 48.3 fL 39.0-49.9 RDW-CV (test code = 788-0) 14.3 % 12.0-15.5 PLT (test code = 777-3) 239 See_Comment [Automated messa ge] The system which generated this result transmitted reference range: 166 - 358 10*3/?L. The reference range was not used to interpret this result as normal/abnormal. MPV (test code = 23365-4) 10.7 fL 9.5-12.9 NRBC/100 WBC (test code = 4892939695) 0.0 See_Comment [Automated me ssage] The system which generated this result transmitted reference range: 0.0 - 10.0 /100 WBCs. The reference range was not used to interpret this result as normal/abnormal. NRBC x10^3 (test code = 6328922373) See_Comment [Automated me ssage] The system which generated this result transmitted reference range: 10*3/?L. The reference range was not used to interpret this result as normal/abnormal. GRAN MAT (NEUT) % (test code = 770-8) 68.1 % IMM GRAN % (test code = 8961395054) 0.40 % LYMPH % (test code = 736-9) 17.4 % MONO % (test code = 5905-5) 9.4 % EOS % (test code = 713-8) 3.9 % BASO % (test code = 706-2) 0.8 % GRAN MAT x10^3(ANC) (test code = 2481566646) 6.23 10*3/uL 1.88-7.09 IMM GRAN x10^3 (test code = 5574633734) 0.04 10*3/uL 0.00-0.06 LYMPH x10^3 (test code = 731-0) 1.59 10*3/uL 1.32-3.29 MONO x10^3 (test code = 742-7) 0.86 10*3/uL 0.33-0.92 EOS x10^3 (test code = 711-2) 0.36 10*3/uL 0.03-0.39 BASO x10^3 (test code = 704-7) 0.07 10*3/uL 0.01-0.07 [facility]PO[facility] ACT Low [id number] 00:53:27* Test Item Value Reference Range Interpretation Comme nts ACTLR (test code = 6059363785) 173 See_Comment H [Automated messa ge] The system which generated this result transmitted reference range: 89 - 169 Seconds. The reference range was not used to interpret this result as normal/abnormal. Lab Interpretation (test code = 81522-9) Abnormal [facility] ACT Low [id number] 00:53:27* Test Item Value Reference Range Interpretation Comme nts ACTLR (test code = 3620231350) 173 See_Comment H [Automated messa ge] The system which generated this result transmitted reference range: 89 - 169 Seconds. The reference range was not used to interpret this result as normal/abnormal. Lab Interpretation (test code = 40085-8) Abnormal [facility] ACT Low [id number] 17:18:05* Test Item Value Reference Range Interpretation Comme nts ACTLR (test code = 3502438529) 264 See_Comment H [Automated messa ge] The system which generated this result transmitted reference range: 89 - 169 Seconds. The reference range was not used to interpret this result as normal/abnormal. Lab Interpretation (test code = 10990-0) Abnormal [facility] ACT Low [id number] 17:18:05* Test Item Value Reference Range Interpretation Comme nts ACTLR (test code = 6171467207) 264 See_Comment H [Automated messa ge] The system which generated this result transmitted reference range: 89 - 169 Seconds. The reference range was not used to interpret this result as normal/abnormal. Lab Interpretation (test code = 61405-5) Abnormal [facility] ACT Low [id number] 17:08:33* Test Item Value Reference Range Interpretation Comme nts ACTLR (test code = 8932544064) 334 See_Comment H [Automated messa ge] The system which generated this result transmitted reference range: 89 - 169 Seconds. The reference range was not used to interpret this result as normal/abnormal. Lab Interpretation (test code = 16533-0) Abnormal [facility] ACT Low Agask5562-93-75 17:08:33* Test Item Value Reference Range Interpretation Comme nts ACTLR (test code = 2574921268) 334 See_Comment H [Automated messa ge] The system which generated this result transmitted reference range: 89 - 169 Seconds. The reference range was not used to interpret this result as normal/abnormal. Lab Interpretation (test code = 19975-8) Abnormal [facility] HospitalTransthoracic echo (TTE)2023-04-30 03:30:58* Test Item Value Reference Range Interpretation Comme nts Height (test code = 0818875848) 66 in Weight (test code = 8294358803) 212 lbs Systolic BP (test code = 9142098416) 132 mmHg Diastolic BP (test code = 8656644117) 46 mmHg Heart Rate (test code = 9224485377) 57 bpm Ao root diam (test code = 6458136489) 2.31 cm Aortic root (test code = 1996047297) 2.31 cm Ao root annulus (test code = 1284280236) 2.31 cm BSA (test code = 0140384703) 2.05 m2 LVOT diameter (test code = 4462781990) 2.00 cm LVOT area (test code = 7987841877) 3.10 cm2 LA size (test code = 3543449794) 4.0 cm ACS (test code = 9129902175) 1.14 cm TR Peak Joanie (test code = 3672719192) 239.0 cm/s Triscuspid Valve Regurgitation Peak Gradient (test code = 2692705870) 22.9 mmHg PV PEAK VELOCITY (test code = 3910614351) 87.0 cm/s PV peak gradient (test code = 5470568274) 3.0 mmHg MV E-F slope (test code = 8353562437) 45.50 cm/s MV Peak E Joanie (test code = 9212535825) 103.2 cm/s MV valve area p 1/2 method (test code = 1289850248) 4.20 cm2 MV dec slope (test code = 6139565064) 577.60 cm/s2 MV P1/2t max joanie (test code = 4335668764) 102.70 cm/s MV Peak A Joanie (test code = 8418980303) 66.0 cm/s E/A ratio (test code = 4864649093) 1.56 ratio LVOT stroke volume (test code = 4012156916) 83.80 cm3 LVOT peak joanie (test code = 1512738737) 93.8 cm/s LVOT mn grad (test code = 1034214071) 1.8 mmHg AV LVOT peak gradient (test code = 8340253904) 3.5 mmHg LVOT peak VTI (test code = 9579215396) 26.7 cm LV V1 mean (test code = 4094398346) 61.70 cm/s Aortic valve mean velocity (test code = 6058726566) 197.3 cm/s Ao peak joanie (test code = 1509127541) 330.5 cm/s Ao VTI (test code = 6644582410) 89.6 cm AV area by cont VTI (test code = 5704618354) 0.9 cm2 AV area peak joanie (test code = 0383590584) 0.9 cm2 Ao max PG (test code = 8584205521) 43.70 mm[Hg] AV peak gradient (test code = 9653562683) 43.7 mmHg AV valve area (test code = 9499519149) 0.94 cm2 AV mean gradient (test code = 9644160061) 19.3 mmHg AV regurgitation pressure 1/2 time (test code = 0402003385) 514.9 ms AI dec slope (test code = 6124840184) 208.00 cm/s2 AI max joanie (test code = 7272068050) 365.70 cm/s AI max PG (test code = 7071729176) 53.50 mm[Hg] LAV(MOD-sp4) (test code = 8672747284) 97.00 mL LA Volume Index (BP) (test code = 4488013314) 51.6 mL/m2 LA volume (BP) (test code = 1509866240) 105.7 mL LAV(MOD-sp2) (test code = 6912854559) 110.20 mL LVIDD (test code = 3945587070) 5.40 cm Left Ventricular End Diastolic Volume by Teichholz Method (test code = 4568705) 143.1 mL IVS (test code = 3021010680) 1.24 cm Interventricular Septum Diastolic Thickness by 2D (test code = 5867948) 1.24 cm LVPWD (test code = 3616142049) 1.25 cm PW (test code = 0224276326) 1.25 cm 0.6-1.1 EF(Teich) (test code = 8392695861) 45.80 % LVIDS (test code = 9099343738) 4.20 cm Left Ventricular End Systolic Volume by Teichholz Method (test code = 2962036) 77.5 mL FS (test code = 1800418667) 23 % EF - 2D (test code = 68126840) 45.80 % Radiology Study observation (narrative) (test code = 34831-7) YEIMI (test code = YEIMI) ?Left?Ventricle: Left ventricle size is normal. Mildly increased wall thickness. Normal wall motion. Normal wall motion. Normal systolic function with a visually estimated EF of 55 - 60%. There is pseudonormal diastolic dysfunction. Normal left ventricular filling pressure. ?Aortic?Valve: Consistent with moderate to severe stenosis. AV mean gradient is 19.3 mmHg. AV peak gradient is 43.7 mmHg. AV peak velocity is 330.5 cm/s. LVOT diameter is 2.00 cm. AV area by continuity VTI is 0.9 cm2. AV area by peak velocity is 0.9 cm2. ?Left?Atrium: Left atrium is severely dilated. ?Tricuspid?Valve: Trace transvalvular regurgitation. Right ventricular systolic pressure is 25-30 mmHg. ?RA pressure is 5-10 mmHg. Left VentricleLeft ventricle size is normal. Mildly increased wall thickness. Normal wall motion. Normal systolic function with a visually estimated EF of 55 - 60%. There is pseudonormal diastolic dysfunction. Normal left ventricular filling pressure.Right VentricleRight ventricle size is normal. Normal systolic function.Left AtriumLeft atrium is severely dilated.Right AtriumRight atrium size is normal. There is a prominent Eustachian valve.Mitral ValveMildly thickened leaflets. Mildly calcified leaflets. Trace transvalvular regurgitation.Tricusp id ValveTricuspid valve structure is normal. Trace transvalvular regurgitation. Right ventricular systolic pressure is 25-30 mmHg. RA pressure is 5-10 mmHg.Aortic ValveSeverely thickened cusps. Severely calcified cusps. Mild transvalvular regurgitation. Consistent with moderate to severe stenosis. AV mean gradient is 19.3 mmHg. AV peak gradient is 43.7 mmHg. AV peak velocity is 330.5 cm/s. LVOT diameter is 2.00 cm. AV area by continuity VTI is 0.9 cm2. AV area by peak velocity is 0.9 cm2.Pulmonic ValveNot well visualized. Trace transvalvular regurgitation.Ascendi ng AortaNormal sized ascending aorta and aortic arch.PericardiumTrivi al pericardial effusion present.Study DetailsStudy quality experienced technical difficulty. A complete echocardiogram was performed using 2D, color flow Doppler and spectral Doppler. 5 mL of Lumason ultrasound enhancing agent used. [facility] SCREENING TOMOSYNTHESIS [id number] 22:20:25Examination:BI SCREENING TOMOSYNTHESIS BILATERAL History:Patient is 73 year old and is seen for: ?Screening. Computer-aided detection (CAD) utilized. Comparisons: 04/14/2022 BI SCREENING TOMOSYNTHESIS BILATERAL, 01/22/2021 BI SELF-REQUESTED ?SCREENING TOMOSYNTHESIS BILATERAL, 10/05/2019 BI SELF-REFERRED SCREENING TOMOSYNTHESIS BILATERAL, 07/05/2018 BI SCREENING TOMOSYNTHESIS BILATERAL, 06/30/2017SCREENING DIGITAL BREAST TAVIA, 06/24/2016 DIGITAL DIAGNOSTIC MAMMOGRAM, UNILATERAL, 03/24/2016 BREAST ULTRASOUND LIMITED, and 12/11/2015 DIGITAL MAMMOGRAM, SCREENING Findings:The breasts have scattered areas of fibroglandular density. There is no evidence of suspicious masses, calcifications, or other abnormal findings. Impression:No mammographic evidence of malignancy. Recommendation:Annual mammographic follow-up - Bilateral BI-RADS Category: Both 1 - NegativeUnLegent Orthopedic HospitalFERRITIN SERUM 2023-03-12 15:22:02* Test Item Value Reference Range Interpretation Comme nts FERRITIN (test code = 7129398787) 73.0 ng/mL 11.0-264.0 YEIMI (test code = YEIMI) Biotin has been reported to cause a negative bias, interpret results relative to patient's use of biotin. Lab Interpretation (test code = 93485-6) Normal [facility]IN [id number] 15:22:02* Test Item Value Reference Range Interpretation Comme nts FERRITIN (test code = 6567259000) 73.0 ng/mL 11.0-264.0 YEIMI (test code = YEIMI) Biotin has been reported to cause a negative bias, interpret results relative to patient's use of biotin. Lab Interpretation (test code = 66633-0) Normal [facility] HospitalIRON [id number] 14:53:05* Test Item Value Reference Range Interpretation Comme nts IRON (test code = 3451019234) 37 ug/dL 50-160 L TIBC (test code = 8241294424) 266 ug/dL 250-410 % FE SAT (test code = 9363089840) 14 % 20-50 L Lab Interpretation (test cod e = 66678-8) Abnormal [facility] [id number] 14:53:05* Test Item Value Reference Range Interpretation Comme nts IRON (test code = 2975681723) 37 ug/dL 50-160 L TIBC (test code = 7546134702) 266 ug/dL 250-410 % FE SAT (test code = 5717209827) 14 % 20-50 L Lab Interpretation (test cod e = 76526-8) Abnormal [facility] HospitalTHYROID STIMULATING [id number] 10:19:42 * Test Item Value Reference Range Interpretation Comme nts TSH (test code = 7073793920) 0.08 See_Comment L [Automated messa ge] The system which generated this result transmitted reference range: 0.45 - 4.70 mIU/L. The reference range was not used to interpret this result as normal/abnormal. Lab Interpretation (test code = 69004-1) Abnormal [facility] HospitalTHYROID STIMULATING [id number] 10:19:42 * Test Item Value Reference Range Interpretation Comme nts TSH (test code = 9827732905) 0.08 See_Comment L [Automated messa ge] The system which generated this result transmitted reference range: 0.45 - 4.70 mIU/L. The reference range was not used to interpret this result as normal/abnormal. Lab Interpretation (test code = 81332-8) Abnormal [facility] [id number] 10:06:40* Test Item Value Reference Range Interpretation Comme nts FREE T4 (test code = 7356503936) 1.66 See_Comment [Automated messa ge] The system which generated this result transmitted reference range: 0.78 - 2.20 ng/dL:. The reference range was not used to interpret this result as normal/abnormal. Lab Interpretation (test code = 83099-0) Normal [facility] [id number] 10:06:40* Test Item Value Reference Range Interpretation Comme nts FREE T4 (test code = 0814975771) 1.66 See_Comment [Automated [employer] ge] The system which generated this result transmitted reference range: 0.78 - 2.20 ng/dL:. The reference range was not used to interpret this result as normal/abnormal. Lab Interpretation (test code = 11153-4) Normal [facility] (NA, K, CL, CO2, GLUCOSE, BUN, CREATININE, CA)2023-03-12 09:49:36* Test Item Value Reference Range Interpretation Comme nts NA (test code = 1080021800) 137 mmol/L 135-145 K (test code = 9996405265) 3.4 mmol/L 3.5-5.0 L CL (test code = 8310457870) 105 mmol/L 98-108 CO2 TOTAL (test code = 0813137099) 27 mmol/L 23-31 AGAP (test code = 9106730375) 5 2-16 BUN (test code = 3238858600) 19 mg/dL 7-23 GLUCOSE (test code = 4855166414) 108 mg/dL 70-110 CREATININE (test code = 3123987164) 0.86 mg/dL 0.50-1.04 CALCIUM (test code = 5969766688) 9.0 mg/dL 8.6-10.6 eGFR (test code = 68654-8) 70.6 mL/min/1.73m2 CKD-EPI eGFR (2020). Assuming creatinine has been stable day-to-day for at least three months, the eGFR indicates Category G2 (60 - 89 mL/min/1.73 m2) Lab Interpretation (test code = 24351-4) Abnormal [facility]MAGN[facility]IUM2023-11-04 09:49:36* Test Item Value Reference Range Interpretation Comme nts MAGNESIUM (test code = 2173138115) 1.8 mg/dL 1.7-2.4 Lab Interpretation (test cod e = 95516-2) Normal [facility] HospitalLIPID PANEL (14206)(TOTAL CHOLESTEROL, TRIGLYCERIDES, HDL)2023-03-12 09:49:36* Test Item Value Reference Range Interpretation Comme nts CHOL (test code = 5477086489) 123 mg/dL 120-200 HDL (test code = 8257211004) 44 mg/dL >=50 L HDLC RATIO (test code = 2049665840) 2.8 <=4.5 TRIG (test code = 4746391723) 173 mg/dL 30-170 H LDL CHOL (test code = 10094-4) 44 mg/dL <=160 VLDL (test code = 1920813658) 35 mg/dL 5-60 Lab Interpretation (test cod e = 32391-0) Abnormal [facility] (NA, K, CL, CO2, GLUCOSE, BUN, CREATININE, CA)2023-03-12 09:49:36* Test Item Value Reference Range Interpretation Comme nts NA (test code = 9192023543) 137 mmol/L 135-145 K (test code = 8310016667) 3.4 mmol/L 3.5-5.0 L CL (test code = 4186607028) 105 mmol/L 98-108 CO2 TOTAL (test code = 5494796326) 27 mmol/L 23-31 AGAP (test code = 2167531231) 5 2-16 BUN (test code = 1971525243) 19 mg/dL 7-23 GLUCOSE (test code = 5536832554) 108 mg/dL 70-110 CREATININE (test code = 0394961480) 0.86 mg/dL 0.50-1.04 CALCIUM (test code = 5317917232) 9.0 mg/dL 8.6-10.6 eGFR (test code = 28402-1) 70.6 mL/min/1.73m2 CKD-EPI eGFR (2020). Assuming creatinine has been stable day-to-day for at least three months, the eGFR indicates Category G2 (60 - 89 mL/min/1.73 m2) Lab Interpretation (test code = 86257-9) Abnormal [facility]UM2023-11-04 09:49:36* Test Item Value Reference Range Interpretation Comme nts MAGNESIUM (test code = 2390036699) 1.8 mg/dL 1.7-2.4 Lab Interpretation (test cod e = 83729-5) Normal [facility] HospitalLIPID PANEL (91086)(TOTAL CHOLESTEROL, TRIGLYCERIDES, HDL)2023-03-12 09:49:36* Test Item Value Reference Range Interpretation Comme nts CHOL (test code = 7781354727) 123 mg/dL 120-200 HDL (test code = 4338931645) 44 mg/dL >=50 L HDLC RATIO (test code = 6112226289) 2.8 <=4.5 TRIG (test code = 4970572515) 173 mg/dL 30-170 H LDL CHOL (test code = 25446-6) 44 mg/dL <=160 VLDL (test code = 7911688855) 35 mg/dL 5-60 Lab Interpretation (test cod e = 90875-0) Abnormal [facility] WITHOUT [id number] 09:31:15* Test Item Value Reference Range Interpretation Comme nts WBC (test code = 6690-2) 11.98 See_Comment H [Automated message] The system which generated this result transmitted reference range: 4.30 - 11.10 10*3/?L. The reference range was not used to interpret this result as normal/abnormal. RBC (test code = 789-8) 3.69 See_Comment L [Automated message] The system which generated this result transmitted reference range: 3.93 - 5.25 10*6/?L. The reference range was not used to interpret this result as normal/abnormal. HGB (test code = 718-7) 11.1 g/dL 11.6-15.0 L HCT (test code = 4544-3) 32.9 % 35.7-45.2 L MCH (test code = 785-6) 30.1 pg 25.9-32.8 MCV (test code = 787-2) 89.2 fL 80.6-95.5 MCHC (test code = 786-4) 33.7 g/dL 31.6-35.1 PLT (test code = 777-3) 215 See_Comment [Automated message] The system which generated this result transmitted reference range: 166 - 358 10*3/?L. The reference range was not used to interpret this result as normal/abnormal. MPV (test code = 11536-4) 9.9 fL 9.5-12.9 RDW-CV (test code = 788-0) 14.8 % 12.0-15.5 RDW-SD (test code = 12879-2) 47.9 fL 39.0-49.9 NRBC x10^3 (test code = 7930522289) See_Comment [Automated messa ge] The system which generated this result transmitted reference range: 10*3/?L. The reference range was not used to interpret this result as normal/abnormal. NRBC/100 WBC (test code = 4498552391) 0.0 See_Comment [Automated messa ge] The system which generated this result transmitted reference range: 0.0 - 10.0 /100 WBCs. The reference range was not used to interpret this result as normal/abnormal. IPF % (test code = 9522681074) Lab Interpretation (test code = 75583-6) Abnormal [facility] WITHOUT [id number] 09:31:15* Test Item Value Reference Range Interpretation Comme nts WBC (test code = 6690-2) 11.98 See_Comment H [Automated message] The system which generated this result transmitted reference range: 4.30 - 11.10 10*3/?L. The reference range was not used to interpret this result as normal/abnormal. RBC (test code = 789-8) 3.69 See_Comment L [Automated message] The system which generated this result transmitted reference range: 3.93 - 5.25 10*6/?L. The reference range was not used to interpret this result as normal/abnormal. HGB (test code = 718-7) 11.1 g/dL 11.6-15.0 L HCT (test code = 4544-3) 32.9 % 35.7-45.2 L MCH (test code = 785-6) 30.1 pg 25.9-32.8 MCV (test code = 787-2) 89.2 fL 80.6-95.5 MCHC (test code = 786-4) 33.7 g/dL 31.6-35.1 PLT (test code = 777-3) 215 See_Comment [Automated message] The system which generated this result transmitted reference range: 166 - 358 10*3/?L. The reference range was not used to interpret this result as normal/abnormal. MPV (test code = 72314-5) 9.9 fL 9.5-12.9 RDW-CV (test code = 788-0) 14.8 % 12.0-15.5 RDW-SD (test code = 46798-6) 47.9 fL 39.0-49.9 NRBC x10^3 (test code = 0216050506) See_Comment [Automated messa ge] The system which generated this result transmitted reference range: 10*3/?L. The reference range was not used to interpret this result as normal/abnormal. NRBC/100 WBC (test code = 4464956654) 0.0 See_Comment [Automated messa ge] The system which generated this result transmitted reference range: 0.0 - 10.0 /100 WBCs. The reference range was not used to interpret this result as normal/abnormal. IPF % (test code = 4383611846) Lab Interpretation (test code = 44861-1) Abnormal [facility] ACT LOW [id number] 16:34:43* Test Item Value Reference Range Interpretation Comme nts ACTLR (test code = 5902218376) 328 See_Comment H [Automated messa ge] The system which generated this result transmitted reference range: 89 - 169 Seconds. The reference range was not used to interpret this result as normal/abnormal. Lab Interpretation (test code = 77172-6) Abnormal [facility] ACT LOW [id number] 16:34:43* Test Item Value Reference Range Interpretation Comme nts ACTLR (test code = 4192359338) 328 See_Comment H [Automated messa ge] The system which generated this result transmitted reference range: 89 - 169 Seconds. The reference range was not used to interpret this result as normal/abnormal. Lab Interpretation (test code = 89817-8) Abnormal [facility] ACT LOW [id number] 16:11:01* Test Item Value Reference Range Interpretation Comme nts ACTLR (test code = 6363453396) 290 See_Comment H [Automated messa ge] The system which generated this result transmitted reference range: 89 - 169 Seconds. The reference range was not used to interpret this result as normal/abnormal. Lab Interpretation (test code = 78544-6) Abnormal [facility] ACT LOW [id number] 16:11:01* Test Item Value Reference Range Interpretation Comme nts ACTLR (test code = 1072946734) 290 See_Comment H [Automated messa ge] The system which generated this result transmitted reference range: 89 - 169 Seconds. The reference range was not used to interpret this result as normal/abnormal. Lab Interpretation (test code = 77472-5) Abnormal [facility] METABOLIC PANEL (NA, K, CL, CO2, GLUCOSE, BUN, CREATININE, CA)2023-03-11 14:47:50* Test Item Value Reference Range Interpretation Comme nts NA (test code = 8641479323) 140 mmol/L 135-145 K (test code = 5054265116) 3.5 mmol/L 3.5-5.0 CL (test code = 8096453434) 105 mmol/L 98-108 CO2 TOTAL (test code = 6291031854) 28 mmol/L 23-31 AGAP (test code = 7134601583) 7 2-16 BUN (test code = 4420870608) 26 mg/dL 7-23 H GLUCOSE (test code = 8446903851) 122 mg/dL 70-110 H CREATININE (test code = 6590859290) 1.02 mg/dL 0.50-1.04 CALCIUM (test code = 2634830372) 9.5 mg/dL 8.6-10.6 eGFR (test code = 46787-3) 57.5 mL/min/1.73m2 CKD-EPI eGFR (2020). Assuming creatinine has been stable day-to-day for at least three months, the eGFR indicates Category G3a (45 - 59 mL/min/1.73 m2) Lab Interpretation (test code = 62301-4) Abnormal [facility] METABOLIC PANEL (NA, K, CL, CO2, GLUCOSE, BUN, CREATININE, CA)2023-03-11 14:47:50* Test Item Value Reference Range Interpretation Comme nts NA (test code = 3569257700) 140 mmol/L 135-145 K (test code = 8876184948) 3.5 mmol/L 3.5-5.0 CL (test code = 7704667265) 105 mmol/L 98-108 CO2 TOTAL (test code = 3522223735) 28 mmol/L 23-31 AGAP (test code = 6316949523) 7 2-16 BUN (test code = 7793442270) 26 mg/dL 7-23 H GLUCOSE (test code = 7343642826) 122 mg/dL 70-110 H CREATININE (test code = 3365083639) 1.02 mg/dL 0.50-1.04 CALCIUM (test code = 8467250360) 9.5 mg/dL 8.6-10.6 eGFR (test code = 49362-7) 57.5 mL/min/1.73m2 CKD-EPI eGFR (2020). Assuming creatinine has been stable day-to-day for at least three months, the eGFR indicates Category G3a (45 - 59 mL/min/1.73 m2) Lab Interpretation (test code = 50353-0) [facility] [id number] 14:37:29* Test Item Value Reference Range Interpretation Comme nts PROTIME PATIENT (test code = 5964-2) 10.8 See_Comment [Automated [employer]] The system which generated this result transmitted reference range: 10.1 - 12.6 Seconds. The reference range was not used to interpret this result as normal/abnormal. INR (test code = 6301-6) 1.0 Normal INR <1.1; Warfarin Therapeutic range 2.0 to 3.0 or 2.5 to 3.5, depending upon the indications. Lab Interpretation (test code = 38218-1) [facility] / [id number] 14:37:29* Test Item Value Reference Range Interpretation Comme nts PROTIME PATIENT (test code = 5964-2) 10.8 See_Comment [Automated [employer]] The system which generated this result transmitted reference range: 10.1 - 12.6 Seconds. The reference range was not used to interpret this result as normal/abnormal. INR (test code = 6301-6) 1.0 Normal INR <1.1; Warfarin Therapeutic range 2.0 to 3.0 or 2.5 to 3.5, depending upon the indications. Lab Interpretation (test code = 88382-6) [facility] [id number] 14:37:09* Test Item Value Reference Range Interpretation Comme nts WBC (test code = 6690-2) 9.09 See_Comment [Automated [employer]] The system which generated this result transmitted reference range: 4.30 - 11.10 10*3/?L. The reference range was not used to interpret this result as normal/abnormal. RBC (test code = 789-8) 3.90 See_Comment L [Automated messa ge] The system which generated this result transmitted reference range: 3.93 - 5.25 10*6/?L. The reference range was not used to interpret this result as normal/abnormal. HGB (test code = 718-7) 11.7 g/dL 11.6-15.0 HCT (test code = 4544-3) 35.2 % 35.7-45.2 L MCV (test code = 787-2) 90.3 fL 80.6-95.5 MCH (test code = 785-6) 30.0 pg 25.9-32.8 MCHC (test code = 786-4) 33.2 g/dL 31.6-35.1 RDW-SD (test code = 86999-0) 48.5 fL 39.0-49.9 RDW-CV (test code = 788-0) 14.9 % 12.0-15.5 PLT (test code = 777-3) 225 See_Comment [Automated messa ge] The system which generated this result transmitted reference range: 166 - 358 10*3/?L. The reference range was not used to interpret this result as normal/abnormal. MPV (test code = 50720-8) 9.7 fL 9.5-12.9 NRBC/100 WBC (test code = 6743499521) 0.0 See_Comment [Automated [employer] ssage] The system which generated this result transmitted reference range: 0.0 - 10.0 /100 WBCs. The reference range was not used to interpret this result as normal/abnormal. NRBC x10^3 (test code = 8865647621) See_Comment [Automated messa ge] The system which generated this result transmitted reference range: 10*3/?L. The reference range was not used to interpret this result as normal/abnormal. GRAN MAT (NEUT) % (test code = 770-8) 58.1 % IMM GRAN % (test code = 8289593179) 0.30 % LYMPH % (test code = 736-9) 31.5 % MONO % (test code = 5905-5) 7.3 % EOS % (test code = 713-8) 2.4 % BASO % (test code = 706-2) 0.4 % GRAN MAT x10^3(ANC) (test code = 3233804833) 5.28 10*3/uL 1.88-7.09 IMM GRAN x10^3 (test code = 2048294650) 0.03 10*3/uL 0.00-0.06 LYMPH x10^3 (test code = 731-0) 2.86 10*3/uL 1.32-3.29 MONO x10^3 (test code = 742-7) 0.66 10*3/uL 0.33-0.92 EOS x10^3 (test code = 711-2) 0.22 10*3/uL 0.03-0.39 BASO x10^3 (test code = 704-7) 0.04 10*3/uL 0.01-0.07 Lab Interpretation (test code = 66520-1) Abnormal [facility] WITH [id number] 14:37:09* Test Item Value Reference Range Interpretation Comme nts WBC (test code = 6690-2) 9.09 See_Comment [Automated messa ge] The system which generated this result transmitted reference range: 4.30 - 11.10 10*3/?L. The reference range was not used to interpret this result as normal/abnormal. RBC (test code = 789-8) 3.90 See_Comment L [Automated messa ge] The system which generated this result transmitted reference range: 3.93 - 5.25 10*6/?L. The reference range was not used to interpret this result as normal/abnormal. HGB (test code = 718-7) 11.7 g/dL 11.6-15.0 HCT (test code = 4544-3) 35.2 % 35.7-45.2 L MCV (test code = 787-2) 90.3 fL 80.6-95.5 MCH (test code = 785-6) 30.0 pg 25.9-32.8 MCHC (test code = 786-4) 33.2 g/dL 31.6-35.1 RDW-SD (test code = 83328-3) 48.5 fL 39.0-49.9 RDW-CV (test code = 788-0) 14.9 % 12.0-15.5 PLT (test code = 777-3) 225 See_Comment [Automated messa ge] The system which generated this result transmitted reference range: 166 - 358 10*3/?L. The reference range was not used to interpret this result as normal/abnormal. MPV (test code = 26757-0) 9.7 fL 9.5-12.9 NRBC/100 WBC (test code = 7788198033) 0.0 See_Comment [Automated [email or web address] ssage] The system which generated this result transmitted reference range: 0.0 - 10.0 /100 WBCs. The reference range was not used to interpret this result as normal/abnormal. NRBC x10^3 (test code = 2112800249) See_Comment [Automated messa ge] The system which generated this result transmitted reference range: 10*3/?L. The reference range was not used to interpret this result as normal/abnormal. GRAN MAT (NEUT) % (test code = 770-8) 58.1 % IMM GRAN % (test code = 7258591405) 0.30 % LYMPH % (test code = 736-9) 31.5 % MONO % (test code = 5905-5) 7.3 % EOS % (test code = 713-8) 2.4 % BASO % (test code = 706-2) 0.4 % GRAN MAT x10^3(ANC) (test code = 7196169314) 5.28 10*3/uL 1.88-7.09 IMM GRAN x10^3 (test code = 3762008877) 0.03 10*3/uL 0.00-0.06 LYMPH x10^3 (test code = 731-0) 2.86 10*3/uL 1.32-3.29 MONO x10^3 (test code = 742-7) 0.66 10*3/uL 0.33-0.92 EOS x10^3 (test code = 711-2) 0.22 10*3/uL 0.03-0.39 BASO x10^3 (test code = 704-7) 0.04 10*3/uL 0.01-0.07 Lab Interpretation (test code = 23062-1) Abnormal [facility] METABOLIC PANEL (NA, K, CL, CO2, GLUCOSE, BUN, CREATININE, CA)2023-01-25 12:12:02* Test Item Value Reference Range Interpretation Comme nts NA (test code = 5070638226) 140 mmol/L 135-145 K (test code = 3590541978) 3.6 mmol/L 3.5-5.0 CL (test code = 9220002336) 104 mmol/L 98-108 CO2 TOTAL (test code = 4769371721) 29 mmol/L 23-31 AGAP (test code = 4494142818) 7 2-16 BUN (test code = 5947083287) 22 mg/dL 7-23 GLUCOSE (test code = 2888231381) 109 mg/dL 70-110 CREATININE (test code = 9564623126) 0.90 mg/dL 0.50-1.04 CALCIUM (test code = 3380249802) 9.4 mg/dL 8.6-10.6 eGFR (test code = 2640092788) 61.2 mL/min/1.73m2 YEIMI (test code = YEIMI) Association of Glomerular Filtration Rate (GFR) and Staging of Kidney Disease* + + +- +| GFR (mL/min/1.73 m2) ?| With Kidney Damage ?| ?Without Kidney Damage+ ------+ ----+ ------+| ?>90 ?| ?Stage one ?| ? Normal ?+ -+ + -+| ?60-89 ?| ?Stage two ?| ? Decreased GFR ? + + +- +| ?30-59 ?| ?Stage three ?| ? Stage three ? + + +- +| ?15-29 ?| ?Stage four ? | ? Stage four ?+ -+ + -+| ?<15 (or dialysis) ? ?| ?Stage five ? | ? Stage five ?+ -+ + -+ *Each stage assumes the associated GFR level has been in effect for at least three months. ?Stages 1 to 5, with or without kidney disease, indicate chronic kidney disease. Notes: Determination of stages one and two (with eGFR >59mL/min/1.73 m2) requires estimation of kidney damage for at least three months as defined by structural or functional abnormalities of the kidney, manifested by either:Pathological abnormalities or Markers of kidney damage (including abnormalities in the composition of the blood or urine or abnormalities in imaging tests). [facility] (NA, K, CL, CO2, GLUCOSE, BUN, CREATININE, CA)2023-01-25 12:12:02* Test Item Value Reference Range Interpretation Comme nts NA (test code = 3781639435) 140 mmol/L 135-145 K (test code = 5089468573) 3.6 mmol/L 3.5-5.0 CL (test code = 8613149137) 104 mmol/L 98-108 CO2 TOTAL (test code = 9750170835) 29 mmol/L 23-31 AGAP (test code = 6554366261) 7 2-16 BUN (test code = 0847896981) 22 mg/dL 7-23 GLUCOSE (test code = 2329525149) 109 mg/dL 70-110 CREATININE (test code = 0534743179) 0.90 mg/dL 0.50-1.04 CALCIUM (test code = 9571959320) 9.4 mg/dL 8.6-10.6 eGFR (test code = 1811886071) 61.2 mL/min/1.73m2 YEIMI (test code = YEIMI) Association of Glomerular Filtration Rate (GFR) and Staging of Kidney Disease* + + +- +| GFR (mL/min/1.73 m2) ?| With Kidney Damage ?| ?Without Kidney Damage+ ------+ ----+ ------+| ?>90 ?| ?Stage one ?| ? Normal ?+ -+ + -+| ?60-89 ?| ?Stage two ?| ? Decreased GFR ? + + +- +| ?30-59 ?| ?Stage three ?| ? Stage three ? + + +- +| ?15-29 ?| ?Stage four ? | ? Stage four ?+ -+ + -+| ?<15 (or dialysis) ? ?| ?Stage five ? | ? Stage five ?+ -+ + -+ *Each stage assumes the associated GFR level has been in effect for at least three months. ?Stages 1 to 5, with or without kidney disease, indicate chronic kidney disease. Notes: Determination of stages one and two (with eGFR >59mL/min/1.73 m2) requires estimation of kidney damage for at least three months as defined by structural or functional abnormalities of the kidney, manifested by either:Pathological abnormalities or Markers of kidney damage (including abnormalities in the composition of the blood or urine or abnormalities in imaging tests). [facility] / [id number] 12:03:02* Test Item Value Reference Range Interpretation Comme [facility] PROTIME PATIENT (test code = 5964-2) 10.6 See_Comment [Automated [employer]] The system which generated this result transmitted reference range: 10.1 - 12.6 Seconds. The reference range was not used to interpret this result as normal/abnormal. INR (test code = 6301-6) 0.9 Normal INR <1.1; Warfarin Therapeutic range 2.0 to 3.0 or 2.5 to 3.5, depending upon the indications. Lab Interpretation (test code = 61191-2) [facility] / [id number] 12:03:02* Test Item Value Reference Range Interpretation Comme nts PROTIME PATIENT (test code = 5964-2) 10.6 See_Comment [Automated [employer]] The system which generated this result transmitted reference range: 10.1 - 12.6 Seconds. The reference range was not used to interpret this result as normal/abnormal. INR (test code = 6301-6) 0.9 Normal INR <1.1; Warfarin Therapeutic range 2.0 to 3.0 or 2.5 to 3.5, depending upon the indications. Lab Interpretation (test code = 74706-1) [facility] [id number] 11:59:04* Test Item Value Reference Range Interpretation Comme [facility] WBC (test code = 6690-2) 11.21 See_Comment H [Automated [employer]] The system which generated this result transmitted reference range: 4.30 - 11.10 10*3/?L. The reference range was not used to interpret this result as normal/abnormal. RBC (test code = 789-8) 4.10 See_Comment [Automated messa ge] The system which generated this result transmitted reference range: 3.93 - 5.25 10*6/?L. The reference range was not used to interpret this result as normal/abnormal. HGB (test code = 718-7) 12.5 g/dL 11.6-15.0 HCT (test code = 4544-3) 37.3 % 35.7-45.2 MCV (test code = 787-2) 91.0 fL 80.6-95.5 MCH (test code = 785-6) 30.5 pg 25.9-32.8 MCHC (test code = 786-4) 33.5 g/dL 31.6-35.1 RDW-SD (test code = 01532-0) 45.3 fL 39.0-49.9 RDW-CV (test code = 788-0) 13.7 % 12.0-15.5 PLT (test code = 777-3) 246 See_Comment [Automated messa ge] The system which generated this result transmitted reference range: 166 - 358 10*3/?L. The reference range was not used to interpret this result as normal/abnormal. MPV (test code = 99090-9) 10.0 fL 9.5-12.9 NRBC/100 WBC (test code = 8975804518) 0.0 See_Comment [Automated [email or web address]] The system which generated this result transmitted reference range: 0.0 - 10.0 /100 WBCs. The reference range was not used to interpret this result as normal/abnormal. NRBC x10^3 (test code = 8796381093) See_Comment [Automated messa ge] The system which generated this result transmitted reference range: 10*3/?L. The reference range was not used to interpret this result as normal/abnormal. GRAN MAT (NEUT) % (test code = 770-8) 60.7 % IMM GRAN % (test code = 7711729625) 0.30 % LYMPH % (test code = 736-9) 28.1 % MONO % (test code = 5905-5) 7.4 % EOS % (test code = 713-8) 3.1 % BASO % (test code = 706-2) 0.4 % GRAN MAT x10^3(ANC) (test code = 5423252268) 6.80 10*3/uL 1.88-7.09 IMM GRAN x10^3 (test code = 8314156323) 0.03 10*3/uL 0.00-0.06 LYMPH x10^3 (test code = 731-0) 3.15 10*3/uL 1.32-3.29 MONO x10^3 (test code = 742-7) 0.83 10*3/uL 0.33-0.92 EOS x10^3 (test code = 711-2) 0.35 10*3/uL 0.03-0.39 BASO x10^3 (test code = 704-7) 0.05 10*3/uL 0.01-0.07 Lab Interpretation (test code = 93230-7) Abnormal [facility] WITH [id number] 11:59:04* Test Item Value Reference Range Interpretation Comme nts WBC (test code = 6690-2) 11.21 See_Comment H [Automated messa ge] The system which generated this result transmitted reference range: 4.30 - 11.10 10*3/?L. The reference range was not used to interpret this result as normal/abnormal. RBC (test code = 789-8) 4.10 See_Comment [Automated messa ge] The system which generated this result transmitted reference range: 3.93 - 5.25 10*6/?L. The reference range was not used to interpret this result as normal/abnormal. HGB (test code = 718-7) 12.5 g/dL 11.6-15.0 HCT (test code = 4544-3) 37.3 % 35.7-45.2 MCV (test code = 787-2) 91.0 fL 80.6-95.5 MCH (test code = 785-6) 30.5 pg 25.9-32.8 MCHC (test code = 786-4) 33.5 g/dL 31.6-35.1 RDW-SD (test code = 01506-1) 45.3 fL 39.0-49.9 RDW-CV (test code = 788-0) 13.7 % 12.0-15.5 PLT (test code = 777-3) 246 See_Comment [Automated messa ge] The system which generated this result transmitted reference range: 166 - 358 10*3/?L. The reference range was not used to interpret this result as normal/abnormal. MPV (test code = 73667-5) 10.0 fL 9.5-12.9 NRBC/100 WBC (test code = 0002914058) 0.0 See_Comment [Automated [email or web address]] The system which generated this result transmitted reference range: 0.0 - 10.0 /100 WBCs. The reference range was not used to interpret this result as normal/abnormal. NRBC x10^3 (test code = 1594070961) See_Comment [Automated [employer]] The system which generated this result transmitted reference range: 10*3/?L. The reference range was not used to interpret this result as normal/abnormal. GRAN MAT (NEUT) % (test code = 770-8) 60.7 % IMM GRAN % (test code = 0294729985) 0.30 % LYMPH % (test code = 736-9) 28.1 % MONO % (test code = 5905-5) 7.4 % EOS % (test code = 713-8) 3.1 % BASO % (test code = 706-2) 0.4 % GRAN MAT x10^3(ANC) (test code = 0083970639) 6.80 10*3/uL 1.88-7.09 IMM GRAN x10^3 (test code = 4471552047) 0.03 10*3/uL 0.00-0.06 LYMPH x10^3 (test code = 731-0) 3.15 10*3/uL 1.32-3.29 MONO x10^3 (test code = 742-7) 0.83 10*3/uL 0.33-0.92 EOS x10^3 (test code = 711-2) 0.35 10*3/uL 0.03-0.39 BASO x10^3 (test code = 704-7) 0.05 10*3/uL 0.01-0.07 Lab Interpretation (test code = 64850-7) Abnormal [facility] [id number] 17:07:15* Test Item Value Reference Range Interpretation Comme nts FREE T4 (test code = 9181836417) 1.45 See_Comment [Automated [employer]] The system which generated this result transmitted reference range: 0.78 - 2.20 ng/dL:. The reference range was not used to interpret this result as normal/abnormal. Lab Interpretation (test code = 59556-8) Normal [facility] [id number] 17:04:32* Test Item Value Reference Range Interpretation Comme nts FREE T3 (test code = 0931867645) 3.40 pg/mL 2.77-5.27 Lab Interpretation (test cod e = 63043-6) [facility])(TOTAL CHOLESTEROL, TRIGLYCERIDES, HDL)2022-08-16 16:49:54* Test Item Value Reference Range Interpretation Comme nts CHOL (test code = 5896557301) 266 mg/dL 120-200 H HDL (test code = 9218025799) 55 mg/dL >=50 HDLC RATIO (test code = 5958250095) 4.8 <=4.5 H TRIG (test code = 9618545953) 241 mg/dL 30-170 H LDL CHOL (test code = 77391-4) 163 mg/dL <=160 H VLDL (test code = 8004541251) 48 mg/dL 5-60 Lab Interpretation (test cod e = 07971-5) [facility] 16:49:34* Test Item Value Reference Range Interpretation Comme nts MAGNESIUM (test code = 7082482934) 1.8 mg/dL 1.7-2.4 Lab Interpretation (test cod e = 93928-8) [facility] (A1C)2022-08-16 16:25:42* Test Item Value Reference Range Interpretation Comme nts HGB A1C (test code = 4548-4) 5.0 % 4.0-5.7 YEIMI (test code = YEIMI) Reference RangesNormal: <5.7%Prediabetes: 5.7 - 6.4%Diabetes: > 6.5% Lab Interpretation (test code = 65152-9) Normal [facility] URINALYSIS W/O SPECIFIC [id number] 20:55:00* Test Item Value Reference Range Interpretation Comme nts POCT PH U (test code = 3254) 6 mg/dl 5-8 POCT U LEUK EST (test code = 3263) trace Negative - Negative POCT U NIT (test code = 3262) positive Negative - Negative POCT U PROT (test code = 3259) negative Negative - Negative POCT U GLU (test code = 3256) negative Negative - Negative POCT U KETONE (test code = 3258) negative Negative - Negative POCT U BLD (test code = 3257) negative Negative - Negative YEIMI (test code = YEIMI) Per order PVR by bladder scan = ?1 ml. Results reported to provider. ? [facility] URINALYSIS W/O SPECIFIC [id number] 20:55:00* Test Item Value Reference Range Interpretation Comme nts POCT PH U (test code = 3254) 6 mg/dl 5-8 POCT U LEUK EST (test code = 3263) trace Negative - Negative POCT U NIT (test code = 3262) positive Negative - Negative POCT U PROT (test code = 3259) negative Negative - Negative POCT U GLU (test code = 3256) negative Negative - Negative POCT U KETONE (test code = 3258) negative Negative - Negative POCT U BLD (test code = 3257) negative Negative - Negative YEIMI (test code = YEIMI) Per order PVR by bladder scan = ?1 ml. Results reported to provider. ? [facility] URINALYSIS W/O SPECIFIC [id number] 20:55:00* Test Item Value Reference Range Interpretation Comme nts POCT PH U (test code = 3254) 6 mg/dl 5-8 POCT U LEUK EST (test code = 3263) trace Negative - Negative POCT U NIT (test code = 3262) positive Negative - Negative POCT U PROT (test code = 3259) negative Negative - Negative POCT U GLU (test code = 3256) negative Negative - Negative POCT U KETONE (test code = 3258) negative Negative - Negative POCT U BLD (test code = 3257) negative Negative - Negative YEIMI (test code = YEIMI) Per order PVR by bladder scan = ?1 ml. Results reported to provider. ? [facility]. METABOLIC PANEL (95125)2022-01-18 16:17:39* Test Item Value Reference Range Interpretation Comme nts NA (test code = 8915041148) 140 mmol/L 135-145 K (test code = 3438351459) 3.9 mmol/L 3.5-5 CL (test code = 1651255259) 103 mmol/L 98-108 CO2 TOTAL (test code = 9569615893) 31 mmol/L 23-31 AGAP (test code = 7769834551) 2-16 BUN (test code = 6509207911) 28 mg/dL 7-23 H GLUCOSE (test code = 1404122753) 115 mg/dL 70-110 H CREATININE (test code = 1612740882) 1.12 mg/dL 0.5-1.04 H TOTAL BILI (test code = 4249155461) 0.6 mg/dL 0.1-1.1 CALCIUM (test code = 9002111885) 9.6 mg/dL 8.6-10.6 T PROTEIN (test code = 2871770263) 6.8 g/dL 6.3-8.2 ALBUMIN (test code = 3057462781) 4.5 g/dL 3.5-5 ALK PHOS (test code = 2690068975) 73 U/L 34-122 ALTv (test code = 1742-6) 26 U/L 5-35 AST(SGOT) (test code = 1209116541) 27 U/L 13-40 eGFR (test code = 8321711640) mL/min/1.73m2 YEIMI (test code = YEIMI) Association of Glomerular Filtration Rate (GFR) and Staging of Kidney Disease* + --+ --+ ------+| GFR (mL/min/1.73 m2) ?| With Kidney Damage ?| ?Without Kidney Damage+ --------+ --------+ +| ?>90 ?| ?Stage one ?| ? Normal ?+ ---+ ---+ -------+| ?60-89 ?| ?Stage two ?| ? Decreased GFR ? + --+ --+ ------+| ?30-59 ?| ?Stage three ?| ? Stage three ? + --+ --+ ------+| ?15-29 ?| ?Stage four ? | ? Stage four ?+ ---+ ---+ -------+| ?<15 (or dialysis) ? ?| ?Stage five ? | ? Stage five ?+ ---+ ---+ -------+ *Each stage assumes the associated GFR level has been in effect for at least three months. ?Stages 1 to 5, with or without kidney disease, indicate chronic kidney disease. Notes: Determination of stages one and two (with eGFR >59mL/min/1.73 m2) requires estimation of kidney damage for at least three months as defined by structural or functional abnormalities of the kidney, manifested by either:Pathological abnormalities or Markers of kidney damage (including abnormalities in the composition of the blood or urine or abnormalities in imaging tests). Lab Interpretation (test code = 24917-4) [facility] Test Item Value Reference Range Interpretation Comme nts LIPASE (test code = 1250437093) 50 U/L 0-220 Lab Interpretation (test cod e = 12442-0) Normal [facility] WITH [id number] 15:43:56* Test Item Value Reference Range Interpretation Comme nts WBC (test code = 6690-2) See_Comment H [Automated message] The system which generated this result transmitted reference range: 4.30 - 11.10 10*3/?L. The reference range was not used to interpret this result as normal/abnormal. RBC (test code = 789-8) See_Comment [Automated message] The system which generated this result transmitted reference range: 3.93 - 5.25 10*6/?L. The reference range was not used to interpret this result as normal/abnormal. HGB (test code = 718-7) 14.0 g/dL 11.6-15 HCT (test code = 4544-3) 40.8 % 35.7-45.2 MCV (test code = 787-2) 87.7 fL 80.6-95.5 MCH (test code = 785-6) 30.1 pg 25.9-32.8 MCHC (test code = 786-4) 34.3 g/dL 31.6-35.1 RDW-SD (test code = 90464-0) 44.6 fL 39-49.9 RDW-CV (test code = 788-0) 13.9 % 12-15.5 PLT (test code = 777-3) See_Comment [Automated message] The system which generated this result transmitted reference range: 166 - 358 10*3/?L. The reference range was not used to interpret this result as normal/abnormal. MPV (test code = 79932-1) 9.9 fL 9.5-12.9 NRBC/100 WBC (test code = 8363008744) See_Comment [Automated message] The system which generated this result transmitted reference range: 0.0 - 10.0 /100 WBCs. The reference range was not used to interpret this result as normal/abnormal. NRBC x10^3 (test code = 4578320175) See_Comment [Automated message] The system which generated this result transmitted reference range: 10*3/?L. The reference range was not used to interpret this result as normal/abnormal. GRAN MAT (NEUT) % (test code = 770-8) 79.3 % IMM GRAN % (test code = 2184056428) 0.50 % LYMPH % (test code = 736-9) 12.7 % MONO % (test code = 5905-5) 6.7 % EOS % (test code = 713-8) 0.5 % BASO % (test code = 706-2) 0.3 % GRAN MAT x10^3(ANC) (test code = 4554538160) 14.34 10*3/uL 1.88-7.09 H IMM GRAN x10^3 (test code = 8139247929) 0.09 10*3/uL 0-0.06 H LYMPH x10^3 (test code = 731-0) 2.30 10*3/uL 1.32-3.29 MONO x10^3 (test code = 742-7) 1.22 10*3/uL 0.33-0.92 H EOS x10^3 (test code = 711-2) 0.09 10*3/uL 0.03-0.39 BASO x10^3 (test code = 704-7) 0.06 10*3/uL 0.01-0.07 Lab Interpretation (test code = 90081-0) [facility] History and Physical Notes Date/Time Note Provider Source 2024-03-01 19:00:19 Medicine History & Physical Date of Service: 03/01/2024 Pt presents from: Home CC: Palpations History of Present Illness: Jovanna Blake is a 74 year old female with past md hx of coronary disease, chronic heart failure with preserved ejection fraction, hypertension, hyperlipidemia, chronic kidney disease stage III history of aortic stenosis that presents to the ED for palpitations. Patient states she is in her normal state of health this morning she had a bowel movement post bowel movement she started feeling palpitations weak she went took her blood pressure which was fine but was noted to be tachycardic in the 130s at that time decided to come to the ED for evaluation. In the emergency department she was noted to be in A-fib with RVR. Labs reveal elevated white blood cell count of 11. Chemistry reveals potassium of 3.3 mmol/L TSH of 1.13. Chest x-ray shows mild cardiomegaly along with bibasilar congestion and atelectatic changes. Patient was started on Cardizem drip for A-fib with RVR still uncontrolled. Hospitalist call for admission. On exam she is alert complaining of above. Prior smoker denies drugs or alcohol. Compliant with meds. ROS: Pt denies F / N / V / D / Constipation / CP / SOB / cough / Abd pain / dysuria / hematuria / melena / hematochezia / rashes / suicidal or homicidal ideation / All others negative Review of Hx/Meds: PMH: Past Medical History: Diagnosis Date Abnormality of gait 02/27/2020 LORETO (acute kidney injury) 08/20/2020 Aortic stenosis, mild 07/03/2020 Aortic stenosis, moderate 08/20/2020 Arthritis Arthritis Arthritis, multiple joint involvement 02/18/2021 Bilateral knee pain 02/27/2020 Bradycardia 12/18/2019 Chronic heart failure with preserved ejection fraction 08/20/2020 Constipation, slow transit 07/09/2020 Dupuytren's contracture 09/14/2019 Essential hypertension was diastolic, now systolic Gout Gouty arthritis of right foot 09/26/2020 Grade II internal hemorrhoids 07/03/2020 History of colon polyps 03/28/2020 Added automatically from request for surgery [id number] Hyperlipidemia high TG, changed diet Hyperlipidemia high TG, changed diet Hypertension was diastolic, now systolic Hypothyroidism since 1986 Kidney stone 10/25/2016 Added automatically from request for surgery [id number] Leg swelling 07/03/2020 Lipoma of colon 07/03/2020 SOULEYMANE (obstructive sleep apnea) 02/21/2016 Other chronic pain 02/27/2020 Stage 3a chronic kidney disease 07/09/2020 Tuberculosis she was told this years ago, positive ppd in 10th grade, xray showed she had it but was scarred over Tubular adenoma of colon 07/15/16 Dr. Vieira - Single 3cm polyp. Repeat in 3 yrs PSH: has a past surgical history that includes colonoscopy (2000); egd (endo) (2000); colonoscopy (N/A, 07/15/2016); colonoscopy (08/04/2016); hb colonoscopy & polypectomy (08/04/2016); ureteroscopic stone manipulation (Right, 11/01/2016); stent placement (shx) (Right, 11/01/2016); trigger finger release (Right, 09/26/2019); colonoscopy (N/A, 04/08/2020); phacoemulsification of cataract with intraocular lens implant (Right, 04/23/2021); phacoemulsification of cataract with intraocular lens implant (Left, 05/21/2021); and transcatheter aortic valve replacement (shx) (N/A, 07/28/2023). Family Hx: Noncontributory unless mentioned above Social History Tobacco Use Smoking status: Former Types: Cigarettes Passive exposure: Never Smokeless tobacco: Never Tobacco comments: Patient quit smoking so time ago Vaping Use Vaping status: Never Used Substance Use Topics Alcohol use: No Alcohol/week: 0.0 standard drinks of alcohol Drug use: No Current Scheduled Medications Current IV Current Facility-Administered Medications: [START ON 03/02/2024] allopurinoL (ZYLOPRIM) tablet 100 mg, 100 mg, Oral, DAILY, Jasvir Howe DO [START ON 03/02/2024] amLODIPine (NORVASC) tablet 5 mg, 5 mg, Oral, DAILY, Jasvir oHwe DO [START ON 03/02/2024] atorvastatin (LIPITOR) tablet 80 mg, 80 mg, Oral, DAILY, Jasvir Howe DO [START ON 03/02/2024] carvediloL (COREG) tablet 6.25 mg, 6.25 mg, Oral, BID MEALS, Jasvir Howe DO diltiazem (CARDIZEM IV) 125 mg in D5W infusion, 2.5-15 mg/hr, IV Infusion, TITRATE, Sebastian Mae MD, Last Rate: 2.5 mL/hr at 03/01/241811, 2.5 mg/hr at 03/01/24 181 [START ON 03/02/2024] DULoxetine (CYMBALTA) capsule 30 mg, 30 mg, Oral, DAILY, Jasvir Howe DO enoxaparin (LOVENOX) injection 100 mg, 1 mg/kg, Subcutaneous, Q12H, Jasvir Howe DO [START ON 03/02/2024] ezetimibe (ZETIA) tablet 10 mg, 10 mg, Oral, DAILY, Jasvir Howe DO [START ON 03/02/2024] levothyroxine (SYNTHROID) tablet 88 mcg, 88 mcg, Oral, QAM-0600, Jasvir Howe DO [START ON 03/02/2024] lisinopriL (PRINIVIL,ZESTRIL) tablet 40 mg, 40 mg, Oral, DAILY, Jasvir Howe DO traMADoL (ULTRAM) tablet 50 mg, 50 mg, Oral, Q6HPRN, Jasvir Howe DO Objective: Vitals: Vitals: 03/01/24 1600 03/01/24 1651 03/01/24 1656 03/01/24 1711 BP: (!) 138/93 (!) 131/116 Pulse: 98 126 101 Resp: 18 20 17 Temp: 36.1 ?C (96.9 ?F) TempSrc: Temporal Artery SpO2: 96% 95% 93% Weight: 98.4 kg (217 lb) Height: 1.676 m (5' 6") I/O's: Intake/Output Summary (Last 24 hours) at 03/01/2024 1900 Last data filed at 03/01/2024 1812 Gross per 24 hour Intake 12.21 ml Output -- Net 12.21 ml Physical Exam: General: NAD, Alert, lying in bed comfortable, cogent speech. HEENT: anicteric, oral mucosa dry Neck: supple, no JVD, no bruits. Chest: CTA B/L, no W/R/C. Heart: Irregular irregular, tacky, S1/S2, no M/G/R Abdominal: BS normoactive, soft, ND, NT. Skin/Extremities: no rash, no cyanosis, warm and dry, no LE edema. Neurological: CN II-XII grossly intact, no focal deficits. Labs: BMP:BMP NA (mmol/L) Date Value 03/01/2024 138 01/24/2024 140 12/23/2023 140 10/27/2023 140 08/01/2023 139 K (mmol/L) Date Value 03/01/2024 3.3 (L) 01/24/2024 4.1 12/23/2023 4.4 10/27/2023 4.4 08/01/2023 3.6 CALCIUM (mg/dL) Date Value 03/01/2024 9.4 01/24/2024 9.6 12/23/2023 9.5 10/27/2023 9.3 08/01/2023 9.0 CL (mmol/L) Date Value 03/01/2024 101 01/24/2024 102 12/23/2023 102 10/27/2023 103 08/01/2023 107 BUN (mg/dL) Date Value 03/01/2024 28 (H) 01/24/2024 39 (H) 12/23/2023 37 (H) 10/27/2023 35 (H) 08/01/2023 16 CREATININE (mg/dL) Date Value 03/01/2024 0.96 01/24/2024 1.16 (H) 12/23/2023 0.99 10/27/2023 1.08 (H) 08/01/2023 0.74 GLUCOSE (mg/dL) Date Value 03/01/2024 108 01/24/2024 91 12/23/2023 100 10/27/2023 88 08/01/2023 98 CO2 TOTAL (mmol/L) Date Value 03/01/2024 28 01/24/2024 27 12/23/2023 26 10/27/2023 29 08/01/2023 26 CBC:CBC WBC (10*3/?L) Date Value 03/01/2024 11.39 (H) RBC (10*6/?L) Date Value 03/01/2024 4.10 PLT (10*3/?L) Date Value 03/01/2024 251 HGB (g/dL) Date Value 03/01/2024 12.8 HCT (%) Date Value 03/01/2024 38.7 BMP:Hepatic Function Panel ALBUMIN (g/dL) Date Value 03/01/2024 4.2 T PROTEIN (g/dL) Date Value 03/01/2024 7.4 TOTAL BILI (mg/dL) Date Value 03/01/2024 1.4 (H) BILI UNCON (mg/dL) Date Value 05/20/2023 0.9 BILI CONJ (mg/dL) Date Value 05/20/2023 0.0 ALT(SGPT) (U/L) Date Value 04/21/2018 22 ALTv (U/L) Date Value 03/01/2024 56 (H) AST(SGOT) (U/L) Date Value 03/01/2024 39 ALK PHOS (U/L) Date Value 03/01/2024 118 Troponin: Recent Labs 03/01/24 1216 TROPNI 0.015 I have reviewed all relevant labs Imaging: XR CHEST 1 VW Result Date: 03/01/2024 HISTORY: Dyspnea. TECHNIQUE: Portable AP view of the chest is obtained. Comparison made with 09/21/2019 study. FINDINGS: Minimal linear increased markings in both lower lungs noted which could be discoid atelectatic changes and congestion secondary to viral infection. No acute pneumonia. No pneumothorax or pleural effusion detected. Mild cardiomegaly noted. Incidental note of sclerotic lesion in the neck of the right humerus, possibly bone marrow infarction, unchanged when compared with 09/21/2019 study. CONCLUSIONS: 1. Bibasilar congestion and atelectatic changes. Etiology could be viral infection. 2. Mild cardiomegaly. No pulmonary edema. Assessment and plan: Principal Problem: Atrial fibrillation with rapid ventricular response A-fib with RVR: - Continue Cardizem drip and Coreg p.o. - Start anticoagulation with Lovenox, plan Eliquis on discharge - Cardiology consult - Trial metoprolol 5 mg IV now - Follow-up TSH Hypertension: - Continue amlodipine, Coreg and lisinopril - Hold hydrochlorothiazide Hyperlipidemia: - Continue atorvastatin and Zetia Anxiety: - Continue Cymbalta Coronary disease: - Hold off aspirin and Plavix while on Lovenox - Continue statin Hypothyroidism: - Continue Synthroid DVT prophylaxis: Lovenox Advanced Care Planning ( Z71.89 ) Above assessment and plan discussed at length with patient, patient expressed full understanding. Questions and concerns addressed I spent 2 minutes discussing the advance care planning. Advanced Directive Maker: Patient Level of comfort: N/A Code Status: DNR/DNI Critical care statement: I have spent 40 Critical Care minutes of my undivided time on this patient regarding the following critical care diagnosis: Afib w/ RVR, mgmt of cardizem gtt. [place] [employer] was verified Disposition: Await stability continue on Cardizem drip cardiology evaluation [facility] 2023-05-20 10:00:49 Cardiac Catheterization / PTCA History and Physical Date: 05/20/2023 TIME: 10:01 AM PATIENT NAME: Jovanna Blake Age: [age] year old Race: /White SEX:female Referring Physician: Brian Vieira MD HPI: 73 years old female with hx of severe and CAD s/p PCI of LAD and ramus presented to the [employer] lab[employer] for an elective PCI of RCA. Pre-Procedure Sedation Evaluation NPO Status Solids: >8 hours Clear liquids: >2 hours History History of anesthesia/sedation complications: No History of difficult airway: No History of neck problems, craniofacial abnormalities, head/neck surgery: No Increased risk for airway obstruction, sleep apnea, morbid obesity: No Airway Mallampati: III (only soft palate and only base of uvula) Mouth opening: Normal Range of motion neck: Normal Dentition: Normal Assessment: ASA 3 Plan: Moderate sedation The risks, benefits, and treatment options of sedation were discussed with the patient/guardian and they desire to proceed. The consent form was completed and signed. [place] [employer] Functional Class: II Mongo Angina Heart Class: III Current History: Past Medical History: Diagnosis Date Abnormality of gait 02/27/2020 LORETO (acute kidney injury) 08/20/2020 Aortic stenosis, mild 07/03/2020 Aortic stenosis, moderate 08/20/2020 Arthritis Arthritis Arthritis, multiple joint involvement 02/18/2021 Bilateral knee pain 02/27/2020 Bradycardia 12/18/2019 Chronic heart failure with preserved ejection fraction 08/20/2020 Constipation, slow transit 07/09/2020 Dupuytren's contracture 09/14/2019 Essential hypertension was diastolic, now systolic Gout Gouty arthritis of right foot 09/26/2020 Grade II internal hemorrhoids 07/03/2020 History of colon polyps 03/28/2020 Added automatically from request for surgery [id number] Hyperlipidemia high TG, changed diet Hyperlipidemia high TG, changed diet Hypertension was diastolic, now systolic Hypothyroidism since 1986 Kidney stone 10/25/2016 Added automatically from request for surgery [id number] Leg swelling 07/03/2020 Lipoma of colon 07/03/2020 SOULEYMANE (obstructive sleep apnea) 02/21/2016 Other chronic pain 02/27/2020 Stage 3a chronic kidney disease 07/09/2020 Tuberculosis she was told this years ago, positive ppd in 10th grade, xray showed she had it but was scarred over Tubular adenoma of colon 07/15/16 Dr. Vieira - Single 3cm polyp. Repeat in 3 yrs Past Surgical History: Procedure Laterality Date COLONOSCOPY 2000 removed polyps, had blood in stool COLONOSCOPY N/A 07/15/2016 Surgeon: Donta Vieira MD; Location: [facility] OR [facility] COLONOSCOPY 08/04/2016 COLONOSCOPY N/A 04/08/2020 Surgeon: Kiya August MD; Location: [facility] OR Location EGD (ENDO) 2000 had blood in stool HB COLONOSCOPY & POLYPECTOMY 08/04/2016 PHACOEMULSIFICATION OF CATARACT WITH INTRAOCULAR LENS IMPLANT Right 04/23/2021 Surgeon: Codie Marie MD; Location: [facility] PHACOEMULSIFICATION OF CATARACT WITH INTRAOCULAR LENS IMPLANT Left 05/21/2021 Surgeon: Codie Marie MD; Location: [facility] OR LOCATION STENT PLACEMENT (SHX) Right 11/01/2016 Surgeon: Brody Vaughan; Location[facility] FINGER RELEASE Right 09/26/2019 right middle finger URETEROSCOPIC STONE MANIPULATION Right 11/01/2016 Surgeon: Brody Vaughan; Location: [facility] Allergies Allergen Reactions Antara [Fenofibrate Micronized] Rash Sulfamethoxazole Rash Trimethoprim Rash History of dye allergy: No Family History Problem Relation Age of Onset Leukemia Mother Asthma Father CHF (congestive heart failure) Father of CHF Pulmonary Sister Depression Sister Hypertension Sister Arthritis Sister High cholesterol Sister No Significant Medical Problems Paternal Grandmother Cancer Brother Pulmonary Brother Thyroid Brother Diabetes Brother Breast Cancer Other Social History Socioeconomic History Marital status: Tobacco Use Smoking status: Former Years: 2 Types: Cigarettes Smokeless tobacco: Never Vaping Use Vaping Use: Never used Substance and Sexual Activity Alcohol use: No Alcohol/week: 0.0 standard drinks of alcohol Drug use: No Sexual activity: Not Currently Partners: Male Social History Narrative Lives at home alone. . 02/15/2020 Social Determinants of Health Financial Resource Strain: Low Risk (03/15/2023) Overall Financial Resource Strain (CARDIA) Difficulty of Paying Living Expenses: Not very hard Food Insecurity: Unknown (03/15/2023) Hunger Vital Sign Worried About Running Out of Food in the Last Year: Patient refused Ran Out of Food in the Last Year: Patient refused Transportation Needs: No Transportation Needs (03/15/2023) PRAPARE - Transportation Lack of Transportation (Medical): No Lack of Transportation (Non-Medical): No Physical Activity: Inactive (03/15/2023) Exercise Vital Sign Days of Exercise per Week: 0 days Minutes of Exercise per Session: 0 min Stress: No Stress Concern Present (03/15/2023) [employer] [place] [employer] - Occupational Stress Questionnaire Feeling of Stress : Only a little Social Connections: Moderately Integrated (03/15/2023) Social Connection and Isolation Panel [NHANES] Frequency of Communication with Friends and Family: Three times a week Frequency of Social Gatherings with Friends and Family: Three times a week Attends Rastafari Services: More than 4 times per year Active Member of Clubs or Organizations: Yes Attends Club or Organization Meetings: More than 4 times per year Marital Status: Intimate Partner Violence: Not At Risk (03/15/2023) Humiliation, Afraid, Rape, and Kick questionnaire Fear of Current or Ex-Partner: No Emotionally Abused: No Physically Abused: No Sexually Abused: No Housing Stability: Low Risk (03/15/2023) Housing Stability Vital Sign Unable to Pay for Housing in the Last Year: No Number of Places Lived in the Last Year: 1 Unstable Housing in the Last Year: No Current Medications: No current facility-administered medications for this encounter. Review of Systems: General: denies complaint Eyes: denies complaint Ears/Nose/Mouth/Throat: denies complaint Cardiovascular: denies complaint Respiratory: denies complaint Gastrointestinal: denies complaint Genital/urinary: denies complaint Musculoskeletal: denies complaint Skin: denies complaint Neurologic: denies complaint Psychiatric: denies complaint Endocrine: denies complaint Hematologic: denies complaint Allergy/Immunology: denies complaint Physical Exam: Vitals: There were no vitals filed for this visit. General: alert and oriented x 4 (person, place, date/time and situation); no apparent distress HEENT: pupils equal, round, reactive to light; extraocular movements intact; oropharynx clear; moist mucous membranes, normocephalic atraumatic Neck: supple, no lymphadenopathy, no bruits, no JVD, full range of motion Lungs: clear to auscultation bilaterally Cardio: S1, S2 normal, regular; no murmurs, rubs or gallops Abdomen: soft; non-tender; non-distended; normoactive bowel sounds Extremities: no clubbing, cyanosis, or edema Skin: no rashes Keyon's Test: Yes LABS / DATA: CBC WBC (10*3/?L) Date Value 05/13/2023 9.26 RBC (10*6/?L) Date Value 05/13/2023 4.07 PLT (10*3/?L) Date Value 05/13/2023 240 HGB (g/dL) Date Value 05/13/2023 12.4 HCT (%) Date Value 05/13/2023 39.2 BMP NA (mmol/L) Date Value 05/13/2023 142 K (mmol/L) Date Value 05/13/2023 3.8 CALCIUM (mg/dL) Date Value 05/13/2023 9.2 CL (mmol/L) Date Value 05/13/2023 106 BUN (mg/dL) Date Value 05/13/2023 25 (H) CREATININE (mg/dL) Date Value 05/13/2023 0.91 GLUCOSE (mg/dL) Date Value 05/13/2023 91 CO2 TOTAL (mmol/L) Date Value 05/13/2023 27 Hepatic Function Panel ALBUMIN (g/dL) Date Value 05/13/2023 3.9 T PROTEIN (g/dL) Date Value 05/13/2023 6.5 TOTAL BILI (mg/dL) Date Value 05/13/2023 0.8 BILI UNCON (mg/dL) Date Value 10/18/2017 0.4 BILI CONJ (mg/dL) Date Value 10/18/2017 0.0 ALT(SGPT) (U/L) Date Value 04/21/2018 22 ALTv (U/L) Date Value 05/13/2023 32 AST(SGOT) (U/L) Date Value 05/13/2023 27 ALK PHOS (U/L) Date Value 05/13/2023 78 PROTIME PATIENT (Seconds) Date Value 03/28/2023 12.6 Previous Coronary Angiogram: Previous Coronary Artery Bypass Graph: No PCI CHECKLIST History of prior PCI? Yes Previous Coronary Artery Bypass Graph: NoIf yes, is the report available or has it been requested? No IV contrast used within the past 72 hours?No Did the patient have a Stroke or TIA ? No Informed Consent: Did the patient agree to emergent CABG?Yes Is the patient DNR or DNI?NoAnd if yes, was it reversed? No Candidacy for JEREMIAH Is the patient anemic?No Major Surgery in the past month or in the next year? No History of clinically overt bleeding?No Is the patient on chronic anticoagulation?NoIf yes, which one? History of medication non-adherence?No If the patient is willing to afford prolonged dual antiplatelet therapy if uninsured? Yes Candidacy for PCI Aspirin allergy?No Heparin allergy (HIT)? No Intolerance to Aspirin due to peptic ulcer disease?No Medications: Did the patient take ASA with in the past 24 hours Yes Did th patient take Clopidogrel within the past 24 hours?Yes Did the patient take Metformin within the past 24 hours? No Did the patient take Sildenafil (or equivalent) within the past 24 hours?No Is the patient on chronic anticoagulation?NoIf yes, which one? No Did the patient receive LMWH within the past 24 hours? No Impressions: 73 years old female with hx of severe and CAD s/p PCI of LAD and ramus presented to the open hear[employer] lab[employer] for an elective PCI of RCA. Procedures: PCI of RCA The benefits, alternatives, and risks including but not limited to pain, bleeding, infection, damage to the heart, lung, and/or blood vessels requiring surgery, kidney failure, heart attack, stroke, or were discussed in detail with the patient. The patient expressed understanding and are agreeable to proceed with the recommendations. Edward Pedroza MD 05/20/2023 10:01 AM [employer] Associated attestation - Brian Vieira MD - 05/20/2023 10:05 AM [employer] I agree with the note as written Brian Vieira M.D. Interventional Cardiology Pager: [phone]' [facility] Procedure Notes Date/Time Note Provider Source 2024-05-18 18:39:06 Images from the original note were not included. Procedure: Atrial fibrillation ablation Epic [place] Analyst: Goran Degroot MD EBL: 30 ml (unless otherwise stated) Specimens: none Anesthesia: General anesthesia Complication: None Pre-Procedure Diagnosis: Symptomatic long standing persistent atrial fibrillation Summarized Procedure: 1-PVI for afib ablation 2-Post wall isolation, add on ablation for Afib Mapping & Ablation Catheters: 1. 7F CS catheter 2. 9F Intracardiac echocardiography catheter 3. Irrigated tip RF catheter 4. 7 F Rufe catheter 5. PFA catheter Details: The risks and benefits of GA, electrophysiology study, trans-septal puncture, endocardial PFA+/- radiofrequency ablation, possible direct current cardioversion, atrial fibrillation ablation, and atrial flutter ablation were explained to the patient in detail. Risks including, but not limited to bleeding, infection, heart block, atrio-esophageal fistula, pulmonary vein stenosis, stroke, cardiac tamponade, pneumothorax, , and need for cardiac surgery were explained. The patient expressed verbal understanding and agreed to proceed with the procedure as outlined. Informed written consent was signed and placed in the chart prior to proceeding. After informed consent was obtained, the patient was brought to the Cardiac Electrophysiology Laboratory in a fasting state and was prepped and draped in the usual sterile fashion. Both groin areas were infiltrated with 0.5% lidocaine. Presenting rhythm was afib RVR. Prior to the procedure a transesophageal echocardiogram was performed and demonstrated normal LVEF, dilated LA and no left atrial thrombus. Using modified Seldinger technique, sheaths and catheters were inserted and advanced as follows. An 18,9 on right femoral vein, and 7 Fr sheath was placed in the left femoral vein. A Inquiry CS catheter was inserted via the 7 Fr sheath and placed with its tip in the distal coronary sinus. Next, an intracardiac echocardiogram probe was inserted into the 9 Fr sheath, and a versacross connect sheath inserted via 18 Fr sheath in the right femoral vein. Intracardiac echocardiography (ICE): An 9 Portuguese Aligo flex ICE catheter was inserted through the right femoral vein sheath and under fluoroscopic direction was placed into the right atrium. ICE was used to assist with transseptal puncture . Furthermore it was left in place during the entire procedure for monitoring of possible development of pericardial effusion or tamponade which there was none. Pre TS puncture I did detailed ICE exam, initially I examine the area of the right atrium, tricuspid valve and right ventricle inflow. With gradual posterior rotation I examined the following Cardiac structures ; interatrial septum, left atrium, mitral valve annulus, mitral valve leaflet, CY, left superior PV, left inferior PV, posterior wall of the left atrium, right pulmonary veins. I re-centered the ICE catheter facing the RV inflow and with anterior flexion of the ICE catheter and septal rotation I gently advanced the ICE cathter into the right ventricle. With gradual septal-Posterior rotation of the ICE catheter I examined the left ventricular cavity, posterior medical papillary muscle, anterior lateral papillary muscle. With more clockwise rotation of the ICE catheter I was able to examine AV leaflet in cross sectional view along with RVOT, pulmonary valve and PA. From that view, I reexamined the CY lobes and left superior PV. At end of exam the ICE cathter was kept inside the RV for monitoring of possible development of pericardial effusion. Transseptal puncture: An 8.5F TS Verscross [place] sheath was advanced via 18 Fr sheath in right femoral vein. After placing and confirming the position of [place] sheath tip on the interatrial septum fossa ovalis area with ICE and fluorsoscopy guidance, the TS puncture was performed, guidewire was advanced into LA then PV with ICE guidance. Sheath and dilator were inserted into mid LA cavity under fluoroscopic direction. 22145 units of heparin was administered intravenously at time of obtaining TS puncture prior to advancing the sheath and dilator. ACT was measured every 10 minutes and additional doses of heparin were administered in order to maintain ACT between 350-400 seconds. The [place] dilator and guide wire were removed and sheath was flushed and maintained on continuous drip with heparinized saline. Left atrial mapping and ablation: A-PVI: A 3-D electroanatomic map of the left atrium was performed using the Rhythmia mapping system. Mapping was performed with PFA catheter mapping catheter. Pulmonary veins were identified using fluoroscopy, ICE, and the mapping system. The patient had a total of 4 veins. A right superior, right inferior, left superior, and left inferior pulmonary vein. Next we delivered Farawave PFA therapy to isolate pulmonary veins with 8 applications per vein with 2 Kv (6 per position). PV isolation confirmed with entrance and exit block. B-Add on ablation with post wall isolation High-density mapping using Darek catheter and arrhythmia software suggested posterior wall as one of the drivers for atrial fibrillation. Using PFA catheter in flower form 8 applications delivered to the posterior wall area. Mapping the posterior wall area using high-density Darek catheter confirm complete isolation with line of demarcation around the roof and the floor of the posterior wall. Plan Limited TTE for effusion tomorrow. Bedrest 4 hr. Resume AC first dose at 11pm. Suture removal 11 pm. Follow up with EP clinic in 2 weeks Patient voiced understanding her/his treatment plan. All her/his questions were answered during this visit. Advised to call the office with any further questions. Voice recognition software has been used to create portions of this document. An attempt to proofread has been made to minimize errors. Please do not hesitate to call with any questions. Goran Degroot MD Cardiac Electrophysiology [facility] 2023-07-28 07:40:05 Associated Order(s): Arterial Line Arterial Line Date/Time: 07/28/2023 7:23 AM Performed by: Giuliano Collier MD Arterial Line Placement: Ultrasound-Guided: ultrasound guided Patient Location: OR Indication: continuous blood pressure monitoring and blood sampling needed Staff: Supervising Anesthesiologist: Gabriele Lebron MD Resident: Giuliano Collier MD Procedure Detail: Catheter Size: 20 gauge Catheter Length: 1 and 3/4 inch Catheter Type: Arrow Seldinger Technique?: Yes Laterality: Left Site: Radial artery Line Secured: Tape, Tegaderm and biopatch Preparation: Chloroprep, sterile gloves, guidewire removed intact, biopatch applied and drape Events: Events: Patient tolerated procedure well with no complications and all wires accounted for Comments: (+) Local infiltration with Lidocaine, STF, smooth and atraumatic. [facility] AN-ANESTHESIOLOGY [facility] 2023-07-28 07:39:09 Associated Order(s): Central Line Central Line Date/Time: 07/28/2023 7:36 AM Performed by: Kadeem Lanier MD Central Line Placement: Ultrasound-Guided: ultrasound guided Indication: central venous access and CVP monitoring Staff: Supervising Anesthesiologist: Gabriele Lebron MD Resident: Kadeem Lanier MD Sterility and Timeout Preparation: hand hygiene performed prior to central venous catheter insertion, maximum sterile barriers were used: cap, mask, sterile gown, sterile gloves, and large sterile sheet, antiseptic used during central venous catheter insertion, skin prep agent completely dried prior to procedure and timeout occurred immediately prior to procedure Medical Reason for Not Performing Maximal Sterile Barrier Technique: No Procedure Detail: Patient Position: Supine Laterality: Right Site: Internal jugular Prep: Chloraprep Cathether Size: 9 Fr Catheter Length (cm): 10 Cathether Type: Introducer Number of Lumens: Triple lumen Oximetric Catheter?: No target vein identified, needle advanced into vein and blood aspirated and guidewire advanced into vein Seldinger Technique?: Yes Ultrasound Guidance used?: Yes, Sterile Gel and Probe Cover used for Ultrasound? Yes. Intravenous Verification: verified by ultrasound and venous blood return all ports aspirated, all ports flushed easily, guidewire was removed intact, biopatch was applied, line was sutured in place and dressing was applied Confirmation for Venous Placement: IV tubing and Ultrasound Events: Events: patient tolerated procedure well with no complications PA Catheter Placement: PA Catheter Placed?: No Comments: Wire out, transduced before dilation, 1x attempt, MSBT. No apparent complications. [facility] 2023-05-20 11:38:22 Procedure(s): CORONARY STENT; IVUS Pre-Procedure Diagnose(s): Coronary artery disease of [place] artery of [place] heart with stable angina pectoris Post-Procedure Diagnose(s): Coronary artery disease of [place] artery of [place] heart with stable angina pectoris Left Heart Cath/Coronary Angiography Date of Service: 05/20/2023 11:39 AM Fellow: Drs. Pedroza and Kylie Faculty: [facility] Indication/Diagnosis: Patient with CAD (s/p PCI of LAD and RI) and severe aortic stenosis presenting for staged PCI of RCA. Consent source: self Consent type: indications/complications discussed with patient/legal guardian; written consent obtained Time out completed: yes Aseptic technique: Chlorprep Local Anesthesia: 1% lidocaine without epinephrine Sedation: fentanyl 25 mcg, Versed 1 mg Access site: right radial artery Closure Method: TR Band Sterile dressing: yes Complications: none Findings: RCA: Large, ostial 60% (IVUS indicative of non-significant MLA) proximal mild disease, mid tortuosity with 80% ulcerated disease, distal focal 90% (2.5 NC; IVUS indicative of severe fibrocalcific disease in the m and dRCA; 2.75 NC; 2.75 x 38 mm Synergy Rx JEREMIAH in m-dRCA; 3.0 x 38 mm Synergy Rx JEREMIAH in mRCA; 3.5 NC; 0% residual stenosis) then mild LI PDA: Medium size, proximal mild disease, mid to distal mil LI PLB: Large, proximal to mid mild disease then the vessel gives off two branches Post-Procedure Sedation Addendum Immediately prior to start of sedation, the patient was evaluated and there was no change from the pre-procedure evaluation. I was present and directed medical care. The patient underwent moderate sedation for the procedure. The medications administered were recorded in the MAR; oxygenation, ventilation and circulation were monitored continuously and were recorded in the EMR. I evaluated the patient after the procedure. The patient was evaluated immediately as recovering from sedation. Complications: None Impression: Severe m-d RCA disease. Successful PCI with 3.0 x 38 mm and 2.75 x 38 mm Synergy Rx JEREMIAH Plan: Admit to Telemetry Floor ASA 81 mg daily Plavix 300 mg load given, continue 75 mg daily Statin Beta juli Aggressive medical management TAVR in 4+ months Findings and plan discussed with patient Brian Vieira M.D. Interventional Cardiology Pager: [phone] [facility] 2023-01-25 10:44:29 Procedure(s): KEENAN RY ANGIOGRAPHY; LEFT HEART CATH; RIGHT HEART CATH Pre-Procedure Diagnose(s): Unstable angina; Moderate to severe aortic stenosis Post-Procedure Diagnose(s): Unstable angina; Moderate to severe aortic stenosis Left Heart Cath/Coronary Angiography/Right Heart Cath Date of Service: 01/25/2023 10:45 AM Fellow: Dr. Washington Faculty: Isha Indication/Diagnosis: Patient with moderate to severe aortic stenosis and unstable angina. Consent source: self Consent type: indications/complications discussed with patient/legal guardian; written consent obtained Time out completed: yes Aseptic technique: Chlorprep Local Anesthesia: 1% lidocaine without epinephrine Sedation: fentanyl 50 mcg, Versed 2 mg Access site: right femoral artery and right femoral vein Closure Method: Angio-Seal and Perclose Sterile dressing: yes Complications: none Findings: RHC: RA mean 8 mmHg RV 38/1 (8) mmHg PA 43/16 mmHg (mean PA 27 mmHg) PCWP mean 17 mmHg CO 6.44 L/min (Derek's method) CI 3.13 L/min/m2 (Derek's method) CO 5.63 L/min (Thermodilution technique) CI 2.73 L/min/m2 (Thermodilution technique) TPG 10 mmHg PVR 1.78 Sandoval Units LVEDP: 18 mmHg Aortic Valve Assessment Mean Gradient (mmHg) ARI (cm^2) 37.8 0.98 37.0 34.0 Coronary dominance: right Left main: Large, patent LAD: Large, proximal 70%, mid ulcerated tandem 80% disease, mid to distal tortuosity with mild LI, distal vessel wraps around the apex. D1: Small to medium size, tortuous, proximal diffuse disease, then mid to distal mild LI D2: Small Septals: Multiple, small RI: Large, proximal 70-80%, mid mild LI, then mid to distal tortuosity with mild LI LCX: Medium size, mild disease OM1: Small OM2: Small RCA: Large, ostial 60% proximal mild disease, mid tortuosity with 80% ulcerated disease, distal focal 90% then mild LI PDA: Medium size, proximal mild disease, mid to distal mil LI PLB: Large, proximal to mid mild disease then the vessel gives off two branches Left Subclavian Angiogram: Patent. Patent CUI Right External Iliac angiogram: Patent Post-Procedure Sedation Addendum Immediately prior to start of sedation, the patient was evaluated and there was no change from the pre-procedure evaluation. I was present and directed medical care. The patient underwent moderate sedation for the procedure. The medications administered were recorded in the MAR; oxygenation, ventilation and circulation were monitored continuously and were recorded in the EMR. I evaluated the patient after the procedure. The patient was evaluated immediately as recovering from sedation. Complications: None Impression: Mildly elevated filling pressures Normal CO/CI Moderate to severe aortic stenosis Severe p and mLAD disease Severe Familia disease Severe mRCA disease Elevated BP. Plan: ASA 81 mg daily Statin Beta juli Consult CT Surgery for CABG and SAVR consideration. Aggressive medical management Findings and plan discussed with patient Brian Vieira M.D. Interventional Cardiology Pager: [phone] [facility] Notes Date/Time Note Provider Source 2024-06-26 15:07:[address]David Garcia to obtain fax number, per recording office is closed, M to return call with fax number. Dr. Jasvir Garcia [facility] [address] [place] [address] Chronic midline low back pain with right-sided sciatica [M54.41, G89.29] - Primary Chronic Low Back Pain [facility] 2024-06-22 12:00:00 Images from the original note were not included. Venipuncture collection performed by clean technique on the left anticubitus. Total of 1 attempts were made. Slight pressure and a bandage/dressing were applied to the site(s). The patient experienced no complications. The following specimens were processed according to instructions and sent to [facility] laboratories per lab order on 06/22/2024 : LT BLUE SST 2 RED LAV 2 PPT DK GREEN (LiHep) DK GREEN (SodH) MORALES DK BLUE (K2) DK BLUE (S) ACD Blood Culture NIPT/NTD Patient has been identified by and was provided with cup, antiseptic towelette, and clean catch instructions. 1 urine specimen(s) sent. Unpreserved Urine Culture 1 Aptima tube Other urine [facility] 2024-06-19 14:05:13 Images from the original note were not included. Routed to provider for review. Unable to refill per ambulatory refill guidelines. Notes: DULoxetine 30 mg capsule Sig: Take 1 capsule by mouth in the morning. Disp: 90 capsule Refills: 0 Start: 06/19/2024 Class: eRX For: Arthritis, multiple joint involvement; Stress; Reactive depression Last ordered: 3 months ago (03/15/2024) by David Velasquez MD Neuropathic Pain Hutszp6906/19/2024 01:57 PM Protocol Details Manual Review: Verify no changes in dose in the last 3 months Valid encounter within last 12 months To be filled at: [id number] [place], [place] - [address] [facility] [address] Last Refilled: 05/2023 Recent Visits Date Type Provider Dept 03/08/24 Office Visit David Velasquez MD [facility] 01/18/24 Office Visit Diogenes Allen NP [facility] 12/23/23 Office Visit Tai Velarde MD [facility] 10/12/23 Office Visit Diogenes Allen NP [facility] 08/08/23 Office Visit Natty Jimenez FNP [facility] 06/24/23 Office Visit Tai Velarde MD [facility] 06/24/23 Office Visit Tai Velarde MD [facility] 04/12/23 Office Visit Natty Jimenez FNP [facility] 03/15/23 Office Visit Tai Velarde MD [facility] Showing recent visits within past 540 days with a meds authorizing provider and meeting all other requirements Future Appointments Date Type Provider Dept 06/22/24 Appointment Tai Velarde MD [facility] 06/26/24 Appointment Tai Velarde MD [facility] 06/26/24 Appointment Tai Velarde MD [facility] Showing future appointments within next 150 days with a meds authorizing provider and meeting all other requirements [employer] Natty Treviño MA [facility] 2024-06-19 13:56:41 Images from the original note were not included. [facility] 2024-05-24 08:30:00 30-day event monitor applied to patient. Wear and care explained. Patient verbalized understanding. Patient given instruction on how to return monitor on 06/24/2024 to [facility] [employer]. [employer] Shaneka Lorenzo RN [facility] 2024-05-19 01:07:36 Problem: Falls, Risk of Goal: Absence of falls 05/19/2024106 by Neisha Sandoval RN Outcome: Progressing as expected 05/19/2024105 by Neisha Sandoval RN Outcome: Progressing as expected Problem: Procedure Routine Goal: Absence of post-procedure complications 05/19/2024106 by Neisha Sandoval RN Outcome: Progressing as expected 05/19/2024105 by Neisha Sandoval RN Outcome: Progressing as expected Goal: Knowledge of procedure 05/19/2024106 by Neisha Sandoval RN Outcome: Progressing as expected 05/19/2024105 by Neisha Sandoval RN Outcome: Progressing as expected Problem: Bleeding, Risk of Goal: Absence of impaired coagulation signs and symptoms 05/19/2024106 by Neisha Sandoval RN Outcome: Progressing as expected 05/19/2024105 by Neisha Sandoval RN Outcome: Progressing as expected Goal: Absence of active bleeding 05/19/2024106 by Neisha Sandoval RN Outcome: Progressing as expected 05/19/2024105 by Neisha Sandoval RN Outcome: Progressing as expected Problem: Cardiac Output - Decreased Goal: Cardiac output within specified parameters 05/19/2024106 by Neisha Sandoval RN Outcome: Progressing as expected 05/19/2024105 by Neisha Sandoval RN Outcome: Progressing as expected Goal: Absence of signs and symptoms of decreased cardiac output 05/19/2024106 by Neisha Sandoval RN Outcome: Progressing as expected 05/19/2024105 by Neisha Sandoval RN Outcome: Progressing as expected Problem: Discharge Planning Goal: Adequate for discharge Outcome: Progressing as expected Goal: Effective communication Outcome: Progressing as expected [facility] 2024-05-15 11:18:52 Spoke with patient - arrival time has been adjusted to be 10 am, to accommodate changes in the procedure schedule. [employer] Jeanne Correa RN [facility] 2024-05-14 13:02:25 [facility] EP LAB PRE-CALL INSTRUCTIONS EP Instructions were sent to patient via: Other telephone Your physician has determined that you need to undergo a(n) EPS w/ RFA procedure. Listed below are some instructions for you to follow prior to the procedure. Do not eat or drink anything after midnight the night before the procedure, except for enough water to take your medications if so directed. Take all medications except do not take metformin (Glucophage) 2 days prior to the procedure and do not take insulin or furosemide (lasix) the day of the procedure. If you are on blood thinners special instructions will be given to you prior to the procedure. If you are allergic to iodine or shellfish, take pre-treatment medications as directed. Please call your referring physician for prescription. Bring a list of all current medications. Bring one adult family member or friend with you to drive you home, as you will be unable to drive for 48 hours after the procedure. Due to limited space and patient privacy, only one (1) visitor is permitted with the patient while they are recovering in the recovery area. No children under the age of 14 years will be allowed in recovery area. Please park in the Hospital Garage via [address] from either [address] or [address]. Bring your parking ticket with you to be validated, only one parking ticket may be validated per patient. There may be a possibility of hospital admission or late evening discharge; therefore, bring leisure reading and an overnight bag. On the day of your procedure, come directly to the Electrophysiology Lab medical receptionist desk, located on the 6th floor of [facility] ([phone].) You will be escorted to the Cardiac Cath/EP recovery room. Please call the Electrophysiology Lab at if you have any questions regarding your procedure. Date of Procedure: 05/18/2024 Time of Procedure: 0900 Vendors Needed: Vendors Verified: Anesthesia Verified: Anesthesia Consent: Drug Allergies? Labs Verified? Note in Chart and any Important Info needed for the case: hold eliquis 2 days piror to procedure Instructions given to patient: yes Patient provided with preferred teaching of verbal information on 05/14/2024. Shows readiness to learn. Verbal instruction teaching provided. Individual is able to read and verbalizes understanding of teaching provided. [facility] Ashly Gomez RN [facility] 2024-05-11 09:00:00 Images from the original note were not included. Venipuncture collection performed by clean technique on the left anticubitus. Total of 1 attempts were made. Slight pressure and a bandage/dressing were applied to the site(s). The patient experienced no complications. The following specimens were processed according to instructions and sent to [facility] laboratories per lab order on 05/11/2024 : LT BLUE 1 SST 1 RED LAV 1 PPT DK GREEN (LiHep) DK GREEN (SodH) MORALES DK BLUE (K2) DK BLUE (S) ACD Blood Culture NIPT/NTD [facility] 2024-05-08 09:06:13 Images from the original note were not included. Medical records received [facility], placed in Dr. Velarde folder for review. [facility] Ani Colon [facility] 2024-04-30 13:05:45 1. Essential hypertension Aortic valve stenosis, etiology of cardiac valve disease unspecified - amLODIPine 10 mg tablet; Take 1 tablet by mouth in the morning. Dispense: 90 tablet; Refill: 1 [facility] 2024-04-30 12:50:24 Pt states the Bp meds had been upped. Advice... Natty Ballard Recent Visits Date Type Provider Dept 03/08/24 Office Visit David Velasquez MD [facility] 01/18/24 Office Visit Diogenes Allen NP [facility] 12/23/23 Office Visit Tai Velarde MD [facility] 10/12/23 Office Visit Diogenes Allen NP [facility] 08/08/23 Office Visit Natty Jimenez FNP [facility] 06/24/23 Office Visit Tai Velarde MD [facility] 06/24/23 Office Visit Tai Velarde MD [facility] 04/12/23 Office Visit Natty Jimenez FNP [facility] 03/15/23 Office Visit Tai Velarde MD [facility] Showing recent visits within past 540 days with a meds authorizing provider and meeting all other requirements Future Appointments Date Type Provider Dept 06/22/24 Appointment Tai Velarde MD [facility] 06/26/24 Appointment Tai Velarde MD [facility] 06/26/24 Appointment Tai Velarde MD [facility] Showing future appointments within next 150 days with a meds authorizing provider and meeting all other requirements [employer] Natty Treviño MA [facility] 2024-04-30 12:28:52 Pt needs a new prescription for with the corrected dose. RX: amLODIPine 10 mg tablet Please Advise. [id number] - [place] [address] [facility] [address] [facility] [id number] [facility] 2024-04-18 14:49:52 Pt returned call. Informed of results and recommendations. She verbalized understanding. Dunn RN [facility] 2024-04-18 14:49:08 Jovanna Blake is a 74 year old female Pt returning nurse Janeth call in regards to results. Call warm transferred. [employer] Scott Garnett [facility] 2024-04-18 13:26:52 Attempted to call pt. No answer. Message left to return call to clinic. Nannette Stone MD 04/13/2024 3:17 PM [employer] Back to Top Please call the patient and let her know I reviewed her echocardiogram report, and it shows that the new valve is working fine without any abnormality. We will repeat another echocardiogram at 1 year from the valve procedure. [employer] [facility] 2024-04-06 13:47:45 Images from the original note were not included. traMADoL 50 mg tablet Possible duplicate: Hover to review recent actions on this medication Sig: TAKE 1 TABLET BY MOUTH TWICE DAILY NEEDED FOR ARTHRITIS PAIN OR CHRONIC PAIN Indications: chronic pain important Maximum MME cannot be calculated for this prescription. Enter discrete sig details to calculate maximum MME. Disp: 90 tablet Refills: 0 Start: 04/06/2024 Class: eRX PDMP Needs Review For: Dupuytren's contracture; Arthritis, multiple joint involvement Last ordered: 10 months ago (05/16/2023) by Tai Velarde MD Controlled Substance [id number]/06/2024 12:06 PM Protocol Details Valid encounter within last 3 months This refill cannot be delegated Pain agreement on file To be filled at: [id number] - [place] [id number] [address] [facility] [facility] Notes: Last filled 10 months ago no notes on last OV regardign medication. Denying refill request. Last Refilled: 05/16/2023 Recent Visits Date Type Provider Dept 03/08/24 Office Visit David Velasquez MD [facility] 01/18/24 Office Visit Diogenes Allen NP [facility] 12/23/23 Office Visit Tai Velarde MD [facility] 10/12/23 Office Visit Diogenes Allen NP [facility] 08/08/23 Office Visit Natty Jimenez FNP [facility] 06/24/23 Office Visit Tai Velarde MD [facility] 06/24/23 Office Visit Tai Velarde MD [facility] 04/12/23 Office Visit Natty Jimenez FNP [facility] 03/15/23 Office Visit Tai Velarde MD [facility] Showing recent visits within past 540 days with a meds authorizing provider and meeting all other requirements Future Appointments Date Type Provider Dept 06/22/24 Appointment Tai Velarde MD [facility] 06/26/24 Appointment Tai Velarde MD [facility] 06/26/24 Appointment Tai Velarde MD [facility] Showing future appointments within next 150 days with a meds authorizing provider and meeting all other requirements [employer] Liz Ag RN [facility] 2024-04-06 11:26:16 Images from the original note were not included. Requested Renewals Name from pharmacy: TRAMADOL 50MG TABLETS Will file in chart as: TRAMADOL 50 mg tablet Sig: TAKE 1 TABLET BY MOUTH TWICE DAILY NEEDED FOR ARTHRITIS PAIN OR CHRONIC PAIN important Maximum MME cannot be calculated for this prescription. Enter discrete sig details to calculate maximum MME. Disp: 90 tablet Refills: Not specified Start: 04/06/2024 Class: eRX PDMP Needs Review For: Dupuytren's contracture; Arthritis, multiple joint involvement Last ordered: 10 months ago (05/16/2023) by Tai Velarde MD Last refill: 05/17/2023 Rx #: [id number]|0|1 Controlled Substance Cbjgsg9704/06/2024 11:21 AM Protocol Details Valid encounter within last 3 months This refill cannot be delegated Pain agreement on file To be filled at: [id number] - [place] [id number] [address] AT [facility] [address] 03-08-2024 06-22-2024 [facility] 2024-04-03 08:28:43 Images from the original note were not included. Requested Renewals carvediloL 12.5 mg tablet Sig: Take 1 tablet by mouth in the morning and 1 tablet in the evening. Take with meals. Disp: 60 tablet Refills: 0 Start: 04/02/2024 Class: eRX For: Atrial fibrillation with rapid ventricular response Last ordered: 1 month ago (03/03/2024) by Jasvir Howe DO Cardiovascular: Beta Blockers Azwpml8704/02/2024 08:52 PM Protocol Details Valid encounter within last 12 months Heart rate within normal limits and completed in the last 12 months apixaban (ELIQUIS) 5 mg tablet Sig: Take 1 tablet by mouth in the morning and 1 tablet in the evening. Indications: prevention of thromboembolism in paroxysmal atrial fibrillation Disp: 60 tablet Refills: 0 Start: 04/02/2024 Class: eRX For: Atrial fibrillation with rapid ventricular response Last ordered: 1 month ago (03/03/2024) by Jasvir Howe DO Anti-coagulants Andxhj6304/02/2024 08:52 PM Protocol Details Valid encounter within last 12 months Cr in normal range and within 360 days RBC in normal range and within 360 days PLT in normal range and within 360 days HCT in normal range and within 360 days HGB in normal range and within 360 days To be filled at: [id number] [place] [id number] [address] AT [facility] [address] 03-08-2024 06-22-2024 [facility] 2024-03-27 10:03:43 Labs ordered. [facility] 2024-03-26 14:11:10 Called patient to schedule Afib Ablation with Dr. Degroot. Patient agreed to have procedure on 05/18/24 - Labs 05/11/23. Nurse will contact patient for arrival time and instruction [facility] Arcelia Sanders [facility] 2024-03-20 11:30:00 Images from the original note were not included. Pt not due for [place] orders. Pt here for Colin Vargas T&S order. No schedule for a procedure ywt per pt drawing the 1st TS. Venipuncture collection performed by clean technique on the left anticubitus. Total of 1 attempts were made. Slight pressure and a bandage/dressing were applied to the site(s). The patient experienced no complications. The following specimens were processed according to instructions and sent to [facility] laboratories per lab order on 03/20/2024: LT BLUE SST RED LAV 1 PPT DK GREEN (LiHep) DK GREEN (SodH) MORALES DK BLUE (K2) DK BLUE (S) ACD Blood Culture NIPT/NTD [facility] 2024-03-15 05:32:39 [facility] 2024-03-14 09:48:49 Images from the original note were not included. Requested Renewals DULoxetine 30 mg capsule Sig: Take 1 capsule by mouth in the morning. Disp: 90 capsule Refills: 3 Start: 03/14/2024 Class: eRX For: Arthritis, multiple joint involvement; Stress; Reactive depression Last ordered: 1 year ago (01/25/2023) by NEIL Dominguez Neuropathic Pain Zsbpon1403/14/2024 09:46 AM Protocol Details Manual Review: Verify no changes in dose in the last 3 months Valid encounter within last 12 months To be filled at: [facility] #[id number] - [place], [place] - [facility] [place] AT [facility] [address] 03-08-2024 MAR 10-14-2025 [employer] [facility] 2024-03-07 15:39:[address] Hdz relayed to pt. No further questions. CHRISTOPHER Cline, RN, CCRN Regional Medical Director, Transitions of Care [email or web address] Gladys Bedolla RN [facility] 2024-03-07 11:39:36 Yes patient needs to be on both aspirin in the setting of TAVR and Eliquis was initiated due to new onset paroxysmal atrial fibrillation. [facility] 2024-03-06 14:23:07 TRANSITIONAL CARE MANAGEMENT ASSESSMENT 03/06/2024 Jovanna Blake [id number] Jovanna Blake is a 74 year old /White female was admitted on 03/01/24 to [facility] ICU. She was discharged on 03/03/24 with discharge disposition of HR- Routine Discharge. Admitting Physician: Jasvir Howe Discharge Diagnosis: Atrial fibrillation with rapid ventricular response Linked Episodes Type: Episode: Status: Noted: Resolved: Last update: Updated by: TRANSITION OF CARE TCM Active 03/03/2024 03/06/2024 2:16 PM Gladys Bedolla RN Comments: TCM [id number] outreach documentation: Discharge Assessment Chart Assessed: 03/06/24 TCM Outreach Completed: 03/06/24 Do you have a few minutes to speak with me about how you are doing at home?: Yes Discharge Instructions Do you understand your at-home instructions?: Yes Medications Have you filled your prescriptions and do you have them in your home? : Yes Do you know how to take your medications?: No (pt reports warning on Eliquis box stating in bold letters "DO NOT TAKE WITH ARTIFICIAL HEART VALVE". Pt reports she had TAVR. Will message MD Hdz for clarification.) Medication instruction interventions:: Reviewed medication instruction Supplies Did you receive applicable home medical supplies/equipment?: N/A Follow Up Appointment Has a follow up appointment been scheduled?: Yes Home Health Assistance Has the home health nurse contacted you since you've been home?: N/A Survey - Recognition Is there anything you would like to share about your recent hospitalization, or anyone you would like to recognize?: No Do you have any suggestions for improvement?: No Do you have any other questions or concerns at this time?: No Future Appointments: Future Appointments Provider Department Dept Phone 03/07/2024 2:00 PM Goran Degroot MD [facility] [place] [phone] 03/08/2024 11:20 AM David Velasquez MD [facility], [place] [phone] 03/26/2024 10:00 AM Nannette Stone MD [facility] Cardiology[phone] 06/26/2024 10:40 AM Tai Velarde MD [facility] [place] [place] [phone] 06/26/2024 11:20 AM Tai Velarde MD [facility], [place] [phone] 11/20/2024 1:40 PM Yaniv Cruz MD [facility] [place] [phone] 01/30/2025 10:00 AM Rosa M Krishna MD [facility] Pulmonary & Sleep Medicine, [phone] [facility] 2024-03-05 10:16:22 Care Transitions Nurse LUZ MARINA made f/u call to patient post-discharge. No answer, call went to voicemail. CM left discreet message with CM's call back information. LUZ MARINA will try again at a later time. CHRISTOPHER Cline, RN, CCRN Regional Medical Director, Transitions of Care [email or web address] 2024-03-03 12:51:48 Discharge paperwork given to patient. Went over admission diagnosis, what to watch for being on eloquist, reasons to return or call 911. Encouraged to attend follow up visits. Answere all question. Patient taken [facility] wheel [facility]. Yuko Philip RN [facility] 2024-03-03 12:15:14 Problem: Discharge Planning Goal: Adequate for discharge 03/03/2024 1215 by Yuko Philip RN Outcome: Adequate for discharge 03/03/2024 1214 by Yuko Philip RN Outcome: Adequate for discharge Goal: Effective communication 03/03/2024 1215 by Yuko Philip RN Outcome: Adequate for discharge 03/03/2024 1214 by Yuko Philip RN Outcome: Adequate for discharge Problem: Fluid Volume - Imbalanced Goal: Absence of signs and symptoms of imbalanced fluid volume 03/03/2024 1215 by Yuko Philip RN Outcome: Adequate for discharge 03/03/2024 1214 by Yuko Philip RN Outcome: Adequate for discharge Problem: Infection, Risk of or Actual Goal: Absence of infection 03/03/2024 1215 by Yuko Philip RN Outcome: Adequate for discharge 03/03/2024 1214 by Yuko Philip RN Outcome: Adequate for discharge Problem: Nutrition Deficit Goal: Adequate nutritional intake 03/03/2024 1215 by Yuko Philip RN Outcome: Adequate for discharge 03/03/2024 1214 by Yuko Philip RN Outcome: Adequate for discharge Problem: Pain Goal: Control of pain at or below patient's documented comfort goal 03/03/2024 1215 by Yuko Philip RN Outcome: Adequate for discharge 03/03/2024 1214 by Yuko Philip RN Outcome: Adequate for discharge Goal: Reduction in pain sensation 03/03/2024 1215 by Yuko Philip RN Outcome: Adequate for discharge 03/03/2024 1214 by Yuko Philip RN Outcome: Adequate for discharge Problem: Respiratory Function - Impaired Goal: Able to cough effectively 03/03/2024 1215 by Yuko Philip RN Outcome: Adequate for discharge 03/03/2024 1214 by Yuko Philip RN Outcome: Adequate for discharge Goal: Adequate oxygenation 03/03/2024 1215 by Yuko Philip RN Outcome: Adequate for discharge 03/03/2024 1214 by Yuko Philip RN Outcome: Adequate for discharge Goal: Adequate work of breathing 03/03/2024 121 by Yuko Philip RN Outcome: Adequate for discharge 03/03/2024 121 by Yuko Philip RN Outcome: Adequate for discharge Goal: Patent airway 03/03/2024 1215 by Yuko Philip RN Outcome: Adequate for discharge 03/03/2024 121 by Yuko Philip RN Outcome: Adequate for discharge Problem: Tissue Perfusion - Altered, Risk of Goal: Hemodynamically stable 03/03/2024 1215 by Yuko Philip RN Outcome: Adequate for discharge 03/03/2024 1214 by Yuko Philip RN Outcome: Adequate for discharge Problem: Falls, Risk of Goal: Absence of falls 03/03/2024 1215 by Yuko Philip RN Outcome: Adequate for discharge 03/03/2024 121 by Yuko Philip RN Outcome: Adequate for discharge Problem: Venous Thromboembolism, (actual or risk of) Goal: Absence of venous thromboembolism (Risk) 03/03/2024 1215 by Yuko Philip RN Outcome: Adequate for discharge 03/03/2024 1214 by Yuko Philip RN Outcome: Adequate for discharge [facility] 2024-03-03 12:14:55 Problem: Discharge Planning Goal: Adequate for discharge Outcome: Adequate for discharge Goal: Effective communication Outcome: Adequate for discharge Problem: Fluid Volume - Imbalanced Goal: Absence of signs and symptoms of imbalanced fluid volume Outcome: Adequate for discharge Problem: Infection, Risk of or Actual Goal: Absence of infection Outcome: Adequate for discharge Problem: Nutrition Deficit Goal: Adequate nutritional intake Outcome: Adequate for discharge Problem: Pain Goal: Control of pain at or below patient's documented comfort goal Outcome: Adequate for discharge Goal: Reduction in pain sensation Outcome: Adequate for discharge Problem: Respiratory Function - Impaired Goal: Able to cough effectively Outcome: Adequate for discharge Goal: Adequate oxygenation Outcome: Adequate for discharge Goal: Adequate work of breathing Outcome: Adequate for discharge Goal: Patent airway Outcome: Adequate for discharge Problem: Tissue Perfusion - Altered, Risk of Goal: Hemodynamically stable Outcome: Adequate for discharge Problem: Falls, Risk of Goal: Absence of falls Outcome: Adequate for discharge Problem: Venous Thromboembolism, (actual or risk of) Goal: Absence of venous thromboembolism (Risk) Outcome: Adequate for discharge [facility] 2024-03-02 18:33:41 Walk test performed. Pt walked around nurses station 3x. Prior to WT pt HR was 68. Pt HR never exceeded 84 bpm during the test and remained in normal sinus rhythm Suzi Mullen RN [facility] 2024-03-02 18:33:18 Problem: Discharge Planning Goal: Adequate for discharge Outcome: Progressing as expected Goal: Effective communication Outcome: Progressing as expected Problem: Fluid Volume - Imbalanced Goal: Absence of signs and symptoms of imbalanced fluid volume Outcome: Progressing as expected Problem: Infection, Risk of or Actual Goal: Absence of infection Outcome: Progressing as expected Problem: Nutrition Deficit Goal: Adequate nutritional intake Outcome: Progressing as expected Problem: Pain Goal: Control of pain at or below patient's documented comfort goal Outcome: Progressing as expected Goal: Reduction in pain sensation Outcome: Progressing as expected Problem: Respiratory Function - Impaired Goal: Able to cough effectively Outcome: Progressing as expected Goal: Adequate oxygenation Outcome: Progressing as expected Goal: Adequate work of breathing Outcome: Progressing as expected Goal: Patent airway Outcome: Progressing as expected Problem: Tissue Perfusion - Altered, Risk of Goal: Hemodynamically stable Outcome: Progressing as expected Problem: Falls, Risk of Goal: Absence of falls Outcome: Progressing as expected Problem: Venous Thromboembolism, (actual or risk of) Goal: Absence of venous thromboembolism (Risk) Outcome: Progressing as expected [facility] 2024-03-01 19:44:15 Problem: Discharge Planning Goal: Adequate for discharge Outcome: Progressing as expected Goal: Effective communication Outcome: Progressing as expected Problem: Fluid Volume - Imbalanced Goal: Absence of signs and symptoms of imbalanced fluid volume Outcome: Progressing as expected Problem: Infection, Risk of or Actual Goal: Absence of infection Outcome: Progressing as expected Problem: Nutrition Deficit Goal: Adequate nutritional intake Outcome: Progressing as expected Problem: Pain Goal: Control of pain at or below patient's documented comfort goal Outcome: Progressing as expected Goal: Reduction in pain sensation Outcome: Progressing as expected Problem: Respiratory Function - Impaired Goal: Able to cough effectively Outcome: Progressing as expected Goal: Adequate oxygenation Outcome: Progressing as expected Goal: Adequate work of breathing Outcome: Progressing as expected Goal: Patent airway Outcome: Progressing as expected Problem: Tissue Perfusion - Altered, Risk of Goal: Hemodynamically stable Outcome: Progressing as expected Problem: Falls, Risk of Goal: Absence of falls Outcome: Progressing as expected Problem: Venous Thromboembolism, (actual or risk of) Goal: Absence of venous thromboembolism (Risk) Outcome: Progressing as expected Grisel Medina RN [facility] 2024-03-01 16:09:49 Nurse Report Report given to ICU nurse. Chief complaint, assessment findings, infusion verify and orders reviewed. ADRI MONTEZ RN Adri Montez RN [facility] 2024-03-01 11:37:55 Pt states she's had a "99 temperature" past few days. Today after walking to restroom she felt her heart flutter so she checked her BP. She noted a 138 heart rate and called EMS. EMS state they gave 25mg cardizem at 1106 due to afbi rvr in 130's. Her HR decreased momentarily then began to increase again. Pt states she doesn't have history of AFIB. Megan Bryant RN [facility] - Health 2024-03-01 11:33:00 Associated Order(s): EKG-12 Lead ROUTINE ONCE; Critical Care Pre-Procedure Diagnose(s): Tachycardia Post-Procedure Diagnose(s): Tachycardia [facility] Emergency Department Note Patient Name: Jovanna Blake Date of : 1950 74 year old female Treatment Room: WV2/WV2 Primary Care Physician: Tai Velarde Patient Escorted by: Self [9] Mode of Arrival: EMS - [place] [57] EMS Treatment Prior to ED Arrival: [employer] treatment: Medication (comment);IVF [employer] treatment comments: Cardizem 25g per EMS Travel and Exposure Screening: Symptoms Does patient have any of these symptoms?: (not recorded) Exposure Screening Has patient had contact with someone with a communicable disease in the last month?: (not recorded) Diseases exposed to:: (not recorded) Is Patient ?: (not recorded) Exposure Date: (not recorded) Chief Complaint: Chief Complaint Patient presents with Atrial Fibrillation History of Present Illness: Onset this morning with palpitations characterized as strong beating sensation. No aggravating or relieving factors. No diaphoresis. Transient substernal chest pain, brief episodes, aggravated with deep breaths. No dyspnea. No fever. No cold symptoms. No nausea, vomiting, diarrhea. Chronic black stool while taking iron supplement. No bloody stools. No dysuria, frequency. (+) myalgia and fatigue 2 weeks ago. COVID (+) by home test 2 weeks ago. Treated with OTC medications. Today, EMS noted AFib in 130s, administered diltiazem bolus. History provided by: Patient and relative Past Medical History/Immunizations: Past Medical History: Diagnosis Date Abnormality of gait 02/27/2020 LORETO (acute kidney injury) 08/20/2020 Aortic stenosis, mild 07/03/2020 Aortic stenosis, moderate 08/20/2020 Arthritis Arthritis Arthritis, multiple joint involvement 02/18/2021 Bilateral knee pain 02/27/2020 Bradycardia 12/18/2019 Chronic heart failure with preserved ejection fraction 08/20/2020 Constipation, slow transit 07/09/2020 Dupuytren's contracture 09/14/2019 Essential hypertension was diastolic, now systolic Gout Gouty arthritis of right foot 09/26/2020 Grade II internal hemorrhoids 07/03/2020 History of colon polyps 03/28/2020 Added automatically from request for surgery [id number] Hyperlipidemia high TG, changed diet Hyperlipidemia high TG, changed diet Hypertension was diastolic, now systolic Hypothyroidism since 1986 Kidney stone 10/25/2016 Added automatically from request for surgery [id number] Leg swelling 07/03/2020 Lipoma of colon 07/03/2020 SOULEYMANE (obstructive sleep apnea) 02/21/2016 Other chronic pain 02/27/2020 Stage 3a chronic kidney disease 07/09/2020 Tuberculosis she was told this years ago, positive ppd in 10th grade, xray showed she had it but was scarred over Tubular adenoma of colon 07/15/16 Dr. Vieira - Single 3cm polyp. Repeat in 3 yrs Tetanus received in last 5 years: Unknown Childhood immunizations: Up-to-date Allergies: Allergies Allergen Reactions Antara [Fenofibrate Micronized] Rash Fenofibrate Rash Sulfamethoxazole Rash Trimethoprim Rash Past Social History: Tobacco Use Former; Types: Cigarettes Passive Exposure: Never Smokeless Tobacco: Never used smokeless tobacco. Comments: Patient quit smoking so time ago Vaping Use Never used Alcohol Use No. Drug Use No. Sexual Activity Not currently sexually active; Partners: Male. Past Surgical History: Past Surgical History: Procedure Laterality Date COLONOSCOPY 2000 removed polyps, had blood in stool COLONOSCOPY N/A 07/15/2016 Surgeon: Donta Vieira MD; Location: [facility] OR [facility] COLONOSCOPY 08/04/2016 COLONOSCOPY N/A 04/08/2020 Surgeon: Kiya August MD; Location: [facility] OR Location EGD (ENDO) 2000 had blood in stool HB COLONOSCOPY & POLYPECTOMY 08/04/2016 PHACOEMULSIFICATION OF CATARACT WITH INTRAOCULAR LENS IMPLANT Right 04/23/2021 Surgeon: Codie Marie MD; Location: [facility] OR LOCATION PHACOEMULSIFICATION OF CATARACT WITH INTRAOCULAR LENS IMPLANT Left 05/21/2021 Surgeon: Codie Marei MD; Location: [facility] OR LOCATION STENT PLACEMENT (SHX) Right 11/01/2016 Surgeon: Brody Vaughan; Location: [facility] TRANSCATHETER AORTIC VALVE REPLACEMENT (SHX) N/A 07/28/2023 Surgeon: Jose G Nixon MD; Location: [facility] OR LOCATION TRIGGER FINGER RELEASE Right 09/26/2019 right middle finger URETEROSCOPIC STONE MANIPULATION Right 11/01/2016 Surgeon: Brody Vaughan; Location: [facility] Location Review of Systems: Review of Systems Constitutional: Positive for fatigue. HENT: Negative. Eyes: Negative. Respiratory: Negative for cough, shortness of breath and wheezing. Cardiovascular: Positive for chest pain and palpitations. Negative for leg swelling. Gastrointestinal: Negative. Genitourinary: Negative. Musculoskeletal: Negative. Skin: Negative. Neurological: Negative. Psychiatric/Behavioral: Negative. Physical Exam: ED Triage Vitals [03/01/24 1139] Weight 98.4 kg (217 lb) Actual or estimated Estimated by patient/family report Height 1.676 m (5' 6") BP (!) 154/98 Pulse 123 Resp 18 Temp 37.5 ?C (99.5 ?F) Temp source Oral SpO2 97 % Measured on Room air Physical Exam Vitals and nursing note reviewed. Constitutional: General: She is not in acute distress. Appearance: Normal appearance. She is not ill-appearing, toxic-appearing or diaphoretic. HENT: Head: Normocephalic and atraumatic. Right Ear: External ear normal. Left Ear: External ear normal. Nose: Nose normal. Mouth/Throat: Mouth: Mucous membranes are moist. Eyes: Extraocular Movements: Extraocular movements intact. Conjunctiva/sclera: Conjunctivae normal. Cardiovascular: Rate and Rhythm: Tachycardia present. Rhythm irregular. Pulmonary: Effort: Pulmonary effort is normal. No respiratory distress. Breath sounds: Normal breath sounds. No wheezing, rhonchi or rales. Abdominal: General: There is no distension. Palpations: Abdomen is soft. Tenderness: There is no abdominal tenderness. Musculoskeletal: General: Normal range of motion. Cervical back: Normal range of motion. Skin: General: Skin is warm and dry. Neurological: General: No focal deficit present. Mental Status: She is alert. Psychiatric: Mood and Affect: Mood normal. Behavior: Behavior normal. Thought Content: Thought content normal. Judgment: Judgment normal. Radiology: XR CHEST 1 VW Final Result HISTORY: Dyspnea. TECHNIQUE: Portable AP view of the chest is obtained. Comparison made with 09/21/2019 study. FINDINGS: Minimal linear increased markings in both lower lungs noted which could be discoid atelectatic changes and congestion secondary to viral infection. No acute pneumonia. No pneumothorax or pleural effusion detected. Mild cardiomegaly noted. Incidental note of sclerotic lesion in the neck of the right humerus, possibly bone marrow infarction, unchanged when compared with 09/21/2019 study. CONCLUSIONS: 1. Bibasilar congestion and atelectatic changes. Etiology could be viral infection. 2. Mild cardiomegaly. No pulmonary edema. Lab Results: Lab Results CBC WITH DIFF - Abnormal Result Value Ref Range WBC 11.39 (*) 4.30 - 11.10 10*3/?L RBC 4.10 3.93 - 5.25 10*6/?L HGB 12.8 11.6 - 15.0 g/dL HCT 38.7 35.7 - 45.2 % MCV 94.4 80.6 - 95.5 fL MCH 31.2 25.9 - 32.8 pg MCHC 33.1 31.6 - 35.1 g/dL RDW-SD 49.5 39.0 - 49.9 fL RDW-CV 14.4 12.0 - 15.5 % PLT 251 166 - 358 10*3/?L MPV 10.3 9.5 - 12.9 fL NRBC/100 WBC 0.0 0.0 - 10.0 /100 WBCs NRBC x10 3 <0.01 10*3/?L GRAN MAT (NEUT) % 76.2 % IMM GRAN % 0.40 % LYMPH % 14.7 % MONO % 7.6 % EOS % 0.7 % BASO % 0.4 % GRAN MAT x10 3 (ANC) 8.69 (*) 1.88 - 7.09 10*3/uL IMM GRAN x10 3 0.04 0.00 - 0.06 10*3/uL LYMPH x10 3 1.68 1.32 - 3.29 10*3/uL MONO x10 3 0.86 0.33 - 0.92 10*3/uL EOS x10 3 0.08 0.03 - 0.39 10*3/uL BASO x10 3 0.04 0.01 - 0.07 10*3/uL COMP. METABOLIC PANEL (95829) - Abnormal NA 138 135 - 145 mmol/L K 3.3 (*) 3.5 - 5.0 mmol/L CL 101 98 - 108 mmol/L CO2 TOTAL 28 23 - 31 mmol/L AGAP 9 2 - 16 BUN 28 (*) 7 - 23 mg/dL GLUCOSE 108 70 - 110 mg/dL CREATININE 0.96 0.50 - 1.04 mg/dL TOTAL BILI 1.4 (*) 0.1 - 1.1 mg/dL CALCIUM 9.4 8.6 - 10.6 mg/dL T PROTEIN 7.4 6.3 - 8.2 g/dL ALBUMIN 4.2 3.5 - 5.0 g/dL ALK PHOS 118 34 - 122 U/L ALTv 56 (*) 5 - 35 U/L AST(SGOT) 39 13 - 40 U/L eGFR 61.4 mL/min/1.73m2 N-TERMINAL PRO-BNP - Abnormal NT-proBNP 793 <=125 pg/mL TROPONIN I - Normal TROPONIN I 0.015 <=0.034 ng/mL INFLUENZA A/B RSV COVID NAAT - Normal Influenza A NAAT Negative Negative Influenza B NAAT Negative Negative RSV by PCR Negative Negative SARS-CoV-2 NAAT Negative Negative THYROID STIMULATING HORMONE MRSA / MSSA SCREEN BY PCR, NARES EKG: If EKG completed, see Procedure Note. Orders and Treatments: Orders Placed This Encounter Procedures Critical Care XR CHEST 1 VW CBC WITH DIFF COMP. METABOLIC PANEL (82259) TROPONIN I N-TERMINAL PRO-BNP Influenza A B RSV COVID NAAT Lab Only COVID Interpretation Thyroid Stimulating Hormone MRSA / MSSA Screen by PCR, Nares Orders Placed This Encounter Medications NaCl 0.9% (NS) bolus infusion 1,000 mL diltiazem (CARDIZEM IV) injection 20 mg diltiazem (CARDIZEM IV) injection 24.5 mg diltiazem (CARDIZEM IV) 125 mg in D5W infusion enoxaparin (LOVENOX) injection 100 mg First Provider Eval: ED Events Date/Time Event User Comments 03/01/24 1144 Medical Screening Begins SEBASTIAN MAE MD -- 03/01/24 1144 First Provider Evaluation SEBASTIAN MAE MD -- AdmissionCare Guideline: Atrial Fibrillation - INPT, Inpatient Based on the indications selected for the patient, the bed status of Inpatient was determined to be MET The following indications were selected as present at the time of evaluation of the patient: - Clinical Indications for Admission to Inpatient Care - Admission is indicated for 1 or more of the following: - Persistent symptomatic Tachycardia (eg, chest pain, dyspnea) despite observation care (eg, rate cannot be sufficiently controlled on regimen suitable for outpatient care, unsuccessful cardioversion) - Cardiac monitoring required that extends beyond observation care AdmissionCare documentation entered by: Sebastian Mae [facility] [employer], 28th edition, Copyright ? 2023 [employer] All Rights Reserved. [id number]:00 ED COURSE Diagnosis/Impression as of 03/01/24 1543 Tachycardia Atrial fibrillation with rapid ventricular response Coronary artery disease of [place] artery of [place] heart with stable angina pectoris S/P TAVR (transcatheter aortic valve replacement) Procedures: EKG-12 Lead ROUTINE ONCE Date/Time: 03/01/2024 3:00 PM Performed by: Sebastian Mae MD Authorized by: Sebastian Mae MD ECG interpreted by ED Physician in the absence of a nursing techn: yes Previous ECG: Previous ECG: Compared to current Similarity: Changes noted Comparison ECG info: Compared to EKGs of 07/30/23, 07/28/23, 03/12/23 : a-fib is new Interpretation: Interpretation: non-specific Rate: ECG rate: 129 ECG rate assessment: tachycardic Rhythm: Rhythm: atrial fibrillation Ectopy: Ectopy: none QRS: QRS axis: Normal (-22) ST segments: ST segments: Non-specific T waves: T waves: non-specific Comments: Qtc 480 Critical Care Performed by: Sebastian Mae MD Authorized by: Sebastian Mae MD Critical care provider statement: Critical care time (minutes): 35 Critical care time was exclusive of: Separately billable procedures and treating other patients Critical care was necessary to treat or prevent imminent or life-threatening deterioration of the following conditions: Cardiac failure, circulatory failure and shock Critical care was time spent personally by me on the following activities: Development of treatment plan with patient or surrogate, discussions with consultants, evaluation of patient's response to treatment, examination of patient, obtaining history from patient or surrogate, ordering and performing treatments and interventions, ordering and review of laboratory studies, ordering and review of radiographic studies, pulse oximetry, re-evaluation of patient's condition and review of old charts I assumed direction of critical care for this patient from another provider in my specialty: no Care discussed with: admitting provider MDM: Medical Decision Making Primary impression: new onset atrial fibrillation, also with RVR Secondary impression:coronary artery disease, chest pain Differential Diagnoses, including but not limited to: electrolyte / glucose abnl, anemia, LORETO, arrhythmia, acute coronary event Problems Addressed: Atrial fibrillation with rapid ventricular response: Details: New-onset A-Fib Coronary artery disease of [place] artery of [place] heart with stable angina pectoris: chronic illness or injury S/P TAVR (transcatheter aortic valve replacement): chronic illness or injury Tachycardia: acute illness or injury Amount and/or Complexity of Data Reviewed Independent Historian: Details: Self, family Labs: ordered. Decision-making details documented in ED Course. Radiology: ordered. Decision-making details documented in ED Course. ECG/medicine tests: ordered and independent interpretation performed. Decision-making details documented in ED Course. Discussion of management or test interpretation with external provider(s): 1. Case discussed with Dr Howe, Hospitalist, including presentation, exam, findings, plan. Will evaluate and continue care in Hospital Risk Prescription drug management. Decision regarding hospitalization. Risk Details: Nominal improvement of HR with EMS and ED diltiazem boluses, IV fluid bolus. BP OK. Troponin neg. Reviewed several prior EKGs. A-Fib appears new, as reported by patient. Diltiazem drip started. Will benefit from further evaluation and treatment in hospital today. Meets AdmissionCare criteria. Flowsheet Documentation: Scoring Tools: No data recorded Disposition/Condition: ED Disposition ED Disposition Admit - ICU Condition -- Comment -- Discharge Medications: Patient's Medications START taking these medications No medications on file CONTINUE taking these medications which have NOT CHANGED ALLOPURINOL 100 MG TABLET TAKE 1 TABLET BY MOUTH IN THE MORNING AMLODIPINE 5 MG TABLET Take 1 tablet by mouth in the morning. ASCORBIC ACID, VITAMIN C, (VITAMIN C) 500 MG TABLET Take 1 tablet by mouth in the morning. ASPIRIN 81 MG CHEWABLE TABLET Take 1 tablet by mouth in the morning. ATORVASTATIN 80 MG TABLET Take 1 tablet by mouth in the morning. CARVEDILOL 6.25 MG TABLET Take 1 tablet by mouth in the morning and 1 tablet in the evening. Take with meals. CLOPIDOGREL 75 MG TABLET Take 1 tablet by mouth in the morning. DULOXETINE 30 MG CAPSULE TAKE 1 CAPSULE BY MOUTH IN THE MORNING EZETIMIBE 10 MG TABLET TAKE 1 TABLET BY MOUTH IN THE MORNING FERROUS SULFATE (FEROSUL) 325 MG (65 MG IRON) TABLET TAKE 1 TABLET BY MOUTH EVERY MORNING AND 1 TABLET EVERY EVENING HYDROCHLOROTHIAZIDE 25 MG TABLET TAKE 1 TABLET BY MOUTH IN THE MORNING LEVOTHYROXINE 88 MCG TABLET Take 1 tablet by mouth every morning. LISINOPRIL 40 MG TABLET Take 1 tablet by mouth in the morning. NITROGLYCERIN 0.4 MG SUBLINGUAL TABLET DISSOLVE 1 TABLET UNDER THE TONGUE EVERY 5 MINUTES NEEDED FOR CHEST PAIN. MAX OF 3 TABLETS IN 15 MINUTES. CALL 911 IF PAIN PERSISTS. TRAMADOL 50 MG TABLET TAKE 1 TABLET BY MOUTH TWICE DAILY NEEDED FOR ARTHRITIS PAIN OR CHRONIC PAIN Indications: chronic pain VIT B CPLX #[id number] (DIALYVITE) [id number] [id number]-QR-[id number]-MG TAB Take 1 tablet by mouth in the morning. START taking Modified Medications as Prescribed No medications on file STOP taking these medications No medications on file Follow-up: na Electronically signed by: Sebastian Mae MD 03/01/24 1543 . [facility] [employer] 2024-03-01 11:33:00 AdmissionCare Guideline: Atrial Fibrillation - INPT, Inpatient Based on the indications selected for the patient, the bed status of Inpatient was determined to be MET The following indications were selected as present at the time of evaluation of the patient: - Clinical Indications for Admission to Inpatient Care - Admission is indicated for 1 or more of the following: - Persistent symptomatic Tachycardia (eg, chest pain, dyspnea) despite observation care (eg, rate cannot be sufficiently controlled on regimen suitable for outpatient care, unsuccessful cardioversion) - Cardiac monitoring required that extends beyond observation care AdmissionCare documentation entered by: Sebastian Mae [facility], 28th edition, Copyright ? 2023 [facility] W[facility] All Rights Reserved. [id number]:[address] [facility] 2024-01-24 10:45:00 Images from the original note were not included. Venipuncture collection performed by clean technique on the left anticubitus. Total of 1 attempts were made. Slight pressure and a bandage/dressing were applied to the site(s). The patient experienced no complications. The following specimens were processed according to instructions and sent to [facility] laboratories per lab order on 01/17/24: LT BLUE SST 1 RED LAV PPT DK GREEN (LiHep) DK GREEN (SodH) MORALES DK BLUE (K2) DK BLUE (S) ACD Blood Culture NIPT/NTD Patient has been identified by and name and was provided with cup, antiseptic towelette, and clean catch instructions. 2 urine specimen(s) sent. Unpreserved 2 Urine Culture Aptima tube Other urine T [facility] 2024-01-20 12:13:49 09/14/2019 - Last referral to Pulmonology from Visit noted - 12/23/2023. Patient has Hx of SOULEYMANE on CPAP. Reports compliance. Referral has been renewed. [facility] 2024-01-20 08:39:53 Patient is scheduled with Pulmonary to see on 01/24 for an annual follow up. Patient is needing a generic referral due to insurance please advise. T Liz Encarnacion [facility] 2023-12-23 10:15:00 Images from the original note were not included. Venipuncture collection performed by clean technique on the left anticubitus. Total of 1 attempts were made. Slight pressure and a bandage/dressing were applied to the site(s). The patient experienced no complications. The following specimens were processed according to instructions and sent to [facility] laboratories per lab order on 12/23/2023 : LT BLUE SST 2 RED LAV 2 PPT DK GREEN (LiHep) DK GREEN (SodH) MORALES DK BLUE (K2) DK BLUE (S) ACD Blood Culture NIPT/NTD Patient has been identified by and was provided with cup, antiseptic towelette, and clean catch instructions. 1 urine specimen(s) sent. Unpreserved Urine Culture 1 Aptima tube Other urine T [facility] 2023-10-27 10:45:00 Images from the original note were not included. Venipuncture collection performed by clean technique on the left anticubitus. Total of 1 attempts were made. Slight pressure and a bandage/dressing were applied to the site(s). The patient experienced no complications. The following specimens were processed according to instructions and sent to [facility] laboratories per lab order on 10/27/2023: LT BLUE SST 1 RED LAV PPT DK GREEN (LiHep) DK GREEN (SodH) MORALES DK BLUE (K2) DK BLUE (S) ACD Blood Culture NIPT/NTD Patient has been identified by and name and was provided with cup, antiseptic towelette, and clean catch instructions. 1 urine specimen(s) sent. Unpreserved Urine Culture 1 Aptima tube Other urine T [facility] 2023-10-25 17:17:40 - Goal BP <130/80 and >110/60. Call clinic if blood pressure is >150/90. - Anticipatory guidance and patient education discussed. Advised to adopt DASH diet, lifestyle modifications, and BP log daily. [facility] 2023-10-25 08:32:08 Pt was taken on Spirnolactone on 10/12/2023 due to Hypotension, currently taking HYDROCHLOROTHIAZIDE 25 mg tablet 100 tablet 2 08/22/2023 -- No Sig: TAKE 1 TABLET BY MOUTH IN THE MORNING Forwarding to provider for review. Liz Ag RN [facility] 2023-10-25 08:12:30 Hanny with [facility] Cardiac Rehab is calling to inform Dr. Velarde the pt has had a 8 lb weight gain in a week after being taken off her Spironolactone. Callback: [phone] Email: [email or web address] James Egan [facility] 2023-10-14 08:48:13 Images from the original note were not included. Refill request refilled per ambulatory refill guidelines. Notes: Name from pharmacy: Atorvastatin Calcium 40 MG Oral Tablet Will file in chart as: ATORVASTATIN 40 mg tablet Sig: Take 1 tablet by mouth at bedtime. Original sig: TAKE 1 TABLET BY MOUTH AT BEDTIME Disp: 100 tablet Refills: 2 Start: 10/13/2023 Class: eRX For: Mixed hyperlipidemia To pharmacy: Please send a replace/new response with 100-Day Supply if appropriate to maximize member benefit. Requesting 1 year supply. Last ordered: 7 months ago (02/23/2023) by NEIL Dominguez Last refill: 08/09/2023 Rx #: [id number] Cardiovascular: Antilipid - HMG-CoA Reductase Inhibitors [id number]/14/2023 08:40 AM Protocol Details Valid encounter within last 12 months Total Cholesterol within 360 days LDL within 360 days HDL within 360 days Triglycerides within 360 days AST in normal range and within 360 days ALT in normal range and within 360 days To be filled at: [facility] [address] Last Refilled: 08/09/23 Recent Visits Date Type Provider Dept 10/12/23 Office Visit Diogenes Allen NP [facility] 08/08/23 Office Visit Natty Jimenez FNP [facility] 06/24/23 Office Visit Tai Velarde MD [facility] 06/24/23 Office Visit Tai Velarde MD [facility] 04/12/23 Office Visit Natty Jimenez FNP [facility] 03/15/23 Office Visit Tai Velarde MD [facility] 09/28/22 Office Visit Tai Velarde MD [facility] 07/12/22 Office Visit Edson Lombardo MD [facility] 05/11/22 Office Visit Tai Velarde MD [facility] 05/11/22 Office Visit Tai Velarde MD [facility] Showing recent visits within past 540 days with a meds authorizing provider and meeting all other requirements Future Appointments Date Type Provider Dept 12/23/23 Appointment Tai Velarde MD [facility] Showing future appointments within next 150 days with a meds authorizing provider and meeting all other requirements [facility] 2023-09-20 11:43:05 Informed pt of results and recommendations. She verbalized understanding. T Suzanne Dunn RN [facility] 2023-09-20 10:18:23 Attempted to call pt. No answer. Message left to return call to clinic. [facility] 2023-09-19 14:52:29 Attempted to call pt. No answer. Message left to return call to clinic. martha Vieira MD 09/15/2023 6:11 PM CDT Back to Top Normal EF 55-60%. Diastolic dysfunction. Normal functioning bioprosthetic AV Brian Vieira M.D. Interventional Cardiology Pager: [phone] [facility] 2023-07-28 14:00:07 Addendum created 07/28/23 1400 by Gabriele Lebron MD Intraprocedure Event edited [facility] 2023-07-28 11:37:54 Patient: Jovanna Blake Procedure Summary Date: 07/28/23 Room / Location: [address] OR LOCATION Anesthesia Start: 712 Anesthesia Stop: 1112 Procedures: TRANSCATHETER AORTIC VALVE REPLACEMENT (Groin) TAVR (Groin) Diagnosis: Aortic valve stenosis, etiology of cardiac valve disease unspecified (Aortic valve stenosis, etiology of cardiac valve disease unspecified [I35.0]) Surgeons: Jose G Nixon MD; Brian Vieira MD Responsible Provider: Gabriele Lebron MD Anesthesia Type: TIVA ASA Status: 4 Anesthesia Type: TIVA Last vitals BP Temp Pulse Resp SpO2 Encounter Notable Events Notable Event Outcome Phase Comment Cardiac tamponade Intraprocedure Anesthesia Post Evaluation Patient location during evaluation: ICU Patient participation: waiting for patient participation Level of consciousness: responsive to physical stimuli Pain management: satisfactory to patient Airway patency: patent Cardiovascular status: acceptable and blood pressure returned to baseline Respiratory status: acceptable Hydration status: acceptable AN-ANESTHESIOLOGY ANESTHESIOLOGIST [facility] 2023-07-28 07:12:00 Name/ MRN / Age / Gender: Jovanna Blake, [id number] 70 year old female BMI: Estimated body mass index is 34.86 kg/m? as calculated from the following: Height as of 07/11/23: 1.676 m (5' 6"). Weight as of 07/11/23: 98 kg (216 lb). Allergies: Antara [fenofibrate micronized], Sulfamethoxazole, and Trimethoprim Last Vitals: BP Readings from Last 1 Encounters: 07/11/23 133/55 Pulse Readings from Last 1 Encounters: 07/11/23 56 SpO2 Readings from Last 1 Encounters: 07/11/23 97% Date of Surgery: 04/08/2020 Surgeon: Kiya August MD Procedure: TRANSCATHETER AORTIC VALVE REPLACEMENT TAVR OR Location: [facility] OR Location Anesthesia Preop Eval (physical exam) Copied forward and updated from: 05/21/21 Anesthesia Preop: Chart Review and [id number] [facility] Communication: Jovanna Blake, 73F DNR (noninvasive ventilation), who refuses blood products, presenting for TAVR. PMHx includes mod aortic stenosis, HFpEF, HTN, HLD, multivessel PCI (05/20/23), SOULEYMANE (CPAP compliant), Tuberculosis ( she was told this years ago, positive ppd in 10th grade, xray showed she had it but was scarred over), CKD3b, Hypothyroidism, , and Tubular adenoma of colon, bladder incontinence, recurrent E.Coli UTI, depression/anxiety, BMI 35, and degenerative changes in cervical neck. After extensive discussion with patient and family, patient agrees to intra-op intubation and compressions if necessary. Also agrees to cell-saver, albumin. No CPB or blood products. NPO Status Verified Clear Liquids: > 2 Hours Solid Food/Non-Clear Liquids: > 8 Hours PONV Risk Factors: female and non-smoker PONV Risk Score: 2 Anesthesia History Anesthesia History Negative (-) Hx of anesthetic complications (-) Hx of PONV (-) Hx of malignant hyperthermia (-) Pt reports no hx of difficult airway Previous Anesthetics/Airways Cardiovascular Comments: HX of m-d RCA, LAD, and LCx PCI 05/20/23 [facility] w/RCA PCI RCA: Large, ostial 60% (IVUS indicative of non-significant MLA) proximal mild disease, mid tortuosity with 80% ulcerated disease, distal focal 90% (2.5 NC; IVUS indicative of severe fibrocalcific disease in the m and dRCA; 2.75 NC; 2.75 x 38 mm Synergy Rx JEREMIAH in m-dRCA; 3.0 x 38 mm Synergy Rx JEREMIAH in mRCA; 3.5 NC; 0% residual stenosis) then mild LI PDA: Medium size, proximal mild disease, mid to distal mil LI PLB: Large, proximal to mid mild disease then the vessel gives off two branches 04/29/23 TTE ? Left Ventricle: Left ventricle size is normal. Mildly increased wall thickness. Normal wall motion. Normal wall motion. Normal systolic function with a visually estimated EF of 55 - 60%. There is pseudonormal diastolic dysfunction. Normal left ventricular filling pressure. ? Aortic Valve: Consistent with moderate to severe stenosis. AV mean gradient is 19.3 mmHg. AV peak gradient is 43.7 mmHg. AV peak velocity is 330.5 cm/s. LVOT diameter is 2.00 cm. AV area by continuity VTI is 0.9 cm2. AV area by peak velocity is 0.9 cm2. ? Left Atrium: Left atrium is severely dilated. ? Tricuspid Valve: Trace transvalvular regurgitation. Right ventricular systolic pressure is 25-30 mmHg. RA pressure is 5-10 mmHg (-) Chest pain with 1-2 flights of stairs (+) Hypertension (+) Dyslipidemia (+) Hx of echocardiogram within past 5 years (+) Echocardiogram results diastolic dysfunction and valves abnormal EF: 55-60 (+) Hx of cardiac stress test (+) Hx of cardiac cath (-) Angina/Chest Pain Within Last Year (-) Patient does not report prior NC (+) CAD and S/P Stent (-) S/P Angioplasty (+) Valvular problems/murmurs and (-) Dysrhythmias (-) Pt reports prior cardiac surgery (-) No cardiovascular devices present (-) CHF Pulmonary (+) Patient reports snoring or stopping breathing during sleep (+) Sleep apnea, CPAP compliant (-) Home O2 (-) COPD (-) Asthma (-) Tobacco use (-) Recent bronchitis or URI Neuro/Musculoskeletal Comments: Tremors 04/15/23 CT neck No worrisome neck lesions, degenerative changes in the cervical spine. (-) CVA(-) Seizures (+) Psychiatric history and depression (-) Neuromuscular Disease (+) Obesity GI/Hepatic Negative GI/Hepatic ROS (-) GERD (-) Liver disease Hematology Negative Hematology ROS (-) PE/DVT (+) On anti-coagulant therapy Prior Blood Transfusion: No Renal Comments: Kidney stones (+) Renal disease and CKD (-) Dialysis (+) Nephrolithiasis Skin Negative Skin ROS (+) Current IV access Endo/Other (-) Diabetes Mellitus (+) Hypothyroidism Other (-) Tobacco use MARIONETTE PERFORMER Negative MARIONETTE PERFORMER ROS Pediatric Pediatric N/A N/A Preoperative Medication Instructions Continue taking all prescribed medications except: COMPA inhibitors, ARBs, diuretics, all oral diabetes medications Anticoagulant Therapy: Defer to surgeons Insulin: Take 1/2 dose the night prior to surgery. Hold on DOS. Phentermine: Alert [facility] anesthesiologist SGLT2 Inhibitors: "gliflozins" to be held for 3 days prior to elective surgeries GLP1 Agonosit: stop 7 days prior to surgery MAC Cases: Continue taking COMPA inhibitors and ARBs ASA Classification ASA: 4 Current Medications: No outpatient medications have been marked as taking for the 07/28/23 encounter (Hospital Encounter). Previous Surgeries: Past Surgical History: Procedure Laterality Date COLONOSCOPY 2000 removed polyps, had blood in stool COLONOSCOPY N/A 07/15/2016 Surgeon: Donta Vieira MD; Location: [facility] OR Location COLONOSCOPY 08/04/2016 COLONOSCOPY N/A 04/08/2020 Surgeon: Kiya August MD; Location: [facility] OR Location EGD (ENDO) 2000 had blood in stool HB COLONOSCOPY & POLYPECTOMY 08/04/2016 PHACOEMULSIFICATION OF CATARACT WITH INTRAOCULAR LENS IMPLANT Right 04/23/2021 Surgeon: Codie Marie MD; Location: [facility] OR LOCATION PHACOEMULSIFICATION OF CATARACT WITH INTRAOCULAR LENS IMPLANT Left 05/21/2021 Surgeon: Codie Marie MD; Location: [facility] OR [facility]ATION STENT PLACEMENT (SHX) Right 11/01/2016 Surgeon: Brody Vaughan; Location: [facility] [place] TRIGGER FINGER RELEASE Right 09/26/2019 right middle finger URETEROSCOPIC STONE MANIPULATION Right 11/01/2016 Surgeon: Brody Vaughan; Location: [facility] Location Anesthesia Physical Exam General no apparent distress and alert and oriented x 3 Neuro/Psych neurological Dental upper dentures and dental caries Maxillary dentures. Mandibular teeth w/ poor dentition. Many missing. Nothing loose. Abdominal (+) obesity Airway Mallampati score:III TM distance:> 5 cm NECK: thick Neck ROM: full Mouth opening:normal Excellent cervical ROM. Mouth opening adequate, however, face limited by redundant soft tissue Extremity Normal extremity Pulmonary pulmonary exam normal and bilateral clear to auscultation Other Cardiovascular Rhythm:regular Anesthesia Plan ASA Status: 4 Plan discussed during pre-op evaluation: MAC, TIVA and General Anesthetic plan on DOS: TIVA Plan to include: face mask, IV induction, arterial line and central line Anesthesia plan discussed with: patient or auto service representative Post-Operative Analgesia: routine analgesia & antiemetics Recovery Plan: PACU Additional comments: Pt seen and examined. Chart/ interval hx/ lab data reviewed. NPO status confirmed. Anesthetic plan d/w pt and she understands/ wishes to proceed. Consent obtained. Pt. Agrees to albumin, cell salvage. Does NOT want CPB or blood products. T [facility] 2023-07-25 14:55:29 Spoke with patient regarding results. Also spoke with patient regarding dental extraction. No pain noted. Will upload note from dentist to medical records and note reviewed by Dr. Vieira. Also provided below results. Patient is trying to stay hydrated but due to tooth extraction she "is trying". Patient reports that she just finished Amoxil prescription from dentist. Per Dr. Vieira patient also needs TTE post TAVR, order placed for appointment. UA is unremarkable CBC is unremarkable BMP with mildly elevated creatine and BUN. Encourage increased oral hydration T [facility] 2023-07-21 10:30:00 Images from the original note were not included. Venipuncture collection performed by clean technique on the left anticubitus. Total of 1 attempts were made. Slight pressure and a bandage/dressing were applied to the site(s). The patient experienced no complications. The following specimens were processed according to instructions and sent to [facility] laboratories per lab order on 07/21/2023 : LT BLUE SST 1 RED LAV 1 PPT DK GREEN (LiHep) DK GREEN (SodH) MORALES DK BLUE (K2) DK BLUE (S) ACD Blood Culture NIPT/NTD Patient has been identified by and name and was provided with cup, antiseptic towelette, and clean catch instructions. 3 urine specimen(s) sent. Unpreserved 2 Urine Culture 1 Aptima tube Other urine T [facility] 2023-07-14 16:20:09 Images from the original note were not included. Routed to provider for review. Unable to refill per ambulatory refill guidelines. Last prescribed while in the hospital. Notes: Name from pharmacy: FERROUS SULFATE 325MG (5GR) TABS Will file in chart as: FEROSUL 325 mg (65 mg iron) tablet Sig: TAKE 1 TABLET BY MOUTH EVERY MORNING AND 1 TABLET EVERY EVENING Disp: 60 tablet Refills: 3 (Pharmacy requested: Not specified) Start: 07/14/2023 Class: eRX Non-formulary For: Chronic iron deficiency anemia Last ordered: 1 month ago (05/21/2023) by Radha Kaplan MD Last refill: 06/14/2023 Rx #: [id number]|1 Endocrinology: Minerals - Iron Supplementation Yceuof5207/14/2023 04:01 AM Protocol Details Valid encounter within last 12 months To be filled at: [id number] - [place] [id number] [address] [facility] [address] Last Refilled: 06/14/2023 Recent Visits Date Type Provider Dept 06/24/23 Office Visit Tai Velarde MD [facility] 06/24/23 Office Visit Tai Velarde MD [facility] 04/12/23 Office Visit Natty Jimenez FNP [facility] 03/15/23 Office Visit Tai Velarde MD [facility] 09/28/22 Office Visit Tai Velarde MD [facility] 07/12/22 Office Visit Edson Lombardo MD [facility] 05/11/22 Office Visit Tai Velarde MD [facility] 05/11/22 Office Visit Tai Velarde MD [facility] Showing recent visits within past 540 days with a meds authorizing provider and meeting all other requirements Future Appointments No visits were found meeting these conditions. Showing future appointments within next 150 days with a meds authorizing provider and meeting all other requirements Treviño MA [facility] 2023-07-08 10:00:00 Images from the original note were not included. Venipuncture collection performed by clean technique on the left anticubitus. Total of 1 attempts were made. Slight pressure and a bandage/dressing were applied to the site(s). The patient experienced no complications. The following specimens were processed according to instructions and sent to [facility] laboratories per lab order on 07/08/2023 : LT BLUE SST 1 RED LAV 1 PPT DK GREEN (LiHep) DK GREEN (SodH) MORALES DK BLUE (K2) DK BLUE (S) ACD Blood Culture NIPT/NTD Dr vieira per pt request only [facility] 2023-07-08 10:00:00 Images from the original note were not included. Patient has been identified by and was provided with cup, antiseptic towelette, and clean catch instructions. 2 urine specimen(s) sent. Unpreserved 1 Urine Culture 1 Aptima tube Other urine [facility] 2023-07-07 13:19:03 NPO instructions per DSU. Hibiclens shower day before and morning of surgery (do not apply on face) Ensure bowel movement day before surgery. Hold all OTC NSAIDS for 5 days before surgery Stop all herbal medications 5 days before surgery (IF TAKING ANY) Stop fish oil 5 days before surgery. (reports it increases bleeding - IF TAKING ANY) Continue to take 81mg of baby ASA and plavix. Take all other medications as prescribed unless otherwise noted by DSU. [facility] 2023-06-24 11:45:00 Images from the original note were not included. Patient states she is only here for urine today. She will come back another day for blood work due to not fasting today. Patient has been identified by and name and was provided with cup, antiseptic towelette, and clean catch instructions. 1 urine specimen(s) sent. Unpreserved Urine Culture 1 Aptima tube Other urine [facility] 2023-06-22 09:10:21 Routing to provider, future reference please send 100 day supply to pharmacy so insurance can cover medication. [employer] Meseret Canas MA [facility] 2023-06-21 16:57:45 Images from the original note were not included. Colon [facility] 2023-06-20 08:49:28 Images from the original note were not included. Last OV:04/12/23 with NEIL Dominguez Last Refill:11/03/22 prescribed by Tai Velarde MD Last Labs Pertaining to Med: Future Appt: with Requested Renewals Name from pharmacy: Allopurinol 100 MG Oral Tablet Will file in chart as: ALLOPURINOL 100 mg tablet Sig: Take 1 tablet by mouth in the morning. Original sig: TAKE 1 TABLET BY MOUTH IN THE MORNING Disp: 90 tablet Refills: 3 Start: 06/18/2023 Class: eRX For: Dupuytren's contracture; Arthritis, multiple joint involvement; Gouty arthritis of right foot To pharmacy: Please send a replace/new response with 100-Day Supply if appropriate to maximize member benefit. Requesting 1 year supply. Last ordered: 7 months ago (11/03/2022) by Tai Velarde MD Last refill: 04/24/2023 Rx #: [id number] Endocrinology: Gout Agents - allopurinol Iexars7106/18/2023 10:05 PM Protocol Details Uric Acid in normal range and within 360 days Valid encounter within last 12 months eGFR in normal range and within 360 days Cr in normal range and within 360 days [facility] 2023-05-21 17:44:06 Problem: Falls, Risk of Goal: Absence of falls 05/21/20231743 by Constance Marie, RN Outcome: Adequate for discharge 05/21/20231742 by Constance Marie RN Outcome: Adequate for discharge 05/21/2023 1035 by Constance Marie RN Outcome: Progressing as expected Problem: Pain Goal: Control of pain at or below patient's documented comfort goal 05/21/2023 1744 by Constance Marie RN Outcome: Adequate for discharge 05/21/2023 1743 by Constance Marie RN Outcome: Adequate for discharge 05/21/2023 1035 by Constance Marie RN Outcome: Progressing as expected Goal: Reduction in pain sensation 05/21/2023 174 by Constance Marie RN Outcome: Adequate for discharge 05/21/2023 174 by Constance Marie RN Outcome: Adequate for discharge 05/21/2023 1035 by Constance Marie RN Outcome: Progressing as expected Problem: Discharge Planning Goal: Adequate for discharge 05/21/2023 1744 by Constance Marie RN Outcome: Adequate for discharge 05/21/2023 174 by Constance Marie RN Outcome: Adequate for discharge 05/21/2023 1035 by Constance Marie RN Outcome: Progressing as expected Goal: Effective communication 05/21/2023 174 by Constance Marie RN Outcome: Adequate for discharge 05/21/2023 174 by Constance Marie RN Outcome: Adequate for discharge 05/21/2023 1035 by Constance Marie RN Outcome: Progressing as expected Problem: Infection Risk Goal: Absence of infection 05/21/2023 174 by Constance Marie RN Outcome: Adequate for discharge 05/21/2023 174 by Constance Marie RN Outcome: Adequate for discharge 05/21/2023 1035 by Constance Marie RN Outcome: Progressing as expected [facility] 2023-05-21 17:43:49 Problem: Falls, Risk of Goal: Absence of falls 05/21/2023 174 by Constance Marie RN Outcome: Adequate for discharge 05/21/2023 1035 by Constance Marie RN Outcome: Progressing as expected Problem: Pain Goal: Control of pain at or below patient's documented comfort goal 05/21/2023 174 by Constance Marie RN Outcome: Adequate for discharge 05/21/2023 1035 by Constance Marie RN Outcome: Progressing as expected Goal: Reduction in pain sensation 05/21/2023 174 by Constance Marie RN Outcome: Adequate for discharge 05/21/2023 1035 by Constance Marie RN Outcome: Progressing as expected Problem: Discharge Planning Goal: Adequate for discharge 05/21/2023 174 by Constance Marie RN Outcome: Adequate for discharge 05/21/2023 1035 by Constance Marie RN Outcome: Progressing as expected Goal: Effective communication 05/21/2023 174 by Constance Marie RN Outcome: Adequate for discharge 05/21/2023 1035 by Constance Marie RN Outcome: Progressing as expected Problem: Infection Risk Goal: Absence of infection 05/21/2023 174 by Constance Marie RN Outcome: Adequate for discharge 05/21/2023 1035 by Constance Marie RN Outcome: Progressing as expected [facility] 2023-05-21 10:35:43 Problem: Falls, Risk of Goal: Absence of falls Outcome: Progressing as expected Problem: Pain Goal: Control of pain at or below patient's documented comfort goal Outcome: Progressing as expected Goal: Reduction in pain sensation Outcome: Progressing as expected Problem: Discharge Planning Goal: Adequate for discharge Outcome: Progressing as expected Goal: Effective communication Outcome: Progressing as expected Problem: Infection Risk Goal: Absence of infection Outcome: Progressing as expected [facility] 2023-05-21 00:24:50 Problem: Falls, Risk of Goal: Absence of falls Outcome: Progressing as expected Problem: Pain Goal: Control of pain at or below patient's documented comfort goal Outcome: Progressing as expected Goal: Reduction in pain sensation Outcome: Progressing as expected Problem: Discharge Planning Goal: Adequate for discharge Outcome: Progressing as expected Goal: Effective communication Outcome: Progressing as expected Problem: Infection Risk Goal: Absence of infection Outcome: Progressing as expected [employer] Renu Zhu RN [facility] 2023-05-20 18:10:54 Problem: Falls, Risk of Goal: Absence of falls Outcome: Progressing as expected Problem: Pain Goal: Control of pain at or below patient's documented comfort goal Outcome: Progressing as expected Goal: Reduction in pain sensation Outcome: Progressing as expected Problem: Discharge Planning Goal: Adequate for discharge Outcome: Progressing as expected Goal: Effective communication Outcome: Progressing as expected Problem: Infection Risk Goal: Absence of infection Outcome: Progressing as expected [employer] [facility] 2023-05-17 14:40:04 [facility] CARDIAC CATH PRE-CALL INSTRUCTIONS Cardiac Cath Instructions were sent to patient via: Other - telephone Your physician has determined that you need to undergo a(n) PCI procedure. Listed below are some instructions for you to follow prior to the procedure. Do not eat or drink anything after midnight the night before the procedure, except for enough water to take your medications if so directed. For Carotid stenting procedures, do not take blood pressure medications the morning prior to the procedure. For Carotid angiogram procedures, do not stop taking your blood pressure medications. Take all medications except do not take metformin (Glucophage) 2 days prior to the procedure and do not take insulin or furosemide (lasix) the day of the procedure. If you are on blood thinners stop taking them 5 days prior to the procedure, unless otherwise instructed. If you are allergic to iodine or shellfish, take pre-treatment medications as directed. Please call your referring physician for prescription. Bring a list of all current medications. Bring one adult family member or friend with you to drive you home, as you will be unable to drive for 48 hours after the procedure. Due to limited space and patient privacy, only one (1) visitor is permitted with the patient while they are recovering in the recovery area. No children under the age of 14 years will be allowed in recovery area. Please park in the Hospital Garage via [address] from either [address] or [address]. Bring your parking ticket with you to be validated, only one parking ticket may be validated per patient. There may be a possibility of hospital admission or late evening discharge; therefore, bring leisure reading and an overnight bag. On the day of your procedure, come directly to the [facility] medical receptionist desk, located on the 6th floor of [facility] ([phone].) You will be escorted to the Cardiac Cath recovery room. Please call the [facility] at if you have any questions regarding your procedure. Date of Procedure: 05/20/23 Time of Procedure: 0900 For peripheral procedures, have you had an PABLO or arterial duplex? not applicable For ASD/PFO procedures, have you had:Not Applicable Instructions given to patient: yes Patient provided with preferred teaching of verbal information on 05/17/23. Shows readiness to learn. Verbal instruction teaching provided. Individual is able to read and accurately returns demonstration of skill. [employer] Zina Rae RN [facility] 2023-05-16 16:05:03 Images from the original note were not included. Requested Renewals Name from pharmacy: TRAMADOL 50MG TABLETS Will file in chart as: TRAMADOL 50 mg tablet Sig: TAKE 1 TABLET BY MOUTH TWICE DAILY NEEDED FOR ARTHRITIS PAIN OR CHRONIC PAIN important Maximum MME cannot be calculated for this prescription. Enter discrete sig details to calculate maximum MME. Disp: 90 tablet Refills: Not specified Start: 05/16/2023 Class: eRX For: Dupuytren's contracture; Arthritis, multiple joint involvement Last ordered: 5 months ago (11/28/2022) by Tai Velarde MD Last refill: 01/03/2023 Rx #: [id number]|1 Controlled Substance Omzbzr1305/16/2023 03:49 PM Protocol Details Valid encounter within last 3 months This refill cannot be delegated Pain agreement on file To be filled at: [id number] - [place] [id number] [address] [facility] [address] 04-12-2023 [facility] Meseret Canas MA 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 Venipuncture collection performed by clean technique on the left anticubitus. Total of 1 attempts were made. Slight pressure and a bandage/dressing were applied to the site(s). The patient experienced no complications. The following specimens were processed according to instructions and sent to [facility] laboratories per lab order on 05/13/2023: LT BLUE SST 1 RED LAV 1 PPT DK GREEN (LiHep) DK GREEN (SodH) MORALES DK BLUE (K2) DK BLUE (S) ACD Blood Culture NIPT/NTD Patient has been identified by and name and was provided with cup, antiseptic towelette, and clean catch instructions. 1 urine specimen(s) sent. Unpreserved Urine Culture 1 Aptima tube Other urine [facility] 2023-04-07 16:08:45 [facility] CARDIAC CATH PRE-CALL INSTRUCTIONS Cardiac Cath Instructions were sent to patient via: Other telephone Your physician has determined that you need to undergo a(n) Possible PCI procedure. Listed below are some instructions for you to follow prior to the procedure. Do not eat or drink anything after midnight the night before the procedure, except for enough water to take your medications if so directed. For Carotid stenting procedures, do not take blood pressure medications the morning prior to the procedure. For Carotid angiogram procedures, do not stop taking your blood pressure medications. Take all medications except do not take metformin (Glucophage) 2 days prior to the procedure and do not take insulin or furosemide (lasix) the day of the procedure. If you are on blood thinners stop taking them 5 days prior to the procedure, unless otherwise instructed. If you are allergic to iodine or shellfish, take pre-treatment medications as directed. Please call your referring physician for prescription. Bring a list of all current medications. Bring one adult family member or friend with you to drive you home, as you will be unable to drive for 48 hours after the procedure. Due to limited space and patient privacy, only one (1) visitor is permitted with the patient while they are recovering in the recovery area. No children under the age of 14 years will be allowed in recovery area. Please park in the Hospital Garage via [address] from either [address] or [address]. Bring your parking ticket with you to be validated, only one parking ticket may be validated per patient. There may be a possibility of hospital admission or late evening discharge; therefore, bring leisure reading and an overnight bag. On the day of your procedure, come directly to the [facility] medical receptionist desk, located on the 6th floor of [facility] ([phone].) You will be escorted to the Cardiac Cath recovery room. Please call the Card[facility] Expert at if you have any questions regarding your procedure. Date of Procedure: 04/15/2023 Time of Procedure: 0630 For peripheral procedures, have you had an PABLO or arterial duplex? not applicable For ASD/PFO procedures, have you had:Not Applicable Instructions given to patient: yes Patient provided with preferred teaching of verbal information on 04/07/2023. Shows readiness to learn. Verbal instruction teaching provided. Individual is able to read and verbalizes understanding of teaching provided. [employer] Ashly Gomez RN [facility] 2023-01-25 14:23:09 Formatting of this n ote might be different from the original. IV dc'd. Dc instructions given. Site check done. Patient taken to lobby by . No distress noted. [facility] 2023-01-24 21:04:23 Formatting of this n ote is different from the original. Images from the original note were not included. Last OV:09/28/[address] Velarde Last Refill:08/16/[address] Velarde Last Labs Pertaining to Med:N/A Future Appt:04/05/[address] Velarde Routed to provider for review. Neuropathic Pain Failed 01/24/2023 06:44 AM Protocol Details Manual Review: Verify no changes in dose in the last 3 months Valid encounter within last 12 months Joselyn Spencer RN [facility] 2023-01-20 15:34:12 Formatting of this n ote might be different from the original. Medication was sent as prescribed to [facility] on 01/04/2023 on 01/04/2023. Duplicate request. Joselyn Spencer RN [facility] 2023-01-20 13:43:32 Formatting of this n ote might be different from the original. [facility] CARDIAC CATH PRE-CALL INSTRUCTIONS Cardiac Cath Instructions were sent to patient via: Telephone Your physician has determined that you need to undergo a(n) LHC and Right heart cath procedure. Listed below are some instructions for you to follow prior to the procedure. Do not eat or drink anything after midnight the night before the procedure, except for enough water to take your medications if so directed. For Carotid stenting procedures, do not take blood pressure medications the morning prior to the procedure. For Carotid angiogram procedures, do not stop taking your blood pressure medications. Take all medications except do not take metformin (Glucophage) 2 days prior to the procedure and do not take insulin or furosemide (lasix) the day of the procedure. If you are on blood thinners stop taking them 5 days prior to the procedure, unless otherwise instructed. If you are allergic to iodine or shellfish, take pre-treatment medications as directed. Please call your referring physician for prescription. Bring a list of all current medications. Bring one adult family member or friend with you to drive you home, as you will be unable to drive for 48 hours after the procedure. Due to limited space and patient privacy, only one (1) visitor is permitted with the patient while they are recovering in the recovery area. No children under the age of 14 years will be allowed in recovery area. Please park in the Hospital Garage via [address] from either [address] or [address]. Bring your parking ticket with you to be validated, only one parking ticket may be validated per patient. There may be a possibility of hospital admission or late evening discharge; therefore, bring leisure reading and an overnight bag. On the day of your procedure, come directly to the [facility] medical receptionist desk, located on the 6th floor of [facility] ([phone].) You will be escorted to the Cardiac Cath recovery room. Please call the Card[facility] Expert at if you have any questions regarding your procedure. Date of Procedure: 01/25/23 Time of Procedure: 6:15AM For peripheral procedures, have you had an PABLO or arterial duplex? For ASD/PFO procedures, have you had: Instructions given to patient: Yes Patient provided with preferred teaching of verbal information on 01/20/23. Shows readiness to learn. Verbal instruction teaching provided. Individual is able to read and verbalizes understanding of teaching provided. Kita Yang RN [facility] 2023-01-19 13:12:35 Formatting of this n ote might be different from the original. Refill request [facility], Carvedilol 6.[address] [facility] 2022-12-30 12:56:58 Formatting of this n ote might be different from the original. Called pt to schedule procedure. Pt agreed to come in on 01/25/23. Pt got labs done on 12/27/22. Pt is aware a nurse will call to give arrival time and instructions. Alix Jorgensen [facility] 2022-12-29 11:49:26 Formatting of this n ote might be different from the original. Images from the original note were not included. Per Daylin Brown message sent to pt. Ro Manuel RN [facility] 2022-12-27 10:15:00 Formatting of this n ote is different from the original. Images from the original note were not included. Venipuncture collection performed by clean technique on the left anticubitus. Total of 1 attempts were made. Slight pressure and a bandage/dressing were applied to the site(s). The patient experienced no complications. The following specimens were processed according to instructions and sent to [facility] laboratories per lab order on 12/27/2022 : LT BLUE 1 SST 1 RED LAV 1 PPT DK GREEN (LiHep) DK GREEN (SodH) MORALES DK BLUE (K2) DK BLUE (S) ACD Blood Culture NIPT/NTD [facility] 2022-12-05 15:22:02 Formatting of this n ote might be different from the original. Received refill request for amlodipine 10 mg, approved per refill guidelines. LUDA SHELBY RN 12/05/2022 3:22 PM FLASH 5..23 NOV [address] [facility] 2022-11-28 23:16:48 Formatting of this n ote might be different from the original. Rx sent, let patient know, and to follow-up as scheduled. [facility]
--- NOTE | 2024-07-02 12:00 | RAD REPORT ---
EXAMINATION: ONE VIEW CHEST XR CLINICAL INDICATION: PALPITATIONS TECHNIQUE: Frontal chest projection is submitted. Examination is limited by patient positioning and t echnique. COMPARISON: No prior exam. FINDINGS: The lungs are well inflated and clear. The heart is upper limit of normal in size. No displaced fract ures identified. IMPRESSION: No acute intrathoracic abnormalities.
[2024-07-02 12:43] LABS: Absolute Basophils 0.1 K/uL (0-0.5); Absolute Eosinophils 0.2 K/uL (0-0.5); Absolute Lymphocytes (CBC) 3.2 K/uL (0.7-4.9); Absolute Monocytes 0.6 K/uL (0.1-1.3); Absolute Neutrophil 5.6 K/uL (1.8-8.0); Basophils % 0.7 % (0-1.3); Eosinophils % 2.4 % (0-4.4); Hematocrit 39.7 % (36.0-45.0); Hemoglobin 13.3 g/dL (12.0-15.0); Lymphocytes % 32.7 % (15.3-44.8); MCH 30.3 pg (27.0-35.0); MCHC 33.6 g/dL (32.0-36.0); MCV 90.4 fL (80-100); MPV 8.5 fL (7.6-11.3); Monocytes % 6.4 % (3.3-12.3); Neutrophils % 57.8 % (41.7-73.7); Platelets 231 thou/uL (152-406); RBC Red Blood Cell Count 4.39 M/uL (3.86-4.86); Red Cell Distribution Width 14.8 % (12.1-15.2)
[2024-07-02 13:00] LABS: Anion Gap 8.8 mEq/L (5.0-15.0); Magnesium 2.2 mg/dL (1.6-2.4); Potassium 3.8 mEq/L (3.5-5.1); Troponin High Sensitivity 18.9 pg/mL (<58.9)
--- NOTE | 2024-07-02 13:16 | ER ---
Nurse's Notes [facility] Name: Jovanna Blake Age: 74 yrs Sex: Female : 1950 Arrival Date: 07/02/2024 Time: 11:20 Bed 4 Private MD: Diagnosis: Unspecified atrial fibrillation;Essential (primary) hypertension Presentation: 07/02 11:36 Chief complaint: Patient states: Palpitations that began this morning. HX of afib. EMS ss reports HR of 140-170. Cardizem 12.5 mg given IVP. HR upon arrival to ER is now 80-100. Coronavirus screen: Client denies travel out of the [place] in the last 14 days. Ebola Screen: Patient denies exposure to infectious person. Patient denies travel to an Ebola-affected area in the 21 days before illness onset. Initial Sepsis Screen: Does the patient meet any 2 criteria? No. Patient's initial sepsis screen is negative. Does the patient have a suspected source of infection? No. Patient's initial sepsis screen is negative. Risk Assessment: Do you want to hurt yourself or someone else? Patient reports no desire to harm self or others. Onset of symptoms was July 02, 2024. Care prior to arrival: IV initiated. 20 GA, in the left antecubital area. 11:36 Method Of Arrival: EMS: [facility] 11:36 Acuity: NIXON 2 ss Historical: - Allergies: 11:38 Unknown abx; ss - PMHx: 11:38 Atrial fibrillation; ss - PSHx: 11:38 heart ablation; ss - Immunization history:: Adult Immunizations up to date. - Infectious Disease History:: Denies. - Social history:: Smoking status: Patient denies any tobacco usage or history of. Screenin:36 Abuse screen: Denies threats or abuse. Denies injuries from another. Nutritional ss screening: No deficits noted. Tuberculosis screening: Never had TB. Assessment: 11:36 General: Appears in no apparent distress. comfortable, Behavior is calm, cooperative. ss Pain: Denies pain. Neuro: Level of Consciousness is awake, alert, obeys commands, Oriented to person, place, time, situation, Urban Sociologist are equal bilaterally Moves all extremities. Full function Speech is normal, Facial symmetry appears normal. Neuro: Denies weakness dizziness. Cardiovascular: Rhythm is atrial fibrillation. Cardiovascular: Reports palpitations this morning that have since subsided. Respiratory: Airway is patent Respiratory effort is even, unlabored, Respiratory pattern is regular, symmetrical. GI: Patient currently denies diarrhea, nausea, vomiting. EENT: Oral mucosa is moist. Derm: Skin is intact, is healthy with good turgor, Skin is pink, warm \T\ dry. normal. Musculoskeletal: Swelling absent. 12:36 Reassessment: Patient appears in no apparent distress at this time. Patient and/or ss family updated on plan of care and expected duration. Pain level reassessed. Patient is alert, oriented x 3, equal unlabored respirations, skin warm/dry/pink. 15:02 Reassessment: updated pt regarding plan of care/ admission. Room assignment of room 217 ss given, but awaiting on room to be cleaned at this time. Vital Signs: 11:36 BP 140 / 46; Pulse 91; Resp 17; Temp 97.9(TE); Pulse Ox 100% on R/A; Weight 99.34 kg; ss Height 5 ft. 6 in. ; Pain 0/10; 12:35 BP 148 / 89; Pulse 100; Resp 15; Pulse Ox 100% on R/A; Pain 0/10; ss 13:28 BP 114 / 96; Pulse 125; Pulse Ox 100% on R/A; ss 13:33 Pulse 79; ss 15:03 BP 164 / 85; Pulse 103; Resp 16; Temp 98.2(TE); Pulse Ox 100% on R/A; Pain 0/10; ss 11:36 Body Mass Index 35.35 (99.34 kg, 167.64 cm) ss 11:36 Pain Scale: Adult ss 12:35 Pain Scale: Adult ss 15:03 Pain Scale: Adult ss ED Course: 11:20 Patient arrived in ED. ec2 11:22 Zachery Arias DO is Attending Physician. ms3 11:38 Triage completed. ss 11:38 Arm band placed on right wrist. ss 11:38 Patient has correct armband on for positive identification. Placed in gown. Bed in low ss position. Call light in reach. Side rails up X 1. 11:55 XRAY Chest (1 view) In Process Unspecified. EDMS 12:00 Maintain EMS IV. Dressing intact. Good blood return noted. Site clean \T\ dry. Gauge \T\ ss site: 20 gauge in L AC. Flushed with 10 mL NS. 13:14 Cris Briggs, RN is Primary Nurse. 13:15 Black Whitaker MD is Hospitalizing Provider. ms3 15:02 No provider procedures requiring assistance completed. Patient admitted, IV remains in ss place. Administered Medications: 13:33 Drug: Diltiazem IVP 10 mg IVP once; Over 2 minutes Route: IVP; Site: left antecubital; ss 14:00 Follow up: Response: HR decreased as expected ss 14:28 Drug: Sotalol PO 80 mg PO once Route: PO; ss 15:15 Follow up: Response: No adverse reaction ss Medication: 12:36 VIS not applicable for this client. Outcome: 13:16 Decision to Hospitalize by Provider. ms3 15:02 Condition: good ss 15:02 Instructed on the need for admit, 17:08 Patient left the ED. ll1 Signatures: Dispatcher [employer] EDCris Brown RN RN Tanya Curry RN RN 1 Zachery Arias DO DO ms3 Mingo Diaz MD MD ec2
--- NOTE | 2024-07-02 13:16 | EDPHYS ---
Physician Documentation [facility] Name: Jovanna Blake Age: 74 yrs Sex: Female : 1950 Arrival Date: 07/02/2024 Time: 11:20 Bed 4 Private MD: ED Physician Zachery Arias HPI: 07/02 11:26 This 74 yrs old Female presents to ER via Unassigned with complaints of palpitations. ms3 11:26 74-year-old female with past medical history of atrial fibrillation status post ms3 ablation May 18, 2024, hypertension, hyperlipidemia presents to the emergency department via [facility] for chest palpitations that began at 830. Patient noted her heart rate to be in the 150s. On EMS arrival patient's heart rate was tween 148 and 170. 12.5 mg of Cardizem was given with improvement in patient's heart rate. Patient denies pain. Patient denies shortness of breath, nausea, vomiting.. Historical: - Allergies: 11:38 Unknown abx; ss - PMHx: 11:38 Atrial fibrillation; ss - PSHx: 11:38 heart ablation; ss - Immunization history:: Adult Immunizations up to date. - Infectious Disease History:: Denies. - Social history:: Smoking status: Patient denies any tobacco usage or history of. ROS: 11:26 Constitutional: Negative for fever, and chills. Respiratory: Negative for shortness of ms3 breath, cough, wheezing, and pleuritic chest pain, Abdomen/GI: Negative for abdominal pain, nausea, vomiting, diarrhea, and constipation, 11:26 MS/Extremity: Negative for injury and deformity, Skin: Negative for injury, rash, and discoloration, 11:26 Cardiovascular: Positive for palpitations, Exam: 11:26 Constitutional: This is a well developed, well nourished patient who is awake, alert, ms3 and in no acute distress. Respiratory: Lungs have equal breath sounds bilaterally, clear to auscultation and percussion. No rales, rhonchi or wheezes noted. No increased work of breathing, no retractions or nasal flaring. Abdomen/GI: Soft, non-tender, with normal bowel sounds. No distension or tympany. No guarding or rebound. No evidence of tenderness throughout. 11:26 Skin: Warm, dry with normal turgor. Normal color with no rashes, no lesions, and no evidence of cellulitis. MS/ Extremity: Pulses equal, no cyanosis. Neurovascular intact. Full, normal range of motion. 11:26 Cardiovascular: Rate: tachycardic, Rhythm: irregularly irregular, Pulses: no pulse deficits are appreciated, Heart sounds: normal, normal S1and S2, 12:40 ECG was reviewed by the Attending Physician. ms3 Vital Signs: 11:36 BP 140 / 46; Pulse 91; Resp 17; Temp 97.9(TE); Pulse Ox 100% on R/A; Weight 99.34 kg; ss Height 5 ft. 6 in. ; Pain 0/10; 12:35 BP 148 / 89; Pulse 100; Resp 15; Pulse Ox 100% on R/A; Pain 0/10; ss 13:28 BP 114 / 96; Pulse 125; Pulse Ox 100% on R/A; ss 13:33 Pulse 79; ss 15:03 BP 164 / 85; Pulse 103; Resp 16; Temp 98.2(TE); Pulse Ox 100% on R/A; Pain 0/10; ss 11:36 Body Mass Index 35.35 (99.34 kg, 167.64 cm) ss 11:36 Pain Scale: Adult ss 12:35 Pain Scale: Adult ss 15:03 Pain Scale: Adult ss MDM: 11:26 Differential diagnosis: arrythmia, Electrolyte abnormality vs WA. ms3 11:31 Medical Screening Exam initiated ms3 18:45 Data reviewed: vital signs, nurses notes, lab test result(s), EKG, radiologic studies, ms3 and as a result, I will admit patient. Consideration of Admission/Observation Patient was admitted/placed on observation. Management of patient was discussed with the following: Hospitalist: Sherman. I considered the following discharge prescriptions or medication management in the emergency department Medications were administered in the Emergency Department. See MAR. Independent interpretation of the following test(s) in the Emergency Department EKG: See my EKG interpretation above. Counseling: I had a detailed discussion with the patient and/or guardian regarding the historical points, exam findings, and any diagnostic results supporting the discharge/admit diagnosis, lab results, radiology results, the need for further work-up and treatment in the hospital. ED course: Discussed case with hospitalist team and they accept patient as admission. Discussed plan for admission with patient and she understands and agrees with plan. All questions answered. 07/02 11:23 Order name: Basic Metabolic Panel; Complete Time: 13:11 ms3 07/02 11:23 Order name: CBC with Diff; Complete Time: 12:55 ms3 07/02 11:23 Order name: Magnesium; Complete Time: 13:11 ms3 07/02 11:23 Order name: NT PRO-BNP; Complete Time: 13:11 ms3 07/02 11:23 Order name: Troponin HS; Complete Time: 13:11 ms3 07/02 14:05 Order name: T4 Free EDMS 07/02 14:05 Order name: Thyroid Stimulating Hormone EDMS 07/02 14:05 Order name: Urinalysis w/ reflexes EDMS 07/02 14:05 Order name: Basic Metabolic Panel EDMS 07/02 14:05 Order name: Basic Metabolic Panel EDMS 07/02 14:05 Order name: Basic Metabolic Panel EDMS 07/02 14:05 Order name: Basic Metabolic Panel EDMS 07/02 14:05 Order name: CBC with Automated Diff EDMS 07/02 14:05 Order name: CBC with Automated Diff EDMS 07/02 14:05 Order name: CBC with Automated Diff EDMS 07/02 14:05 Order name: CBC with Automated Diff EDMS 07/02 14:05 Order name: Lipid Profile EDMS 07/02 14:05 Order name: Lipid Profile EDMS 07/02 14:05 Order name: Magnesium EDMS 07/02 14:05 Order name: Magnesium EDMS 07/02 14:05 Order name: Magnesium EDMS 07/02 14:05 Order name: Magnesium EDMS 07/02 14:05 Order name: Phosphorus EDMS 07/02 14:05 Order name: Phosphorus EDMS 07/02 14:05 Order name: Phosphorus EDMS 07/02 14:05 Order name: Phosphorus EDMS 07/02 14:05 Order name: Troponin High Sensitivity EDMS 07/02 14:05 Order name: Troponin High Sensitivity EDMS 07/02 14:05 Order name: Troponin High Sensitivity EDMS 07/02 11:23 Order name: XRAY Chest (1 view); Complete Time: 12:03 ms3 07/02 14:07 Order name: EKG Electrocardiogram EDMS 07/02 11:23 Order name: Cardiac monitoring; Complete Time: 11:39 ms3 07/02 11:23 Order name: EKG - Nurse/Tech; Complete Time: 11:39 ms3 07/02 11:23 Order name: IV Saline Lock; Complete Time: 11:38 ms3 07/02 11:23 Order name: Labs collected and sent; Complete Time: 11:38 ms3 07/02 11:23 Order name: O2 Per Protocol; Complete Time: 11:39 ms3 07/02 11:23 Order name: O2 Sat Monitoring; Complete Time: 11:39 ms3 EC:40 Rate is 102 beats/min. Rhythm is irregularly irregular. Left axis deviation noted. QRS ms3 interval is normal. Clinical impression: Atrial Fibrillation. Interpreted by me. Reviewed by me. Administered Medications: 13:33 Drug: Diltiazem IVP 10 mg IVP once; Over 2 minutes Route: IVP; Site: left antecubital; ss 14:00 Follow up: Response: HR decreased as expected ss 14:28 Drug: Sotalol PO 80 mg PO once Route: PO; ss 15:15 Follow up: Response: No adverse reaction ss Disposition Summary: 07/02/24 13:16 Hospitalization Ordered Notes: Hospitalization Status: Observation ms3 Provider: Black Whitaker ms3 Location: Telemetry/MedSurg (observation) ms3 Condition: Stable ms3 Problem: new ms3 Symptoms: are unchanged ms3 Bed/Room Type: Standard ms3 Room Assignment: 217(07/02/24 15:33) bd Diagnosis - Unspecified atrial fibrillation ms3 - Essential (primary) hypertension ms3 Forms: - Medication Reconciliation Form ms3 - SBAR form ms3 - Leadership Thank You Letter ms3 Signatures: Dispatcher [employer] EDMS Zaira Harrison Shelby, RN RN ss Zachery Arias DO DO ms3 Corrections: (The following items were deleted from the chart) 11:23 11:23 BASIC METABOLIC PANEL+C.LAB.BRZ ordered. EDMS EDMS 11:23 11:23 CBC+H.LAB.BRZ ordered. EDMS EDMS 11:23 11:23 MAGNESIUM+C.LAB.BRZ ordered. EDMS EDMS 11:23 11:23 PROBNP+C.LAB.BRZ ordered. EDMS EDMS 11:23 11:23 Troponin High Sensitivity+C.LAB.BRZ ordered. EDMS EDMS 11 11:23 Chest Single View+RAD.RAD.BRZ ordered. EDMS EDMS 15:33 13:16 ms3 bd
[2024-07-02] MEDS ORDERED: dilTIAZem HCL 25 MG/5 ML VIAL IV ONE (13:26)
--- NOTE | 2024-07-02 13:50 | P.HP ---
Certification for Inpatient Patient admitted to: Observation With expected LOS: >2 Midnights <Aviva Gallegos - Last Filed: 07/02/24 14:42> Patient History Date of Service: 07/02/24 Reason for admission: A-fib with RVR History of Present Illness: Jovanna Blake is a 74-year-old female with past medical history of hypertension, hyperlipidemia, aortic valve replacement and A-fib status post heart ablation ( May 2024), who presents to the ED with heart palpitations this morning not associated with chest pain or shortness of breath. She has had a cardiac history of 3 stents (unknown date) and aortic valve replacement (July 2023). Atrial fibrillation was first diagnosed in April 2024 with an ablation May 2024. On evaluation she was found to be in Afib with RVR, she was given 2 doses of Cardizem, 1 from the EMS and 1 from the ED now with HR 109. Chest x-ray report "The lungs are well inflated and clear. The heart is upper limit of normal in size. No displaced fractures identified. " Jovanna will be admitted to hospitalist service for further evaluation and treatment of atrial fibrillation with RVR, Dr. Pedroza consulted - Past Medical/Surgical History -: Atrial fibrillation -: Hypertension -: Hyperlipidemia -: Aortic valve replacement -: 3 cardiac stents - Social History Smoking Status: Never smoker Alcohol use: No CD- Drugs: No <Aivva Gallegos - Last Filed: 07/02/24 14:42> Date of Service: 07/02/24 <Black Whitaker - Last Filed: 07/02/24 15:18> Review of Systems Other: Per HPI <Aviva Gallegos - Last Filed: 07/02/24 14:42> Physical Examination - Physical Exam General: Alert, In no apparent distress, Oriented x3 HEENT: Atraumatic, Normocephalic Respiratory: Clear to auscultation bilaterally, Normal air movement Cardiovascular: No edema, Normal pulses, Regular rate/rhythm Capillary refill: <2 Seconds Gastrointestinal: Normal bowel sounds, Soft and benign Musculoskeletal: No clubbing Integumentary: No rashes Neurological: Normal speech, Normal tone - Studies Laboratory Data (last 24 hrs) 07/02/24 07/02/24 12:01 12:01 WBC 9.70 Hgb 13.3 Hct 39.7 Plt Count 231 Sodium 143 Potassium 3.8 BUN 24 H Creatinine 0.94 Glucose 99 Magnesium 2.2 <Aviva Gallegos - Last Filed: 07/02/24 14:42> - Studies Laboratory Data (last 24 hrs) 07/02/24 07/02/24 12:01 12:01 WBC 9.70 Hgb 13.3 Hct 39.7 Plt Count 231 Sodium 143 Potassium 3.8 BUN 24 H Creatinine 0.94 Glucose 99 Magnesium 2.2 <Black Whitaker - Last Filed: 07/02/24 15:18> Assessment and Plan - Plan Assessment and Plan Afib with RVR Aortic valve replacement cardiac stents x 3 -Cardizem x 2 given prior to admission -Reports ablation in May 2024 -Home meds include coreg and eliquis -Cardiology consulted -Sotalol 80 mg BID, first dose now at 1432 -NPO at midnight -repeat EKG after third dose of sotalol -Serial troponins -continuous telemetry -Continue to follow-up with cardiology outpatient Hypertension/hyperlipidemia -Continue home medications DVT PPx Eliquis Full code/call family for further needs, no blood transfusions LOS 24-hour OBS Discharge Plan: Home Plan to discharge in: 24 Hours - Advance Directives Does patient have a Living Will: No Does patient have a Durable POA for Healthcare: No <Aviva Gallegos - Last Filed: 07/02/24 14:42> Physician Review: Patient Assessed, Agree with Above Assessment and Plan <Black Whitaker - Last Filed: 07/02/24 15:18>
[2024-07-02] MEDS ORDERED: ACETAMINOPHEN 325 MG TABLET PO PRN (13:58)
[2024-07-02] MEDS ORDERED: SOTALOL HCL 80 MG TAB ONE (14:26)
[2024-07-02] MEDS ORDERED: ACETAMINOPHEN 500 MG TAB PO PRN (14:40)
[2024-07-02] MEDS ORDERED: HYDRALAZINE HCL 20 MG/ML VIAL IV PRN (14:40)
--- NOTE | 2024-07-02 16:40 | P.CNS ---
Date of Consult: 07/02/24 Chief Complaint: A-fib with RVR History of Present Illness: Patient with PMH of CAD s/p PCI x2, last in 05/2023, AF s/p recent ablation on 05/2024, ESPINOZA, all done at [facility], presented with palpitations, denies chest pain, no SOB, no MARY, no syncope. Home medications list reviewed: Yes - Past Medical/Surgical History -: Atrial fibrillation -: Hypertension -: Hyperlipidemia -: Aortic valve replacement -: 3 cardiac stents - Social History Alcohol use: No CD- Drugs: No Review of Systems 10-point ROS is otherwise unremarkable Physical Examination General: Alert, In no apparent distress HEENT: Atraumatic, PERRLA, Mucous membr. moist/pink, EOMI, Sclerae nonicteric Neck: Supple, 2+ carotid pulse no bruit, No LAD, Without JVD or thyroid abnor mality Respiratory: Clear to auscultation bilaterally, Normal air movement Cardiovascular: Irregular heart rate/rhythm Gastrointestinal: Normal bowel sounds, No tenderness Musculoskeletal: No tenderness Integumentary: No rashes Neurological: Normal gait, Normal speech, Normal tone, Normal affect Lymphatics: No axilla or inguinal lymphadenopathy Laboratory Data (last 24 hrs) 07/02/24 07/02/24 12:01 12:01 WBC 9.70 Hgb 13.3 Hct 39.7 Plt Count 231 Sodium 143 Potassium 3.8 BUN 24 H Creatinine 0.94 Glucose 99 Magnesium 2.2 - Problems (1) Atrial fibrillation Current Visit: Yes Status: Acute Plan: recent ablation, in RVR Sotalol 80 mg po BID (EKG after 3rd dose) Eliquis 5 mg po BID NPO after midnight for ALINA DCCV in am (2) CAD (coronary artery disease) Current Visit: Yes Status: Acute Plan: ASA 81 mg daily Lipitor 40 mg daily (3) History of transcatheter aortic valve implantation (ESPINOZA) Current Visit: Yes Status: Acute Plan: patient to follow up with her outpatient muff winder for updated echo
[2024-07-02 19:40] VITALS: BMI 35.0
[2024-07-02] MEDS: APIXABAN 5 MG TABLET PO SCH (21:15)
[2024-07-02] MEDS: ATORVASTATIN 40 MG TAB PO SCH (21:15)
[2024-07-02 22:42] VITALS: O2SAT 95
[2024-07-03] MEDS: SOTALOL HCL 80 MG TAB PO SCH (03:27)
[2024-07-03 04:33] LABS: Absolute Basophils 0.1 K/uL (0-0.5); Absolute Eosinophils 0.3 K/uL (0-0.5); Absolute Lymphocytes (CBC) 4.1 K/uL (0.7-4.9); Absolute Monocytes 0.8 K/uL (0.1-1.3); Absolute Neutrophil 5.3 K/uL (1.8-8.0); Basophils % 0.7 % (0-1.3); Eosinophils % 2.5 % (0-4.4); Hematocrit 36.5 % (36.0-45.0); Hemoglobin 12.4 g/dL (12.0-15.0); Lymphocytes % 38.9 % (15.3-44.8); MCH 30.7 pg (27.0-35.0); MCV 90.3 fL (80-100); MPV 7.9 fL (7.6-11.3); Monocytes % 7.2 % (3.3-12.3); Neutrophils % 50.7 % (41.7-73.7); Platelets 246 thou/uL (152-406); RBC Red Blood Cell Count 4.04 M/uL (3.86-4.86)
[2024-07-03 04:52] LABS: Anion Gap 6.7 mEq/L (5.0-15.0); Magnesium 2.2 mg/dL (1.6-2.4); Potassium 3.7 mEq/L (3.5-5.1)
[2024-07-03 05:04] LABS: Thyroid Stimulating Hormone 3.96 uIU/mL (0.358-3.740)
[2024-07-03] MEDS ORDERED: LIDOCAINE 1% MPF 5 ML VIAL ONE (07:23)
[2024-07-03] MEDS ORDERED: propofoL 200 MG/20 ML VIAL IV ONE (07:23)
[2024-07-03] MEDS: ASPIRIN EC 81 MG TAB PO SCH (09:11)
--- NOTE | 2024-07-03 09:27 | P.PN ---
Subjective Date of Service: 07/03/24 Chief Complaint: A-fib with RVR Subjective: No new changes, No C/O voiced, Tolerating diet, Ambulating, Improving Review of Systems 10-point ROS is otherwise unremarkable Physical Examination - Vital Signs Temperature: 97.9 F Blood Pressure: 144/67 Pulse: 55 Respirations: 15 Pulse Ox (%): 98 - Physical Exam General: Alert, In no apparent distress HEENT: Atraumatic, PERRLA, EOMI Neck: Supple, JVD not distended Respiratory: Clear to auscultation bilaterally, Normal air movement Cardiovascular: Regular rate/rhythm, Normal S1 S2 Gastrointestinal: Normal bowel sounds, No tenderness Musculoskeletal: No tenderness Integumentary: No rashes Neurological: Normal speech, Normal tone, Normal affect Lymphatics: No axilla or inguinal lymphadenopathy - Studies Laboratory Data (last 24 hrs) 07/02/24 07/02/24 12:01 12:01 WBC 9.70 Hgb 13.3 Hct 39.7 Plt Count 231 Sodium 143 Potassium 3.8 BUN 24 H Creatinine 0.94 Glucose 99 Magnesium 2.2 Medications List Reviewed: Yes Assessment And Plan - Current Problems (Diagnosis) (1) Atrial fibrillation Current Visit: Yes Status: Acute Plan: recent ablation, presented with RVR, now in sinus rhythm Sotalol 80 mg po BID (EKG after 3rd dose) Eliquis 5 mg po BID (2) CAD (coronary artery disease) Current Visit: Yes Status: Acute Plan: ASA 81 mg daily Lipitor 40 mg daily (3) History of transcatheter aortic valve implantation (ESPINOZA) Current Visit: Yes Status: Acute Plan: patient to follow up with her outpatient assistant health educator for updated echo Physician Review: Patient Assessed, Agree with Above Assessment and Plan
--- NOTE | 2024-07-03 10:52 | P.DS ---
Admission Date: 07/02/24 Discharge Date: 07/03/24 Disposition: ROUTINE DISCHARGE Discharge Condition: GOOD Reason for Admission: A-fib with RVR Hospital Course: 74-year-old female with a past medical history of hypertension, hyperlipidemia, aortic valve replacement, A-fib status post heart ablation presented with chest pain and shortness of breath. She was found to be in A-fib with RVR in the ED she was dosed with sotalol. Cardiology was consulted. Her heart reverted back to normal sinus rhythm. She had no other acute complications during her stay. Her medical problems were chronic and stable. She will remain on her aspirin, Lipitor, sotalol, Eliquis upon discharge. She has to follow-up with her senior data integration developer. She is medically optimized for discharge Vital Signs/Physical Exam: Temp Pulse Resp BP Pulse Ox 97.9 F 55 15 144/67 H 98 07/03/24 09:27 07/03/24 09:27 07/03/24 09:27 07/03/24 09:27 07/03/24 09:27 Laboratory Data at Discharge: WBC 10.50 thou/uL (4.3-10.9) 07/03/24 04:07 Hgb 12.4 g/dL (12.0-15.0) 07/03/24 04:07 Hct 36.5 % (36.0-45.0) 07/03/24 04:07 Plt Count 246 thou/uL (152-406) 07/03/24 04:07 Sodium 142 mEq/L (136-145) 07/03/24 04:07 Potassium 3.7 mEq/L (3.5-5.1) 07/03/24 04:07 BUN 32 mg/dL (7-18) H 07/03/24 04:07 Creatinine 1.07 mg/dL (0.55-1.02) H 07/03/24 04:07 Glucose 100 mg/dL (74-106) 07/03/24 04:07 Phosphorus 4.0 mg/dL (2.5-4.9) 07/03/24 04:07 Magnesium 2.2 mg/dL (1.6-2.4) 07/03/24 04:07 Triglycerides 124 mg/dL (<150) 07/03/24 04:07 Cholesterol 126 mg/dL (<200) 07/03/24 04:07 HDL Cholesterol 48 mg/dL (40-60) 07/03/24 04:07 Cholesterol/HDL Ratio 2.63 07/03/24 04:07 Home Medications: Allopurinol 100 mg PO BEDTIME 07/02/24 Amlodipine [Norvasc*] 10 mg PO DAILY 07/02/24 Apixaban [Eliquis] 5 mg PO BID 07/02/24 Ascorbic Acid 500 mg PO DAILY 07/02/24 Aspirin Chewable [Aspirin Chewable*] 81 mg PO DAILY 07/02/24 Atorvastatin Calcium [Lipitor] 80 mg PO BEDTIME 07/02/24 Duloxetine HCl [Cymbalta] 30 mg PO DAILY 07/02/24 Ezetimibe 10 mg PO DAILY 07/02/24 Levothyroxine [Synthroid*] 88 mcg PO [id number] 07/02/24 Nitroglycerin [Nitrostat*] 0.4 mg SL SEECOM PRN 07/02/24 Tramadol HCl [Ultram] 50 mg PO BIDP PRN 07/02/24 carvediloL [Carvedilol] 6.25 mg PO BID 07/02/24 hydroCHLOROthiazide [Hydrochlorothiazide] 25 mg PO DAILY 07/02/24 lisinopriL [Lisinopril] 40 mg PO DAILY 07/02/24 Sotalol HCl [Betapace*] 80 mg PO BID 30 Days #60 tab 07/03/24 New Medications: Sotalol HCl [Betapace*] 80 mg PO BID 30 Days #60 tab Followup: Hernesto Pedroza MD [ACTIVE - CAN ADMIT] - 1-2 Weeks Adrien Tabares MD [Primary Care Provider] - 1-2 Weeks
[2024-07-03 11:16] VITALS: BP 125/56; TEMP 97.7
== END 2024-07-03 14:47 | disposition home or self-care (01) ==
LOC: ER 11:20 → ERHOLD 13:58 → 2ND 16:16
PROVIDERS: ADMIT Family Medicine; ATTEND Family Medicine
DX: I48.11 Longstanding persistent atrial fibrillation (principal); I10 Essential (primary) hypertension; E78.5 Hyperlipidemia, unspecified; I25.10 Atherosclerotic heart disease of native coronary artery without angina pectoris; Z95.2 Presence of prosthetic heart valve; Z95.5 Presence of coronary angioplasty implant and graft; Z79.82 Long term (current) use of aspirin
CPT/HCPCS: 36415; 71045; 80048; 80061; 83735; 83880; 84100; 84439; 84443; 84484; 85025; 93005; 96374; 99284; G0378; J2003; J2704